=== PATIENT | female | born 1985 | race Caucasian/White ===

== ENCOUNTER 2018-07-10 15:48 | Emergency (ER) | payer OTHER ==
[2018-07-10 16:28] VITALS: RESP 18; TEMP 97.8
--- NOTE | 2018-07-10 16:54 | ED ---
General Adult HPI - General Chief complaint: Skin/Abscess/Foreign Body Stated complaint: Abcess on arm that has burst Source: patient Mode of arrival: ambulatory Limitations: no limitations - History of Present Illness Initial comments: Dictation was produced using [employer] dictation software. please excuse any grammatical, word or spelling errors. Chief Complaint: 33-year-old female past medical history of diabetes presents with right antecubital abscess. History of Present Illness:-year-old female presents with right antecubital abscess patient was seen at an outside emergency department 2 days ago. She states that yesterday the wound open with drainage of several months of purulent fluid. She was instructed to days ago to come to the emergency department however was unable to find chest rotation. She states that yesterday the wound open spontaneously with intercourse relief of pressure. Patient has any constitutional symptoms. She denies any IV drug abuse. Patient states she is prone to abscesses. Patient just found a primary care physician and has an appointment early next week. The ROS documented in this emergency department record has been reviewed and confirmed by me. Those systems with pertinent positive or negative responses have been documented in the HPI. All other systems are other negative and/or noncontributory. - Related Data Previous Rx's Medication Instructions Recorded Cephalexin [Keflex] 500 mg PO Q6HR 5 Days #20 cap 07/10/18 HYDROcodone/APAP 5-325MG [[place] 1 tab PO Q6HR PRN 3 Days #12 tab 07/10/18 5-325] Sulfamethox-Tmp 800-160Mg [Bactrim 1 tab PO Q12HR 5 Days #10 tab 07/10/18 DS 800-160 mg] Allergies Allergy/AdvReac Type Severity Reaction Status Date / Time No Known Allergies Allergy Verified 07/10/18 16:22 Review of Systems ROS Statement: Those systems with pertinent positive or pertinent negative responses have been documented in the HPI. ROS Other: All systems not noted in ROS Statement are negative. Past Medical History Past Medical History: Diabetes Mellitus History of Any Multi-Drug Resistant Organisms: None Reported Additional Past Surgical History / Comment(s): neck tumor removal, renal stents placed and removed Past Psychological History: No Psychological Hx Reported Smoking Status: Current every day smoker Past Alcohol Use History: None Reported Past Drug Use History: Marijuana General Exam - General Exam Comments Initial Comments: PHYSICAL EXAM: General Impression: Alert and oriented x3, not in acute distress HEENT: Normocephalic atraumatic, extra-ocular movements intact, pupils equal and reactive to light bilaterally, mucous membranes moist. Cardiovascular: Heart regular rate and rhythm, S1&S2 audible, no murmurs, rubs or gallops Chest: Lungs clear to auscultation bilaterally, no rhonchi, no wheeze, no rales Abdomen: Bowel sounds present, abdomen soft, non-tender, non-distended, no organomegaly Musculoskeletal: Pulses present and equal in all extremities, no peripheral edema Motor: Power 5/5 bilaterally, no focal deficits noted Neurological: CN II-XII grossly intact, no focal motor or sensory deficits noted Skin: Right antecubital abscess with large 2 x 0.5 cm opening. There is induration around the area however no significant erythema. Psych: Normal affect and mood Limitations: no limitations Course Vital Signs 07/10/18 16:22 Temperature 97.8 F Pulse Rate 100 Respiratory 18 Rate Blood Pressure 114/76 O2 Sat by Pulse 96 Oximetry Medical Decision Making - Medical Decision Making ED course: 33-year-old female presents with right antecubital upper extremity abscess. Patient has spontaneous drainage with large opening over top. Wound was irrigated and packing was placed. Patient is stable vital signs. Denies any constitutional symptoms. Patient has good follow-up with primary care physician early next week. She does have reliable transportation and can return to the emergency department should there be any worsening symptoms. No incision and drainage necessary given that patient has spontaneous drainage. Given patient's history of diabetes mellitus. Point of care blood sugar checked. Patient denies any . Patient's blood sugar is 541. Patient given prescription for Bactrim, Keflex and Columbia. Plan of care blood glucose is 541. Patient ordered BMP and urine . States that she doesn't want to stay for those labs. Patient given insulin she has a glucometer at home that she can monitor her sugars at home. Discussed with patient that she is likely a candidate for insulin therapy. She doesn't establish care with primary care physician. Patient given intravenous fluids and insulin. Patient not tachypnea. She is not complaining of other symptoms. No clinical suspicion for acidosis or hyperosmolar coma given the benign appearance. Patient given prescription for antibiotics. She states she does not want to wait for the results of her lab evaluation. Patient given prescriptions for antibiotics and pain medications. She told to follow-up with her primary care physician upon discharge. Told to return to the emergency Department with any worsening symptoms or notes a constitutional symptoms. Patient understandable agreeable. - Lab Data Lab Results 07/10/18 Range/Units 17:06 POC Glucose (mg/dL) 541 H (75-99) mg/dL POC Glu [employer] Supervisor ID Linda Puckett Disposition Clinical Impression: Abscess, Hyperglycemia Disposition: HOME SELF-CARE Condition: Good Instructions: Abscess (ED) Prescriptions: Cephalexin [Keflex] 500 mg PO Q6HR 5 Days #20 cap HYDROcodone/APAP 5-325MG [[place] 5-325] 1 tab PO Q6HR PRN 3 Days #12 tab PRN Reason: Pain Sulfamethox-Tmp 800-160Mg [Bactrim DS 800-160 mg] 1 tab PO Q12HR 5 Days #10 tab Is patient prescribed a controlled substance at d/c from ED?: Yes If prescribed controlled substance>3 days was MAPS reviewed?: Prescribed <3 Days Referrals: Michele Rangel PAC [Primary Care Provider] - 1-2 days Time of Disposition: 18:41
[2018-07-10 17:09] LABS: Glucose,Whole Blood 541 mg/dL (75-99)
[2018-07-10] MEDS ORDERED: SODIUM CHLORIDE 0.9% 1,000 ML IV STA (17:11)
[2018-07-10] MEDS ORDERED: INSULIN REGULAR 100 UNIT/ML VIAL SQ ONE (17:51)
[2018-07-10] MEDS ORDERED: HYDROcodone/APAP 5-325MG 1 EACH TAB PO STA (17:51)
[2018-07-10 18:55] VITALS: BP 125/82; PULSE 84
[2018-07-10 18:58] LABS: Glucose,Whole Blood 557 mg/dL (75-99)
== END 2018-07-10 18:54 | disposition home or self-care (01) ==
LOC: EC 15:48
DX: L02.413 Cutaneous abscess of right upper limb (principal); E11.65 Type 2 diabetes mellitus with hyperglycemia; F17.200 Nicotine dependence, unspecified, uncomplicated
CPT/HCPCS: 36415; 81025; 99283

== ENCOUNTER 2019-10-25 14:25 | Emergency (ER) | payer OTHER ==
[2019-10-25 14:41] VITALS: RESP 18
[2019-10-25] MEDS ORDERED: SODIUM CHLORIDE 0.9% 1,000 ML IV STA (15:16)
[2019-10-25] MEDS ORDERED: KETOROLAC 30 MG/ML 1 ML VIAL IVP STA (15:16)
[2019-10-25] MEDS ORDERED: PIPERACILLIN-TAZOBACTAM 3.375 GM in SODIUM CHLORIDE 0.9% 100 ML IVPB STA (15:16)
[2019-10-25] MEDS ORDERED: VANCOMYCIN IV PER PHARMACY 1 EACH MISC MISCELLANE PRN (15:17)
[2019-10-25] MEDS ORDERED: VANCOMYCIN 1,750 MG in SODIUM CHLORIDE 0.9% 500 ML 500 ML IVPB STA (15:23)
[2019-10-25 15:33] LABS: Basophils # (A) 0.1 k/uL (0-0.2); Basophils % (A) 1 %; Eosinophils # (A) 0.1 k/uL (0-0.7); Eosinophils % (A) 1 %; HCT 46.5 % (34.0-46.0); HGB 15.7 gm/dL (11.4-16.0); Lymphocytes # (A) 2.5 k/uL (1.0-4.8); Lymphocytes % (A) 28 %; MCH 28.1 pg (25.0-35.0); MCHC 33.9 g/dL (31.0-37.0); MCV 82.9 fL (80.0-100.0); Mean Platelet Volume 7.2; Monocytes # (A) 0.4 k/uL (0-1.0); Monocytes % (A) 4 %; Neutrophils # (A) 5.6 k/uL (1.3-7.7); Neutrophils % (A) 64 %; Platelet Count 324 k/uL (150-450); RBC 5.61 m/uL (3.80-5.40); RDW 14.9 % (11.5-15.5); WBC 8.8 k/uL (3.8-10.6)
[2019-10-25 15:45] LABS: ALT 26 U/L (4-34); AST 24 U/L (14-36); African American GFR (CKD) >90 (>60 ml/min/1.73 sqM); Albumin 4.5 g/dL (3.5-5.0); Alkaline Phosphatase 104 U/L (38-126); Anion Gap 11 mmol/L; Blood Urea Nitrogen 11 mg/dL (7-17); C Reactive Protein <5.0 mg/L (<10.0); Calcium 9.9 mg/dL (8.4-10.2); Carbon Dioxide 25 mmol/L (22-30); Chloride 105 mmol/L (98-107); Glucose 204 mg/dL (74-99); Non-African American GFR(CKD) >90 (>60 ml/min/1.73 sqM); Potassium 3.9 mmol/L (3.5-5.1); Sodium 141 mmol/L (137-145); Total Bilirubin 0.6 mg/dL (0.2-1.3); Total Protein 8.3 g/dL (6.3-8.2)
[2019-10-25 15:49] LABS: INR 0.9 (<1.2); Partial Thromboplastin Time 22.8 sec (22.0-30.0); Prothrombin Time 9.6 sec (9.0-12.0)
--- NOTE | 2019-10-25 15:53 | XR ---
EXAMINATION TYPE: XR hand complete LT DATE OF EXAM: 10/25/2019 COMPARISON: NONE HISTORY: Swelling and ulcerations of the first digit TECHNIQUE: Three views are submitted. FINDINGS: The osseous structures are intact. The joint spaces are preserved and there is no acute fracture or dislocation. Extensive soft tissue abnormality involving the first digit. Does appear to be loss of t he cortical margin of the proximal phalanx compatible with a degree of erosive or destructive change. Arthropathy involving the first carpal metacarpal joint and scaphotrapezial joint noted. IMPRESSION: 1. No definite acute fracture or dislocation if symptoms persist, follow-up study in 7 to 10 days wo uld be suggested. 2. Findings suspicious for osteomyelitis of the proximal phalanx first digit. Extensive soft tissue u lceration is noted.
[2019-10-25 16:24] LABS: Erythrocyte Sedimentation Rate 25 mm/hr (0-20)
[2019-10-25] MEDS ORDERED: MORPHINE SULFATE 4 MG/ML SYRINGE IVP STA (17:52)
--- NOTE | 2019-10-25 17:52 | ED ---
Recheck HPI - General Source: patient Mode of arrival: ambulatory Limitations: no limitations <Chyna Malik - Last Filed: 10/25/19 17:43> <Onofre Muhammad - Last Filed: 10/25/19 18:19> - General Chief Complaint: Recheck/Abnormal Lab/Rx Stated Complaint: lt hand infection Time Seen by Provider: 10/25/19 14:50 - History of Present Illness Initial Comments: Patient is a 34-year-old female presenting to emergency Department with complaints of left thumb infection has been ongoing for 3 months now. Patient states she had surgery on her left wrist in July 2019 and has been having problems with her left thumb ever since the surgery. Patient states the thumb has been black and she has been seeing a plastic surgeon and needed to have the thumb amputated however she needed to cancel the appointment over 3 times and so she was discharged as a patient. Patient states she's been having intermittent fevers as well as nausea and continued severe pain in her left thumb and hand. She denies chest pain, shortness of breath, belly pain. She has no other complaints at this time. She denies any other pertinent past medical history and states he takes no other medications. She denies drug use except for marijuana. Upon arrival to ER, patient was tachycardia at 123, rest of vitals normal. (Chyna Malik) - Related Data Previous Rx's Medication Instructions Recorded Cephalexin [Keflex] 500 mg PO Q6HR 5 Days #20 cap 07/10/18 HYDROcodone/APAP 5-325MG [[place] 1 tab PO Q6HR PRN 3 Days #12 tab 07/10/18 5-325] Sulfamethox-Tmp 800-160Mg [Bactrim 1 tab PO Q12HR 5 Days #10 tab 07/10/18 DS 800-160 mg] Allergies Allergy/AdvReac Type Severity Reaction Status Date / Time No Known Allergies Allergy Verified 10/25/19 14:37 Review of Systems ROS Other: All systems not noted in ROS Statement are negative. <Chyna Malik - Last Filed: 10/25/19 17:43> ROS Other: All systems not noted in ROS Statement are negative. <Onofre Muhammad - Last Filed: 10/25/19 18:19> ROS Statement: Those systems with pertinent positive or pertinent negative responses have been documented in the HPI. Past Medical History Past Medical History: Diabetes Mellitus History of Any Multi-Drug Resistant Organisms: None Reported Additional Past Surgical History / Comment(s): neck tumor removal, renal stents placed and removed Past Psychological History: No Psychological Hx Reported Smoking Status: Current every day smoker Past Alcohol Use History: None Reported Past Drug Use History: Marijuana <Chyna Malik Salvador - Last Filed: 10/25/19 17:43> General Exam Limitations: no limitations <Chyna Malik Salvador - Last Filed: 10/25/19 17:43> - General Exam Comments Initial Comments: GENERAL: Appears disheveled, in mild distress secondary to pain. HEAD: Atraumatic, normocephalic. EYES: Pupils equal round and reactive to light, extraocular movements intact, sclera anicteric, conjunctiva are normal. ENT: TMs normal, nares patent, oropharynx clear without exudates. Moist mucous membranes. NECK: Normal range of motion, supple without lymphadenopathy or JVD. LUNGS: Breath sounds clear to auscultation bilaterally and equal. No wheezes rales or rhonchi. HEART: Regular rate and rhythm without murmurs, rubs or gallops. ABDOMEN: Soft, nontender, normoactive bowel sounds. No guarding, no rebound. No masses appreciated. EXTREMITIES: Patient's left first phalanx is completely necrotic from the base of the thumb all the way distally. Patient also has moderate swelling along the first metacarpal as well as surrounding cellulitis. Patient has severe pain with palpation of the area as well as with range of motion. NEUROLOGICAL: Normal speech, normal gait. Patient has no sensation of the left first digit. PSYCH: Normal mood, normal affect. SKIN: Warm, Dry, normal turgor. Necrotic left thumb as well as surrounding cellulitis and new ulcers present. (Chyna Malik) Course <Onofre Muhammad - Last Filed: 10/25/19 18:19> Vital Signs 10/25/19 10/25/19 14:38 18:00 Temperature 97.9 F 98.1 F Pulse Rate 123 H 104 H Respiratory 18 18 Rate Blood Pressure 142/70 121/95 O2 Sat by Pulse 96 98 Oximetry - Reevaluation(s) Reevaluation #1: 10/25/19 18:18 PA supervision: I proceeded [id number] evaluation the patient she has had a blackened left thumb for almost 3 months he states she's missed several plastic surgery appointments due to weather and different situations. She presents today because of some increased pain to the left hand and thumb. The examination reveals a necrotic left thumb consistent with dry gangrene. Her thenar eminence on the lefterythema with increased localized temperature no definite crepitation. It is consistent with a cellulitis. The patient will be transferred to [facility] by ambulance for inpatient treatment (Onofre Muhammad) Medical Decision Making - Lab Data Result diagrams: 10/25/19 15:08 10/25/19 15:08 <Chyna Malik - Last Filed: 10/25/19 17:43> - Lab Data Result diagrams: 10/25/19 15:08 10/25/19 15:08 <Onofre Muhammad - Last Filed: 10/25/19 18:19> - Medical Decision Making Patient is a 34-year-old female presenting with a left thumb is completely necrotic 3 months. Patient was tach and arrival, rest of vitals normal. X-ray of the left thumb shows suspicious for osteomyelitis, extensive soft tissue ulceration. Lab work shows ESR 25, lactic acid 1.7, white count is normal. Wound culture as well as blood cultures are pending at this time. Patient was given pain control, fluids, Zosyn, Vanco. Spoke with our on-call orthopedic, Dr. Flores who was not comfortable with this patient and recommended transfer. I spoke with the [facility] trauma surgeon, Dr. Moralez who did accept the patient. Patient will be transferred via EMS to the [facility], Dr. James was accepting ER doctor. Patient is in agreement with this plan of care. Spoke with Dr. Muhammad who agrees to this plan of care. (Chyna Malik) - Lab Data Lab Results 10/25/19 10/25/19 10/25/19 Range/Units 15:08 15:08 15:08 WBC 8.8 (3.8-10.6) k/uL RBC 5.61 H (3.80-5.40) m/uL Hgb 15.7 (11.4-16.0) gm/dL Hct 46.5 H (34.0-46.0) % MCV 82.9 (80.0-100.0) fL MCH 28.1 (25.0-35.0) pg MCHC 33.9 (31.0-37.0) g/dL RDW 14.9 (11.5-15.5) % Plt Count 324 (150-450) k/uL Neutrophils % 64 % Lymphocytes % 28 % Monocytes % 4 % Eosinophils % 1 % Basophils % 1 % Neutrophils # 5.6 (1.3-7.7) k/uL Lymphocytes # 2.5 (1.0-4.8) k/uL Monocytes # 0.4 (0-1.0) k/uL Eosinophils # 0.1 (0-0.7) k/uL Basophils # 0.1 (0-0.2) k/uL ESR 25 H (0-20) mm/hr PT (9.0-12.0) sec INR (<1.2) APTT (22.0-30.0) sec Sodium 141 (137-145) mmol/L Potassium 3.9 (3.5-5.1) mmol/L Chloride 105 (98-107) mmol/L Carbon Dioxide 25 (22-30) mmol/L Anion Gap 11 mmol/L BUN 11 (7-17) mg/dL Creatinine 0.71 (0.52-1.04) mg/dL Est GFR (CKD-EPI)AfAm >90 (>60 ml/min/1.73 sqM) Est GFR (CKD-EPI)NonAf >90 (>60 ml/min/1.73 sqM) Glucose 204 H (74-99) mg/dL Plasma Lactic Acid Luke 1.7 (0.7-2.0) mmol/L Calcium 9.9 (8.4-10.2) mg/dL Total Bilirubin 0.6 (0.2-1.3) mg/dL AST 24 (14-36) U/L ALT 26 (4-34) U/L Alkaline Phosphatase 104 (38-126) U/L C-Reactive Protein <5.0 (<10.0) mg/L Total Protein 8.3 H (6.3-8.2) g/dL Albumin 4.5 (3.5-5.0) g/dL 10/25/19 Range/Units 15:08 WBC (3.8-10.6) k/uL RBC (3.80-5.40) m/uL Hgb (11.4-16.0) gm/dL Hct (34.0-46.0) % MCV (80.0-100.0) fL MCH (25.0-35.0) pg MCHC (31.0-37.0) g/dL RDW (11.5-15.5) % Plt Count (150-450) k/uL Neutrophils % % Lymphocytes % % Monocytes % % Eosinophils % % Basophils % % Neutrophils # (1.3-7.7) k/uL Lymphocytes # (1.0-4.8) k/uL Monocytes # (0-1.0) k/uL Eosinophils # (0-0.7) k/uL Basophils # (0-0.2) k/uL ESR (0-20) mm/hr PT 9.6 (9.0-12.0) sec INR 0.9 (<1.2) APTT 22.8 (22.0-30.0) sec Sodium (137-145) mmol/L Potassium (3.5-5.1) mmol/L Chloride (98-107) mmol/L Carbon Dioxide (22-30) mmol/L Anion Gap mmol/L BUN (7-17) mg/dL Creatinine (0.52-1.04) mg/dL Est GFR (CKD-EPI)AfAm (>60 ml/min/1.73 sqM) Est GFR (CKD-EPI)NonAf (>60 ml/min/1.73 sqM) Glucose (74-99) mg/dL Plasma Lactic Acid Luke (0.7-2.0) mmol/L Calcium (8.4-10.2) mg/dL Total Bilirubin (0.2-1.3) mg/dL AST (14-36) U/L ALT (4-34) U/L Alkaline Phosphatase (38-126) U/L C-Reactive Protein (<10.0) mg/L Total Protein (6.3-8.2) g/dL Albumin (3.5-5.0) g/dL Disposition - Out of Hospital Transfer - Req. Specs Out of Hospital Transfer - Requested Specifics: Other Emergency Center ([facility]) <Chyna Malik - Last Filed: 10/25/19 17:43> <Onofre Muhammad - Last Filed: 10/25/19 18:19> Clinical Impression: Necrosis of finger, Cellulitis of left hand Disposition: OTHER INSTITUTION NOT DEFINED Condition: Stable Referrals: Jose Musa DO [Primary Care Provider] - 1-2 days
[2019-10-25 18:13] VITALS: BP 121/95; PULSE 104; TEMP 98.1
[2019-10-26] MEDS ORDERED: VANCOMYCIN 1,500 MG in SODIUM CHLORIDE 0.9% 250 ML IVPB SCH (06:00)
== END 2019-10-25 18:36 | disposition other institution (70) ==
LOC: EC 14:25
DX: L03.114 Cellulitis of left upper limb (principal); E11.52 Type 2 diabetes mellitus with diabetic peripheral angiopathy with gangrene; I96 Gangrene, not elsewhere classified; F17.200 Nicotine dependence, unspecified, uncomplicated
CPT/HCPCS: 36415; 80053; 85652; 83605; 85025; 85610; 85730; 86140; 87040; 87070; 87205; 73130; 99284; 96365; 96367; 96375 ×2; J2543; J3370; J2270; J1885

== ENCOUNTER 2020-01-25 02:04 | Observation (INO) | payer OTHER ==
[2020-01-25] MEDS ORDERED: LORazepam 2 MG/ML INJ IV STA (02:13)
[2020-01-25] MEDS ORDERED: ONDANSETRON 4 MG/2 ML VIAL IVP STA (02:13)
[2020-01-25] MEDS ORDERED: PANTOPRAZOLE 40 MG/10 ML VIAL IVP STA (02:13)
[2020-01-25] MEDS ORDERED: SODIUM CHLORIDE 0.9% 1,000 ML IV STA (02:14)
--- NOTE | 2020-01-25 02:22 | ED ---
Overdose HPI - General Chief Complaint: Overdose Stated Complaint: Overdose Time Seen by Provider: 01/25/20 02:04 Source: police, EMS, RN notes reviewed, old records reviewed Mode of arrival: EMS Limitations: no limitations - History of Present Illness Initial Comments: This is a 35-year-old female DF for evaluation patient Dese for evaluation regards to overdose spots given Narcan improved. In route here patient remained combative and not really interested in getting history regarding possible overdose low she has no history of overdose and heroin use a blood sugar was checked here in the ER blood sugar was severely elevated lab values were sent. Ration still provides no significant answers to questioning MD Complaint: accidental overdose -: unknown Intent: unwilling to say How Overdose Was Discovered: family/friend present at time Context: Intentional Overdose: drug/ETOH problems Context: Accidental Overdose: wanted to get high Associated Symptoms: depression Treatments Prior to Arrival: narcan - Related Data Previous Rx's Medication Instructions Recorded Cephalexin [Keflex] 500 mg PO Q6HR 5 Days #20 cap 07/10/18 HYDROcodone/APAP 5-325MG [[place] 1 tab PO Q6HR PRN 3 Days #12 tab 07/10/18 5-325] Sulfamethox-Tmp 800-160Mg [Bactrim 1 tab PO Q12HR 5 Days #10 tab 07/10/18 DS 800-160 mg] Allergies Allergy/AdvReac Type Severity Reaction Status Date / Time No Known Allergies Allergy Verified 01/25/20 02:09 Review of Systems ROS Statement: Those systems with pertinent positive or pertinent negative responses have been documented in the HPI. ROS Other: All systems not noted in ROS Statement are negative. Past Medical History Past Medical History: Diabetes Mellitus History of Any Multi-Drug Resistant Organisms: None Reported Additional Past Surgical History / Comment(s): neck tumor removal, renal stents placed and removed Past Psychological History: No Psychological Hx Reported Smoking Status: Current every day smoker Past Alcohol Use History: None Reported Past Drug Use History: Heroin, Marijuana General Exam Limitations: no limitations General appearance: anxious Head exam: Present: atraumatic, normocephalic, normal inspection Eye exam: Present: normal appearance, PERRL, EOMI. Absent: scleral icterus, conjunctival injection, periorbital swelling ENT exam: Present: normal exam, mucous membranes moist Neck exam: Present: normal inspection. Absent: tenderness, meningismus, lymphadenopathy Respiratory exam: Present: normal lung sounds bilaterally. Absent: respiratory distress, wheezes, rales, rhonchi, stridor Cardiovascular Exam: Present: normal rhythm, tachycardia, normal heart sounds. Absent: systolic murmur, diastolic murmur, rubs, gallop, clicks GI/Abdominal exam: Present: soft, normal bowel sounds. Absent: distended, tenderness, guarding, rebound, rigid Extremities exam: Present: normal inspection, full ROM, normal capillary refill. Absent: tenderness, pedal edema, joint swelling, calf tenderness Back exam: Present: normal inspection Neurological exam: Present: alert, oriented X3, CN II-XII intact Psychiatric exam: Present: normal affect, normal mood Skin exam: Present: warm, dry, intact, normal color. Absent: rash Course Vital Signs 01/25/20 01/25/20 01/25/20 02:05 03:35 04:24 Temperature 97.6 F Pulse Rate 117 H 112 H 104 H Respiratory 24 20 16 Rate Blood Pressure 120/86 131/87 141/91 O2 Sat by Pulse 100 94 L 94 L Oximetry - Reevaluation(s) Reevaluation #1: 01/25/20 05:20 Patient did respond to Narcan on arrival in the ER Record is reviewed Reevaluation #2: 01/25/20 05:21 Elevated blood sugar, patient given hydration and adequate treatment - Consultations Consultation #1: Spoke with sound were agreeable for admission Medical Decision Making - Medical Decision Making 35 female DF found an overdose [place] heroin overdose O patient does not admit, patient also found to be hyperglycemic and episode of hypoglycemic and likely dehydration no significant evidence of DKA likely malnutrition, will admit for left foot monitoring and improvement - Lab Data Result diagrams: 01/25/20 04:08 01/25/20 04:08 Lab Results 01/25/20 01/25/20 01/25/20 Range/Units 03:23 03:43 04:08 WBC 14.5 H (3.8-10.6) k/uL RBC 5.83 H (3.80-5.40) m/uL Hgb 16.9 H (11.4-16.0) gm/dL Hct 49.4 H (34.0-46.0) % MCV 84.7 (80.0-100.0) fL MCH 29.0 (25.0-35.0) pg MCHC 34.2 (31.0-37.0) g/dL RDW 13.1 (11.5-15.5) % Plt Count 298 (150-450) k/uL Neutrophils % 86 % Lymphocytes % 8 % Monocytes % 3 % Eosinophils % 1 % Basophils % 1 % Neutrophils # 12.5 H (1.3-7.7) k/uL Lymphocytes # 1.1 (1.0-4.8) k/uL Monocytes # 0.5 (0-1.0) k/uL Eosinophils # 0.2 (0-0.7) k/uL Basophils # 0.1 (0-0.2) k/uL Sodium (137-145) mmol/L Potassium (3.5-5.1) mmol/L Chloride (98-107) mmol/L Carbon Dioxide (22-30) mmol/L Anion Gap mmol/L BUN (7-17) mg/dL Creatinine (0.52-1.04) mg/dL Est GFR (CKD-EPI)AfAm (>60 ml/min/1.73 sqM) Est GFR (CKD-EPI)NonAf (>60 ml/min/1.73 sqM) Glucose (74-99) mg/dL POC Glucose (mg/dL) 545 H (75-99) mg/dL POC Glu Transport Conductor ID Helnea Valle Plasma Lactic Acid Luke (0.7-2.0) mmol/L Calcium (8.4-10.2) mg/dL Total Bilirubin (0.2-1.3) mg/dL AST (14-36) U/L ALT (4-34) U/L Alkaline Phosphatase (38-126) U/L Total Protein (6.3-8.2) g/dL Albumin (3.5-5.0) g/dL Urine Color Yellow Urine Appearance Cloudy H (Clear) Urine pH 5.5 (5.0-8.0) Ur Specific [place] 1.030 (1.001-1.035) Urine Protein 1+ H (Negative) Urine Glucose (UA) 4+ H (Negative) Urine Ketones 2+ H (Negative) Urine Blood Negative (Negative) Urine Nitrite Negative (Negative) Urine Bilirubin Negative (Negative) Urine Urobilinogen <2.0 (<2.0) mg/dL Ur Leukocyte Esterase Trace H (Negative) Urine RBC 2 (0-5) /hpf Urine WBC 8 H (0-5) /hpf Ur Squamous Epith Cells <1 (0-4) /hpf Urine Bacteria Many H (None) /hpf Salicylates mg/dL Urine Opiates Screen Detected H (NotDetected) Ur Oxycodone Screen Not Detected (NotDetected) Urine Methadone Screen Not Detected (NotDetected) Ur Propoxyphene Screen Not Detected (NotDetected) Acetaminophen ug/mL Ur Barbiturates Screen Not Detected (NotDetected) U Tricyclic Antidepress Not Detected (NotDetected) Ur Phencyclidine Scrn Not Detected (NotDetected) Ur Amphetamines Screen Detected H (NotDetected) U Methamphetamines Scrn Detected H (NotDetected) U Benzodiazepines Scrn Not Detected (NotDetected) Urine Cocaine Screen Detected H (NotDetected) U Marijuana (THC) Screen Detected H (NotDetected) Serum Alcohol mg/dL Acetone, Qual (Negative) 01/25/20 01/25/20 Range/Units 04:08 04:08 WBC (3.8-10.6) k/uL RBC (3.80-5.40) m/uL Hgb (11.4-16.0) gm/dL Hct (34.0-46.0) % MCV (80.0-100.0) fL MCH (25.0-35.0) pg MCHC (31.0-37.0) g/dL RDW (11.5-15.5) % Plt Count (150-450) k/uL Neutrophils % % Lymphocytes % % Monocytes % % Eosinophils % % Basophils % % Neutrophils # (1.3-7.7) k/uL Lymphocytes # (1.0-4.8) k/uL Monocytes # (0-1.0) k/uL Eosinophils # (0-0.7) k/uL Basophils # (0-0.2) k/uL Sodium 135 L (137-145) mmol/L Potassium 4.1 (3.5-5.1) mmol/L Chloride 97 L (98-107) mmol/L Carbon Dioxide 24 (22-30) mmol/L Anion Gap 14 mmol/L BUN 12 (7-17) mg/dL Creatinine 0.46 L (0.52-1.04) mg/dL Est GFR (CKD-EPI)AfAm >90 (>60 ml/min/1.73 sqM) Est GFR (CKD-EPI)NonAf >90 (>60 ml/min/1.73 sqM) Glucose 483 H (74-99) mg/dL POC Glucose (mg/dL) (75-99) mg/dL POC Glu Transport Conductor ID Plasma Lactic Acid Luke 0.9 (0.7-2.0) mmol/L Calcium 9.4 (8.4-10.2) mg/dL Total Bilirubin 0.8 (0.2-1.3) mg/dL AST 29 (14-36) U/L ALT 22 (4-34) U/L Alkaline Phosphatase 130 H (38-126) U/L Total Protein 7.7 (6.3-8.2) g/dL Albumin 4.1 (3.5-5.0) g/dL Urine Color Urine Appearance (Clear) Urine pH (5.0-8.0) Ur Specific [place] (1.001-1.035) Urine Protein (Negative) Urine Glucose (UA) (Negative) Urine Ketones (Negative) Urine Blood (Negative) Urine Nitrite (Negative) Urine Bilirubin (Negative) Urine Urobilinogen (<2.0) mg/dL Ur Leukocyte Esterase (Negative) Urine RBC (0-5) /hpf Urine WBC (0-5) /hpf Ur Squamous Epith Cells (0-4) /hpf Urine Bacteria (None) /hpf Salicylates <1.0 mg/dL Urine Opiates Screen (NotDetected) Ur Oxycodone Screen (NotDetected) Urine Methadone Screen (NotDetected) Ur Propoxyphene Screen (NotDetected) Acetaminophen <10.0 ug/mL Ur Barbiturates Screen (NotDetected) U Tricyclic Antidepress (NotDetected) Ur Phencyclidine Scrn (NotDetected) Ur Amphetamines Screen (NotDetected) U Methamphetamines Scrn (NotDetected) U Benzodiazepines Scrn (NotDetected) Urine Cocaine Screen (NotDetected) U Marijuana (THC) Screen (NotDetected) Serum Alcohol <10 mg/dL Acetone, Qual Positive (Negative) - Radiology Data Radiology results: report reviewed (Chest x-ray shows left lower lobe infiltrate could be aspiration versus early pneumonia), image reviewed Disposition Clinical Impression: Accidental drug overdose, Poisoning by opiates and related narcotics, other, Hyperglycemia, Pneumonia Disposition: ADMITTED IP TO THIS [facility] Condition: Fair Instructions (If sedation given, give patient instructions): Adult Overdose (ED) Is patient prescribed a controlled substance at d/c from ED?: No Referrals: None,Stated [Primary Care Provider] - 1-2 days
[2020-01-25] MEDS ORDERED: ONDANSETRON ODT 4 MG TAB PO STA (02:24)
[2020-01-25] MEDS ORDERED: LORazepam 2 MG/ML INJ IM STA (02:24)
[2020-01-25 03:26] LABS: Glucose,Whole Blood 545 mg/dL (75-99)
--- NOTE | 2020-01-25 03:32 | XR ---
EXAMINATION TYPE: XR chest 1V portable DATE OF EXAM: 01/25/2020 COMPARISON: NONE HISTORY: Short of breath TECHNIQUE: FINDINGS: Heart is normal. Lungs are clear of consolidation. There are no hilar masses. Costophrenic angles are clear. Bony thorax is intact. There is some coarse interstitial density left lower lobe. IMPRESSION: There is some interstitial infiltrate left lower lobe. Normal heart. No heart failure.
[2020-01-25 03:56] LABS: Appearance,Urine Cloudy (Clear); Bacteria,Urine Many /hpf; Bilirubin,Urine Negative (Negative); Blood,Urine Negative (Negative); Color,Urine Yellow; Glucose,Urine (UA) 4+ (Negative); Leukocyte Esterase,Urine Trace (Negative); Nitrite,Urine Negative (Negative); PH, Urine 5.5 (5.0-8.0); Protein,Urine 1+ (Negative); RBC,Urine 2 /hpf (0-5); Squamous Epithelial Cell,Urine <1 /hpf (0-4); Urobilinogen,Urine <2.0 mg/dL (<2.0); WBC,Urine 8 /hpf (0-5)
[2020-01-25 03:57] LABS: Ketones,Urine 2+ (Negative)
[2020-01-25 04:02] LABS: Amphetamine Screen,Urine Detected (NotDetected); Barbiturate Screen,Urine Not Detected (NotDetected); Benzodiazepines Screen,Urine Not Detected (NotDetected); Cocaine Screen,Urine Detected (NotDetected); Methadone Screen, Urine Not Detected (NotDetected); Opiate Screen,Urine Detected (NotDetected); Oxycodone Screen, Urine Not Detected (NotDetected); Phencyclidine Screen,Urine Not Detected (NotDetected); Tricyclic Antidepressant,Urine Not Detected (NotDetected); Urn Cannabinoid Scrn Detected (NotDetected)
[2020-01-25] MEDS ORDERED: SODIUM CHLORIDE 0.9% 1,000 ML IV ONE ×2 (04:11→05:02)
[2020-01-25 04:16] LABS: Basophils # (A) 0.1 k/uL (0-0.2); Basophils % (A) 1 %; Eosinophils # (A) 0.2 k/uL (0-0.7); Eosinophils % (A) 1 %; HCT 49.4 % (34.0-46.0); HGB 16.9 gm/dL (11.4-16.0); Lymphocytes # (A) 1.1 k/uL (1.0-4.8); Lymphocytes % (A) 8 %; MCHC 34.2 g/dL (31.0-37.0); MCV 84.7 fL (80.0-100.0); Mean Platelet Volume 7.7; Monocytes # (A) 0.5 k/uL (0-1.0); Monocytes % (A) 3 %; Neutrophils # (A) 12.5 k/uL (1.3-7.7); Neutrophils % (A) 86 %; Platelet Count 298 k/uL (150-450); RBC 5.83 m/uL (3.80-5.40); RDW 13.1 % (11.5-15.5); WBC 14.5 k/uL (3.8-10.6)
[2020-01-25 04:27] LABS: Acetaminophen <10.0 ug/mL; African American GFR (CKD) >90 (>60 ml/min/1.73 sqM); Albumin 4.1 g/dL (3.5-5.0); Alcohol <10 mg/dL; Alkaline Phosphatase 130 U/L (38-126); Anion Gap 14 mmol/L; Blood Urea Nitrogen 12 mg/dL (7-17); Calcium 9.4 mg/dL (8.4-10.2); Carbon Dioxide 24 mmol/L (22-30); Chloride 97 mmol/L (98-107); Glucose 483 mg/dL (74-99); Non-African American GFR(CKD) >90 (>60 ml/min/1.73 sqM); Salicylate <1.0 mg/dL; Sodium 135 mmol/L (137-145); Total Bilirubin 0.8 mg/dL (0.2-1.3); Total Protein 7.7 g/dL (6.3-8.2)
[2020-01-25 04:29] LABS: Potassium 4.1 mmol/L (3.5-5.1)
[2020-01-25 04:30] LABS: ALT 22 U/L (4-34); AST 29 U/L (14-36)
[2020-01-25] MEDS ORDERED: SODIUM CHLORIDE 0.9% 1,000 ML IV SCH (05:15)
[2020-01-25] MEDS ORDERED: INSULIN REGULAR 100 UNIT in SODIUM CHLORIDE 0.9% 100 ML IV SCH (05:15)
[2020-01-25 05:39] LABS: Glucose,Whole Blood 384 mg/dL (75-99)
[2020-01-25 06:10] LABS: Glucose,Whole Blood 398 mg/dL (75-99)
--- NOTE | 2020-01-25 06:56 | P.HPIM ---
History of Present Illness H&P Date: 01/25/20 Chief Complaint: altered mental status 35-year-old female with diabetes mellitus, polysubstance abuse patient unable to provide any meaningful history, she does not seem interested in the interview and prefers to sleep. history obtained by reviewing medical records. Patient comes in due to altered mental status family brought the patient for evaluation with report of possible overdose on opiates. Patient responded to Narcan and became more responsive. She declines any suicidal attempts she claims that she was using marijuana only for recreational purposes and maybe accidentally overdosed. However patient does have history of alcohol and drug abuse. and her urine drug screen showed positive to multiple substances. Patient not cooperative with history taking she doesn't answer questions properly. however, when asked about suicide ideation , she opened her eyes and looked straight at me and said no way. She was also found to have hyperglycemia with no significant acidosis or wide anion gap. She was started on insulin drip for blood sugar control Review of Systems ROS unobtainable: due to mental status Past Medical History Past Medical History: Diabetes Mellitus History of Any Multi-Drug Resistant Organisms: None Reported Additional Past Surgical History / Comment(s): neck tumor removal, renal stents placed and removed Past Psychological History: No Psychological Hx Reported Smoking Status: Current every day smoker Past Alcohol Use History: None Reported Past Drug Use History: Heroin, Marijuana - Past Family History Family Family Medical History: Unable to Obtain Medications and Allergies Home Medications Medication Instructions Recorded Confirmed Type Cephalexin [Keflex] 500 mg PO Q6HR 5 Days #20 cap 07/10/18 Rx HYDROcodone/APAP 5-325MG [[place] 1 tab PO Q6HR PRN 3 Days #12 tab 07/10/18 Rx 5-325] Sulfamethox-Tmp 800-160Mg [Bactrim 1 tab PO Q12HR 5 Days #10 tab 07/10/18 Rx DS 800-160 mg] Allergies Allergy/AdvReac Type Severity Reaction Status Date / Time No Known Allergies Allergy Verified 01/25/20 02:09 Physical Exam Vitals: Vital Signs Temp Pulse Pulse Resp BP BP Pulse Ox 01/25/20 06:14 97.7 F 99 18 139/80 96 01/25/20 05:41 101 H 16 136/97 96 01/25/20 05:26 96 01/25/20 04:24 104 H 16 141/91 94 L 01/25/20 03:35 112 H 20 131/87 94 L 01/25/20 02:05 97.6 F 117 H 24 120/86 100 Intake and Output 01/24/20 01/24/20 01/25/20 14:59 22:59 06:59 Intake Total 2.749 Output Total 0 Balance 2.749 Intake: Intake, IV Titration 2.749 Amount Insulin Regular 100 unit 2.749 In Sodium Chloride 0.9% 100 ml @ 0.05 UNITS/KG/HR 4.581 mls/hr IV .Q22H3M [facility] Rx#:[id number] Output: Urine 0 Stool 0 Other: Voiding Method Diaper Weight 90.718 kg not cooperative with interview and exam Constitutional: No acute distress, sleeping, opens eyes to verbal stimulation and makes eye contact , then she goes to sleep and selectively answers Eyes: Anicteric sclerae, moist conjunctiva, Pupils equal round reactive to light ENMT: NC/AT Oropharynx clear, no erythema, or exudates Neck: Supple, FROM, no masses, or JVD No carotid bruits No thyromegaly Lungs: Clear to auscultation Clear to percussion Normal respiratory effort, no accessory muscle use Cardiovascular: Heart regular in rate and rhythm, No murmurs, gallops, or rubs No peripheral edema Abdominal: Soft Nontender, no guarding, rebound or rigidity Abdomen moving with respiration Normoactive bowel sounds No hepatomegaly, No splenomegaly No palpable mass No abdominal wall hernia noted Skin: Normal temperature, tone, texture, turgor No induration No subcutaneous nodules No rash, lesions No ulcers Extremities: No digital cyanosis No clubbing Pedal pulses intact and symmetrical Radial pulses intact and symmetrical No calf tenderness Psychiatric: sleeping, oriented to place person and time Neuro patient did not cooperate with neuro exam , moving all her extremities purposefuly Lymphatics: no palpable cervical or supraclavicular , or inguinal lymph nodes Results CBC & Chem 7: 01/25/20 04:08 01/25/20 04:08 Labs: Abnormal Lab Results - Last 24 Hours (Table) 01/25/20 01/25/20 01/25/20 Range/Units 03:23 03:43 04:08 WBC 14.5 H (3.8-10.6) k/uL RBC 5.83 H (3.80-5.40) m/uL Hgb 16.9 H (11.4-16.0) gm/dL Hct 49.4 H (34.0-46.0) % Neutrophils # 12.5 H (1.3-7.7) k/uL Sodium (137-145) mmol/L Chloride (98-107) mmol/L Creatinine (0.52-1.04) mg/dL Glucose (74-99) mg/dL POC Glucose (mg/dL) 545 H (75-99) mg/dL Alkaline Phosphatase (38-126) U/L Urine Appearance Cloudy H (Clear) Urine Protein 1+ H (Negative) Urine Glucose (UA) 4+ H (Negative) Urine Ketones 2+ H (Negative) Ur Leukocyte Esterase Trace H (Negative) Urine WBC 8 H (0-5) /hpf Urine Bacteria Many H (None) /hpf Urine Opiates Screen Detected H (NotDetected) Ur Amphetamines Screen Detected H (NotDetected) U Methamphetamines Scrn Detected H (NotDetected) Urine Cocaine Screen Detected H (NotDetected) U Marijuana (THC) Screen Detected H (NotDetected) 01/25/20 01/25/20 01/25/20 Range/Units 04:08 05:37 06:09 WBC (3.8-10.6) k/uL RBC (3.80-5.40) m/uL Hgb (11.4-16.0) gm/dL Hct (34.0-46.0) % Neutrophils # (1.3-7.7) k/uL Sodium 135 L (137-145) mmol/L Chloride 97 L (98-107) mmol/L Creatinine 0.46 L (0.52-1.04) mg/dL Glucose 483 H (74-99) mg/dL POC Glucose (mg/dL) 384 H 398 H (75-99) mg/dL Alkaline Phosphatase 130 H (38-126) U/L Urine Appearance (Clear) Urine Protein (Negative) Urine Glucose (UA) (Negative) Urine Ketones (Negative) Ur Leukocyte Esterase (Negative) Urine WBC (0-5) /hpf Urine Bacteria (None) /hpf Urine Opiates Screen (NotDetected) Ur Amphetamines Screen (NotDetected) U Methamphetamines Scrn (NotDetected) Urine Cocaine Screen (NotDetected) U Marijuana (THC) Screen (NotDetected) Assessment and Plan Assessment: 35-year-old female with depression and polysubstance abuse and diabetes. Patient brought in by family due to altered mental status she was thought to have overdosed on drugs. Responded well to Narcan also found to be hyperglycemic admitted for further evaluation and blood sugar control anticipated length of stay less than two midnight Acute metabolic encephalopathy Suspected accidental overdose on heroin Hyperglycemia with history of diabetes mellitus polysubstance abuse reactive leukocytosis 2/2 hyperglycemia Narcan when necessary Due to polysubstance abuse Responded to Narcan suspected overdose on heroin Insulin drip, close monitoring of electrolytes and blood sugar psych eval IVF hydration neuro checks fall precautions DVT prophylaxis heparin subcu 3 times a day CODE STATUS:full code Discussed with: Patient, ER Anticipated length of stay < than [address]: pending clinical course A total of 75 minutes was spent on the care of this complex patient more than 50% of the time was spent in counseling and care coordination.
[2020-01-25 07:06] LABS: Glucose,Whole Blood 338 mg/dL (75-99)
[2020-01-25] MEDS: HEPARIN SODIUM,PORCINE 5,000 UNIT/ML 1 ML VIAL SQ SCH ×3 (07:50→23:08)
[2020-01-25 08:08] LABS: Glucose,Whole Blood 259 mg/dL (75-99)
[2020-01-25 08:59] LABS: Glucose,Whole Blood 184 mg/dL (75-99)
[2020-01-25 09:02] LABS: African American GFR (CKD) >90 (>60 ml/min/1.73 sqM); Anion Gap 6 mmol/L; Blood Urea Nitrogen 12 mg/dL (7-17); Carbon Dioxide 32 mmol/L (22-30); Chloride 104 mmol/L (98-107); Glucose 179 mg/dL (74-99); Non-African American GFR(CKD) >90 (>60 ml/min/1.73 sqM); Phosphorus 3.4 mg/dL (2.5-4.5); Potassium 3.9 mmol/L (3.5-5.1); Sodium 142 mmol/L (137-145)
[2020-01-25 09:36] LABS: HCT 49.8 % (34.0-46.0); HGB 16.4 gm/dL (11.4-16.0); MCH 28.4 pg (25.0-35.0); MCHC 32.9 g/dL (31.0-37.0); MCV 86.4 fL (80.0-100.0); Mean Platelet Volume 7.9; Platelet Count 290 k/uL (150-450); RBC 5.77 m/uL (3.80-5.40); RDW 13.2 % (11.5-15.5); WBC 17.9 k/uL (3.8-10.6)
--- NOTE | 2020-01-25 10:03 | XR ---
EXAMINATION TYPE: XR chest 1V portable DATE OF EXAM: 01/25/2020 COMPARISON: 01/25/2020 HISTORY: Cough TECHNIQUE: Single frontal view of the chest is obtained. FINDINGS: Left lower lobe infiltrate persists. The cardiac silhouette size is within normal limits. The osseous structures are intact. IMPRESSION: 1. Left lower lobe infiltrate.
[2020-01-25 10:09] LABS: Glucose,Whole Blood 153 mg/dL (75-99)
[2020-01-25] MEDS: ONDANSETRON 4 MG/2 ML VIAL IVP PRN ×2 (10:17→17:43)
[2020-01-25] MEDS: SODIUM CHLORIDE 0.9% 1,000 ML IV SCH ×2 (10:17→15:40)
[2020-01-25 12:14] LABS: Glucose,Whole Blood 224 mg/dL (75-99)
[2020-01-25 12:32] LABS: African American GFR (CKD) >90 (>60 ml/min/1.73 sqM); Anion Gap 12 mmol/L; Blood Urea Nitrogen 11 mg/dL (7-17); Carbon Dioxide 23 mmol/L (22-30); Chloride 104 mmol/L (98-107); Glucose 206 mg/dL (74-99); Non-African American GFR(CKD) >90 (>60 ml/min/1.73 sqM); Phosphorus 3.3 mg/dL (2.5-4.5); Sodium 139 mmol/L (137-145)
[2020-01-25 12:33] LABS: Potassium 4.5 mmol/L (3.5-5.1)
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
[2020-01-25] MEDS: SERTRALINE 50 MG TAB PO SCH (13:25)
[2020-01-25] MEDS: INSULIN ASPART (NovoLOG) 100 UNIT/ML VIAL SQ SCH ×3 (13:25→21:08)
[2020-01-25 15:03] VITALS: BMI 32.3
[2020-01-25] MEDS: BACITRACIN 500 UNIT/GM OINT 28.4 GM TUBE TOPICAL SCH ×2 (15:39→21:09)
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
[2020-01-25 17:29] LABS: Glucose,Whole Blood 318 mg/dL (75-99)
[2020-01-25] MEDS: AZITHROMYCIN 500 MG TAB PO SCH (17:42)
[2020-01-25] MEDS: AMPICILLIN-SULBACTAM 3 GM in SODIUM CHLORIDE 0.9% 100 ML IVPB SCH ×2 (18:30→23:06)
[2020-01-25 20:50] LABS: Glucose,Whole Blood 221 mg/dL (75-99)
[2020-01-25] MEDS ORDERED: INSULIN DETEMIR (LEVEMIR) 100 UNIT/ML SYR SQ SCH (21:00)
[2020-01-25] MEDS ORDERED: traZODone HCL 50 MG TAB PO SCH (21:00)
[2020-01-26] MEDS: SODIUM CHLORIDE 0.9% 1,000 ML IV SCH (02:10)
[2020-01-26] MEDS: AMPICILLIN-SULBACTAM 3 GM in SODIUM CHLORIDE 0.9% 100 ML IVPB SCH (05:36)
--- NOTE | 2020-01-26 06:33 | XR ---
EXAMINATION TYPE: XR chest 1V portable DATE OF EXAM: 01/26/2020 CLINICAL HISTORY: Difficulty breathing and pneumonia progress study. TECHNIQUE: Single AP portable upright view of the chest is obtained. COMPARISON: Chest x-rays from one day earlier FINDINGS: Persistent left basilar opacity. Right lung remains clear. No pleural effusion or pneumoth orax seen bilaterally. Cardiac silhouette size stable and within normal limits. Osseous structures ar e intact. IMPRESSION: Overall stable findings, persistent left basilar acute infiltrate.
[2020-01-26 06:37] LABS: HCT 41.7 % (34.0-46.0); HGB 14.3 gm/dL (11.4-16.0); MCHC 34.2 g/dL (31.0-37.0); MCV 84.7 fL (80.0-100.0); Mean Platelet Volume 7.5; Platelet Count 274 k/uL (150-450); RBC 4.92 m/uL (3.80-5.40); RDW 13.2 % (11.5-15.5)
[2020-01-26 06:40] LABS: Glucose,Whole Blood 167 mg/dL (75-99)
[2020-01-26] MEDS: INSULIN ASPART (NovoLOG) 100 UNIT/ML VIAL SQ SCH (06:45)
[2020-01-26 07:07] LABS: African American GFR (CKD) >90 (>60 ml/min/1.73 sqM); Anion Gap 8 mmol/L; Blood Urea Nitrogen 6 mg/dL (7-17); Calcium 8.4 mg/dL (8.4-10.2); Carbon Dioxide 26 mmol/L (22-30); Chloride 101 mmol/L (98-107); Glucose 178 mg/dL (74-99); Non-African American GFR(CKD) >90 (>60 ml/min/1.73 sqM); Potassium 3.7 mmol/L (3.5-5.1); Sodium 135 mmol/L (137-145)
[2020-01-26] MEDS: HEPARIN SODIUM,PORCINE 5,000 UNIT/ML 1 ML VIAL SQ SCH (08:28)
[2020-01-26] MEDS: SERTRALINE 50 MG TAB PO SCH (08:28)
[2020-01-26] MEDS: AZITHROMYCIN 500 MG TAB PO SCH (08:28)
[2020-01-26] MEDS: BACITRACIN 500 UNIT/GM OINT 28.4 GM TUBE TOPICAL SCH (08:28)
[2020-01-26 08:38] VITALS: BP 135/65; PULSE 105; RESP 18; TEMP 98.5
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
== END 2020-01-26 19:52 | disposition left against medical advice (07) ==
LOC: EC 02:04 → INTOOBSV 05:02 → 3SCARD 05:02 → UNDODISIN 01-26 09:52
PROVIDERS: ADMIT Internal Medicine; ATTEND Internal Medicine
DX: T40.1X1A Poisoning by heroin, accidental (unintentional), initial encounter (principal); G92 Toxic encephalopathy; F19.10 Other psychoactive substance abuse, uncomplicated; J18.9 Pneumonia, unspecified organism; A41.9 Sepsis, unspecified organism; E11.65 Type 2 diabetes mellitus with hyperglycemia; Z11.59 Encounter for screening for other viral diseases; F32.9 Major depressive disorder, single episode, unspecified; F41.9 Anxiety disorder, unspecified; Z79.84 Long term (current) use of oral hypoglycemic drugs; F17.200 Nicotine dependence, unspecified, uncomplicated; Z98.890 Other specified postprocedural states
CPT/HCPCS: 96361 ×2; 96366 ×2; 96367; 96372 ×3; 96375; 96365; 99285; 36415; 80051; 80053; 80048; 82565; 82009; 83605; 84100; 82947; 84520; 85025; 85027 ×2; 81001; 80306; 83520; 83036; 87635; 71045 ×2; G0378 ×2; G0480 ×2; J2060; J1644 ×2; J2405; J0295 ×2; 80320; 80329; 96360; 96376

== ENCOUNTER 2024-01-12 18:10 | Inpatient (IN) | payer OTHER ==
[2024-01-12] MEDS: diphenhydrAMINE 50 MG/ML 1 ML VIAL IVP STA (18:32)
[2024-01-12] MEDS: PROCHLORPERAZINE INJ 10 MG/2 ML VIAL IVP STA (18:33)
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
[2024-01-12] MEDS: MORPHINE SULFATE 4 MG/ML SYRINGE IVP STA (19:14)
[2024-01-12] MEDS: SODIUM CHLORIDE 0.9% 1,000 ML IV STA ×3 (19:15→22:01)
[2024-01-12 20:03] LABS: ALT 15 U/L (4-34); African American GFR (CKD) >90 (>60 ml/min/1.73 sqM); Albumin 2.6 g/dL (3.5-5.0); Anion Gap 20 mmol/L; Blood Urea Nitrogen 19 mg/dL (7-17); Calcium 7.4 mg/dL (8.4-10.2); Chloride 105 mmol/L (98-107); Glucose 369 mg/dL (74-99); Non-African American GFR(CKD) >90 (>60 ml/min/1.73 sqM); Sodium 134 mmol/L (137-145); Total Bilirubin 0.6 mg/dL (0.2-1.3); Total Protein 5.3 g/dL (6.3-8.2)
[2024-01-12 20:07] LABS: Basophils % (A) 0 %; Eosinophils % (A) 0 %; HCT 38.3 % (34.0-46.0); HGB 12.8 gm/dL (11.4-16.0); Lymphocytes # (A) 0.5 k/uL (1.0-4.8); Lymphocytes % (A) 3 %; MCH 29.8 pg (25.0-35.0); MCHC 33.4 g/dL (31.0-37.0); MCV 89.3 fL (80.0-100.0); Mean Platelet Volume 10.6; Monocytes # (A) 0.9 k/uL (0-1.0); Monocytes % (A) 6 %; Neutrophils # (A) 13.7 k/uL (1.3-7.7); Neutrophils % (A) 89 %; Platelet Count 136 k/uL (150-450); RBC 4.29 m/uL (3.80-5.40); RDW 13.9 % (11.5-15.5); WBC 15.5 k/uL (3.8-10.6)
[2024-01-12 20:18] LABS: AST 25 U/L (14-36); Alkaline Phosphatase 93 U/L (38-126); Carbon Dioxide 9 mmol/L (22-30); Magnesium 1.7 mg/dL (1.6-2.3); Phosphorus 2.7 mg/dL (2.5-4.5)
[2024-01-12] MEDS ORDERED: NALOXONE 0.4 MG/ML 1 ML VIAL IV PRN (20:22)
[2024-01-12] MEDS: SODIUM CHLORIDE 0.9% 1,000 ML IV SCH (20:30)
[2024-01-12] MEDS: SODIUM BICARB 8.4% 50 ML SYR (1 MEQ/ML) IV STA (22:01)
[2024-01-12] MEDS: PANTOPRAZOLE 40 MG/10 ML VIAL IV SCH (22:01)
[2024-01-12 23:45] LABS: Glucose,Whole Blood 385 mg/dL (70-110)
[2024-01-12] MEDS: INSULIN REGULAR 100 UNIT/ML VIAL (IV) IV ONE (23:45)
[2024-01-12] MEDS: SODIUM CHLORIDE 0.9% 1,000 ML IV ONE (23:50)
[2024-01-12] MEDS: MORPHINE SULFATE 4 MG/ML SYRINGE IVP PRN (23:59)
[2024-01-13 01:01] LABS: Glucose,Whole Blood 347 mg/dL (70-110)
[2024-01-13 01:07] LABS: VBG PH 7.21 (7.31-7.41)
[2024-01-13 01:26] LABS: ALT 16 U/L (4-34); AST 18 U/L (14-36); African American GFR (CKD) >90 (>60 ml/min/1.73 sqM); Albumin 2.6 g/dL (3.5-5.0); Alkaline Phosphatase 125 U/L (38-126); Anion Gap 21 mmol/L; Blood Urea Nitrogen 19 mg/dL (7-17); Calcium 7.3 mg/dL (8.4-10.2); Chloride 106 mmol/L (98-107); Glucose 360 mg/dL (74-99); Magnesium 1.6 mg/dL (1.6-2.3); Non-African American GFR(CKD) >90 (>60 ml/min/1.73 sqM); Phosphorus 2.5 mg/dL (2.5-4.5); Potassium 3.4 mmol/L (3.5-5.1); Sodium 133 mmol/L (137-145); Total Bilirubin 0.4 mg/dL (0.2-1.3); Total Protein 5.3 g/dL (6.3-8.2)
[2024-01-13 01:30] LABS: Carbon Dioxide 6 mmol/L (22-30)
[2024-01-13] MEDS: ONDANSETRON 4 MG/2 ML VIAL IVP PRN (03:20)
[2024-01-13 03:27] LABS: Glucose,Whole Blood 371 mg/dL (70-110)
[2024-01-13] MEDS ORDERED: DEXTROSE 50% SYRINGE 50 ML IVP PRN ×5 (04:06→16:25)
[2024-01-13] MEDS ORDERED: METOCLOPRAMIDE 5 MG/ML 2 ML VIAL IVP PRN (04:12)
[2024-01-13] MEDS: INSULIN REGULAR 100 UNIT in SODIUM CHLORIDE 0.9% 100 ML IV SCH ×2 (04:23→14:03)
[2024-01-13] MEDS: SODIUM CHLORIDE 0.9% 1,000 ML IV SCH ×2 (04:23→14:09)
[2024-01-13] MEDS: INSULIN REGULAR BOLUS (FROM DRIP BAG) IV ONE ×2 (04:24→14:08)
[2024-01-13] MEDS: D5-0.45% NACL WITH KCL 20MEQ/L 1,000 ML IV SCH ×2 (04:31→16:05)
[2024-01-13 05:08] LABS: Glucose,Whole Blood 359 mg/dL (70-110)
[2024-01-13 06:02] LABS: Glucose,Whole Blood 320 mg/dL (70-110)
[2024-01-13 07:04] LABS: Glucose,Whole Blood 263 mg/dL (70-110)
[2024-01-13 07:45] LABS: Basophils % (A) 0 %; Eosinophils % (A) 0 %; HCT 38.2 % (34.0-46.0); Lymphocytes # (A) 0.8 k/uL (1.0-4.8); Lymphocytes % (A) 6 %; MCH 28.6 pg (25.0-35.0); MCHC 31.5 g/dL (31.0-37.0); MCV 90.8 fL (80.0-100.0); Mean Platelet Volume 9.6; Monocytes # (A) 0.7 k/uL (0-1.0); Monocytes % (A) 5 %; Neutrophils # (A) 12.8 k/uL (1.3-7.7); Neutrophils % (A) 88 %; Platelet Count 150 k/uL (150-450); RBC 4.21 m/uL (3.80-5.40); RDW 13.8 % (11.5-15.5); WBC 14.6 k/uL (3.8-10.6)
[2024-01-13 07:50] LABS: Appearance,Urine Cloudy (Clear); Bacteria,Urine Rare /hpf; Bilirubin,Urine Negative (Negative); Blood,Urine Moderate (Negative); Budding Yeast,Urine Occasional /hpf; Color,Urine Colorless; Glucose,Urine (UA) 4+ (Negative); Hyaline Casts,Urine 1 /lpf (0-2); Leukocyte Esterase,Urine Trace (Negative); Mucus,Urine Rare /hpf; Nitrite,Urine Negative (Negative); PH, Urine 5.5 (5.0-8.0); Protein,Urine 2+ (Negative); RBC,Urine 20 /hpf (0-5); Specific Gravity,Urine 1.016 (1.001-1.035); Squamous Epithelial Cell,Urine 7 /hpf (0-4); Urobilinogen,Urine <2.0 mg/dL (<2.0); WBC,Urine 17 /hpf (0-5)
[2024-01-13 07:59] LABS: ALT 18 U/L (4-34); AST 20 U/L (14-36); African American GFR (CKD) >90 (>60 ml/min/1.73 sqM); Albumin 2.6 g/dL (3.5-5.0); Alkaline Phosphatase 119 U/L (38-126); Anion Gap 16 mmol/L; Blood Urea Nitrogen 21 mg/dL (7-17); Calcium 7.2 mg/dL (8.4-10.2); Carbon Dioxide 12 mmol/L (22-30); Chloride 105 mmol/L (98-107); Glucose 296 mg/dL (74-99); Magnesium 1.7 mg/dL (1.6-2.3); Non-African American GFR(CKD) 78 (>60 ml/min/1.73 sqM); Potassium 3.6 mmol/L (3.5-5.1); Sodium 133 mmol/L (137-145); Total Bilirubin 0.4 mg/dL (0.2-1.3); Total Protein 5.4 g/dL (6.3-8.2)
[2024-01-13 08:09] LABS: Glucose,Whole Blood 226 mg/dL (70-110)
[2024-01-13 08:29] LABS: Ketones,Urine 4+ (Negative)
[2024-01-13 09:09] LABS: Glucose,Whole Blood 222 mg/dL (70-110)
[2024-01-13 10:08] LABS: Glucose,Whole Blood 220 mg/dL (70-110)
[2024-01-13 11:38] LABS: Glucose,Whole Blood 252 mg/dL (70-110)
[2024-01-13 12:52] LABS: Potassium 3.8 mmol/L (3.5-5.1)
[2024-01-13 12:54] LABS: Glucose,Whole Blood 256 mg/dL (70-110)
[2024-01-13] MEDS ORDERED: Magnesium Replacement Protocol 1 EACH MISC MISCELLANE PRN (13:14)
[2024-01-13] MEDS ORDERED: Potassium Replacement Protocol 1 EACH MISC MISCELLANE PRN (13:14)
--- NOTE | 2024-01-13 13:22 | P.HPIM ---
History of Present Illness 39-year-old female came in with complaints of back pain left flank pain, found to be in diabetic ketoacidosis. Patient had an anion gap of 20 and bicarbonate of 9 on admission along with hyponatremia patient is still hyponatremic as she is not receiving appropriate fluids at this time. Patient is complaining of burning sensation right flank pain patient does have right flank tenderness along with fever patient had chills at home patient does have leukocytosis patient has significantly abnormal urine. Patient is tired and weak. Patient has not been taking insulin for couple weeks as she ran out of insulin. REVIEW OF SYSTEMS: CONSTITUTIONAL: As mentioned above HEENT: No recent visual problems or hearing problems. Denied any sore throat. CARDIOVASCULAR: No chest pain, orthopnea, PND, no palpitations, no syncope. PULMONARY: No shortness of breath, no cough, no hemoptysis. GASTROINTESTINAL: No diarrhea, no nausea, no vomiting, no abdominal pain. NEUROLOGICAL: No headaches, no weakness, no numbness. HEMATOLOGICAL: Denies any bleeding or petechiae. GENITOURINARY: As mentioned above MUSCULOSKELETAL/RHEUMATOLOGICAL: Denies any joint pain, swelling, or any muscle pain. ENDOCRINE: Denies any polyuria or polydipsia. The rest of the 14-point review of systems is negative. PHYSICAL EXAMINATION: GENERAL: The patient is alert and oriented x3, not in any acute distress. Well developed, well nourished. HEENT: Pupils are round and equally reacting to light. EOMI. No scleral icterus. No conjunctival pallor. Normocephalic, atraumatic. No pharyngeal erythema. No thyromegaly. CARDIOVASCULAR: S1 and S2 present. No murmurs, rubs, or gallops. PULMONARY: Chest is clear to auscultation, no wheezing or crackles. ABDOMEN: Soft, nontender, nondistended, normoactive bowel sounds. No palpable organomegaly. MUSCULOSKELETAL: No joint swelling or deformity. EXTREMITIES: No cyanosis, clubbing, or pedal edema. NEUROLOGICAL: Gross neurological examination did not reveal any focal deficits. SKIN: No rashes. Assessment and plan -Diabetic ketoacidosis: Patient will be on DKA protocol, patient will need normal saline with insulin at this time once his blood sugars are down to below 250 then she will need D5 normal saline with insulin and potassium. Once her anion gap resolves patient will be transition to her home dose of insulin which is 24 units patient states she is type II diabetic, DKA secondary to noncompliance and secondary to urinary tract infection -Type 2 diabetes mellitus, with insulin deficiency uncontrolled elevated blood sugars with hemoglobin A1c of 13.8. -Severe sepsis secondary to urinary tract infection patient does have lactic acidosis as well which is contributing to her anion gap. -Hyperlipidemia -Nicotine use: Counseling was provided -Gastroesophageal reflux disease -Hypertension DVT prophylaxis: Early ambulation GI prophylaxis Protonix Past Medical History Past Medical History: Diabetes Mellitus History of Any Multi-Drug Resistant Organisms: None Reported Additional Past Surgical History / Comment(s): neck tumor removal, renal stents placed and removed, wrist surgery, thumb amputation, attempted suicide-cut wrists Past Psychological History: No Psychological Hx Reported Smoking Status: Current every day smoker Past Alcohol Use History: None Reported Past Drug Use History: Cocaine, Heroin, Marijuana, Methamphetamine, Opiates - Past Family History Family Family Medical History: Unable to Obtain Medications and Allergies Home Medications Medication Instructions Recorded Confirmed Type metFORMIN HCL [Glucophage] 1,000 mg PO BID 01/25/20 01/12/24 History Atorvastatin [Lipitor] 10 mg PO DAILY 01/12/24 01/12/24 History Insulin Glargine,Hum.rec.anlog 24 units SQ BID 01/12/24 01/12/24 History [Lantus Solostar Pen] Omeprazole 20 mg PO BID 01/12/24 01/12/24 History QUEtiapine [SEROquel] 50 mg PO HS 01/12/24 01/12/24 History clonazePAM [KlonoPIN] 0.5 mg PO TID PRN 01/12/24 01/12/24 History lisinopriL [Zestril] 5 mg PO DAILY 01/12/24 01/12/24 History Allergies Allergy/AdvReac Type Severity Reaction Status Date / Time No Known Allergies Allergy Verified 01/12/24 20:27 Physical Exam Vitals: Vital Signs Temp Pulse Resp BP Pulse Ox 01/13/24 11:57 120 H 18 121/72 01/13/24 10:04 100.9 F H 114 H 18 102/80 96 01/13/24 08:25 110 H 22 139/56 97 01/13/24 07:50 98.8 F 123 H 24 149/91 94 L 01/13/24 06:43 98.7 F 04/23/24 06:00 110 H 19 116/74 95 01/13/24 05:07 107 H 20 107/73 01/13/24 04:31 110 H 18 122/68 01/13/24 02:15 109 H 18 130/76 01/12/24 22:07 98.8 F 111 H 20 116/93 98 01/12/24 18:14 98.8 F 107 H 20 139/87 98 Intake and Output 01/12/24 01/13/24 01/13/24 22:59 06:59 14:59 Intake Total 101.000 Balance 101.000 Intake: Intake, IV Titration 101.000 Amount Insulin Regular 100 unit 101.000 In Sodium Chloride 0.9% 100 ml @ 0.1 UNITS/KG/HR 11.911 mls/hr IV .Q8H29M [facility] Rx#:[id number] Other: Weight 117.934 kg Results CBC & Chem 7: 01/13/24 06:39 01/13/24 12:02 Labs: Abnormal Lab Results - Last 24 Hours (Table) 01/12/24 01/12/24 01/12/24 Range/Units 19:34 19:34 23:43 WBC 15.5 H (3.8-10.6) k/uL Plt Count 136 L (150-450) k/uL Neutrophils # 13.7 H (1.3-7.7) k/uL Lymphocytes # 0.5 L (1.0-4.8) k/uL VBG pH (7.31-7.41) VBG pCO2 (37-51) mmHg VBG HCO3 (24-28) mmol/L Sodium 134 L (137-145) mmol/L Potassium (3.5-5.1) mmol/L Carbon Dioxide 9 L* (22-30) mmol/L BUN 19 H (7-17) mg/dL Glucose 369 H (74-99) mg/dL POC Glucose (mg/dL) 385 H (70-110) mg/dL Hemoglobin A1c (<=6.0) % Calcium 7.4 L (8.4-10.2) mg/dL Phosphorus (2.5-4.5) mg/dL Total Protein 5.3 L (6.3-8.2) g/dL Albumin 2.6 L (3.5-5.0) g/dL Urine Appearance (Clear) Urine Protein (Negative) Urine Glucose (UA) (Negative) Urine Ketones (Negative) Urine Blood (Negative) Ur Leukocyte Esterase (Negative) Urine RBC (0-5) /hpf Urine WBC (0-5) /hpf Ur Squamous Epith Cells (0-4) /hpf Urine Bacteria (None) /hpf Urine Mucus (None) /hpf Urine Yeast (Budding) (None) /hpf 01/13/24 01/13/24 01/13/24 Range/Units 00:11 00:24 01:00 WBC (3.8-10.6) k/uL Plt Count (150-450) k/uL Neutrophils # (1.3-7.7) k/uL Lymphocytes # (1.0-4.8) k/uL VBG pH 7.21 L (7.31-7.41) VBG pCO2 25 L (37-51) mmHg VBG HCO3 10 L (24-28) mmol/L Sodium 133 L (137-145) mmol/L Potassium 3.4 L (3.5-5.1) mmol/L Carbon Dioxide 6 L* (22-30) mmol/L BUN 19 H (7-17) mg/dL Glucose 360 H (74-99) mg/dL POC Glucose (mg/dL) 347 H (70-110) mg/dL Hemoglobin A1c (<=6.0) % Calcium 7.3 L (8.4-10.2) mg/dL Phosphorus (2.5-4.5) mg/dL Total Protein 5.3 L (6.3-8.2) g/dL Albumin 2.6 L (3.5-5.0) g/dL Urine Appearance (Clear) Urine Protein (Negative) Urine Glucose (UA) (Negative) Urine Ketones (Negative) Urine Blood (Negative) Ur Leukocyte Esterase (Negative) Urine RBC (0-5) /hpf Urine WBC (0-5) /hpf Ur Squamous Epith Cells (0-4) /hpf Urine Bacteria (None) /hpf Urine Mucus (None) /hpf Urine Yeast (Budding) (None) /hpf 01/13/24 01/13/24 01/13/24 Range/Units 03:26 05:06 06:01 WBC (3.8-10.6) k/uL Plt Count (150-450) k/uL Neutrophils # (1.3-7.7) k/uL Lymphocytes # (1.0-4.8) k/uL VBG pH (7.31-7.41) VBG pCO2 (37-51) mmHg VBG HCO3 (24-28) mmol/L Sodium (137-145) mmol/L Potassium (3.5-5.1) mmol/L Carbon Dioxide (22-30) mmol/L BUN (7-17) mg/dL Glucose (74-99) mg/dL POC Glucose (mg/dL) 371 H 359 H 320 H (70-110) mg/dL Hemoglobin A1c (<=6.0) % Calcium (8.4-10.2) mg/dL Phosphorus (2.5-4.5) mg/dL Total Protein (6.3-8.2) g/dL Albumin (3.5-5.0) g/dL Urine Appearance (Clear) Urine Protein (Negative) Urine Glucose (UA) (Negative) Urine Ketones (Negative) Urine Blood (Negative) Ur Leukocyte Esterase (Negative) Urine RBC (0-5) /hpf Urine WBC (0-5) /hpf Ur Squamous Epith Cells (0-4) /hpf Urine Bacteria (None) /hpf Urine Mucus (None) /hpf Urine Yeast (Budding) (None) /hpf 01/13/24 01/13/24 01/13/24 Range/Units 06:39 06:39 06:39 WBC 14.6 H (3.8-10.6) k/uL Plt Count (150-450) k/uL Neutrophils # 12.8 H (1.3-7.7) k/uL Lymphocytes # 0.8 L (1.0-4.8) k/uL VBG pH (7.31-7.41) VBG pCO2 (37-51) mmHg VBG HCO3 (24-28) mmol/L Sodium 133 L (137-145) mmol/L Potassium (3.5-5.1) mmol/L Carbon Dioxide 12 L (22-30) mmol/L BUN 21 H (7-17) mg/dL Glucose 296 H (74-99) mg/dL POC Glucose (mg/dL) (70-110) mg/dL Hemoglobin A1c 13.8 H (<=6.0) % Calcium 7.2 L (8.4-10.2) mg/dL Phosphorus 2.0 L (2.5-4.5) mg/dL Total Protein 5.4 L (6.3-8.2) g/dL Albumin 2.6 L (3.5-5.0) g/dL Urine Appearance (Clear) Urine Protein (Negative) Urine Glucose (UA) (Negative) Urine Ketones (Negative) Urine Blood (Negative) Ur Leukocyte Esterase (Negative) Urine RBC (0-5) /hpf Urine WBC (0-5) /hpf Ur Squamous Epith Cells (0-4) /hpf Urine Bacteria (None) /hpf Urine Mucus (None) /hpf Urine Yeast (Budding) (None) /hpf 01/13/24 01/13/24 01/13/24 Range/Units 06:49 07:01 08:07 WBC (3.8-10.6) k/uL Plt Count (150-450) k/uL Neutrophils # (1.3-7.7) k/uL Lymphocytes # (1.0-4.8) k/uL VBG pH (7.31-7.41) VBG pCO2 (37-51) mmHg VBG HCO3 (24-28) mmol/L Sodium (137-145) mmol/L Potassium (3.5-5.1) mmol/L Carbon Dioxide (22-30) mmol/L BUN (7-17) mg/dL Glucose (74-99) mg/dL POC Glucose (mg/dL) 263 H 226 H (70-110) mg/dL Hemoglobin A1c (<=6.0) % Calcium (8.4-10.2) mg/dL Phosphorus (2.5-4.5) mg/dL Total Protein (6.3-8.2) g/dL Albumin (3.5-5.0) g/dL Urine Appearance Cloudy H (Clear) Urine Protein 2+ H (Negative) Urine Glucose (UA) 4+ H (Negative) Urine Ketones 4+ H (Negative) Urine Blood Moderate H (Negative) Ur Leukocyte Esterase Trace H (Negative) Urine RBC 20 H (0-5) /hpf Urine WBC 17 H (0-5) /hpf Ur Squamous Epith Cells 7 H (0-4) /hpf Urine Bacteria Rare H (None) /hpf Urine Mucus Rare H (None) /hpf Urine Yeast (Budding) Occasional H (None) /hpf 01/13/24 01/13/24 01/13/24 Range/Units 09:05 10:05 11:36 WBC (3.8-10.6) k/uL Plt Count (150-450) k/uL Neutrophils # (1.3-7.7) k/uL Lymphocytes # (1.0-4.8) k/uL VBG pH (7.31-7.41) VBG pCO2 (37-51) mmHg VBG HCO3 (24-28) mmol/L Sodium (137-145) mmol/L Potassium (3.5-5.1) mmol/L Carbon Dioxide (22-30) mmol/L BUN (7-17) mg/dL Glucose (74-99) mg/dL POC Glucose (mg/dL) 222 H 220 H 252 H (70-110) mg/dL Hemoglobin A1c (<=6.0) % Calcium (8.4-10.2) mg/dL Phosphorus (2.5-4.5) mg/dL Total Protein (6.3-8.2) g/dL Albumin (3.5-5.0) g/dL Urine Appearance (Clear) Urine Protein (Negative) Urine Glucose (UA) (Negative) Urine Ketones (Negative) Urine Blood (Negative) Ur Leukocyte Esterase (Negative) Urine RBC (0-5) /hpf Urine WBC (0-5) /hpf Ur Squamous Epith Cells (0-4) /hpf Urine Bacteria (None) /hpf Urine Mucus (None) /hpf Urine Yeast (Budding) (None) /hpf 01/13/24 01/13/24 Range/Units 12:02 12:43 WBC (3.8-10.6) k/uL Plt Count (150-450) k/uL Neutrophils # (1.3-7.7) k/uL Lymphocytes # (1.0-4.8) k/uL VBG pH (7.31-7.41) VBG pCO2 (37-51) mmHg VBG HCO3 (24-28) mmol/L Sodium 128 L (137-145) mmol/L Potassium (3.5-5.1) mmol/L Carbon Dioxide 13 L (22-30) mmol/L BUN (7-17) mg/dL Glucose (74-99) mg/dL POC Glucose (mg/dL) 256 H (70-110) mg/dL Hemoglobin A1c (<=6.0) % Calcium (8.4-10.2) mg/dL Phosphorus (2.5-4.5) mg/dL Total Protein (6.3-8.2) g/dL Albumin (3.5-5.0) g/dL Urine Appearance (Clear) Urine Protein (Negative) Urine Glucose (UA) (Negative) Urine Ketones (Negative) Urine Blood (Negative) Ur Leukocyte Esterase (Negative) Urine RBC (0-5) /hpf Urine WBC (0-5) /hpf Ur Squamous Epith Cells (0-4) /hpf Urine Bacteria (None) /hpf Urine Mucus (None) /hpf Urine Yeast (Budding) (None) /hpf
--- NOTE | 2024-01-13 13:22 | P.CNPUL ---
History of Present Illness Consult date: 01/13/24 Requesting physician: Alex Kirby Reason for consult: other (Critical care management) Chief complaint: Nausea, vomiting History of present illness: This is a 39-year-old female patient with a history of obesity, previous heroin overdose,, polysubstance abuse including heroin, cocaine, methamphetamines, opiates and marijuana diabetes mellitus, chronic smoker who presented here to the emergency room last evening after developing significant abdominal pain and hyperemesis. She states she had ran out of her insulin and metformin. White count 14.6. Hemoglobin 12.0. Platelets 150. Sodium 128. Potassium 3.8. Initial bicarb 9, currently 13. BUN 21. Creatinine 0.92. Anion gap 14. Ini tial glucose 385, currently 256, hemoglobin A1c 13.8. Urine with 4+ glucose. 4+ ketones. Moderate blood. Acetone positive. She is currently on insulin drip at 13 units/h. D5 and half-normal saline with 20 of KCl at 150 MLS per hour. She is seen today in consultation in the emergency department. She she is currently awake and alert. She is still having issues with ongoing nausea and vomiting. He is requesting morphine for pain. She has received 3 L of fluid resuscitation. Received bicarb. She is afebrile, tachycardic, blood pressure stable, on room air. She is being considered for ICU placement. Review of Systems REVIEW OF SYSTEMS: CONSTITUTIONAL: Denies any recent significant weight loss or weight gain. EYES: Denies change in vision. EARS, NOSE, MOUTH, THROAT: Denies headaches, denies sore throat. CARDIOVASCULAR: Denies chest pain, palpitations or syncopal episodes. RESPIRATORY: Denies shortness of breath, cough, congestion or hemoptysis. GASTROINTESTINAL: Positive for abdominal pain, nausea and vomiting. GENITOURINARY: Denies hematuria, denies infections. MUSKULOSKELETAL: Denies pain, denies swelling. INTEGUMENTARY: Denies rash, denies eczema. NEUROLOGICAL: Denies recent memory loss, no recent seizure activity. PSYCHIATRIC: Denies anxiety, denies depression. HEMATOLOGIC/LYMPHATIC: Denies anemia, denies enlarged lymph nodes. Past Medical History Past Medical History: Diabetes Mellitus History of Any Multi-Drug Resistant Organisms: None Reported Additional Past Surgical History / Comment(s): neck tumor removal, renal stents placed and removed, wrist surgery, thumb amputation, attempted suicide-cut wrists Past Psychological History: No Psychological Hx Reported Smoking Status: Current every day smoker Past Alcohol Use History: None Reported Past Drug Use History: Cocaine, Heroin, Marijuana, Methamphetamine, Opiates - Past Family History Family Family Medical History: Unable to Obtain Medications and Allergies Home Medications Medication Instructions Recorded Confirmed Type metFORMIN HCL [Glucophage] 1,000 mg PO BID 01/25/20 01/12/24 History Atorvastatin [Lipitor] 10 mg PO DAILY 01/12/24 01/12/24 History Insulin Glargine,Hum.rec.anlog 24 units SQ BID 01/12/24 01/12/24 History [Lantus Solostar Pen] Omeprazole 20 mg PO BID 01/12/24 01/12/24 History QUEtiapine [SEROquel] 50 mg PO HS 01/12/24 01/12/24 History clonazePAM [KlonoPIN] 0.5 mg PO TID PRN 01/12/24 01/12/24 History lisinopriL [Zestril] 5 mg PO DAILY 01/12/24 01/12/24 History Allergies Allergy/AdvReac Type Severity Reaction Status Date / Time No Known Allergies Allergy Verified 01/12/24 20:27 Physical Exam Vitals: Vital Signs Temp Pulse Resp BP Pulse Ox 01/13/24 11:57 120 H 18 121/72 01/13/24 10:04 100.9 F H 114 H 18 102/80 96 01/13/24 08:25 110 H 22 139/56 97 01/13/24 07:50 98.8 F 123 H 24 149/91 94 L 01/13/24 06:43 98.7 F 01/13/24 06:00 110 H 19 116/74 95 01/13/24 05:07 107 H 20 107/73 01/13/24 04:31 110 H 18 122/68 01/13/24 02:15 109 H 18 130/76 01/12/24 22:07 98.8 F 111 H 20 116/93 98 01/12/24 18:14 98.8 F 107 H 20 139/87 98 Intake and Output 01/12/24 01/13/24 01/13/24 22:59 06:59 14:59 Intake Total 101.000 Balance 101.000 Intake: Intake, IV Titration 101.000 Amount Insulin Regular 100 unit 101.000 In Sodium Chloride 0.9% 100 ml @ 0.1 UNITS/KG/HR 11.911 mls/hr IV .Q8H29M [facility] Rx#:[id number] Other: Weight 117.934 kg GENERAL EXAM: Alert, anxious, obese, unkept 39-year-old female, on room air, in no apparent distress. HEAD: Normocephalic. EYES: Normal reaction of pupils, equal size. NOSE: Clear with pink turbinates. THROAT: No erythema or exudates. NECK: No masses, no JVD. CHEST: No chest wall deformity. LUNGS: Equal air entry with no crackles, wheeze, rhonchi or dullness. CVS: S1 and S2 normal with no audible murmur, regular rhythm. Tachycardic ABDOMEN: No hepatosplenomegaly, normal bowel sounds, no guarding or rigidity. SPINE: No scoliosis or deformity SKIN: No rashes CENTRAL NERVOUS SYSTEM: No focal deficits, tone is normal in all 4 extremities. EXTREMITIES: There is no peripheral edema. No clubbing, no cyanosis. Peripheral pulses are intact. Results - Laboratory Findings CBC and BMP: 01/13/24 06:39 01/13/24 12:02 Abnormal lab findings: Abnormal Labs 01/12/24 01/12/24 01/12/24 19:34 19:34 23:43 WBC 15.5 H Plt Count 136 L Neutrophils # 13.7 H Lymphocytes # 0.5 L VBG pH VBG pCO2 VBG HCO3 Sodium 134 L Potassium Carbon Dioxide 9 L* BUN 19 H Glucose 369 H POC Glucose (mg/dL) 385 H Hemoglobin A1c Calcium 7.4 L Phosphorus Total Protein 5.3 L Albumin 2.6 L Urine Appearance Urine Protein Urine Glucose (UA) Urine Ketones Urine Blood Ur Leukocyte Esterase Urine RBC Urine WBC Ur Squamous Epith Cells Urine Bacteria Urine Mucus Urine Yeast (Budding) 01/13/24 01/13/24 01/13/24 00:11 00:24 01:00 WBC Plt Count Neutrophils # Lymphocytes # VBG pH 7.21 L VBG pCO2 25 L VBG HCO3 10 L Sodium 133 L Potassium 3.4 L Carbon Dioxide 6 L* BUN 19 H Glucose 360 H POC Glucose (mg/dL) 347 H Hemoglobin A1c Calcium 7.3 L Phosphorus Total Protein 5.3 L Albumin 2.6 L Urine Appearance Urine Protein Urine Glucose (UA) Urine Ketones Urine Blood Ur Leukocyte Esterase Urine RBC Urine WBC Ur Squamous Epith Cells Urine Bacteria Urine Mucus Urine Yeast (Budding) 01/13/24 01/13/24 01/13/24 03:26 05:06 06:01 WBC Plt Count Neutrophils # Lymphocytes # VBG pH VBG pCO2 VBG HCO3 Sodium Potassium Carbon Dioxide BUN Glucose POC Glucose (mg/dL) 371 H 359 H 320 H Hemoglobin A1c Calcium Phosphorus Total Protein Albumin Urine Appearance Urine Protein Urine Glucose (UA) Urine Ketones Urine Blood Ur Leukocyte Esterase Urine RBC Urine WBC Ur Squamous Epith Cells Urine Bacteria Urine Mucus Urine Yeast (Budding) 01/13/24 01/13/24 01/13/24 06:39 06:39 06:39 WBC 14.6 H Plt Count Neutrophils # 12.8 H Lymphocytes # 0.8 L VBG pH VBG pCO2 VBG HCO3 Sodium 133 L Potassium Carbon Dioxide 12 L BUN 21 H Glucose 296 H POC Glucose (mg/dL) Hemoglobin A1c 13.8 H Calcium 7.2 L Phosphorus 2.0 L Total Protein 5.4 L Albumin 2.6 L Urine Appearance Urine Protein Urine Glucose (UA) Urine Ketones Urine Blood Ur Leukocyte Esterase Urine RBC Urine WBC Ur Squamous Epith Cells Urine Bacteria Urine Mucus Urine Yeast (Budding) 01/13/24 01/13/24 01/13/24 06:49 07:01 08:07 WBC Plt Count Neutrophils # Lymphocytes # VBG pH VBG pCO2 VBG HCO3 Sodium Potassium Carbon Dioxide BUN Glucose POC Glucose (mg/dL) 263 H 226 H Hemoglobin A1c Calcium Phosphorus Total Protein Albumin Urine Appearance Cloudy H Urine Protein 2+ H Urine Glucose (UA) 4+ H Urine Ketones 4+ H Urine Blood Moderate H Ur Leukocyte Esterase Trace H Urine RBC 20 H Urine WBC 17 H Ur Squamous Epith Cells 7 H Urine Bacteria Rare H Urine Mucus Rare H Urine Yeast (Budding) Occasional H 01/13/24 01/13/24 01/13/24 09:05 10:05 11:36 WBC Plt Count Neutrophils # Lymphocytes # VBG pH VBG pCO2 VBG HCO3 Sodium Potassium Carbon Dioxide BUN Glucose POC Glucose (mg/dL) 222 H 220 H 252 H Hemoglobin A1c Calcium Phosphorus Total Protein Albumin Urine Appearance Urine Protein Urine Glucose (UA) Urine Ketones Urine Blood Ur Leukocyte Esterase Urine RBC Urine WBC Ur Squamous Epith Cells Urine Bacteria Urine Mucus Urine Yeast (Budding) 01/13/24 01/13/24 12:02 12:43 WBC Plt Count Neutrophils # Lymphocytes # VBG pH VBG pCO2 VBG HCO3 Sodium 128 L Potassium Carbon Dioxide 13 L BUN Glucose POC Glucose (mg/dL) 256 H Hemoglobin A1c Calcium Phosphorus Total Protein Albumin Urine Appearance Urine Protein Urine Glucose (UA) Urine Ketones Urine Blood Ur Leukocyte Esterase Urine RBC Urine WBC Ur Squamous Epith Cells Urine Bacteria Urine Mucus Urine Yeast (Budding) Assessment and Plan Assessment: Acute diabetic ketoacidosis secondary to lack of medication and nausea, vomiting, hyperemesis Metabolic acidosis secondary to above Leukocytosis secondary to above Diabetes mellitus with hyperglycemia Medication noncompliance, hemoglobin A1c 13.8 Chronic and ongoing tobacco dependence History of substance abuse including heroin, cocaine, marijuana, amphetamines Previous history of heroin overdose Hypertension Hyperlipidemia History of anxiety/depression Plan: The patient was seen and evaluated Medications and labs reviewed Continue insulin drip Continue fluid resuscitation Follow-up labs are pending Will take to the ICU if labs are not reversed Educated regarding the importance of medication compliance We will continue to follow and make further recommendations based on her clinical status I have personally seen and examined the patient, performed the documentation and the assessment and plan as written. Number of minutes spent on the visit: 20.
[2024-01-13 13:44] LABS: Glucose,Whole Blood 283 mg/dL (70-110)
[2024-01-13 15:13] LABS: Glucose,Whole Blood 212 mg/dL (70-110)
[2024-01-13 16:06] LABS: Glucose,Whole Blood 191 mg/dL (70-110)
[2024-01-13 16:13] LABS: African American GFR (CKD) 76 (>60 ml/min/1.73 sqM); Anion Gap 9 mmol/L; Blood Urea Nitrogen 24 mg/dL (7-17); Carbon Dioxide 18 mmol/L (22-30); Chloride 101 mmol/L (98-107); Glucose 186 mg/dL (74-99); Non-African American GFR(CKD) 66 (>60 ml/min/1.73 sqM); Phosphorus 1.1 mg/dL (2.5-4.5); Potassium 3.6 mmol/L (3.5-5.1); Sodium 128 mmol/L (137-145)
[2024-01-13] MEDS ORDERED: Phosphorus Replacement Protoco 1 EACH MISC MISCELLANE PRN (16:22)
[2024-01-13 16:29] LABS: VBG PH 7.27 (7.31-7.41)
[2024-01-13 17:01] LABS: Glucose,Whole Blood 170 mg/dL (70-110)
[2024-01-13] MEDS: INSULIN ASPART (NovoLOG) 100 UNIT/ML VIAL SQ SCH ×2 (17:04)
[2024-01-13] MEDS: SODIUM PHOSPHATE 30 MMOL in DEXTROSE 5% IN WATER 250 ML IVPB ONE (17:31)
[2024-01-13] MEDS: INSULIN DETEMIR (LEVEMIR) 100 UNIT/ML SYR SQ SCH (17:31)
[2024-01-13 20:11] LABS: Glucose,Whole Blood 281 mg/dL (70-110)
[2024-01-13] MEDS: FUROSEMIDE 10 MG/ML 4 ML VIAL IV STA (20:23)
[2024-01-13] MEDS: methylPREDNISolone SOD SUCCI 125 MG/2 ML VIAL IV SCH (20:23)
[2024-01-13 20:28] LABS: ABG Base Excess -11.4 mmol/L; ABG HCO3 15 mmol/L (21-25); ABG Oxygen Saturation 88.4 % (94-97); ABG PCO2 28 mmHg (35-45); ABG PH 7.32 (7.35-7.45); ABG TCO2 16 mmol/L (19-24); Allen Test Performed? Yes
[2024-01-13] MEDS: ACETAMINOPHEN TAB 325 MG TAB PO PRN (20:29)
[2024-01-13 20:36] LABS: ABG PO2 51 mmHg (83-108)
--- NOTE | 2024-01-13 22:46 | CT ---
EXAM: CT Angiography Chest With Intravenous Contrast CLINICAL HISTORY: ITS.REASON CT Reason: increased O2, elevated DD TECHNIQUE: Axial computed tomographic angiography images of the chest with intravenous contrast. This CT exam was performed using one or more of the following dose reduction techniques: automated exposure control, adjustment of the mA and/or kV according to patient size, and/or use of iterative reconstruction technique. MIP reconstructed images were created and reviewed. COMPARISON: No relevant prior studies available. FINDINGS: Pulmonary arteries: Unremarkable. No pulmonary embolism. Aorta: No acute findings. No thoracic aortic aneurysm. Lungs: Superimposed patchy infiltrates, consistent with multilobar pneumonia. This preferentially involves the RIGHT lung. No mass. Pleural space: Pulmonary vascular congestion. Trace bilateral pleural effusions. One is a concerning for congestive heart failure. No pneumothorax. Heart: Unremarkable. No cardiomegaly. No significant pericardial effusion. No evidence of RV dysfunction. Bones/joints: No acute fracture. No dislocation. Soft tissues: Unremarkable. Lymph nodes: Unremarkable. No enlarged lymph nodes. Liver: Hepatic steatosis. IMPRESSION: 1. Pulmonary vascular congestion. Trace bilateral pleural effusions. One is a concerning for congestive heart failure. 2. Superimposed patchy infiltrates, consistent with multilobar pneumonia. This preferentially involves the RIGHT lung.
--- NOTE | 2024-01-14 00:34 | XR ---
EXAMINATION TYPE: XR chest 1V DATE OF EXAM: 01/13/2024 8:23 PM CLINICAL INDICATION:Female, 39 years old with history of increased O2 demand; [facility] COMPARISON: 02/15/2020 TECHNIQUE: XR chest 1V Portable AP radiograph of the chest.. FINDINGS: Lines/Tubes/Devices: EKG leads overlie the chest. No indwelling lines are seen. Heart/mediastinum: Heart size upper normal. Mediastinum appears normal. Pulmonary vascularity: Mild pulmonary vascular congestion. Lungs/Pleura: Suspect small left pleural effusion, possible tiny right pleural effusion. There are in creased patchy opacities suggesting airspace disease in the mid to lower lungs. Musculoskeletal: No acute osseous abnormality demonstrated in the limits of the exam. Mild degenerat kael changes. Other findings: None. IMPRESSION: Mild pulmonary vascular congestion and small pleural effusions, correlate for fluid overload/CHF. Patchy opacities in the mid to lower lungs bilaterally could represent edema and atelectasis, with gallegos perimposed infectious process prior possible clinical in the appropriate clinical setting.
[2024-01-14 02:04] LABS: Glucose,Whole Blood 312 mg/dL (70-110)
[2024-01-14 06:07] LABS: Glucose,Whole Blood 392 mg/dL (70-110)
[2024-01-14 06:58] LABS: Basophils % (A) 0 %; Eosinophils % (A) 0 %; HCT 35.9 % (34.0-46.0); HGB 11.4 gm/dL (11.4-16.0); Lymphocytes # (A) 0.6 k/uL (1.0-4.8); Lymphocytes % (A) 7 %; MCH 28.4 pg (25.0-35.0); MCHC 31.7 g/dL (31.0-37.0); MCV 89.6 fL (80.0-100.0); Mean Platelet Volume 9.7; Monocytes # (A) 0.3 k/uL (0-1.0); Monocytes % (A) 4 %; Neutrophils % (A) 87 %; Platelet Count 137 k/uL (150-450); RBC 4.01 m/uL (3.80-5.40); RDW 13.9 % (11.5-15.5); WBC 8.1 k/uL (3.8-10.6)
[2024-01-14 07:22] LABS: African American GFR (CKD) 90 (>60 ml/min/1.73 sqM); Anion Gap 15 mmol/L; Blood Urea Nitrogen 30 mg/dL (7-17); Calcium 6.8 mg/dL (8.4-10.2); Carbon Dioxide 11 mmol/L (22-30); Chloride 102 mmol/L (98-107); Glucose 393 mg/dL (74-99); Magnesium 1.9 mg/dL (1.6-2.3); Non-African American GFR(CKD) 78 (>60 ml/min/1.73 sqM); Phosphorus 3.3 mg/dL (2.5-4.5); Potassium 4.2 mmol/L (3.5-5.1); Sodium 128 mmol/L (137-145)
[2024-01-14] MEDS: INSULIN DETEMIR (LEVEMIR) 100 UNIT/ML SYR SQ SCH ×2 (08:21→21:35)
[2024-01-14 11:23] LABS: Glucose,Whole Blood 367 mg/dL (70-110)
[2024-01-14 12:27] VITALS: BMI 47.3
--- NOTE | 2024-01-14 14:54 | P.PN ---
Subjective Progress Note Date: 01/14/24 Principal diagnosis: Diabetic ketoacidosis. This is a 39-year-old female patient with a history of obesity, previous heroin overdose,, polysubstance abuse including heroin, cocaine, methamphetamines, opiates and marijuana diabetes mellitus, chronic smoker who presented here to [facility] emergency room last evening after developing significant abdominal pain and hyperemesis. She states she had ran out of her insulin and metformin. White count 14.6. Hemoglobin 12.0. Platelets 150. Sodium 128. Potassium 3.8. Initial bicarb 9, currently 13. BUN 21. Creatinine 0.92. Anion gap 14. Initial glucose 385, currently 256, hemoglobin A1c 13.8. Urine with 4+ glucose. 4+ ketones. Moderate blood. Acetone positive. She is currently on insulin drip at 13 units/h. D5 and half-normal saline with 20 of KCl at 150 MLS per hour. She is seen today in consultation in the emergency department. She she is currently awake and alert. She is still having issues with ongoing nausea and vomiting. He is requesting morphine for pain. She has received 3 L of fluid resuscitation. Received bicarb. She is afebrile, tachycardic, blood pressure stable, on room air. She is being considered for ICU placement. Progress note dated January 14, 2024. 39-year-old female that we saw yesterday in the emergency department, who presented with diabetic ketoacidosis. The patient apparently states that she ran out of her diabetes medications. The patient has a history of obesity, and previous polysubstance abuse including heroin, cocaine, methamphetamines, opiates, marijuana, etc. The patient was found to be in diabetic ketoacidosis. She was initially going to be placed in the intensive care unit, but with fluids, and an insulin drip, she reversed, and the patient could be admitted to the floor. She was admitted to room 381. Overnight, she apparently developed some hypoxemia, and required increasing concentrations of oxygen. She was thought to have some fluid overload. She is currently on 6 L. The patient is receiving Rocephin for possible urinary tract infection. She is not on any IV fluids. Current labs include a white count 8.1, hemoglobin 11.4, hematocrit 35.9, and a platelet count of 137,000. Sodium 128, potassium 4.2, chlorides 102, CO2 11, anion gap is 15. BUN 38 and creatinine 0.93. Glucose is running high at 367. Calcium 6.8. N-terminal proBNP was 4460. The patient's chest x- ray suggested the possibility of fluid overload. CT angiogram was negative for PE, but also suggested CHF. Objective - Vital Signs Vital signs: Vital Signs Temp 98.4 F 01/14/24 12:00 Pulse 84 01/14/24 12:00 Resp 18 01/14/24 12:00 BP 122/74 01/14/24 12:00 Pulse Ox 95 01/14/24 12:00 FiO2 Intake & Output 01/13/24 01/14/24 01/14/24 18:59 06:59 18:59 Intake Total 101.000 220 Output Total 1450 Balance 101.000 -1450 220 Weight 117.934 kg 133 kg 133 kg Intake: Intake, IV Titration 101.000 Amount Insulin Regular 100 unit 101.000 In Sodium Chloride 0.9% 100 ml @ 0.1 UNITS/KG/HR 11.911 mls/hr IV .[id number] [facility] Rx#:[id number] Oral 220 Output: Urine 1450 Other: Voiding Method Bedside Commode Bedside Commode # Voids 1 1 - Exam No acute distress, oriented 3. No respiratory distress. Currently on 4 L of oxygen. HEENT examination is grossly unremarkable. Mucous membranes are moist. No oral lesions. Neck supple. Full range of motion. No adenopathy thyromegaly or neck vein distention. Cardiovascular examination reveals regular rhythm rate. S1-S2 normal. No S3 or S4. No discernible murmur noted. Heart rate 84 bpm. Lungs reveal scattered rhonchi and crackles. Breath sounds equal. No wheezes. 4 L saturation is 95% -98%. Abdomen soft bowel sounds are heard. No masses or tenderness. Extremities are intact. No cyanosis clubbing or edema. Skin is without rash or lesion. Neurologic examination is brief but nonfocal. - Labs CBC & Chem 7: 01/14/24 06:16 01/14/24 06:16 Labs: Abnormal Lab Results - Last 24 Hours (Table) 01/13/24 01/13/24 01/13/24 Range/Units 15:12 15:35 15:35 Plt Count (150-450) k/uL Lymphocytes # (1.0-4.8) k/uL D-Dimer (<0.60) mg/L FEU ABG pH (7.35-7.45) ABG pCO2 (35-45) mmHg ABG pO2 (83-108) mmHg ABG HCO3 (21-25) mmol/L ABG Total CO2 (19-24) mmol/L ABG O2 Saturation (94-97) % VBG pH 7.27 L (7.31-7.41) VBG HCO3 18 L (24-28) mmol/L Sodium 128 L (137-145) mmol/L Carbon Dioxide 18 L (22-30) mmol/L BUN 24 H (7-17) mg/dL Creatinine 1.06 H (0.52-1.04) mg/dL Glucose 186 H (74-99) mg/dL POC Glucose (mg/dL) 212 H (70-110) mg/dL Calcium (8.4-10.2) mg/dL Phosphorus 1.1 L (2.5-4.5) mg/dL Procalcitonin (0.02-0.09) ng/mL 01/13/24 01/13/24 01/13/24 Range/Units 15:35 15:35 16:05 Plt Count (150-450) k/uL Lymphocytes # (1.0-4.8) k/uL D-Dimer (<0.60) mg/L FEU ABG pH (7.35-7.45) ABG pCO2 (35-45) mmHg ABG pO2 (83-108) mmHg ABG HCO3 (21-25) mmol/L ABG Total CO2 (19-24) mmol/L ABG O2 Saturation (94-97) % VBG pH (7.31-7.41) VBG HCO3 (24-28) mmol/L Sodium (137-145) mmol/L Carbon Dioxide (22-30) mmol/L BUN (7-17) mg/dL Creatinine (0.52-1.04) mg/dL Glucose (74-99) mg/dL POC Glucose (mg/dL) 191 H (70-110) mg/dL Calcium (8.4-10.2) mg/dL Phosphorus 0.9 A* (2.5-4.5) mg/dL Procalcitonin 17.20 H (0.02-0.09) ng/mL 01/13/24 01/13/24 01/13/24 Range/Units 16:59 20:10 20:24 Plt Count (150-450) k/uL Lymphocytes # (1.0-4.8) k/uL D-Dimer (<0.60) mg/L FEU ABG pH 7.32 L (7.35-7.45) ABG pCO2 28 L (35-45) mmHg ABG pO2 51 L* (83-108) mmHg ABG HCO3 15 L (21-25) mmol/L ABG Total CO2 16 L (19-24) mmol/L ABG O2 Saturation 88.4 L (94-97) % VBG pH (7.31-7.41) VBG HCO3 (24-28) mmol/L Sodium (137-145) mmol/L Carbon Dioxide (22-30) mmol/L BUN (7-17) mg/dL Creatinine (0.52-1.04) mg/dL Glucose (74-99) mg/dL POC Glucose (mg/dL) 170 H 281 H (70-110) mg/dL Calcium (8.4-10.2) mg/dL Phosphorus (2.5-4.5) mg/dL Procalcitonin (0.02-0.09) ng/mL 01/13/24 01/14/24 01/14/24 Range/Units 20:46 02:02 06:05 Plt Count (150-450) k/uL Lymphocytes # (1.0-4.8) k/uL D-Dimer 1.90 H (<0.60) mg/L FEU ABG pH (7.35-7.45) ABG pCO2 (35-45) mmHg ABG pO2 (83-108) mmHg ABG HCO3 (21-25) mmol/L ABG Total CO2 (19-24) mmol/L ABG O2 Saturation (94-97) % VBG pH (7.31-7.41) VBG HCO3 (24-28) mmol/L Sodium (137-145) mmol/L Carbon Dioxide (22-30) mmol/L BUN (7-17) mg/dL Creatinine (0.52-1.04) mg/dL Glucose (74-99) mg/dL POC Glucose (mg/dL) 312 H 392 H (70-110) mg/dL Calcium (8.4-10.2) mg/dL Phosphorus (2.5-4.5) mg/dL Procalcitonin (0.02-0.09) ng/mL 01/14/24 01/14/24 01/14/24 Range/Units 06:16 06:16 11:21 Plt Count 137 L (150-450) k/uL Lymphocytes # 0.6 L (1.0-4.8) k/uL D-Dimer (<0.60) mg/L FEU ABG pH (7.35-7.45) ABG pCO2 (35-45) mmHg ABG pO2 (83-108) mmHg ABG HCO3 (21-25) mmol/L ABG Total CO2 (19-24) mmol/L ABG O2 Saturation (94-97) % VBG pH (7.31-7.41) VBG HCO3 (24-28) mmol/L Sodium 128 L (137-145) mmol/L Carbon Dioxide 11 L (22-30) mmol/L BUN 30 H (7-17) mg/dL Creatinine (0.52-1.04) mg/dL Glucose 393 H (74-99) mg/dL POC Glucose (mg/dL) 367 H (70-110) mg/dL Calcium 6.8 L (8.4-10.2) mg/dL Phosphorus (2.5-4.5) mg/dL Procalcitonin (0.02-0.09) ng/mL Assessment and Plan Assessment: Acute diabetic ketoacidosis secondary to lack of medication. Shortness of breath with hypoxemia, possibly related to fluid overload. Metabolic acidosis secondary to above. Leukocytosis secondary to above. Diabetes mellitus with hyperglycemia. Medication noncompliance, hemoglobin A1c 13.8. Chronic and ongoing tobacco dependence. History of substance abuse including heroin, cocaine, marijuana, amphetamines, etc. Previous history of heroin overdose. Previous suicide attempt. Obesity. Hypertension. Hyperlipidemia. History of anxiety/depression. Plan: Plan dated January 14, 2024. The patient was on 6 L of oxygen. She has been weaned down to 4 L. Saturations are anywhere from 95%, up to 98%. The chest x-ray, and N-terminal proBNP suggested fluid overload. An echocardiogram was ordered. The patient has been very noncompliant in regards to her diabetes. The patient had a very elevated hemoglobin A1c. Labs, x-rays, medications are reviewed. She is currently on Rocephin for possible urinary tract infection. We will continue to follow make recommendations along the way. The patient has been counseled about the importance of smoking cessation. Time with Patient: Less than 30
[2024-01-14] MEDS: FUROSEMIDE 10 MG/ML 4 ML VIAL IV SCH (15:00)
[2024-01-14 16:11] LABS: Glucose,Whole Blood 370 mg/dL (70-110)
[2024-01-14] MEDS: NICOTINE 14MG/24HR PATCH TRANSDERM SCH (17:48)
[2024-01-14] MEDS: clonazePAM 0.5 MG TAB PO PRN (17:48)
--- NOTE | 2024-01-14 20:00 | P.PN ---
Subjective Progress Note Date: 01/14/24 39-year-old female came in with complaints of back pain left flank pain, found to be in diabetic ketoacidosis. Patient had an anion gap of 20 and bicarbonate of 9 on admission along with hyponatremia patient is still hyponatremic as she is not receiving appropriate fluids at this time. Patient is complaining of burning sensation right flank pain patient does have right flank tenderness along with fever patient had chills at home patient does have leukocytosis patient has significantly abnormal urine. Patient is tired and weak. Patient has not been taking insulin for couple weeks as she ran out of insulin. 01/14/2024 Patient evaluated today on the step down unit. Was transitioned off the insulin gtt yesterday however today her anion gap has increased with AM labs and blood glucose back in the 300s. Patient did receive dose of IV steroids overnight. Was having respiratory distress requiring nasal cannula does not wear oxygen at home. D-dimer elevated, chest ct angiography was completed with no evidence of pulmonary embolism. There is pulmonary vascular congestion and trace bilateral pleural effusions concerning for CHF. Superimposed patchy infiltrates consistent with multilobar pneumonia. Involves the right lung. Procalcitonin is elevated at 17.20. Remains on IV ceftriaxone. Review of Systems Constitutional: Denied any fatigue denied any fever. Cardio vascular: denied any chest pain, palpitations Gastrointestinal: denied any nausea, vomiting, diarrhea Pulmonary: Reports shortness of breath, no cough Neurologic denied any new focal deficits All inpatient medications were reviewed and appropriate changes in these medications as dictated in the interval history and assessment and plan. PHYSICAL EXAMINATION: GENERAL: The patient is alert and oriented x3, not in any acute distress. Well developed, well nourished. HEENT: Pupils are round and equally reacting to light. EOMI. No scleral icterus. No conjunctival pallor. Normocephalic, atraumatic. No pharyngeal erythema. No thyromegaly. CARDIOVASCULAR: S1 and S2 present. No murmurs, rubs, or gallops. PULMONARY: Chest is clear to auscultation, no wheezing or crackles. ABDOMEN: Soft, nontender, nondistended, normoactive bowel sounds. No palpable organomegaly. MUSCULOSKELETAL: No joint swelling or deformity. EXTREMITIES: No cyanosis, clubbing, or pedal edema. NEUROLOGICAL: Gross neurological examination did not reveal any focal deficits. SKIN: No rashes. Assessment and plan -Diabetic ketoacidosis: Treated with DKA protocol and has been transitioned to sliding scale insulin, scheduled meal time insulin and long acting insulin which will be titrated up. Patient is a poorly controlled diabetic. -Volume overload with no prior history of CHF, echocardiogram pending patient continues on IV lasix 40 mg Q12h. -Acute hypoxemic respiratory failure secondary to above -Type 2 diabetes mellitus, with insulin deficiency uncontrolled elevated blood sugars with hemoglobin A1c of 13.8. -Severe sepsis secondary to urinary tract infection patient does have lactic acidosis as well which is contributing to her anion gap. Procalcitonin elevated at 17.2 unfortunately urine culture not done prior to starting the IV antibiotics. Urine culture still needs to be collected. Remains on IV ceftriaxone and clinically improving. -Hyperlipidemia -Nicotine use: Counseling was provided nicotine patch has been added -Gastroesophageal reflux disease -Hypertension -Anxiety resumed on klonopin DVT prophylaxis: Early ambulation GI prophylaxis Protonix The impression and plan of care has been dictated by Jodie Maier, Nurse Practitioner as directed. Dr. Natasha MD I have performed a history and physical examination and medical decision making of this patient, discussed the same with the dictator, and agree with the dictators assessment and plan as written, documented as a scribe. Based on total visit time, I have performed more than 50% of this visit. Objective - Vital Signs Vital signs: Vital Signs Temp 98.2 F 01/14/24 15:00 Pulse 82 01/14/24 15:00 Resp 17 01/14/24 15:00 BP 114/68 01/14/24 15:00 Pulse Ox 94 L 01/14/24 15:00 FiO2 Intake & Output 01/14/24 01/14/24 01/15/24 06:59 18:59 06:59 Intake Total 330 Output Total 1450 Balance -1450 330 Weight 133 kg 133 kg Intake: Oral 330 Output: Urine 1450 Other: Voiding Method Bedside Commode Bedside Commode # Voids 1 1 - Labs CBC & Chem 7: 01/14/24 06:16 01/14/24 06:16 Labs: Abnormal Lab Results - Last 24 Hours (Table) 01/13/24 01/13/24 01/13/24 Range/Units 15:35 15:35 20:10 Plt Count (150-450) k/uL Lymphocytes # (1.0-4.8) k/uL D-Dimer (<0.60) mg/L FEU ABG pH (7.35-7.45) ABG pCO2 (35-45) mmHg ABG pO2 (83-108) mmHg ABG HCO3 (21-25) mmol/L ABG Total CO2 (19-24) mmol/L ABG O2 Saturation (94-97) % Sodium (137-145) mmol/L Carbon Dioxide (22-30) mmol/L BUN (7-17) mg/dL Glucose (74-99) mg/dL POC Glucose (mg/dL) 281 H (70-110) mg/dL Calcium (8.4-10.2) mg/dL Phosphorus 0.9 A* (2.4-5.1) mg/dL Procalcitonin 17.20 H (0.02-0.09) ng/mL 01/13/24 01/13/24 01/14/24 Range/Units 20:24 20:46 02:02 Plt Count (150-450) k/uL Lymphocytes # (1.0-4.8) k/uL D-Dimer 1.90 H (<0.60) mg/L FEU ABG pH 7.32 L (7.35-7.45) ABG pCO2 28 L (35-45) mmHg ABG pO2 51 L* (83-108) mmHg ABG HCO3 15 L (21-25) mmol/L ABG Total CO2 16 L (19-24) mmol/L ABG O2 Saturation 88.4 L (94-97) % Sodium (137-145) mmol/L Carbon Dioxide (22-30) mmol/L BUN (7-17) mg/dL Glucose (74-99) mg/dL POC Glucose (mg/dL) 312 H (70-110) mg/dL Calcium (8.4-10.2) mg/dL Phosphorus (2.4-5.1) mg/dL Procalcitonin (0.02-0.09) ng/mL 01/14/24 01/14/24 01/14/24 Range/Units 06:05 06:16 06:16 Plt Count 137 L (150-450) k/uL Lymphocytes # 0.6 L (1.0-4.8) k/uL D-Dimer (<0.60) mg/L FEU ABG pH (7.35-7.45) ABG pCO2 (35-45) mmHg ABG pO2 (83-108) mmHg ABG HCO3 (21-25) mmol/L ABG Total CO2 (19-24) mmol/L ABG O2 Saturation (94-97) % Sodium 128 L (137-145) mmol/L Carbon Dioxide 11 L (22-30) mmol/L BUN 30 H (7-17) mg/dL Glucose 393 H (74-99) mg/dL POC Glucose (mg/dL) 392 H (70-110) mg/dL Calcium 6.8 L (8.4-10.2) mg/dL Phosphorus (2.4-5.1) mg/dL Procalcitonin (0.02-0.09) ng/mL 01/14/24 01/14/24 Range/Units 11:21 16:10 Plt Count (150-450) k/uL Lymphocytes # (1.0-4.8) k/uL D-Dimer (<0.60) mg/L FEU ABG pH (7.35-7.45) ABG pCO2 (35-45) mmHg ABG pO2 (83-108) mmHg ABG HCO3 (21-25) mmol/L ABG Total CO2 (19-24) mmol/L ABG O2 Saturation (94-97) % Sodium (137-145) mmol/L Carbon Dioxide (22-30) mmol/L BUN (7-17) mg/dL Glucose (74-99) mg/dL POC Glucose (mg/dL) 367 H 370 H (70-110) mg/dL Calcium (8.4-10.2) mg/dL Phosphorus (2.4-5.1) mg/dL Procalcitonin (0.02-0.09) ng/mL Assessment and Plan Time with Patient: Greater than 30
[2024-01-14 20:42] LABS: Glucose,Whole Blood 410 mg/dL (70-110)
[2024-01-14] MEDS: INSULIN ASPART (NovoLOG) 100 UNIT/ML VIAL SQ ONE (21:35)
[2024-01-15 00:16] LABS: Glucose,Whole Blood 448 mg/dL (70-110)
[2024-01-15 02:19] LABS: Glucose,Whole Blood 461 mg/dL (70-110)
[2024-01-15] MEDS: INSULIN ASPART (NovoLOG) 100 UNIT/ML VIAL SQ ONE ×2 (02:50→06:42)
[2024-01-15 05:53] LABS: Glucose,Whole Blood 410 mg/dL (70-110)
[2024-01-15 10:58] LABS: African American GFR (CKD) >90 (>60 ml/min/1.73 sqM); Anion Gap 11 mmol/L; Blood Urea Nitrogen 33 mg/dL (7-17); Calcium 7.4 mg/dL (8.4-10.2); Carbon Dioxide 19 mmol/L (22-30); Chloride 103 mmol/L (98-107); Glucose 281 mg/dL (74-99); Magnesium 2.2 mg/dL (1.6-2.3); Non-African American GFR(CKD) >90 (>60 ml/min/1.73 sqM); Potassium 3.5 mmol/L (3.5-5.1); Sodium 133 mmol/L (137-145)
[2024-01-15 12:18] LABS: Glucose,Whole Blood 194 mg/dL (70-110)
--- NOTE | 2024-01-15 15:37 | P.PN ---
Subjective Progress Note Date: 01/15/24 Principal diagnosis: Diabetic ketoacidosis. This is a 39-year-old female patient with a history of obesity, previous heroin overdose,, polysubstance abuse including heroin, cocaine, methamphetamines, opiates and marijuana diabetes mellitus, chronic smoker who presented here to [facility] emergency room last evening after developing significant abdominal pain and hyperemesis. She states she had ran out of her insulin and metformin. White count 14.6. Hemoglobin 12.0. Platelets 150. Sodium 128. Potassium 3.8. Initial bicarb 9, currently 13. BUN 21. Creatinine 0.92. Anion gap 14. Initial glucose 385, currently 256, hemoglobin A1c 13.8. Urine with 4+ glucose. 4+ ketones. Moderate blood. Acetone positive. She is currently on insulin drip at 13 units/h. D5 and half-normal saline with 20 of KCl at 150 MLS per hour. She is seen today in consultation in the emergency department. She she is currently awake and alert. She is still having issues with ongoing nausea and vomiting. He is requesting morphine for pain. She has received 3 L of fluid resuscitation. Received bicarb. She is afebrile, tachycardic, blood pressure stable, on room air. She is being considered for ICU placement. Progress note dated January 14, 2024. 39-year-old female that we saw yesterday in the emergency department, who presented with diabetic ketoacidosis. The patient apparently states that she ran out of her diabetes medications. The patient has a history of obesity, and previous polysubstance abuse including heroin, cocaine, methamphetamines, opiates, marijuana, etc. The patient was found to be in diabetic ketoacidosis. She was initially going to be placed in the intensive care unit, but with fluids, and an insulin drip, she reversed, and the patient could be admitted to the floor. She was admitted to room 381. Overnight, she apparently developed some hypoxemia, and required increasing concentrations of oxygen. She was thought to have some fluid overload. She is currently on 6 L. The patient is receiving Rocephin for possible urinary tract infection. She is not on any IV fluids. Current labs include a white count 8.1, hemoglobin 11.4, hematocrit 35.9, and a platelet count of 137,000. Sodium 128, potassium 4.2, chlorides 102, CO2 11, anion gap is 15. BUN 38 and creatinine 0.93. Glucose is running high at 367. Calcium 6.8. N-terminal proBNP was 4460. The patient's chest x- ray suggested the possibility of fluid overload. CT angiogram was negative for PE, but also suggested CHF. Progress note dated January 15, 2024. This is a 39-year-old female that we initially saw in the emergency department, for diabetic ketoacidosis. Currently, she is seen in room 381. She is getting saline at 10 cc an hour. She is on room air. She has no complaints today. She denies any shortness of breath, cough, wheezing, chest tightness, or phlegm production. She also denies any chest pain or pressure. Current labs include a glucose of 194. Sodium is 133, potassium 3.5, chlorides 103, CO2 19, anion gap 11, BUN 33, creatinine 0.63. Calcium is 7.4 with a magnesium of 2.2. Blood cultures are currently negative. No recent chest x-ray. Objective - Vital Signs Vital signs: Vital Signs Temp 97.9 F 01/15/24 12:00 Pulse 92 01/15/24 14:00 Resp 16 01/15/24 14:00 BP 148/94 01/15/24 12:00 Pulse Ox 96 01/15/24 12:00 FiO2 Intake & Output 01/14/24 01/15/24 01/15/24 18:59 06:59 18:59 Intake Total 330 560 416 Balance 330 560 416 Weight 133 kg 132 kg Intake: Oral 330 560 416 Other: Voiding Method Bedside Commode Bedside Commode Bedside Commode # Voids 1 1 3 - Exam No acute distress, oriented 3. No respiratory distress. Currently on room air. Saturation is 96%. HEENT examination is grossly unremarkable. Mucous membranes are moist. No oral lesions. Neck supple. Full range of motion. No adenopathy thyromegaly or neck vein distention. Cardiovascular examination reveals regular rhythm rate. S1-S2 normal. No S3 or S4. No discernible murmur noted. Heart rate 90 bpm. Lungs reveal scattered rhonchi and crackles. Breath sounds equal. No wheezes. Room air saturation is 96%. Abdomen soft bowel sounds are heard. No masses or tenderness. Extremities are intact. No cyanosis clubbing or edema. Skin is without rash or lesion. Neurologic examination is brief but nonfocal. - Labs CBC & Chem 7: 01/14/24 06:16 01/15/24 09:35 Labs: Abnormal Lab Results - Last 24 Hours (Table) 01/14/24 01/14/24 01/15/24 Range/Units 16:10 20:41 00:15 Sodium (137-145) mmol/L Carbon Dioxide (22-30) mmol/L BUN (7-17) mg/dL Glucose (74-99) mg/dL POC Glucose (mg/dL) 370 H 410 H 448 H (70-110) mg/dL Calcium (8.4-10.2) mg/dL 01/15/24 01/15/24 01/15/24 Range/Units 02:13 05:51 09:35 Sodium 133 L (137-145) mmol/L Carbon Dioxide 19 L (22-30) mmol/L BUN 33 H (7-17) mg/dL Glucose 281 H (74-99) mg/dL POC Glucose (mg/dL) 461 H 410 H (70-110) mg/dL Calcium 7.4 L (8.4-10.2) mg/dL 01/15/24 Range/Units 12:17 Sodium (137-145) mmol/L Carbon Dioxide (22-30) mmol/L BUN (7-17) mg/dL Glucose (74-99) mg/dL POC Glucose (mg/dL) 194 H (70-110) mg/dL Calcium (8.4-10.2) mg/dL Microbiology - Last 24 Hours (Table) 01/13/24 20:46 Blood Culture - Preliminary Blood Assessment and Plan Assessment: Acute diabetic ketoacidosis secondary to lack of medication. Shortness of breath with hypoxemia, possibly related to fluid overload. Metabolic acidosis secondary to above. Leukocytosis secondary to above. Diabetes mellitus with hyperglycemia. Medication noncompliance, hemoglobin A1c 13.8. Chronic and ongoing tobacco dependence. History of substance abuse including heroin, cocaine, marijuana, amphetamines, etc. Previous history of heroin overdose. Previous suicide attempt. Obesity. Hypertension. Hyperlipidemia. History of anxiety/depression. Plan: Plan dated January 14, 2024. The patient was on 6 L of oxygen. She has been weaned down to 4 L. Saturations are anywhere from 95%, up to 98%. The chest x-ray, and N-terminal proBNP suggested fluid overload. An echocardiogram was ordered. The patient has been very noncompliant in regards to her diabetes. The patient had a very elevated hemoglobin A1c. Labs, x-rays, medications are reviewed. She is currently on Rocephin for possible urinary tract infection. We will continue to follow make recommendations along the way. The patient has been counseled about the importance of smoking cessation. Plan dated January 15, 2024. The patient appears to be doing relatively well. She is on room air. She is getting saline at 10 cc an hour. Labs, x-rays, and medications are reviewed. The patient is counseled about the importance of smoking cessation. She also needs to take better care of herself, and control her diabetes better. We will continue to follow make recommendations. She continues on Rocephin for possible urinary tract infection. She also has a nicotine patch in place. Time with Patient: Less than 30
[2024-01-15 16:44] LABS: Glucose,Whole Blood 234 mg/dL (70-110)
[2024-01-15] MEDS: NICOTINE 21MG/24HR PATCH TRANSDERM SCH (17:55)
[2024-01-15 20:34] LABS: Glucose,Whole Blood 233 mg/dL (70-110)
--- NOTE | 2024-01-15 20:41 | P.PN ---
Subjective Progress Note Date: 01/15/24 39-year-old female came in with complaints of back pain left flank pain, found to be in diabetic ketoacidosis. Patient had an anion gap of 20 and bicarbonate of 9 on admission along with hyponatremia patient is still hyponatremic as she is not receiving appropriate fluids at this time. Patient is complaining of burning sensation right flank pain patient does have right flank tenderness along with fever patient had chills at home patient does have leukocytosis patient has significantly abnormal urine. Patient is tired and weak. Patient has not been taking insulin for couple weeks as she ran out of insulin. 01/14/2024 Patient evaluated today on the step down unit. Was transitioned off the insulin gtt yesterday however today her anion gap has increased with AM labs and blood glucose back in the 300s. Patient did receive dose of IV steroids overnight. Was having respiratory distress requiring nasal cannula does not wear oxygen at home. D-dimer elevated, chest ct angiography was completed with no evidence of pulmonary embolism. There is pulmonary vascular congestion and trace bilateral pleural effusions concerning for CHF. Superimposed patchy infiltrates consistent with multilobar pneumonia. Involves the right lung. Procalcitonin is elevated at 17.20. Remains on IV ceftriaxone. 06/16/2024 Patient is evaluated today in follow up. Blood glucose elevated in the 400s this AM and levemir was increased as well as additional novolog. Blood glucose is improving and was down to 190s today. Patient has been out of insulin at home for the last week and blood sugars have been running in the 300s at home per patient. There is concern for uti, pending urine culture and patient remains on IV ceftriaxone at this time. Echocardiogram is pending. Remains on IV lasix had improvement of sodium to 133. Patient reports no further episodes of shortness of breath and has been weaned to room air. Review of Systems Constitutional: Denied any fatigue denied any fever. Cardio vascular: denied any chest pain, palpitations Gastrointestinal: denied any nausea, vomiting, diarrhea Pulmonary: Reports shortness of breath, no cough Neurologic denied any new focal deficits All inpatient medications were reviewed and appropriate changes in these medications as dictated in the interval history and assessment and plan. PHYSICAL EXAMINATION: GENERAL: The patient is alert and oriented x3, not in any acute distress. Well developed, well nourished. HEENT: Pupils are round and equally reacting to light. EOMI. No scleral icterus. No conjunctival pallor. Normocephalic, atraumatic. No pharyngeal erythema. No thyromegaly. CARDIOVASCULAR: S1 and S2 present. No murmurs, rubs, or gallops. PULMONARY: Chest is clear to auscultation, no wheezing or crackles. ABDOMEN: Soft, nontender, nondistended, normoactive bowel sounds. No palpable organomegaly. MUSCULOSKELETAL: No joint swelling or deformity. EXTREMITIES: No cyanosis, clubbing, or pedal edema. NEUROLOGICAL: Gross neurological examination did not reveal any focal deficits. SKIN: No rashes. Assessment and plan -Diabetic ketoacidosis: Treated with DKA protocol and has been transitioned to sliding scale insulin, scheduled meal time insulin and long acting insulin which will be titrated up. Patient is a poorly controlled diabetic. -Volume overload with no prior history of CHF, echocardiogram pending patient continues on IV lasix 40 mg Q12h. -Hypervolemic hyponatremia improving with IV lasix sodium level currently 133. -Acute hypoxemic respiratory failure secondary to above resolved and has been weaned to room air. -Type 2 diabetes mellitus, with insulin deficiency uncontrolled elevated blood sugars with hemoglobin A1c of 13.8. -Severe sepsis secondary to urinary tract infection patient does have lactic acidosis as well which is contributing to her anion gap. Procalcitonin elevated at 17.2 unfortunately urine culture not done prior to starting the IV antibiotics. Urine culture still needs to be collected. Remains on IV ceftriaxone and clinically improving. -Hyperlipidemia -Nicotine use: Counseling was provided nicotine patch has been added -Gastroesophageal reflux disease -Hypertension -Anxiety resumed on klonopin DVT prophylaxis: Early ambulation GI prophylaxis Protonix Echocardiogram is pending at this time. Continues on IV lasix and will repeat labs in the AM. Patient will be given information for outpatient diabetic education. Barriers to care include issues with transportation to appointment. Patient has been given a glucometer and will be provided with insulin at the time of discharge. We will add triple antibiotic ointment to apply twice a day to the recent tattoo sites. The impression and plan of care has been dictated by Jodie Maier, Nurse Practitioner as directed. Dr. Natasha MD I have performed a history and physical examination and medical decision making of this patient, discussed the same with the dictator, and agree with the dictators assessment and plan as written, documented as a scribe. Based on total visit time, I have performed more than 50% of this visit. Objective - Vital Signs Vital signs: Vital Signs Temp 98.0 F 01/15/24 07:29 Pulse 84 01/15/24 07:34 Resp 17 01/15/24 07:34 BP 124/65 01/15/24 07:29 Pulse Ox 92 L 01/15/24 07:29 FiO2 Intake & Output 01/14/24 01/15/24 01/15/24 18:59 06:59 18:59 Intake Total 330 560 416 Balance 330 560 416 Weight 133 kg 132 kg Intake: Oral 330 560 416 Other: Voiding Method Bedside Commode Bedside Commode # Voids 1 1 3 - Labs CBC & Chem 7: 01/14/24 06:16 01/15/24 09:35 Labs: Abnormal Lab Results - Last 24 Hours (Table) 01/14/24 01/14/24 01/15/24 Range/Units 16:10 20:41 00:15 Sodium (137-145) mmol/L Carbon Dioxide (22-30) mmol/L BUN (7-17) mg/dL Glucose (74-99) mg/dL POC Glucose (mg/dL) 370 H 410 H 448 H (70-110) mg/dL Calcium (8.4-10.2) mg/dL 01/15/24 01/15/24 01/15/24 Range/Units 02:13 05:51 09:35 Sodium 133 L (137-145) mmol/L Carbon Dioxide 19 L (22-30) mmol/L BUN 33 H (7-17) mg/dL Glucose 281 H (74-99) mg/dL POC Glucose (mg/dL) 461 H 410 H (70-110) mg/dL Calcium 7.4 L (8.4-10.2) mg/dL 01/15/24 Range/Units 12:17 Sodium (137-145) mmol/L Carbon Dioxide (22-30) mmol/L BUN (7-17) mg/dL Glucose (74-99) mg/dL POC Glucose (mg/dL) 194 H (70-110) mg/dL Calcium (8.4-10.2) mg/dL Microbiology - Last 24 Hours (Table) 01/13/24 20:46 Blood Culture - Preliminary Blood Assessment and Plan Time with Patient: Less than 30
[2024-01-15] MEDS: NEOMYCIN-BACITRACIN-POLY OINT 14 GM TUBE TOPICAL SCH (21:34)
[2024-01-16 02:26] LABS: Glucose,Whole Blood 245 mg/dL (70-110)
[2024-01-16 06:16] LABS: Glucose,Whole Blood 256 mg/dL (70-110)
--- NOTE | 2024-01-16 07:47 | CA ---
Transthoracic Echo Report Name: Chyna Bonner Age: 39 Gender: F : 1985 Exam Date: 01/14/2024 08:40 Exam Location: [place] [facility] Ht (in): 66 Wt (lb): 260 Ordering Physician: Pillo Beck Attending/Referring Phys: Storage Brine Worker Letha Kimbrough RDCS Procedure CPT: Indications: evaluate LV function Cardiac Hx: Technical Quality: Good Contrast 1: Total Dose (mL): Contrast 2: Total Dose (mL): MEASUREMENTS (Male / Female) Normal Values 2D ECHO LV Diastolic Diameter PLAX 4.0 cm 4.2 - 5.9 / 3.9 - 5.3 cm LV Systolic Diameter PLAX 3.0 cm IVS Diastolic Thickness 1.4 cm 0.6 - 1.0 / 0.6 - 0.9 cm LVPW Diastolic Thickness 1.4 cm 0.6 - 1.0 / 0.6 - 0.9 cm LV Relative Wall Thickness 0.7 RV Internal Dim ED PLAX 4.0 cm LA Systolic Diameter LX 3.6 cm 3.0 - 4.0 / 2.7 - 3.8 cm LV Diastolic Volume MOD BP 89.2 cm??? 67 - 155 / 56 - 104 cm??? LV Systolic Volume MOD BP 40.6 cm??? 22 - 58 / 19 - 49 cm??? LV Ejection Fraction MOD BP 54.5 % >= 55 % LV Cardiac Index MOD BP 1801.4 cm???/min???m??? LV Diastolic Volume MOD 4C 79.3 cm??? LV Systolic Volume MOD 4C 31.4 cm??? LV Ejection Fraction MOD 4C 60.4 % LV Cardiac Index MOD 4C 1772.2 cm???/min???m??? LV Diastolic Length 4C 7.2 cm LV Systolic Length 4C 6.2 cm LV Diastolic Volume MOD 2C 100.0 cm??? LV Systolic Volume MOD 2C 49.5 cm??? LV Ejection Fraction MOD 2C 50.5 % LV Cardiac Index MOD 2C 1872.1 cm???/min???m??? LV Diastolic Length 2C 7.5 cm LV Systolic Length 2C 6.8 cm LA Volume 53.6 cm??? 18 - 58 / 22 - 52 cm??? LA Volume Index 22.3 cm???/m??? 16 - 28 cm???/m??? M-MODE Aortic Root Diameter MM 3.4 cm MV E Point Septal Separation 0.6 cm AV Cusp Separation MM 2.2 cm DOPPLER AV Peak Velocity 118.9 cm/s AV Peak Gradient 5.7 mmHg MV Area PHT 3.9 cm??? Mitral E Point Velocity 125.2 cm/s Mitral A Point Velocity 93.3 cm/s Mitral E to A Ratio 1.3 MV Deceleration Time 193.1 ms FINDINGS Left Ventricle Left ventricular ejection fraction is estimated at 60-65 %. Left ventricular cavity size normal. Moderate concentric left ventricular hypertrophy. No obvious regional wall motion abnormalities. Right Ventricle Moderate right ventricular dilatation. Unable to estimate the right ventricular systolic pressure. Right Atrium Normal right atrial size. Left Atrium Normal left atrial size. Mitral Valve Structurally normal mitral valve. No mitral stenosis, regurgitation or prolapse. Aortic Valve Trileaflet aortic valve. No aortic valve stenosis or regurgitation. Tricuspid Valve Structurally normal tricuspid valve. No tricuspid regurgitation. Pulmonic Valve Structurally normal pulmonic valve. No pulmonic regurgitation. Pericardium No pericardial effusion. Aorta Normal size aortic root and proximal ascending aorta. CONCLUSIONS Normal LV size and function RV appears enlarged Previewed by: Dr. Oracio Rasmussen MD (Electronically Signed) Final Date: 16 January 2024 07:46
[2024-01-16 10:26] VITALS: TEMP 97.6
[2024-01-16 10:30] LABS: African American GFR (CKD) >90 (>60 ml/min/1.73 sqM); Anion Gap 9 mmol/L; Blood Urea Nitrogen 25 mg/dL (7-17); Calcium 7.8 mg/dL (8.4-10.2); Carbon Dioxide 23 mmol/L (22-30); Chloride 102 mmol/L (98-107); Glucose 300 mg/dL (74-99); Non-African American GFR(CKD) >90 (>60 ml/min/1.73 sqM); Potassium 3.6 mmol/L (3.5-5.1); Sodium 134 mmol/L (137-145)
[2024-01-16 11:39] LABS: Glucose,Whole Blood 311 mg/dL (70-110)
[2024-01-16 13:29] VITALS: BP 134/84; PULSE 78; RESP 16
--- NOTE | 2024-01-16 14:16 | P.PN ---
Subjective Progress Note Date: 01/16/24 Principal diagnosis: Diabetic ketoacidosis. This is a 39-year-old female patient with a history of obesity, previous heroin overdose,, polysubstance abuse including heroin, cocaine, methamphetamines, opiates and marijuana diabetes mellitus, chronic smoker who presented here to [facility] emergency room last evening after developing significant abdominal pain and hyperemesis. She states she had ran out of her insulin and metformin. White count 14.6. Hemoglobin 12.0. Platelets 150. Sodium 128. Potassium 3.8. Initial bicarb 9, currently 13. BUN 21. Creatinine 0.92. Anion gap 14. Initial glucose 385, currently 256, hemoglobin A1c 13.8. Urine with 4+ glucose. 4+ ketones. Moderate blood. Acetone positive. She is currently on insulin drip at 13 units/h. D5 and half-normal saline with 20 of KCl at 150 MLS per hour. She is seen today in consultation in the emergency department. She she is currently awake and alert. She is still having issues with ongoing nausea and vomiting. He is requesting morphine for pain. She has received 3 L of fluid resuscitation. Received bicarb. She is afebrile, tachycardic, blood pressure stable, on room air. She is being considered for ICU placement. Progress note dated January 14, 2024. 39-year-old female that we saw yesterday in the emergency department, who presented with diabetic ketoacidosis. The patient apparently states that she ran out of her diabetes medications. The patient has a history of obesity, and previous polysubstance abuse including heroin, cocaine, methamphetamines, opiates, marijuana, etc. The patient was found to be in diabetic ketoacidosis. She was initially going to be placed in the intensive care unit, but with fluids, and an insulin drip, she reversed, and the patient could be admitted to the floor. She was admitted to room 381. Overnight, she apparently developed some hypoxemia, and required increasing concentrations of oxygen. She was thought to have some fluid overload. She is currently on 6 L. The patient is receiving Rocephin for possible urinary tract infection. She is not on any IV fluids. Current labs include a white count 8.1, hemoglobin 11.4, hematocrit 35.9, and a platelet count of 137,000. Sodium 128, potassium 4.2, chlorides 102, CO2 11, anion gap is 15. BUN 38 and creatinine 0.93. Glucose is running high at 367. Calcium 6.8. N-terminal proBNP was 4460. The patient's chest x- ray suggested the possibility of fluid overload. CT angiogram was negative for PE, but also suggested CHF. Progress note dated January 15, 2024. This is a 39-year-old female that we initially saw in the emergency department, for diabetic ketoacidosis. Currently, she is seen in room 381. She is getting saline at 10 cc an hour. She is on room air. She has no complaints today. She denies any shortness of breath, cough, wheezing, chest tightness, or phlegm production. She also denies any chest pain or pressure. Current labs include a glucose of 194. Sodium is 133, potassium 3.5, chlorides 103, CO2 19, anion gap 11, BUN 33, creatinine 0.63. Calcium is 7.4 with a magnesium of 2.2. Blood cultures are currently negative. No recent chest x-ray. Progress note dated January 16, 2024. 39-year-old female initially seen in the emergency department, with diabetic ketoacidosis. Currently, she is resting comfortably in room 381. She is on room air. She is not receiving any IV fluids. She continues on Rocephin for suspected urinary tract infection. Her glucose today is 256. Additional labs include a sodium 134, potassium 3.6, chlorides 102, CO2 23, BUN 25, and creatinine 0.52. Calcium is 7.8. Blood cultures are currently negative. Objective - Vital Signs Vital signs: Vital Signs Temp 97.6 F 01/16/24 08:00 Pulse 78 01/16/24 12:00 Resp 16 01/16/24 14:00 BP 134/84 01/16/24 12:00 Pulse Ox 97 01/16/24 12:00 FiO2 Intake & Output 01/15/24 01/16/24 01/16/24 18:59 06:59 18:59 Intake Total 416 830 Balance 416 830 Weight 131.4 kg Intake: Intake, IV Titration 50 Amount cefTRIAXone 2 gm In 50 Sodium Chloride 0.9% 50 ml @ 100 mls/hr IVPB Q24HR TRISTEN Rx#:[id number] Oral 416 780 Other: Voiding Method Bedside Commode Bedside Commode Bedside Commode # Voids 3 1 - Exam No acute distress, oriented 3. No respiratory distress. Currently on room air. Saturation is 97 %. HEENT examination is grossly unremarkable. Mucous membranes are moist. No oral lesions. Neck supple. Full range of motion. No adenopathy thyromegaly or neck vein distention. Cardiovascular examination reveals regular rhythm rate. S1-S2 normal. No S3 or S4. No discernible murmur noted. Heart rate 78 bpm. Lungs reveal scattered rhonchi and crackles. Breath sounds equal. No wheezes. Room air saturation is 97 %. Abdomen soft bowel sounds are heard. No masses or tenderness. Extremities are intact. No cyanosis clubbing or edema. Skin is without rash or lesion. Neurologic examination is brief but nonfocal. - Labs CBC & Chem 7: 01/14/24 06:16 01/16/24 09:33 Labs: Abnormal Lab Results - Last 24 Hours (Table) 01/15/24 01/15/24 01/16/24 Range/Units 16:42 20:32 02:25 Sodium (137-145) mmol/L BUN (7-17) mg/dL Glucose (74-99) mg/dL POC Glucose (mg/dL) 234 H 233 H 245 H (70-110) mg/dL Calcium (8.4-10.2) mg/dL 01/16/24 01/16/24 01/16/24 Range/Units 06:14 09:33 11:36 Sodium 134 L (137-145) mmol/L BUN 25 H (7-17) mg/dL Glucose 300 H (74-99) mg/dL POC Glucose (mg/dL) 256 H 311 H (70-110) mg/dL Calcium 7.8 L (8.4-10.2) mg/dL Microbiology - Last 24 Hours (Table) 01/13/24 20:46 Blood Culture - Preliminary Blood Assessment and Plan Assessment: Acute diabetic ketoacidosis secondary to lack of medication. Shortness of breath with hypoxemia, possibly related to fluid overload. Metabolic acidosis secondary to above. Leukocytosis secondary to above. Diabetes mellitus with hyperglycemia. Medication noncompliance, hemoglobin A1c 13.8. Chronic and ongoing tobacco dependence. History of substance abuse including heroin, cocaine, marijuana, amphetamines, etc. Previous history of heroin overdose. Previous suicide attempt. Obesity. Hypertension. Hyperlipidemia. History of anxiety/depression. Plan: Plan dated January 14, 2024. The patient was on 6 L of oxygen. She has been weaned down to 4 L. Saturations are anywhere from 95%, up to 98%. The chest x-ray, and N-terminal proBNP suggested fluid overload. An echocardiogram was ordered. The patient has been very noncompliant in regards to her diabetes. The patient had a very elevated hemoglobin A1c. Labs, x-rays, medications are reviewed. She is currently on Rocephin for possible urinary tract infection. We will continue to follow make recommendations along the way. The patient has been counseled about the importance of smoking cessation. Plan dated January 15, 2024. The patient appears to be doing relatively well. She is on room air. She is getting saline at 10 cc an hour. Labs, x-rays, and medications are reviewed. The patient is counseled about the importance of smoking cessation. She also needs to take better care of herself, and control her diabetes better. We will continue to follow make recommendations. She continues on Rocephin for possible urinary tract infection. She also has a nicotine patch in place. Plan dated January 16, 2024. The patient is very stable from the pulmonary standpoint. Labs, x-rays, and medications are reviewed. Her vital signs are currently stable. She denies any respiratory issues such as shortness of breath, cough, wheezing, chest tightness, or phlegm production. We will continue to follow with the patient, and make recommendations along the way. Again, she is counseled about the importance of smoking cessation. She is wearing a nicotine patch. Time with Patient: Less than 30
--- NOTE | 2024-01-19 09:16 | P.DS ---
Providers Date of admission: 01/12/24 20:27 Attending physician: Alex Kirby Consults: 01/13/24 06:22 Consult Physician Stat Consulting Provider: Onofer Das Reason/Comments: dka Do you want consulting provider notified?: Yes Primary care physician: Jordon Plunkett MD Hospital Course: Final Diagnosis -Diabetic ketoacidosis: Treated with DKA protocol, Patient is a poorly controlled diabetic. -Volume overload with no prior history of CHF, echocardiogram reveals normal LV systolic function. -Hypervolemic hyponatremia improving with IV lasix sodium level currently 133. -Acute hypoxemic respiratory failure secondary to sepsis resolved and has been weaned to room air. -Type 2 diabetes mellitus, with insulin deficiency uncontrolled elevated blood sugars with hemoglobin A1c of 13.8. -Severe sepsis secondary to urinary tract infection, POA -Hyperlipidemia -Nicotine use: Counseling was provided nicotine patch has been added -Gastroesophageal reflux disease -Hypertension -Anxiety resumed on klonopin Discharge Disposition Patient stable for discharge home. She is been weaned to room air. She has been transitioned to long-acting insulin with a slight increase from her to home dosing. Patient is instructed to follow-up with diabetic education and she is given a glucometer and recommended to check her blood sugar before meals and keep a log for follow-up with her primary care provider she was also given information for an plane runner to follow-up with on discharge. Patient recommended to establish care with a hide tanner for follow-up on discharge. She will continue oral antibiotics for 1 more day to complete a 5-day course of antibiotics for urinary tract infection. Recommended to repeat a BMP in 2 to 3 days. Patient to follow-up with her primary care provider Dr. Plunkett in 1 to 2 days. Hospital Course This is a 39-year-old female came in with complaints of back pain left flank pain, found to be in diabetic ketoacidosis. Patient has a medical history of diabetes mellitus, poorly controlled, hypertension, hyperlipidemia, acid reflux, anxiety, chronic nicotine use. Patient comes in with an anion gap of 20 and a bicarbonate of 9 as well as hyponatremia he was started on a diabetic DKA protocol with insulin drip as well as appropriate IV fluids. She was also requiring 6 L of oxygen on admission and pulmonary was consulted. Patient did complain of some burning sensation right flank pain patient does have a history of kidney stones for like she is may have passed a stone at this time. She was found to have a positive urinalysis although her urine culture was never taken she was started empirically on IV ceftriaxone and clinically had improved she was also complaining of some burning with urination but no bloody urine. Procalcitonin level was found to be elevated at 17.20. Patient's flank pain has significantly improved. Patient did state that she had ran out of insulin a couple weeks ago and has not been able to get in with her primary care provider for a refill. Patient did have an elevated D-dimer admission CT angiography was completed with no signs of pulmonary embolism there was concern for possible pulmonary vascular congestion and patient was started on IV Lasix and did have improvement in her sodium level. Patient echocardiogram done revealing LV ejection fraction of 60 to 65%. There is right ventricular enlargement. No regurgitation and no pericardial effusion. Clinically this does not suggest a diagnosis of congestive heart failure. Patient was able to be weaned to room air and likely the hypoxia was probably due to the sepsis. White blood cell count has normalized to 8.1, sodium level of 134, BUN of 25 creatinine of 0.52, glucose is now in the 200s. Patient is not have any chest pain or shortness of breath no nausea vomiting or diarrhea she is tolerating diet. Hemodynamically she is stable and she will be discharged home. Please see medication reconciliation for a list of current medications. Thank you for allowing us to participate in the care of this patient. The impression and plan of care has been dictated by Jodie Maier, Nurse Practitioner as directed. Dr. Natasha MD I have performed a history and physical examination and medical decision making of this patient, discussed the same with the dictator, and agree with the dictators assessment and plan as written, documented as a scribe. Based on total visit time, I have performed more than 50% of this visit. Patient Condition at Discharge: Stable Plan - Discharge Summary Discharge Rx Participant: No New Discharge Prescriptions: New Insulin Lispro [humaLOG Kwikpen] 12 units SQ AC-TID #1 each cefUROXime axetiL [Ceftin] 500 mg PO BID 1 Days #2 tab Continue metFORMIN HCL [Glucophage] 1,000 mg PO BID clonazePAM [KlonoPIN] 0.5 mg PO TID PRN PRN Reason: Anxiety Omeprazole 20 mg PO BID Atorvastatin [Lipitor] 10 mg PO DAILY lisinopriL [Zestril] 5 mg PO DAILY QUEtiapine [SEROquel] 50 mg PO HS Changed Insulin Glargine,Hum.rec.anlog [Lantus Solostar Pen] 40 units SQ BID #3 each Discharge Medication List metFORMIN HCL [Glucophage] 1,000 mg PO BID 01/25/20 [History] Atorvastatin [Lipitor] 10 mg PO DAILY 01/12/24 [History] Omeprazole 20 mg PO BID 01/12/24 [History] QUEtiapine [SEROquel] 50 mg PO HS 01/12/24 [History] clonazePAM [KlonoPIN] 0.5 mg PO TID PRN 01/12/24 [History] lisinopriL [Zestril] 5 mg PO DAILY 01/12/24 [History] Insulin Glargine,Hum.rec.anlog [Lantus Solostar Pen] 40 units SQ BID #3 each 01/16/24 [Rx] Insulin Lispro [humaLOG Kwikpen] 12 units SQ AC-TID #1 each 01/16/24 [Rx] cefUROXime axetiL [Ceftin] 500 mg PO BID 1 Days #2 tab 01/16/24 [Rx] Follow up Appointment(s)/Referral(s): Ezequiel Trevino MD [STAFF PHYSICIAN] - 01/22/24 10:15 am (Cardiology follow up in 1 to 2 weeks) Jordon Plunkett MD [Primary Care Provider] - 1-2 days Nayeli Moreno [STAFF PHYSICIAN] - 1 Week Ambulatory/Diagnostic Orders: Basic Metabolic Panel [LAB.AMB] Time Frame: 3 Days, Location: None Selected Patient Instructions/Handouts: Meal Planning with the Plate Method (DC), Type 2 Diabetes Management for Adults (DC) Activity/Diet/Wound Care/Special Instructions: Check your blood sugar before meals and at bedtime keep log for follow up with your PCP Continue with 12 units of humalog (shorting acting insulin) with meals. If blood sugar is less than 150 before meals Further recommendations from your primary provider. Follow up with cardiology in the office in [address] Nayeli Moreno endocrinologists number has been provider. This is a specialist who manages diabetes. Repeat your blood work in 2 to 3 days. Complete course of antibiotics with 1 more day of oral dosing. Continue to cover your tattoo scabs with antibiotic ointment over the counter. Recommend to follow up with outpatient diabetes education offered through [facility] [email or web address] [phone] [facility] [address] Discharge Disposition: HOME SELF-CARE
== END 2024-01-16 17:29 | disposition home or self-care (01) | DRG 420 ==
LOC: EC 18:10 → SUPCPDRO 18:10 → 3SCARD 20:27
PROVIDERS: ADMIT Hospitalist; ATTEND Hospitalist
DX: E11.10 Type 2 diabetes mellitus with ketoacidosis without coma (principal); A41.9 Sepsis, unspecified organism; E66.9 Obesity, unspecified; Z68.42 Body mass index [BMI] 45.0-49.9, adult; E78.5 Hyperlipidemia, unspecified; E86.0 Dehydration; E87.1 Hypo-osmolality and hyponatremia; E87.70 Fluid overload, unspecified; F12.10 Cannabis abuse, uncomplicated; F11.11 Opioid abuse, in remission; F17.210 Nicotine dependence, cigarettes, uncomplicated; R65.20 Severe sepsis without septic shock; J18.9 Pneumonia, unspecified organism; F15.11 Other stimulant abuse, in remission; F41.9 Anxiety disorder, unspecified; I10 Essential (primary) hypertension; J96.01 Acute respiratory failure with hypoxia; K21.9 Gastro-esophageal reflux disease without esophagitis; Z71.6 Tobacco abuse counseling; F14.11 Cocaine abuse, in remission; F32.A Depression, unspecified; K52.9 Noninfective gastroenteritis and colitis, unspecified; N39.0 Urinary tract infection, site not specified; T38.3X6A Underdosing of insulin and oral hypoglycemic [antidiabetic] drugs, initial encounter; Z79.4 Long term (current) use of insulin; Z79.84 Long term (current) use of oral hypoglycemic drugs; Z79.899 Other long term (current) drug therapy; Z87.442 Personal history of urinary calculi; Z91.199 Patient's noncompliance with other medical treatment and regimen due to unspecified reason; Z91.51 Personal history of suicidal behavior; Z11.52 Encounter for screening for COVID-19
CPT/HCPCS: 36415; 36600; 71045; 71275; 80048; 80051; 80053; 81001; 82009; 82565; 82803; 82805; 82947; 83036; 83735; 83880; 84100; 84145; 84520; 85025; 85379; 87040; 87636; 93306; 94760; 96361; 96365; 96366; 96367; 96375; 96376; 99285

== ENCOUNTER 2024-10-05 04:26 | Inpatient (IN) | payer OTHER ==
[2024-10-05 04:35] LABS: Glucose,Whole Blood 85 mg/dL (70-110)
--- NOTE | 2024-10-05 04:45 | ED ---
Recheck HPI - General Chief Complaint: Extremity Injury, Lower Stated Complaint: Diabetic Ulceration Right Great Toe Time Seen by Provider: 10/05/24 04:35 Source: patient, EMS, RN notes reviewed, old records reviewed Mode of arrival: EMS Limitations: no limitations - History of Present Illness Initial Comments: This is a 39-year-old female to the ER for evaluation, she is excepted in transfer for great toe cellulitis of the right foot significant cellulitis spreading up the leg with history of insulin-dependent diabetes., Worsening leg cellulitis and pain patient accepted in transfer from outside facility with need for wound care MD Complaint: wound re-check, abnormal lab, needs IV antibiotics -: days(s) Returns Today for: Called Because of Abnormal Lab/Test, needs IV antibiotics Symptoms Since Prior Visit: no new symptoms, worsening swelling, worsening redness Context: called for abnormal lab result Treatments Prior to Arrival: Given Antibiotics on - Related Data Home Medications Medication Instructions Recorded Confirmed clonazePAM [KlonoPIN] 0.5 mg PO DAILY PRN 01/12/24 10/05/24 DULoxetine HCL [Cymbalta] 120 mg PO DAILY 10/05/24 10/05/24 Gabapentin 300 mg PO TID PRN 10/05/24 10/05/24 QUEtiapine [SEROquel] 100 mg PO HS 10/05/24 10/05/24 hydrOXYzine pamoate [Vistaril] 25 mg PO BID PRN 10/05/24 10/05/24 Previous Rx's Medication Instructions Recorded Insulin Glargine,Hum.rec.anlog 40 units SQ BID #3 each 01/16/24 [Lantus Solostar Pen] Insulin Lispro [humaLOG Kwikpen] 12 units SQ AC-TID #1 each 01/16/24 Amoxic-Pot Clav 875-125Mg 1 tab PO Q12HR 10 Days #20 tab 10/10/24 [Augmentin 875-125] HYDROcodone/APAP 5-325MG [[place] 1 each PO Q6HR PRN #12 tab 10/10/24 5-325] Allergies Allergy/AdvReac Type Severity Reaction Status Date / Time No Known Allergies Allergy Verified 10/05/24 10:24 Review of Systems ROS Statement: Those systems with pertinent positive or pertinent negative responses have been documented in the HPI. ROS Other: All systems not noted in ROS Statement are negative. Past Medical History Past Medical History: Diabetes Mellitus, Hyperlipidemia, Hypertension History of Any Multi-Drug Resistant Organisms: None Reported Additional Past Surgical History / Comment(s): neck tumor removal, renal stents placed and removed, wrist surgery, thumb amputation, attempted suicide-cut wrists Past Anesthesia/Blood Transfusion Reactions: No Reported Reaction Past Psychological History: Anxiety, Depression, PTSD Smoking Status: Current every day smoker Past Alcohol Use History: None Reported Past Drug Use History: Cocaine, Heroin, Marijuana, Methamphetamine, Opiates - Past Family History Family Family Medical History: Unable to Obtain General Exam General appearance: alert, in no apparent distress Head exam: Present: atraumatic, normocephalic, normal inspection Eye exam: Present: normal appearance, PERRL, EOMI. Absent: scleral icterus, conjunctival injection, periorbital swelling ENT exam: Present: normal exam, mucous membranes moist Neck exam: Present: normal inspection. Absent: tenderness, meningismus, lymphadenopathy Respiratory exam: Present: normal lung sounds bilaterally. Absent: respiratory distress, wheezes, rales, rhonchi, stridor Cardiovascular Exam: Present: regular rate, normal rhythm, normal heart sounds. Absent: systolic murmur, diastolic murmur, rubs, gallop, clicks GI/Abdominal exam: Present: soft, normal bowel sounds. Absent: distended, tenderness, guarding, rebound, rigid Extremities exam: Present: normal inspection, full ROM, normal capillary refill. Absent: tenderness, pedal edema, joint swelling, calf tenderness Back exam: Present: normal inspection Neurological exam: Present: alert, oriented X3, CN II-XII intact Psychiatric exam: Present: normal affect, normal mood Skin exam: Present: warm, dry, intact, normal color. Absent: rash Course Vital Signs 10/05/24 10/05/24 10/05/24 04:28 06:52 07:44 Temperature 98.0 F 98.5 F Pulse Rate 88 85 79 Respiratory 18 18 18 Rate Blood Pressure 139/75 133/72 131/80 O2 Sat by Pulse 99 97 97 Oximetry 10/05/24 10/05/24 10/05/24 10:10 12:19 16:01 Temperature 97.9 F Pulse Rate 73 79 80 Respiratory 20 18 Rate Blood Pressure 132/86 143/77 O2 Sat by Pulse 97 99 97 Oximetry - Reevaluation(s) Reevaluation #1: 10/05/24 05:52 Medical records reviewed Reevaluation #2: 10/05/24 05:52 Patient symptoms unchanged Reevaluation #3: 10/05/24 05:53 Informed of results and questions answered Reevaluation #4: Was pt. sent in by a medical professional or institution (RONALDO Livingston, INDUSTRIAL MACHINE OPERATOR, urgent care, hospital, or [facility]...) When possible be specific @ -no Did you speak to anyone other than the patient for history (EMS, parent, family, police, friend...)? What history was obtained from this source @ -no Did you review nursing and triage notes (agree or disagree)? Why? @ -agree Are old charts reviewed (outside hosp., previous admission, EMS record, old EKG, old radiological studies, urgent care reports/EKG's, [facility] records)? Report findings @ -yes Differential Diagnosis (chest pain, altered mental status, abdominal pain women, abdominal pain men, vaginal bleeding, weakness, fever, dyspnea, syncope, headache, dizziness, GI bleed, back pain, seizure, CVA, palpatations, mental health, musculoskeletal)? @ -prior EKG interpreted by me (3pts min.). @ -yes X-rays interpreted by me (1pt min.). @ -no CT interpreted by me (1pt min.). @ -no U/S interpreted by me (1pt. min.). @ -no What testing was considered but not performed or refused? (CT, X-rays, U/S, labs)? Why? @ -none What meds were considered but not given or refused? Why? @ -none Did you discuss the management of the patient with other professionals (professionals i.e. RONALDO Livingston, INDUSTRIAL MACHINE OPERATOR, lab, RT, psych nurse, social work associate, support teacher, teacher, aoc director intelligence officer, nurse outreach case manager)? Give summary @ -no Was smoking cessation discussed for >3mins.? @ -no Was critical care preformed (if so, how long)? @ -no Were there social determinants of health that impacted care today? How? (Homel essness, low income, unemployed, alcoholism, drug addiction, transportation, low edu. Level, literacy, decrease access to med. care, halfway, rehab)? @ -none Was there de-escalation of care discussed even if they declined (Discuss DNR or withdrawal of care, Hospice)? DNR status @ -no What co-morbidities impacted this encounter? (DM, HTN, Smoking, COPD, CAD, Cancer, CVA, ARF, Chemo, Hep., AIDS, mental health diagnosis, sleep apnea, morbid obesity)? @ -none Was patient admitted / discharged? Hospital course, mention meds given and route, prescriptions, significant lab abnormalities, going to OR and other pertinent info. @ - 39 female will be admitted for IV antibiotics secondary to diabetic foot ulcer Admitted Undiagnosed new problem with uncertain prognosis? @ -no Drug Therapy requiring intensive monitoring for toxicity (Heparin, Nitro, Insulin, Cardizem)? @ -no Were any procedures done? @ -no Diagnosis/symptom? @ -Diabetic foot ulcer, secondary cellulitis Acute, or Chronic, or Acute on Chronic? @ -Acute Uncomplicated (without systemic symptoms) or Complicated (systemic symptoms)? @ -Complicated Side effects of treatment? @ -no Exacerbation, Progression, or Severe Exacerbation? @ -exacerbation Poses a threat to life or bodily function? How? (Chest pain, [place], [place], pneumonia, PE, COPD, DKA, ARF, appy, cholecystitis, CVA, Diverticulitis, Homicidal, Suicidal, threat to staff... and all critical care pts) @ -yes significant infection history of IVDA - Consultations Consultation #1: Spoke with [facility] who agrees to admit this patient Medical Decision Making - Medical Decision Making 39 female will be admitted for IV antibiotics secondary to diabetic foot ulcer - Lab Data Result diagrams: 10/10/24 03:38 10/10/24 03:38 Lab Results 10/05/24 Range/Units 04:34 POC Glucose (mg/dL) 85 (70-110) mg/dL POC Glu Sales Correspondent REBECCA Ele Bautista - EKG Data -: EKG Interpreted by Me (EKG is sinus 86 IN 159 QRS 97 QTc 414) - Radiology Data Radiology results: pending (X-ray foot) Disposition Clinical Impression: Diabetes, IDDM (insulin dependent diabetes mellitus), Diabetic foot ulcer, C ellulitis of right foot, Diabetic ulcer of right great toe Disposition: ADMITTED IP TO THIS HOSP Condition: Fair Is patient prescribed a controlled substance at d/c from ED?: No Time of Disposition: 06:00
[2024-10-05] MEDS ORDERED: NALOXONE 0.4 MG/ML 1 ML VIAL IV PRN (05:47)
[2024-10-05] MEDS ORDERED: VANCOMYCIN IV PER PHARMACY 1 EACH MISC MISCELLANE PRN (05:51)
[2024-10-05] MEDS: SODIUM CHLORIDE 0.9% 1,000 ML IV SCH (06:28)
[2024-10-05] MEDS: ACETAMINOPHEN TAB 500 MG TAB PO STA (06:41)
[2024-10-05] MEDS: IBUPROFEN 600 MG TAB PO STA (06:41)
[2024-10-05] MEDS: SODIUM CHLORIDE 0.9% 1,000 ML IV STA (06:42)
[2024-10-05] MEDS: ONDANSETRON 4 MG/2 ML VIAL IVP STA (06:47)
[2024-10-05 06:58] LABS: Basophils % (A) 0 %; Eosinophils # (A) 0.1 k/uL (0-0.7); Eosinophils % (A) 1 %; HCT 33.2 % (34.0-46.0); HGB 11.1 gm/dL (11.4-16.0); Lymphocytes # (A) 2.7 k/uL (1.0-4.8); Lymphocytes % (A) 20 %; MCH 28.4 pg (25.0-35.0); MCHC 33.4 g/dL (31.0-37.0); MCV 84.9 fL (80.0-100.0); Mean Platelet Volume 7.6; Monocytes % (A) 8 %; Neutrophils % (A) 68 %; Platelet Count 258 k/uL (150-450); RBC 3.91 m/uL (3.80-5.40); WBC 13.2 k/uL (3.8-10.6)
[2024-10-05 07:10] LABS: ALT 16 U/L (4-34); AST 23 U/L (14-36); African American GFR (CKD) >90 (>60 ml/min/1.73 sqM); Alkaline Phosphatase 77 U/L (38-126); Anion Gap 7 mmol/L; Blood Urea Nitrogen 14 mg/dL (7-17); Carbon Dioxide 23 mmol/L (22-30); Chloride 107 mmol/L (98-107); Glucose 88 mg/dL (74-99); Magnesium 1.6 mg/dL (1.6-2.3); Non-African American GFR(CKD) >90 (>60 ml/min/1.73 sqM); Phosphorus 3.9 mg/dL (2.5-4.5); Potassium 3.5 mmol/L (3.5-5.1); Sodium 137 mmol/L (137-145); Total Bilirubin 0.2 mg/dL (0.2-1.3); Total Protein 5.8 g/dL (6.3-8.2)
[2024-10-05 07:20] LABS: Prothrombin Time 10.8 sec (10.0-12.5)
[2024-10-05] MEDS: VANCOMYCIN 1,750 MG in SODIUM CHLORIDE 0.9% 500 ML 500 ML IVPB ONE (07:39)
[2024-10-05] MEDS ORDERED: DEXTROSE 50% SYRINGE 50 ML IVP PRN (09:29)
[2024-10-05 10:37] LABS: Glucose,Whole Blood 105 mg/dL (70-110)
[2024-10-05] MEDS: HYDROcodone/APAP 5-325MG 1 EACH TAB PO PRN (10:42)
[2024-10-05 12:13] LABS: Glucose,Whole Blood 164 mg/dL (70-110)
[2024-10-05] MEDS: INSULIN ASPART (NovoLOG) 100 UNIT/ML VIAL SQ SCH (12:17)
--- NOTE | 2024-10-05 14:14 | P.HPIM ---
History of Present Illness H&P Date: 10/05/24 History of present illness; patient is 39-year-old lady with past medical history significant for diabetes mellitus, hypertension, hyperlipidemia who is a transfer from [facility] for right foot wound. 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 Patient stated that her shoes were not of good quality and had holes in it. Patient stated that she noticed that there was a blister on on her right great toe that appeared a week ago, following that she noticed increasing redness and pain in her right great toe. Patient was complaining of fever and chills.. Patient denies any recent trauma to her foot. There was no complaint of chest pain, shortness of breath. There was no current orthopnea or PND. Because of the right foot wound she went to [facility] from where she was transferred to [facility]. Initial lab work done in the ER showed BBC 13.2, hemoglobin 9.1, platelet count 258, sodium 1 present, potassium 3.5, BUN 14, creatinine 0.61, lactate 0.6 albumin 3 EKG done in the ER showed heart rate of 86, no ST segment elevation or depression seen, no T-wave inversions seen. Patient admitted to internal medicine service REVIEW OF SYSTEMS: CONSTITUTIONAL: No fever, no malaise, no fatigue. HEENT: No recent visual problems or hearing problems. Denied any sore throat. CARDIOVASCULAR: No chest pain, orthopnea, PND, no palpitations, no syncope. PULMONARY: No shortness of breath, no cough, no hemoptysis. GASTROINTESTINAL: No diarrhea, no nausea, no vomiting, no abdominal pain. NEUROLOGICAL: No headaches, no weakness, no numbness. HEMATOLOGICAL: Denies any bleeding or petechiae. GENITOURINARY: Denies any burning micturition, frequency, or urgency. MUSCULOSKELETAL/RHEUMATOLOGICAL: As mentioned above ENDOCRINE: Denies any polyuria or polydipsia. The rest of the 14-point review of systems is negative. PHYSICAL EXAMINATION: GENERAL: The patient is alert and oriented x3, not in any acute distress. Well developed, well nourished. HEENT: Pupils are round and equally reacting to light. EOMI. No scleral icterus. No conjunctival pallor. Normocephalic, atraumatic. No pharyngeal erythema. No thyromegaly. CARDIOVASCULAR: S1 and S2 present. No murmurs, rubs, or gallops. PULMONARY: Chest is clear to auscultation, no wheezing or crackles. ABDOMEN: Soft, nontender, nondistended, normoactive bowel sounds. No palpable organomegaly. MUSCULOSKELETAL: Right foot ulcer on great toe EXTREMITIES: No cyanosis, clubbing, or pedal edema. NEUROLOGICAL: Gross neurological examination did not reveal any focal deficits. SKIN: No rashes. Assessment and plan Right foot cellulitis Right foot diabetic foot ulcer Diabetes mellitus Hypertension hyperlipidemia Monitor vital signs Monitor CBC Monitor CMP Continue telemetry monitoring Ordered blood cultures Ordered wound cultures Ordered CRP, ESR, Pro-Young Ordered IV Rocephin Ordered vancomycin pharmacy dose Ordered ID consult Labs and medication were reviewed.. Continue same treatment. Continue with symptomatic treatment. Resume home medication. Monitor labs and vitals. DVT and GI prophylaxis. Further recommendations as per clinical course of the patient Dictation was produced using [employer] dictation software. please excuse any grammatical, word or spelling errors. Past Medical History Past Medical History: Diabetes Mellitus, Hyperlipidemia, Hypertension History of Any Multi-Drug Resistant Organisms: None Reported Additional Past Surgical History / Comment(s): neck tumor removal, renal stents placed and removed, wrist surgery, thumb amputation, attempted suicide-cut wrists Past Anesthesia/Blood Transfusion Reactions: No Reported Reaction Past Psychological History: Anxiety, Depression, PTSD Smoking Status: Current every day smoker Past Alcohol Use History: None Reported Past Drug Use History: Cocaine, Heroin, Marijuana, Methamphetamine, Opiates - Past Family History Family Family Medical History: Unable to Obtain Medications and Allergies Home Medications Medication Instructions Recorded Confirmed Type clonazePAM [KlonoPIN] 0.5 mg PO DAILY PRN 01/12/24 10/05/24 History Insulin Glargine,Hum.rec.anlog 40 units SQ BID #3 each 01/16/24 10/05/24 Rx [Lantus Solostar Pen] Insulin Lispro [humaLOG Kwikpen] 12 units SQ AC-TID #1 each 01/16/24 10/05/24 Rx DULoxetine HCL [Cymbalta] 120 mg PO DAILY 10/05/24 10/05/24 History Gabapentin 300 mg PO TID PRN 10/05/24 10/05/24 History QUEtiapine [SEROquel] 100 mg PO HS 10/05/24 10/05/24 History hydrOXYzine pamoate [Vistaril] 25 mg PO BID PRN 10/05/24 10/05/24 History Allergies Allergy/AdvReac Type Severity Reaction Status Date / Time No Known Allergies Allergy Verified 10/05/24 10:24 Physical Exam Vitals: Vital Signs Temp Pulse Resp BP Pulse Ox 10/05/24 07:44 98.5 F 79 18 131/80 97 10/05/24 06:52 85 18 133/72 97 10/05/24 04:28 98.0 F 88 18 139/75 99 Intake and Output 10/04/24 10/05/24 10/05/24 22:59 06:59 14:59 Other: Weight 118.841 kg Results CBC & Chem 7: 10/05/24 06:38 10/05/24 06:38 Labs: Abnormal Lab Results - Last 24 Hours (Table) 10/05/24 10/05/24 10/05/24 Range/Units 06:38 06:38 06:38 WBC 13.2 H (3.8-10.6) k/uL Hgb 11.1 L (11.4-16.0) gm/dL Hct 33.2 L (34.0-46.0) % Neutrophils # 9.0 H (1.3-7.7) k/uL Plasma Lactic Acid Luke 0.6 L (0.7-2.0) mmol/L Total Protein 5.8 L (6.3-8.2) g/dL Albumin 3.0 L (3.5-5.0) g/dL
[2024-10-05 16:37] LABS: Glucose,Whole Blood 190 mg/dL (70-110)
[2024-10-05 17:39] LABS: Glucose,Whole Blood 210 mg/dL (70-110)
[2024-10-05] MEDS: AMPICILLIN-SULBACTAM 3 GM in SODIUM CHLORIDE 0.9% 100 ML IVPB SCH (18:24)
[2024-10-05] MEDS: VANCOMYCIN 1,750 MG in SODIUM CHLORIDE 0.9% 500 ML 500 ML IVPB SCH ×2 (18:31→21:18)
[2024-10-05] MEDS ORDERED: VANCOMYCIN 1,750 MG in SODIUM CHLORIDE 0.9% 500 ML 500 ML IVPB SCH (20:00)
[2024-10-05 20:50] LABS: Glucose,Whole Blood 199 mg/dL (70-110)
--- NOTE | 2024-10-06 05:58 | P.CONS ---
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 subsequently patient has developed a blister with the patient has been taking care of however when she took her sugars of after working 12 hours yesterday noticed to have increasing swelling and redness to the right big toe for the patient was in the hospital has been complaining of pain describing it to be sharp moderate to severe intensity with some radiation to the right upper leg patient denies high-grade fever or any chills on presentation to the hospital patient was afebrile no fever have been recorded subsequently patient was not tachycardic hypotensive or hypoxic patient did have a white count of 13.2 with a left shift creatinine was 0.61 electrolytes and liver isms are normal did have a CRP of 8.3 patient was started on Rocephin and vancomycin has been admitted to hospital infectious disease was consulted for further management of antibiotic therapy Review of Systems Positive point and negatives has been mentioned in the HPI, complete review of systems was performed and all other systems are negative Past Medical History Past Medical History: Diabetes Mellitus, Hyperlipidemia, Hypertension History of Any Multi-Drug Resistant Organisms: None Reported Additional Past Surgical History / Comment(s): neck tumor removal, renal stents placed and removed, wrist surgery, thumb amputation, attempted suicide-cut wrists Past Anesthesia/Blood Transfusion Reactions: No Reported Reaction Past Psychological History: Anxiety, Depression, PTSD Smoking Status: Current every day smoker Past Alcohol Use History: None Reported Past Drug Use History: Cocaine, Heroin, Marijuana, Methamphetamine, Opiates - Past Family History Family Family Medical History: Unable to Obtain Medications and Allergies Home Medications Medication Instructions Recorded Confirmed Type clonazePAM [KlonoPIN] 0.5 mg PO DAILY PRN 01/12/24 10/05/24 History Insulin Glargine,Hum.rec.anlog 40 units SQ BID #3 each 01/16/24 10/05/24 Rx [Lantus Solostar Pen] Insulin Lispro [humaLOG Kwikpen] 12 units SQ AC-TID #1 each 01/16/24 10/05/24 Rx DULoxetine HCL [Cymbalta] 120 mg PO DAILY 10/05/24 10/05/24 History Gabapentin 300 mg PO TID PRN 10/05/24 10/05/24 History QUEtiapine [SEROquel] 100 mg PO HS 10/05/24 10/05/24 History hydrOXYzine pamoate [Vistaril] 25 mg PO BID PRN 10/05/24 10/05/24 History Allergies Allergy/AdvReac Type Severity Reaction Status Date / Time No Known Allergies Allergy Verified 10/05/24 10:24 Physical Exam Vitals: Vital Signs Temp Pulse Resp BP Pulse Ox 10/05/24 10:10 73 20 132/86 97 10/05/24 07:44 98.5 F 79 18 131/80 97 10/05/24 06:52 85 18 133/72 97 10/05/24 04:28 98.0 F 88 18 139/75 99 Intake and Output 10/04/24 10/05/24 10/05/24 22:59 06:59 14:59 Other: Weight 118.841 kg GENERAL DESCRIPTION: Middle-aged female lying in bed, no distress. No tachypnea or accessory muscle of respiration use. HEENT: Shows Pallor , no scleral icterus. Oral mucous membrane is dry. No pharyngeal erythema or thrush NECK: Trachea central, no thyromegaly. LUNGS: Unlabored breathing. Clear to auscultation anteriorly. No wheeze or crackle. HEART: S1, S2, regular rate and rhythm. No loud murmur ABDOMEN: Soft, no tenderness , guarding or rigidity, no organomegaly EXTREMITIES: Right big toe on the medial aspect did have a blister with swelling redness involving the right big toe no purulent drainage SKIN: No rash, no masses palpable. NEUROLOGICAL: The patient is awake, alert, oriented x3, mood and affect normal. Results CBC & Chem 7: 10/07/24 08:23 10/07/24 08:23 Labs: Abnormal Lab Results - Last 24 Hours (Table) 10/05/24 10/05/24 10/05/24 Range/Units 06:38 06:38 06:38 WBC 13.2 H (3.8-10.6) k/uL Hgb 11.1 L (11.4-16.0) gm/dL Hct 33.2 L (34.0-46.0) % Neutrophils # 9.0 H (1.3-7.7) k/uL Plasma Lactic Acid Luke 0.6 L (0.7-2.0) mmol/L Total Protein 5.8 L (6.3-8.2) g/dL Albumin 3.0 L (3.5-5.0) g/dL Assessment and Plan (1) Diabetic foot infection Current Visit: Yes Status: Acute Code(s): E11.628 - TYPE 2 DIABETES MELLITUS WITH OTHER SKIN COMPLICATIONS; L08.9 - LOCAL INFECTION OF THE SKIN AND SUBCUTANEOUS TISSUE, UNSP SNOMED Code(s): 390833621 (2) Cellulitis of right foot Current Visit: Yes Status: Acute Code(s): L03.115 - CELLULITIS OF RIGHT LOWER LIMB SNOMED Code(s): 81881934273161862 (3) Diabetic ulcer of right great toe Current Visit: Yes Status: Acute Code(s): E11.621 - TYPE 2 DIABETES MELLITUS WITH FOOT ULCER; L97.519 - NON-PRS CHRONIC ULCER OTH PRT RIGHT FOOT W UNSP SEVERITY SNOMED Code(s): 566102064 Plan: 1patient is in the hospital increasing pain swelling redness to the right big toe did have a blister to the right big toe with with a necrotic skin with surrounding swelling and redness concerning for diabetic foot infection will need to cover for the polymicrobial leonel CC'd with diabetic foot infection 2obtain x-rays of the right foot 3May benefit from vascular surgery evaluation possible debridement and deep culture 4vancomycin pharmacy to dose target trough of 15 while watching kidney function and Vanco trough closely we will switch Rocephin to Unasyn for better gram-negative and anaerobic coverage 5marked area of the redness We will follow on clinical condition and cultures to further adjust medication if needed Thank you for this consultation we will follow the patient along with you Dictation was produced using [employer] software. please excuse any grammatical, word or spelling errors. Time with Patient: Greater than 30
[2024-10-06 06:13] LABS: Glucose,Whole Blood 200 mg/dL (70-110)
[2024-10-06 09:51] LABS: Basophils # (A) 0.04 X 10*3/uL (0.00-0.10); Basophils % (A) 0.4 %; Eosinophils # (A) 0.15 X 10*3/uL (0.04-0.35); Eosinophils % (A) 1.4 %; HCT 32.9 % (37.2-46.3); HGB 10.8 g/dL (12.0-15.0); Lymphocytes # (A) 3.09 X 10*3/uL (0.90-5.00); Lymphocytes % (A) 29.5 %; MCH 27.6 pg (27.0-32.0); MCHC 32.8 g/dL (32.0-37.0); MCV 84.1 FL (80.0-97.0); Mean Platelet Volume 10.9 FL (9.5-12.2); Monocytes # (A) 0.93 X 10*3/uL (0.20-1.00); Monocytes % (A) 8.9 %; NRBC Per 100 WBC 0 X 10*3/uL (0.00-0.01); Neutrophils # (A) 6.23 X 10*3/uL (1.80-7.70); Neutrophils % (A) 59.4 %; Platelet Count 297 X 10*3/uL (140-440); RBC 3.91 X 10*6/uL (4.10-5.20); RDW 12.9 % (11.5-14.5); WBC 10.48 X 10*3/uL (4.50-10.00)
[2024-10-06 10:26] LABS: ALT 12 U/L (8-44); AST 16 U/L (13-35); Albumin 2.9 g/dL (3.8-4.9); Albumin/Globulin Ratio 1.12 Ratio (1.60-3.17); Alkaline Phosphatase 76 U/L (41-126); BUN/Creat Ratio 17.83 Ratio (12.00-20.00); Blood Urea Nitrogen 10.7 mg/dL (9.0-27.0); Carbon Dioxide 22.1 mmol/L (21.6-31.8); Chloride 107 mmol/L (96-109); Globulin 2.6 g/dL (1.6-3.3); Glucose 186 mg/dL (70-110); Magnesium 1.7 mg/dL (1.5-2.4); Phosphorus 2.5 mg/dL (2.4-5.1); Potassium 3.8 mmol/L (3.5-5.5); Sodium 137 mmol/L (135-145); Total Bilirubin <0.2 mg/dL (0.3-1.2); Total Protein 5.5 g/dL (6.2-8.2)
--- NOTE | 2024-10-06 11:14 | XR ---
EXAMINATION TYPE: XR foot complete RT DATE OF EXAM: 10/06/2024 10:56 AM COMPARISON: None. CLINICAL INDICATION: Female, 39 years old with history of Right big toe diabetic foot ulcer, pain TECHNIQUE: 3 view(s) obtained. FINDINGS: No acute fracture or dislocation is evident. There is a wound on the medial distal great toe. No susp icious cortical erosion is evident. Some diffuse soft tissue swelling is over the distal foot. Small plantar calcaneal heel spur is present. Joint spaces are preserved Follow up exams can be performed 7-10 days from acute trauma for continued pain. IMPRESSION: 1. No suspicious changes to suggest acute osteomyelitis radiographically apparent. Three-phase bone scan could be performed for sufficient clinical suspicion for osteomyelitis. 2. No acute osseous abnormality radiographically apparent. 3. Mild diffuse distal foot soft tissue swelling. There may be a wound along the medial distal great toe. [facility], , 10/06/2024 11:12 AM
[2024-10-06 12:16] LABS: Glucose,Whole Blood 184 mg/dL (70-110)
[2024-10-06] MEDS ORDERED: GABAPENTIN 300 MG CAP PO PRN (13:26)
[2024-10-06] MEDS ORDERED: hydrOXYzine pamoate 25 MG CAP PO PRN (13:26)
--- NOTE | 2024-10-06 13:27 | P.PN ---
Subjective Progress Note Date: 10/06/24 patient is 39-year-old lady with past medical history significant for diabetes mellitus, hypertension, hyperlipidemia who is a transfer from [facility] for right foot wound. 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 Patient stated that her shoes were not of good quality and had holes in it. Patient stated that she noticed that there was a blister on on her right great toe that appeared a week ago, following that she noticed increasing redness and pain in her right great toe. Patient was complaining of fever and chills.. Patient denies any recent trauma to her foot. There was no complaint of chest pain, shortness of breath. There was no current orthopnea or PND. Because of the right foot wound she went to [facility] from where she was transferred to [facility]. Initial lab work done in the ER showed BBC 13.2, hemoglobin 9.1, platelet count 258, sodium 1 present, potassium 3.5, BUN 14, creatinine 0.61, lactate 0.6 albumin 3 EKG done in the ER showed heart rate of 86, no ST segment elevation or depressi on seen, no T-wave inversions seen. Patient admitted to internal medicine service 10/06. Patient seen and examined. HbA1c level is elevated at 8.2. State still having right foot pain, swelling and redness remain the same REVIEW OF SYSTEMS: CONSTITUTIONAL: No fever, no malaise,. CARDIOVASCULAR: No chest pain, no palpitations, no syncope. PULMONARY: No shortness of breath, no cough, GASTROINTESTINAL: No diarrhea, no nausea, no vomiting, no abdominal pain. NEUROLOGICAL: No headaches, no weakness, PHYSICAL EXAMINATION: GENERAL: The patient is alert and oriented x3, not in any acute distress. Well developed, well nourished. HEENT: Pupils are round and equally reacting to light. EOMI. No scleral icterus. No conjunctival pallor. Normocephalic, atraumatic. No pharyngeal erythema. No thyromegaly. CARDIOVASCULAR: S1 and S2 present. No murmurs, rubs, or gallops. PULMONARY: Chest is clear to auscultation, no wheezing or crackles. ABDOMEN: Soft, nontender, nondistended, normoactive bowel sounds. No palpable organomegaly. MUSCULOSKELETAL: Right foot ulcer on great toe. Erythema extending up to the forefoot EXTREMITIES: No cyanosis, clubbing, or pedal edema. NEUROLOGICAL: Gross neurological examination did not reveal any focal deficits. SKIN: No rashes. Assessment and plan Right foot cellulitis Right foot diabetic foot ulcer Diabetes mellitus Hypertension hyperlipidemia Monitor vital signs Monitor CBC Monitor CMP Follow-up on wound cultures Follow-up on blood cultures Continue Unasyn and vancomycin ID following Respiratory consulted Labs and medication were reviewed.. Continue same treatment. Continue with symptomatic treatment. Resume home medication. Monitor labs and vitals. DVT and GI prophylaxis. Further recommendations as per clinical course of the patient Dictation was produced using [employer] dictation software. please excuse any grammatical, word or spelling errors. Objective - Vital Signs Vital signs: Vital Signs Temp 98.6 F 10/06/24 07:00 Pulse 90 10/06/24 07:00 Resp 18 10/06/24 07:00 BP 157/87 10/06/24 07:00 Pulse Ox 97 10/06/24 07:00 FiO2 Intake & Output 10/05/24 10/06/24 10/06/24 18:59 06:59 18:59 Intake Total 240 Balance 240 Weight 118.841 kg Intake: Oral 240 Other: # Voids 2 - Labs CBC & Chem 7: 10/06/24 06:27 10/06/24 06:27 Labs: Abnormal Lab Results - Last 24 Hours (Table) 10/05/24 10/05/24 10/05/24 Range/Units 06:38 06:38 16:36 WBC (4.50-10.00) X 10*3/uL RBC (4.10-5.20) X 10*6/uL Hgb (12.0-15.0) g/dL Hct (37.2-46.3) % ESR 66 H (0-20) mm/Hr Glucose (70-110) mg/dL POC Glucose (mg/dL) 190 H (70-110) mg/dL Hemoglobin A1c (<=6.0) % Calcium (8.7-10.3) mg/dL Total Bilirubin (0.3-1.2) mg/dL C-Reactive Protein 8.3 H (<1.0) mg/dL Total Protein (6.2-8.2) g/dL Albumin (3.8-4.9) g/dL Albumin/Globulin Ratio (1.60-3.17) Ratio 10/05/24 10/05/24 10/06/24 Range/Units 17:38 20:44 06:11 WBC (4.50-10.00) X 10*3/uL RBC (4.10-5.20) X 10*6/uL Hgb (12.0-15.0) g/dL Hct (37.2-46.3) % ESR (0-20) mm/Hr Glucose (70-110) mg/dL POC Glucose (mg/dL) 210 H 199 H 200 H (70-110) mg/dL Hemoglobin A1c (<=6.0) % Calcium (8.7-10.3) mg/dL Total Bilirubin (0.3-1.2) mg/dL C-Reactive Protein (<1.0) mg/dL Total Protein (6.2-8.2) g/dL Albumin (3.8-4.9) g/dL Albumin/Globulin Ratio (1.60-3.17) Ratio 10/06/24 10/06/24 10/06/24 Range/Units 06:27 06:27 06:27 WBC 10.48 H (4.50-10.00) X 10*3/uL RBC 3.91 L (4.10-5.20) X 10*6/uL Hgb 10.8 L (12.0-15.0) g/dL Hct 32.9 L (37.2-46.3) % ESR (0-20) mm/Hr Glucose 186 H (70-110) mg/dL POC Glucose (mg/dL) (70-110) mg/dL Hemoglobin A1c 8.2 H (<=6.0) % Calcium 8.0 L (8.7-10.3) mg/dL Total Bilirubin <0.2 L (0.3-1.2) mg/dL C-Reactive Protein (<1.0) mg/dL Total Protein 5.5 L (6.2-8.2) g/dL Albumin 2.9 L (3.8-4.9) g/dL Albumin/Globulin Ratio 1.12 L (1.60-3.17) Ratio 10/06/24 Range/Units 12:15 WBC (4.50-10.00) X 10*3/uL RBC (4.10-5.20) X 10*6/uL Hgb (12.0-15.0) g/dL Hct (37.2-46.3) % ESR (0-20) mm/Hr Glucose (70-110) mg/dL POC Glucose (mg/dL) 184 H (70-110) mg/dL Hemoglobin A1c (<=6.0) % Calcium (8.7-10.3) mg/dL Total Bilirubin (0.3-1.2) mg/dL C-Reactive Protein (<1.0) mg/dL Total Protein (6.2-8.2) g/dL Albumin (3.8-4.9) g/dL Albumin/Globulin Ratio (1.60-3.17) Ratio
--- NOTE | 2024-10-06 14:02 | US ---
EXAMINATION TYPE: US venous doppler duplex LE RT DATE OF EXAM: 10/06/2024 1:25 PM COMPARISON: NONE CLINICAL INDICATION: Female, 39 years old with history of Right lower extremity swelling; right calf pain, Pain TECHNIQUE: The lower extremity deep venous system is examined utilizing real time linear array sonog janet with graded compression, color doppler sonography, and spectral doppler. SIDE PERFORMED: right FINDINGS: VESSELS IMAGED: Common Femoral Vein Deep Femoral Vein Greater Saphenous Vein * Femoral Vein Popliteal Vein Small Saphenous Vein * Proximal Calf Veins (* superficial vessels) Right Leg: No evidence for DVT. Rouleaux flow noted throughout leg, Color Doppler imaging shows sigala ncy of the vessels. Spectral waveforms are within normal limits. IMPRESSION: Rule out flow within the right lower extremity venous system. This can be precursor to deep venous th rombosis. No deep venous thrombosis is identified at the time of this examination. [facility], , 10/06/2024 1:59 PM
[2024-10-06] MEDS: HYDROmorphone 1 MG/ML 1 ML SYRINGE IVP PRN (16:06)
[2024-10-06 17:32] LABS: Glucose,Whole Blood 175 mg/dL (70-110)
[2024-10-06] MEDS: INSULIN ASPART (NovoLOG) 100 UNIT/ML VIAL SQ SCH (17:43)
[2024-10-06] MEDS: ONDANSETRON 4 MG/2 ML VIAL IVP PRN (18:14)
[2024-10-06] MEDS: clonazePAM 0.5 MG TAB PO PRN (18:31)
[2024-10-06 20:04] LABS: Glucose,Whole Blood 224 mg/dL (70-110)
[2024-10-06] MEDS: QUEtiapine 100 MG TAB PO SCH (20:13)
[2024-10-06] MEDS: INSULIN DETEMIR (LEVEMIR) 100 UNIT/ML SYR SQ SCH (20:14)
[2024-10-06] MEDS: VANCOMYCIN 1,750 MG in SODIUM CHLORIDE 0.9% 500 ML 500 ML IVPB SCH (20:14)
--- NOTE | 2024-10-06 23:13 | CONS ---
DATE OF CONSULTATION: 10/06/2024 HISTORY OF PRESENT ILLNESS: The patient is a 39-year-old female. The patient has a long-standing history of diabetes mellitus, hypertension, hyperlipidemia. The patient has a history of right big toe infection for the past 1 week and she noticed a week ago about blister on the big toe. The patient has a white blood cell count of 13.2. PAST MEDICAL HISTORY: History of diabetes. 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 PERSONAL HISTORY: No known allergies. PHYSICAL EXAMINATION: NECK: Supple. No bruit appreciated. CHEST: Clear. Good air entry in both lungs. First and second sounds present. ABDOMEN: Soft, nontender. VASCULAR: Femorals palpable bilateral. DP palpable. Right big toe has marked redness and tenderness. In first metatarsophalangeal joint, there is an infected wound; and on the plantar aspect, there is a necrotic eschar with marked redness noted at the metatarsophalangeal joint. PLAN: The patient is on IV antibiotic under care of Infectious Disease. The patient is scheduled to have a big toe debridement, possible big toe amputation. I have discussed in detail with the patient. We will keep the patient n.p.o. midnight as scheduled for tomorrow's surgery. MMODL / IJN: [id number] / [email or web address]
[2024-10-07 06:20] LABS: Glucose,Whole Blood 70 mg/dL (70-110)
[2024-10-07] MEDS: DEXTROSE 50% SYRINGE 50 ML IVP PRN (06:28)
[2024-10-07 07:02] LABS: Glucose,Whole Blood 99 mg/dL (70-110)
[2024-10-07] MEDS: VANCOMYCIN TROUGH DUE 1 EACH MISC MISCELLANE ONE (08:00)
[2024-10-07] MEDS: DULoxetine HCL 60 MG CAPSULE.DR PO SCH (08:15)
[2024-10-07 08:51] LABS: African American GFR (CKD) >90 (>60 ml/min/1.73 sqM); Non-African American GFR(CKD) >90 (>60 ml/min/1.73 sqM)
[2024-10-07 10:40] LABS: Basophils # (A) 0.03 X 10*3/uL (0.00-0.10); Basophils % (A) 0.3 %; Eosinophils # (A) 0.12 X 10*3/uL (0.04-0.35); Eosinophils % (A) 1.1 %; HCT 31.6 % (37.2-46.3); HGB 10.3 g/dL (12.0-15.0); Lymphocytes # (A) 2.19 X 10*3/uL (0.90-5.00); Lymphocytes % (A) 20.9 %; MCH 27.9 pg (27.0-32.0); MCHC 32.6 g/dL (32.0-37.0); MCV 85.6 FL (80.0-97.0); Mean Platelet Volume 10.8 FL (9.5-12.2); Monocytes # (A) 0.87 X 10*3/uL (0.20-1.00); Monocytes % (A) 8.3 %; NRBC Per 100 WBC 0 X 10*3/uL (0.00-0.01); Neutrophils # (A) 7.23 X 10*3/uL (1.80-7.70); Neutrophils % (A) 68.8 %; Platelet Count 285 X 10*3/uL (140-440); RBC 3.69 X 10*6/uL (4.10-5.20); RDW 12.6 % (11.5-14.5)
[2024-10-07 11:22] LABS: ALT 11 U/L (8-44); AST 15 U/L (13-35); Albumin 2.9 g/dL (3.8-4.9); Albumin/Globulin Ratio 1.16 Ratio (1.60-3.17); Alkaline Phosphatase 65 U/L (41-126); Blood Urea Nitrogen 9.4 mg/dL (9.0-27.0); Calcium 7.9 mg/dL (8.7-10.3); Chloride 108 mmol/L (96-109); Globulin 2.5 g/dL (1.6-3.3); Glucose 79 mg/dL (70-110); Potassium 3.8 mmol/L (3.5-5.5); Sodium 141 mmol/L (135-145); Total Bilirubin <0.2 mg/dL (0.3-1.2); Total Protein 5.4 g/dL (6.2-8.2)
[2024-10-07 12:11] LABS: Glucose,Whole Blood 86 mg/dL (70-110)
[2024-10-07] MEDS: DEXTROSE 5% IN WATER 1,000 ML IV SCH (13:05)
[2024-10-07] MEDS: IV FLUID CONTINUATION 800 ML IV ONE (13:40)
[2024-10-07 13:45] LABS: Glucose,Whole Blood 89 mg/dL (70-110)
--- NOTE | 2024-10-07 13:45 | P.PN ---
Subjective Progress Note Date: 10/07/24 patient is 39-year-old lady with past medical history significant for diabetes mellitus, hypertension, hyperlipidemia who is a transfer from [facility] for right foot wound. 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 Patient stated that her shoes were not of good quality and had holes in it. Patient stated that she noticed that there was a blister on on her right great toe that appeared a week ago, following that she noticed increasing redness and pain in her right great toe. Patient was complaining of fever and chills.. Patient denies any recent trauma to her foot. There was no complaint of chest pain, shortness of breath. There was no current orthopnea or PND. Because of the right foot wound she went to [facility] from where she was transferred to [facility]. Initial lab work done in the ER showed BBC 13.2, hemoglobin 9.1, platelet count 258, sodium 1 present, potassium 3.5, BUN 14, creatinine 0.61, lactate 0.6 albumin 3 EKG done in the ER showed heart rate of 86, no ST segment elevation or depressi on seen, no T-wave inversions seen. Patient admitted to internal medicine service 10/06. Patient seen and examined. HbA1c level is elevated at 8.2. State still having right foot pain, swelling and redness remain the same 10/07. Patient seen and examined. Patient currently n.p.o., scheduled for p rocedure by vascular REVIEW OF SYSTEMS: CONSTITUTIONAL: No fever, no malaise,. CARDIOVASCULAR: No chest pain, no palpitations, no syncope. PULMONARY: No shortness of breath, no cough, GASTROINTESTINAL: No diarrhea, no nausea, no vomiting, no abdominal pain. NEUROLOGICAL: No headaches, no weakness, PHYSICAL EXAMINATION: GENERAL: The patient is alert and oriented x3, not in any acute distress. Well developed, well nourished. HEENT: Pupils are round and equally reacting to light. EOMI. No scleral icterus. No conjunctival pallor. Normocephalic, atraumatic. No pharyngeal erythema. No thyromegaly. CARDIOVASCULAR: S1 and S2 present. No murmurs, rubs, or gallops. PULMONARY: Chest is clear to auscultation, no wheezing or crackles. ABDOMEN: Soft, nontender, nondistended, normoactive bowel sounds. No palpable organomegaly. MUSCULOSKELETAL: Right foot ulcer on great toe. Erythema extending up to the forefoot EXTREMITIES: No cyanosis, clubbing, or pedal edema. NEUROLOGICAL: Gross neurological examination did not reveal any focal deficits. SKIN: No rashes. Assessment and plan Right foot cellulitis Right foot diabetic foot ulcer Diabetes mellitus Hypertension hyperlipidemia Monitor vital signs Monitor CBC Monitor CMP Follow-up on wound cultures Follow-up on blood cultures Continue Unasyn and vancomycin ID following Vascular surgery consulted, planning procedure today Labs and medication were reviewed.. Continue same treatment. Continue with symptomatic treatment. Resume home medication. Monitor labs and vitals. DVT and GI prophylaxis. Further recommendations as per clinical course of the patient Dictation was produced using [employer] dictation software. please excuse any grammatical, word or spelling errors. Objective - Vital Signs Vital signs: Vital Signs Temp 98.2 F 10/07/24 07:05 Pulse 81 10/07/24 07:05 Resp 16 10/07/24 08:00 BP 108/69 10/07/24 07:05 Pulse Ox 95 10/07/24 07:05 FiO2 Intake & Output 10/06/24 10/07/24 10/07/24 18:59 06:59 18:59 Intake Total 480 Balance 480 Intake: Oral 480 Other: Voiding Method Toilet # Voids 2 2 - Labs CBC & Chem 7: 10/06/24 06:27 10/07/24 08:23 Labs: Abnormal Lab Results - Last 24 Hours (Table) 10/06/24 10/06/24 10/06/24 Range/Units 06:27 12:15 17:30 Glucose 186 H (70-110) mg/dL POC Glucose (mg/dL) 184 H 175 H (70-110) mg/dL Calcium 8.0 L (8.7-10.3) mg/dL Total Bilirubin <0.2 L (0.3-1.2) mg/dL Total Protein 5.5 L (6.2-8.2) g/dL Albumin 2.9 L (3.8-4.9) g/dL Albumin/Globulin Ratio 1.12 L (1.60-3.17) Ratio 10/06/24 Range/Units 20:03 Glucose (70-110) mg/dL POC Glucose (mg/dL) 224 H (70-110) mg/dL Calcium (8.7-10.3) mg/dL Total Bilirubin (0.3-1.2) mg/dL Total Protein (6.2-8.2) g/dL Albumin (3.8-4.9) g/dL Albumin/Globulin Ratio (1.60-3.17) Ratio
[2024-10-07] MEDS: DEXAMETHASONE SOD PHOSPHATE 4 MG/ML 1 ML VIAL IVP STA (13:47)
[2024-10-07] MEDS ORDERED: PROPOFOL 10 MG/ML 20 ML VIAL IV ONE (13:49)
[2024-10-07] MEDS ORDERED: SUCCINYLCHOLINE CHLORIDE 200 MG/10 ML VIAL IV ONE (13:49)
[2024-10-07] MEDS: FAMOTIDINE 20 MG/2 ML VIAL IV STA (13:49)
[2024-10-07] MEDS ORDERED: PHENYLEPHRINE 10 MG/ML VIAL ONE (13:49)
[2024-10-07] MEDS ORDERED: LIDOCAINE 1% INJ 10MG/ML (20 ML MDV) ONE (13:49)
[2024-10-07] MEDS ORDERED: MIDAZOLAM 2 MG/2 ML VIAL ONE (13:49)
[2024-10-07] MEDS ORDERED: fentaNYL (PF) 50 MCG/ML 2 ML AMP ONE (13:49)
--- NOTE | 2024-10-07 16:33 | P.PN ---
Subjective Progress Note Date: 10/06/24 Principal diagnosis: Reason for follow-up is right big toe diabetic foot infection Patient is a 39-year-old female with a past medical history significant for diabetes mellitus hypertension hyperlipidemia anxiety depression PTSD current everyday smoker presenting to the hospital for evaluation of right big toe swelling redness, patient with diagnosis diabetic foot infection prompting this consultation. On today's evaluation that is 10/06/2024,the patient denies any fever or any chills, patient is breathing comfortably on room air, the patient denies chest pain shortness of breath and no significant cough, patient denies abdominal pain, no nausea vomiting or diarrhea. Still complaining of pain to the right big toe no redness slightly decreased. Patient white count is down to 10.48, creatinine 0.6 Objective - Vital Signs Vital signs: Vital Signs Temp 98.6 F 10/06/24 07:00 Pulse 90 10/06/24 07:00 Resp 18 10/06/24 07:00 BP 157/87 10/06/24 07:00 Pulse Ox 97 10/06/24 07:00 FiO2 Intake & Output 10/05/24 10/06/24 10/06/24 18:59 06:59 18:59 Intake Total 240 Balance 240 Weight 118.841 kg Intake: Oral 240 Other: # Voids 2 - Exam GENERAL DESCRIPTION: Middle-age female lying in bed in no distress RESPIRATORY SYSTEM: Unlabored breathing , decreased breath sounds at bases HEART: S1 S2 regular rate and rhythm , ABDOMEN: Soft , no tenderness EXTREMITIES: Right big toe with swelling redness and necrotic wound on the medial side - Labs CBC & Chem 7: 10/07/24 08:23 10/07/24 08:23 Labs: Abnormal Lab Results - Last 24 Hours (Table) 10/05/24 10/05/24 10/05/24 Range/Units 06:38 06:38 16:36 WBC (4.50-10.00) X 10*3/uL RBC (4.10-5.20) X 10*6/uL Hgb (12.0-15.0) g/dL Hct (37.2-46.3) % ESR 66 H (0-20) mm/Hr Glucose (70-110) mg/dL POC Glucose (mg/dL) 190 H (70-110) mg/dL Hemoglobin A1c (<=6.0) % Calcium (8.7-10.3) mg/dL Total Bilirubin (0.3-1.2) mg/dL C-Reactive Protein 8.3 H (<1.0) mg/dL Total Protein (6.2-8.2) g/dL Albumin (3.8-4.9) g/dL Albumin/Globulin Ratio (1.60-3.17) Ratio 10/05/24 10/05/24 10/06/24 Range/Units 17:38 20:44 06:11 WBC (4.50-10.00) X 10*3/uL RBC (4.10-5.20) X 10*6/uL Hgb (12.0-15.0) g/dL Hct (37.2-46.3) % ESR (0-20) mm/Hr Glucose (70-110) mg/dL POC Glucose (mg/dL) 210 H 199 H 200 H (70-110) mg/dL Hemoglobin A1c (<=6.0) % Calcium (8.7-10.3) mg/dL Total Bilirubin (0.3-1.2) mg/dL C-Reactive Protein (<1.0) mg/dL Total Protein (6.2-8.2) g/dL Albumin (3.8-4.9) g/dL Albumin/Globulin Ratio (1.60-3.17) Ratio 10/06/24 10/06/24 10/06/24 Range/Units 06:27 06:27 06:27 WBC 10.48 H (4.50-10.00) X 10*3/uL RBC 3.91 L (4.10-5.20) X 10*6/uL Hgb 10.8 L (12.0-15.0) g/dL Hct 32.9 L (37.2-46.3) % ESR (0-20) mm/Hr Glucose 186 H (70-110) mg/dL POC Glucose (mg/dL) (70-110) mg/dL Hemoglobin A1c 8.2 H (<=6.0) % Calcium 8.0 L (8.7-10.3) mg/dL Total Bilirubin <0.2 L (0.3-1.2) mg/dL C-Reactive Protein (<1.0) mg/dL Total Protein 5.5 L (6.2-8.2) g/dL Albumin 2.9 L (3.8-4.9) g/dL Albumin/Globulin Ratio 1.12 L (1.60-3.17) Ratio // Range/Units 12:15 WBC (4.50-10.00) X 10*3/uL RBC (4.10-5.20) X 10*6/uL Hgb (12.0-15.0) g/dL Hct (37.2-46.3) % ESR (0-20) mm/Hr Glucose (70-110) mg/dL POC Glucose (mg/dL) 184 H (70-110) mg/dL Hemoglobin A1c (<=6.0) % Calcium (8.7-10.3) mg/dL Total Bilirubin (0.3-1.2) mg/dL C-Reactive Protein (<1.0) mg/dL Total Protein (6.2-8.2) g/dL Albumin (3.8-4.9) g/dL Albumin/Globulin Ratio (1.60-3.17) Ratio Assessment and Plan (1) Diabetic foot infection Current Visit: Yes Status: Acute Code(s): E11.628 - TYPE 2 DIABETES MELLITUS WITH OTHER SKIN COMPLICATIONS; L08.9 - LOCAL INFECTION OF THE SKIN AND SUBCUTANEOUS TISSUE, UNSP SNOMED Code(s): 264217178 (2) Cellulitis of right foot Current Visit: Yes Status: Acute Code(s): L03.115 - CELLULITIS OF RIGHT LOWER LIMB SNOMED Code(s): 36811354289678886 (3) Diabetic ulcer of right great toe Current Visit: Yes Status: Acute Code(s): E11.621 - TYPE 2 DIABETES MELLITUS WITH FOOT ULCER; L97.519 - NON-PRS CHRONIC ULCER OTH PRT RIGHT FOOT W UNSP SEVERITY SNOMED Code(s): 606968135 Plan: 1patient is in the hospital increasing pain swelling redness to the right big toe did have a blister to the right big toe with with a necrotic skin with surrounding swelling and redness concerning for diabetic foot infection will need to cover for the polymicrobial leonel CC'd with diabetic foot infection 2we will request vascular surgery evaluation possible debridement and deep culture, discussed with Dr. Kuo for saving the toe 3patient to continue vancomycin pharmacy to dose target trough of 15 and Unasyn Dictation was produced using [employer] dictation software. please excuse any grammatical, word or spelling errors. Time with Patient: Less than 30
--- NOTE | 2024-10-07 16:34 | P.PN ---
Subjective Progress Note Date: 10/07/24 Principal diagnosis: Reason for follow-up is right big toe diabetic foot infection Patient is a 39-year-old female with a past medical history significant for diabetes mellitus hypertension hyperlipidemia anxiety depression PTSD current everyday smoker presenting to the hospital for evaluation of right big toe swelling redness, patient with diagnosis diabetic foot infection prompting this consultation. Patient has been eval by vascular surgery status post right big toe amputation and closure of the wound completed on 10/07/2024 On today's evaluation that is 10/07/2024,the patient remains to be afebrile, patient is on room air not requiring supplemental oxygen and denies any shortness of breath no chest pain or cough.Patient denies having any nausea or vomiting, no abdominal pain and no diarrhea has been reported still complaining of pain to the right big toe but no worsening. Patient white count is 10.50, creatinine 0.61 Vanco trough is 13.5 Objective - Vital Signs Vital signs: Vital Signs Temp 97.9 F 10/07/24 15:14 Pulse 97 10/07/24 16:00 Resp 15 10/07/24 16:00 BP 153/84 10/07/24 16:00 Pulse Ox 94 L 10/07/24 15:45 FiO2 Intake & Output 10/06/24 10/07/24 10/07/24 18:59 06:59 18:59 Intake Total 480 300 Output Total 20 Balance 480 280 Intake: IV 300 Oral 480 Output: Estimated Blood Loss 20 Other: Voiding Method Toilet # Voids 2 2 - Exam GENERAL DESCRIPTION: Middle-age female lying in bed in no distress RESPIRATORY SYSTEM: Unlabored breathing , decreased breath sounds at bases HEART: S1 S2 regular rate and rhythm , ABDOMEN: Soft , no tenderness EXTREMITIES: Right big toe amputation site is currently dressed - Labs CBC & Chem 7: 10/07/24 08:23 10/07/24 08:23 Labs: Abnormal Lab Results - Last 24 Hours (Table) 10/06/24 10/06/24 10/07/24 Range/Units 17:30 20:03 08:23 WBC 10.50 H (4.50-10.00) X 10*3/uL RBC 3.69 L (4.10-5.20) X 10*6/uL Hgb 10.3 L (12.0-15.0) g/dL Hct 31.6 L (37.2-46.3) % Immature Gran # 0.06 H (0.00-0.04) X 10*3/uL Creatinine (0.6-1.5) mg/dL POC Glucose (mg/dL) 175 H 224 H (70-110) mg/dL Calcium (8.7-10.3) mg/dL Total Bilirubin (0.3-1.2) mg/dL Total Protein (6.2-8.2) g/dL Albumin (3.8-4.9) g/dL Albumin/Globulin Ratio (1.60-3.17) Ratio / Range/Units 08:23 WBC (4.50-10.00) X 10*3/uL RBC (4.10-5.20) X 10*6/uL Hgb (12.0-15.0) g/dL Hct (37.2-46.3) % Immature Gran # (0.00-0.04) X 10*3/uL Creatinine 0.5 L (0.6-1.5) mg/dL POC Glucose (mg/dL) (70-110) mg/dL Calcium 7.9 L (8.7-10.3) mg/dL Total Bilirubin <0.2 L (0.3-1.2) mg/dL Total Protein 5.4 L (6.2-8.2) g/dL Albumin 2.9 L (3.8-4.9) g/dL Albumin/Globulin Ratio 1.16 L (1.60-3.17) Ratio Assessment and Plan (1) Diabetic foot infection Current Visit: Yes Status: Acute Code(s): E11.628 - TYPE 2 DIABETES MELLITUS WITH OTHER SKIN COMPLICATIONS; L08.9 - LOCAL INFECTION OF THE SKIN AND SUBCUTANEOUS TISSUE, UNSP SNOMED Code(s): 274378075 (2) Cellulitis of right foot Current Visit: Yes Status: Acute Code(s): L03.115 - CELLULITIS OF RIGHT LOWER LIMB SNOMED Code(s): 25375782618470149 (3) Diabetic ulcer of right great toe Current Visit: Yes Status: Acute Code(s): E11.621 - TYPE 2 DIABETES MELLITUS WITH FOOT ULCER; L97.519 - NON-PRS CHRONIC ULCER OTH PRT RIGHT FOOT W UNSP SEVERITY SNOMED Code(s): 965493596 Plan: 1patient is in the hospital increasing pain swelling redness to the right big toe did have a blister to the right big toe with with a necrotic skin with surrounding swelling and redness concerning for diabetic foot infection will need to cover for the polymicrobial leonel CC'd with diabetic foot infection 2patient has been eval by vascular surgery status post right big toe amputation and primary closure culture have been obtained 3patient to continue vancomycin pharmacy to dose target trough of 15 and Unasyn while waiting for the OR culture to finalize Dictation was produced using [employer] dictation software. please excuse any grammatical, word or spelling errors. Time with Patient: Less than 30
[2024-10-07 17:10] LABS: Glucose,Whole Blood 117 mg/dL (70-110)
--- NOTE | 2024-10-07 20:01 | OP ---
OPERATIVE REPORT DATE OF SERVICE : 10/07/2024 PREOPERATIVE DIAGNOSES: Wet gangrene of the right foot with open wound on the dorsal aspect at the metatarsophalangeal joint and a wound on the plantar aspect of the right foot with marked redness and drainage of pus noted. POSTOPERATIVE DIAGNOSES: Wet gangrene of the right foot with open wound on the dorsal aspect at the metatarsophalangeal joint and a wound on the plantar aspect of the right foot with marked redness and drainage of pus noted. PROCEDURE PERFORMED: Re-amputation of the right foot at metatarsophalangeal joint. INDICATION: This patient had history of trauma to the right foot. She had this for the last 1 week. Then, the patient came to the emergency room yesterday with marked redness and open wound at metatarsophalangeal joint. The patient is on IV antibiotics. DESCRIPTION OF PROCEDURE: The patient was brought to the operating room. Right foot was prepped and drapes applied in a sterile manner. An elliptical incision was made at the dorsum of the foot, deepened through skin, fat, fascia and the tendons were divided on the dorsal aspect of the foot. This incision was extended on the plantar aspect of the foot deep into skin, fat, fascia, and the tendons were divided. Then, we reached the metatarsophalangeal joint. Ligaments were divided and big toe was removed. There was good digital vessel, which were suture-ligated with a 3-0 Prolene. The wound was copiously irrigated with hydrogen peroxide and saline. Then, we approximated subcutaneous tissue and the fascia with 0 Vicryl and skin was closed with Monocryl 3-0 with a running suture and dressing applied. The patient tolerated the procedure well. Otherwise, completely nonweightbearing. Continue with IV antibiotics. Blood loss was minimal. MMODL / IJN: [id number] / [email or web address]
[2024-10-07 20:12] LABS: Glucose,Whole Blood 255 mg/dL (70-110)
[2024-10-08 05:51] LABS: Glucose,Whole Blood 166 mg/dL (70-110)
[2024-10-08] MEDS: VANCOMYCIN TROUGH DUE 1 EACH MISC MISCELLANE ONE (08:00)
[2024-10-08 09:13] LABS: ALT 13 U/L (4-34); AST 17 U/L (14-36); African American GFR (CKD) >90 (>60 ml/min/1.73 sqM); Albumin 2.9 g/dL (3.5-5.0); Alkaline Phosphatase 81 U/L (38-126); Anion Gap 4 mmol/L; Blood Urea Nitrogen 11 mg/dL (7-17); Carbon Dioxide 26 mmol/L (22-30); Chloride 107 mmol/L (98-107); Globulin 2.9 g/dL; Glucose 101 mg/dL (74-99); Non-African American GFR(CKD) >90 (>60 ml/min/1.73 sqM); Potassium 3.6 mmol/L (3.5-5.1); Sodium 137 mmol/L (137-145); Total Bilirubin <0.1 mg/dL (0.2-1.3); Total Protein 5.8 g/dL (6.3-8.2)
[2024-10-08 12:09] LABS: Glucose,Whole Blood 79 mg/dL (70-110)
[2024-10-08 17:18] LABS: Glucose,Whole Blood 184 mg/dL (70-110)
[2024-10-08 17:29] LABS: Basophils # (A) 0.05 X 10*3/uL (0.00-0.10); Basophils % (A) 0.4 %; Eosinophils # (A) 0.06 X 10*3/uL (0.04-0.35); Eosinophils % (A) 0.5 %; HCT 34.8 % (37.2-46.3); Lymphocytes # (A) 2.96 X 10*3/uL (0.90-5.00); Lymphocytes % (A) 24.4 %; MCH 27.6 pg (27.0-32.0); MCHC 31.6 g/dL (32.0-37.0); MCV 87.4 FL (80.0-97.0); Mean Platelet Volume 10.4 FL (9.5-12.2); Microcytosis (M) 2+ (None Seen); Monocytes # (A) 0.83 X 10*3/uL (0.20-1.00); Monocytes % (A) 6.8 %; NRBC Per 100 WBC 0 X 10*3/uL (0.00-0.01); Neutrophils # (A) 8.18 X 10*3/uL (1.80-7.70); Neutrophils % (A) 67.4 %; Platelet Count 378 X 10*3/uL (140-440); RBC 3.98 X 10*6/uL (4.10-5.20); RDW 12.7 % (11.5-14.5); WBC 12.14 X 10*3/uL (4.50-10.00)
[2024-10-08 19:55] LABS: Glucose,Whole Blood 109 mg/dL (70-110)
--- NOTE | 2024-10-08 20:08 | PN ---
PROGRESS NOTE A 39-year-old white female, with history of diabetes. The patient had infected gangrene of the left big toe. The patient had amputation done yesterday with primary closure. The patient is on IV antibiotic under the care of Infectious Disease. No fever or chills present. Today, we have changed the dressing. Incision site looks okay. Recommend to continue with IV antibiotic and nonweightbearing. We will change next dressing on Friday. MMODL / IJN: [id number] /
--- NOTE | 2024-10-08 23:10 | P.PN ---
Subjective Progress Note Date: 10/08/24 Principal diagnosis: Reason for follow-up is right big toe diabetic foot infection Patient is a 39-year-old female with a past medical history significant for diabetes mellitus hypertension hyperlipidemia anxiety depression PTSD current everyday smoker presenting to the hospital for evaluation of right big toe swelling redness, patient with diagnosis diabetic foot infection prompting this consultation. Patient has been eval by vascular surgery status post right big toe amputation and closure of the wound completed on 10/07/2024 On today's evaluation that is 10/08/2024, the patient continues to be afebrile, the patient is on room air and breathing comfortably, the Pt denies having any chest pain or cough, the patient denies having any abdominal pain no vomiting or any diarrhea pain to the right big toe potation site is currently controlled. Patient white count is 12.14 creatinine 0.56 local culture growing Staph aureus Objective - Vital Signs Vital signs: Vital Signs Temp 98.5 F 10/08/24 07:35 Pulse 73 10/08/24 07:35 Resp 16 10/08/24 08:00 BP 135/74 10/08/24 07:35 Pulse Ox 95 10/08/24 07:35 FiO2 Intake & Output 10/07/24 10/08/24 10/08/24 18:59 06:59 18:59 Intake Total 500 221 Output Total 20 Balance 480 221 Intake: IV 300 Oral 200 221 Output: Estimated Blood Loss 20 Other: Voiding Method Toilet Toilet # Voids 1 2 # Bowel Movements 1 - Exam GENERAL DESCRIPTION: Middle-age female lying in bed in no distress RESPIRATORY SYSTEM: Unlabored breathing , decreased breath sounds at bases HEART: S1 S2 regular rate and rhythm , ABDOMEN: Soft , no tenderness EXTREMITIES: Right big toe amputation site is currently dressed - Labs CBC & Chem 7: 10/08/24 08:41 10/08/24 08:41 Labs: Abnormal Lab Results - Last 24 Hours (Table) 10/07/24 10/07/24 10/08/24 Range/Units 17:09 20:09 05:41 Glucose (74-99) mg/dL POC Glucose (mg/dL) 117 H 255 H 166 H (70-110) mg/dL Calcium (8.4-10.2) mg/dL Total Bilirubin (0.2-1.3) mg/dL Total Protein (6.3-8.2) g/dL Albumin (3.5-5.0) g/dL 10/08/24 Range/Units 08:41 Glucose 101 H (74-99) mg/dL POC Glucose (mg/dL) (70-110) mg/dL Calcium 8.0 L (8.4-10.2) mg/dL Total Bilirubin <0.1 L (0.2-1.3) mg/dL Total Protein 5.8 L (6.3-8.2) g/dL Albumin 2.9 L (3.5-5.0) g/dL Microbiology - Last 24 Hours (Table) 10/07/24 14:15 Gram Stain - Preliminary Toe - Right First Assessment and Plan (1) Diabetic foot infection Current Visit: Yes Status: Acute Code(s): E11.628 - TYPE 2 DIABETES MELLITUS WITH OTHER SKIN COMPLICATIONS; L08.9 - LOCAL INFECTION OF THE SKIN AND SUBCUTANEOUS TISSUE, UNSP SNOMED Code(s): 427571365 (2) Cellulitis of right foot Current Visit: Yes Status: Acute Code(s): L03.115 - CELLULITIS OF RIGHT LOWER LIMB SNOMED Code(s): 21294268747190155 (3) Diabetic ulcer of right great toe Current Visit: Yes Status: Acute Code(s): E11.621 - TYPE 2 DIABETES MELLITUS WITH FOOT ULCER; L97.519 - NON-PRS CHRONIC ULCER OTH PRT RIGHT FOOT W UNSP SEVERITY SNOMED Code(s): 799744708 Plan: 1patient is in the hospital increasing pain swelling redness to the right big toe did have a blister to the right big toe with with a necrotic skin with surrounding swelling and redness concerning for diabetic foot infection will need to cover for the polymicrobial leonel CC'd with diabetic foot infection 2patient is status post right big toe amputation and primary closure culture currently growing Staph aureus sensitivities pending 3patient to continue vancomycin pharmacy to dose target trough of 15 and Unasyn while waiting for the OR culture to finalize to determine discharge antibiotics Dictation was produced using [employer] dictation software. please excuse any grammatical, word or spelling errors. Time with Patient: Less than 30
[2024-10-09 05:31] LABS: Glucose,Whole Blood 134 mg/dL (70-110)
--- NOTE | 2024-10-09 09:59 | PN ---
PROGRESS NOTE Chyna had a big toe amputation with primary closure. The patient is on IV antibiotics, under care of Infectious Disease. Culture came back Staph aureus. Final is pending. We have changed the dressing yesterday. Incision site is clean. No discharge or redness noted. We gave a prescription for a front offloading shoe. We will change the dressing on Friday. MMODL / IJN: [id number] /
[2024-10-09 12:09] LABS: Glucose,Whole Blood 194 mg/dL (70-110)
[2024-10-09 17:17] LABS: Glucose,Whole Blood 142 mg/dL (70-110)
[2024-10-09 20:07] LABS: Glucose,Whole Blood 127 mg/dL (70-110)
--- NOTE | 2024-10-09 20:30 | P.PN ---
Subjective Progress Note Date: 10/08/24 39-year-old lady with past medical history significant for diabetes mellitus, hypertension, hyperlipidemia who is a transfer from [facility] for right foot wound. 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 Patient stated that her shoes were not of good quality and had holes in it. Patient stated that she noticed that there was a blister on on her right great toe that appeared a week ago, following that she noticed increasing redness and pain in her right great toe. Patient was complaining of fever and chills.. Patient denies any recent trauma to her foot. There was no complaint of chest pain, shortness of breath. There was no current orthopnea or PND. Because of the right foot wound she went to [facility] from where she was transferred to [facility]. Initial lab work done in the ER showed BBC 13.2, hemoglobin 9.1, platelet count 258, sodium 1 present, potassium 3.5, BUN 14, creatinine 0.61, lactate 0.6 albumin 3 EKG done in the ER showed heart rate of 86, no ST segment elevation or depression seen, no T-wave inversions seen. Patient admitted to internal medicine service Objective - Vital Signs Vital signs: Vital Signs Temp 98.5 F 10/08/24 07:35 Pulse 73 10/08/24 07:35 Resp 16 10/08/24 08:00 BP 135/74 10/08/24 07:35 Pulse Ox 95 10/08/24 07:35 FiO2 Intake & Output 10/07/24 10/08/24 10/08/24 18:59 06:59 18:59 Intake Total 500 221 Output Total 20 Balance 480 221 Intake: IV 300 Oral 200 221 Output: Estimated Blood Loss 20 Other: Voiding Method Toilet Toilet # Voids 1 2 # Bowel Movements 1 - Exam GENERAL: The patient is alert and oriented x3, not in any acute distress. Well developed, well nourished. HEENT: Pupils are round and equally reacting to light. EOMI. No scleral icterus. No conjunctival pallor. Normocephalic, atraumatic. No pharyngeal erythema. No thyromegaly. CARDIOVASCULAR: S1 and S2 present. No murmurs, rubs, or gallops. PULMONARY: Chest is clear to auscultation, no wheezing or crackles. ABDOMEN: Soft, nontender, nondistended, normoactive bowel sounds. No palpable organomegaly. MUSCULOSKELETAL: Right foot ulcer on great toe. Erythema extending up to the forefoot EXTREMITIES: No cyanosis, clubbing, or pedal edema. NEUROLOGICAL: Gross neurological examination did not reveal any focal deficits. SKIN: No rashes. - Labs CBC & Chem 7: 10/08/24 08:41 10/08/24 08:41 Labs: Abnormal Lab Results - Last 24 Hours (Table) 10/07/24 10/07/24 10/08/24 Range/Units 17:09 20:09 05:41 Glucose (74-99) mg/dL POC Glucose (mg/dL) 117 H 255 H 166 H (70-110) mg/dL Calcium (8.4-10.2) mg/dL Total Bilirubin (0.2-1.3) mg/dL Total Protein (6.3-8.2) g/dL Albumin (3.5-5.0) g/dL 10/08/24 Range/Units 08:41 Glucose 101 H (74-99) mg/dL POC Glucose (mg/dL) (70-110) mg/dL Calcium 8.0 L (8.4-10.2) mg/dL Total Bilirubin <0.1 L (0.2-1.3) mg/dL Total Protein 5.8 L (6.3-8.2) g/dL Albumin 2.9 L (3.5-5.0) g/dL Microbiology - Last 24 Hours (Table) 10/07/24 14:15 Gram Stain - Preliminary Toe - Right First Assessment and Plan Assessment: Right foot cellulitis Right foot diabetic foot ulcer Diabetes mellitus Hypertension hyperlipidemia Monitor vital signs Monitor CBC Monitor CMP Follow-up on wound cultures Follow-up on blood cultures Continue Unasyn and vancomycin ID following Vascular surgery consulted, planning procedure today
--- NOTE | 2024-10-09 20:31 | P.PN ---
Subjective Progress Note Date: 10/09/24 39-year-old lady with past medical history significant for diabetes mellitus, hypertension, hyperlipidemia who is a transfer from [facility] for right foot wound. 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 Patient stated that her shoes were not of good quality and had holes in it. Patient stated that she noticed that there was a blister on on her right great toe that appeared a week ago, following that she noticed increasing redness and pain in her right great toe. Patient was complaining of fever and chills.. Patient denies any recent trauma to her foot. There was no complaint of chest pain, shortness of breath. There was no current orthopnea or PND. Because of the right foot wound she went to [facility] from where she was transferred to [facility]. Initial lab work done in the ER showed BBC 13.2, hemoglobin 9.1, platelet count 258, sodium 1 present, potassium 3.5, BUN 14, creatinine 0.61, lactate 0.6 albumin 3 EKG done in the ER showed heart rate of 86, no ST segment elevation or depression seen, no T-wave inversions seen. Patient admitted to internal medicine service 10/09/2024 Patient is seen and evaluated in room at bedside; specific complaints reported Signs are reviewed and remained stable 1patient is in the hospital increasing pain swelling redness to the right big toe did have a blister to the right big toe with with a necrotic skin with surrounding swelling and redness concerning for diabetic foot infection will need to cover for the polymicrobial leonel CC'd with diabetic foot infection 2patient is status post right big toe amputation and primary closure culture currently growing Staph aureus sensitivities pending 3patient to continue vancomycin pharmacy to dose target trough of 15 and Unasyn while waiting for the OR culture to finalize to determine discharge antibiotics Objective - Vital Signs Vital signs: Vital Signs Temp 97.7 F 10/09/24 07:05 Pulse 86 10/09/24 07:05 Resp 17 10/09/24 08:00 BP 149/92 10/09/24 07:05 Pulse Ox 96 10/09/24 07:05 FiO2 Intake & Output 10/08/24 10/09/24 10/09/24 18:59 06:59 18:59 Intake Total 442 Balance 442 Intake: Oral 442 Other: Voiding Method Toilet Toilet Toilet # Voids 5 3 # Bowel Movements 1 - Exam GENERAL: The patient is alert and oriented x3, not in any acute distress. Well developed, well nourished. HEENT: Pupils are round and equally reacting to light. EOMI. No scleral icterus. No conjunctival pallor. Normocephalic, atraumatic. No pharyngeal erythema. No thyromegaly. CARDIOVASCULAR: S1 and S2 present. No murmurs, rubs, or gallops. PULMONARY: Chest is clear to auscultation, no wheezing or crackles. ABDOMEN: Soft, nontender, nondistended, normoactive bowel sounds. No palpable organomegaly. MUSCULOSKELETAL: Right foot ulcer on great toe. Erythema extending up to the forefoot EXTREMITIES: No cyanosis, clubbing, or pedal edema. NEUROLOGICAL: Gross neurological examination did not reveal any focal deficits. SKIN: No rashes. - Labs CBC & Chem 7: 10/08/24 08:41 10/08/24 08:41 Labs: Abnormal Lab Results - Last 24 Hours (Table) 10/08/24 10/08/24 10/09/24 Range/Units 08:41 17:17 05:19 WBC 12.14 H (4.50-10.00) X 10*3/uL RBC 3.98 L (4.10-5.20) X 10*6/uL Hgb 11.0 L (12.0-15.0) g/dL Hct 34.8 L (37.2-46.3) % MCHC 31.6 L (32.0-37.0) g/dL Immature Gran # 0.06 H (0.00-0.04) X 10*3/uL Neutrophils # 8.18 H (1.80-7.70) X 10*3/uL Microcytosis (manual) 2+ A (None Seen) POC Glucose (mg/dL) 184 H 134 H (70-110) mg/dL 10/09/24 Range/Units 12:08 WBC (4.50-10.00) X 10*3/uL RBC (4.10-5.20) X 10*6/uL Hgb (12.0-15.0) g/dL Hct (37.2-46.3) % MCHC (32.0-37.0) g/dL Immature Gran # (0.00-0.04) X 10*3/uL Neutrophils # (1.80-7.70) X 10*3/uL Microcytosis (manual) (None Seen) POC Glucose (mg/dL) 194 H (70-110) mg/dL Microbiology - Last 24 Hours (Table) 10/07/24 14:15 Gram Stain - Preliminary Toe - Right First Tissue Culture - Preliminary Presumptive Staph aureus Assessment and Plan Assessment: Right foot cellulitis Right foot diabetic foot ulcer Diabetes mellitus Hypertension hyperlipidemia Monitor vital signs Monitor CBC Monitor CMP Follow-up on wound cultures Follow-up on blood cultures Continue Unasyn and vancomycin ID following Vascular surgery consulted, planning procedure today
--- NOTE | 2024-10-09 22:19 | P.PN ---
Subjective Progress Note Date: 10/09/24 Principal diagnosis: Reason for follow-up is right big toe diabetic foot infection Patient is a 39-year-old female with a past medical history significant for diabetes mellitus hypertension hyperlipidemia anxiety depression PTSD current everyday smoker presenting to the hospital for evaluation of right big toe swelling redness, patient with diagnosis diabetic foot infection prompting this consultation. Patient has been eval by vascular surgery status post right big toe amputation and closure of the wound completed on 10/07/2024 On today's evaluation that is 10/09/2024, patient did not have any fever and denies any chills, patient is breathing comfortably on room air, patient with no chest pain or cough patient did not have any abdominal pain nausea vomiting or any loose stools, pain to the right big toe potation site is currently controlled. Local culture currently growing MSSA Objective - Vital Signs Vital signs: Vital Signs Temp 97.7 F 10/09/24 07:05 Pulse 86 10/09/24 07:05 Resp 17 10/09/24 08:00 BP 149/92 10/09/24 07:05 Pulse Ox 96 10/09/24 07:05 FiO2 Intake & Output 10/08/24 10/09/24 10/09/24 18:59 06:59 18:59 Intake Total 442 Balance 442 Intake: Oral 442 Other: Voiding Method Toilet Toilet Toilet # Voids 5 3 # Bowel Movements 1 - Exam GENERAL DESCRIPTION: Middle-age female lying in bed in no distress RESPIRATORY SYSTEM: Unlabored breathing , decreased breath sounds at bases HEART: S1 S2 regular rate and rhythm , ABDOMEN: Soft , no tenderness EXTREMITIES: Right big toe amputation site is currently dressed - Labs CBC & Chem 7: 10/08/24 08:41 10/08/24 08:41 Labs: Abnormal Lab Results - Last 24 Hours (Table) 10/08/24 10/08/24 10/09/24 Range/Units 08:41 17:17 05:19 WBC 12.14 H (4.50-10.00) X 10*3/uL RBC 3.98 L (4.10-5.20) X 10*6/uL Hgb 11.0 L (12.0-15.0) g/dL Hct 34.8 L (37.2-46.3) % MCHC 31.6 L (32.0-37.0) g/dL Immature Gran # 0.06 H (0.00-0.04) X 10*3/uL Neutrophils # 8.18 H (1.80-7.70) X 10*3/uL Microcytosis (manual) 2+ A (None Seen) POC Glucose (mg/dL) 184 H 134 H (70-110) mg/dL 10/09/24 Range/Units 12:08 WBC (4.50-10.00) X 10*3/uL RBC (4.10-5.20) X 10*6/uL Hgb (12.0-15.0) g/dL Hct (37.2-46.3) % MCHC (32.0-37.0) g/dL Immature Gran # (0.00-0.04) X 10*3/uL Neutrophils # (1.80-7.70) X 10*3/uL Microcytosis (manual) (None Seen) POC Glucose (mg/dL) 194 H (70-110) mg/dL Microbiology - Last 24 Hours (Table) 10/07/24 14:15 Gram Stain - Preliminary Toe - Right First Tissue Culture - Preliminary Presumptive Staph aureus Assessment and Plan (1) Diabetic foot infection Current Visit: Yes Status: Acute Code(s): E11.628 - TYPE 2 DIABETES MELLITUS WITH OTHER SKIN COMPLICATIONS; L08.9 - LOCAL INFECTION OF THE SKIN AND SUBCUTANEOUS TISSUE, UNSP SNOMED Code(s): 781315132 (2) Cellulitis of right foot Current Visit: Yes Status: Acute Code(s): L03.115 - CELLULITIS OF RIGHT LOWER LIMB SNOMED Code(s): 75093214661348102 (3) Diabetic ulcer of right great toe Current Visit: Yes Status: Acute Code(s): E11.621 - TYPE 2 DIABETES MELLITUS WITH FOOT ULCER; L97.519 - NON-PRS CHRONIC ULCER OTH PRT RIGHT FOOT W UNSP SEVERITY SNOMED Code(s): 118941045 Plan: 1patient is in the hospital increasing pain swelling redness to the right big toe did have a blister to the right big toe with with a necrotic skin with surrounding swelling and redness concerning for diabetic foot infection will need to cover for the polymicrobial leonel CC'd with diabetic foot infection 2patient is status post right big toe amputation and primary closure culture currently growing Staph aureus 3patient to continue Unasyn will discontinue vancomycin once cleared for discharge by vascular recommend short course of oral Augmentin on discharge Dictation was produced using [employer] dictation software. please excuse any grammatical, word or spelling errors. Time with Patient: Less than 30
[2024-10-10 04:01] LABS: African American GFR (CKD) >90 (>60 ml/min/1.73 sqM); Anion Gap 5 mmol/L; Blood Urea Nitrogen 12 mg/dL (7-17); Calcium 8.5 mg/dL (8.4-10.2); Carbon Dioxide 27 mmol/L (22-30); Chloride 105 mmol/L (98-107); Glucose 127 mg/dL (74-99); Non-African American GFR(CKD) >90 (>60 ml/min/1.73 sqM); Potassium 3.8 mmol/L (3.5-5.1); Sodium 137 mmol/L (137-145)
[2024-10-10 05:44] LABS: Glucose,Whole Blood 159 mg/dL (70-110)
[2024-10-10 07:03] VITALS: RESP 17
[2024-10-10 11:30] LABS: Basophils # (A) 0.03 X 10*3/uL (0.00-0.10); Basophils % (A) 0.3 %; Eosinophils # (A) 0.11 X 10*3/uL (0.04-0.35); Eosinophils % (A) 1.2 %; HCT 32.5 % (37.2-46.3); HGB 10.8 g/dL (12.0-15.0); Lymphocytes # (A) 2.82 X 10*3/uL (0.90-5.00); Lymphocytes % (A) 31.6 %; MCH 28.3 pg (27.0-32.0); MCHC 33.2 g/dL (32.0-37.0); MCV 85.3 FL (80.0-97.0); Mean Platelet Volume 10.6 FL (9.5-12.2); NRBC Per 100 WBC 0 X 10*3/uL (0.00-0.01); Neutrophils % (A) 57.3 %; Platelet Count 388 X 10*3/uL (140-440); RBC 3.81 X 10*6/uL (4.10-5.20); RDW 12.7 % (11.5-14.5); WBC 8.91 X 10*3/uL (4.50-10.00)
[2024-10-10 12:22] LABS: Glucose,Whole Blood 131 mg/dL (70-110)
[2024-10-10 14:25] VITALS: BP 157/76; PULSE 92; TEMP 98.4
--- NOTE | 2024-10-10 15:22 | P.PN ---
Subjective Progress Note Date: 10/10/24 Principal diagnosis: Reason for follow-up is right big toe diabetic foot infection Patient is a 39-year-old female with a past medical history significant for diabetes mellitus hypertension hyperlipidemia anxiety depression PTSD current everyday smoker presenting to the hospital for evaluation of right big toe swelling redness, patient with diagnosis diabetic foot infection prompting this consultation. Patient has been eval by vascular surgery status post right big toe amputation and closure of the wound completed on 10/07/2024 On today's evaluation that is 10/10/2024, Patient is afebrile patient is currently on room air and denies having any shortness of breath, the patient denies any chest pain or cough, the patient denies any nausea vomiting did not have any abdominal pain and no diarrhea pain to the right big toe potation site is currently controlled. Patient white count is 8.1, creatinine 0.61 local culture with MSSA Objective - Vital Signs Vital signs: Vital Signs Temp 98.0 F 10/10/24 07:02 Pulse 91 10/10/24 07:02 Resp 17 10/10/24 08:00 BP 144/68 10/10/24 07:02 Pulse Ox 95 10/10/24 07:02 FiO2 Intake & Output 10/09/24 10/10/24 10/10/24 18:59 06:59 18:59 Other: Voiding Method Toilet Toilet Toilet # Voids 4 1 # Bowel Movements 2 - Exam GENERAL DESCRIPTION: Middle-age female lying in bed in no distress RESPIRATORY SYSTEM: Unlabored breathing , decreased breath sounds at bases HEART: S1 S2 regular rate and rhythm , ABDOMEN: Soft , no tenderness EXTREMITIES: Right big toe amputation site is currently dressed - Labs CBC & Chem 7: 10/10/24 03:38 10/10/24 03:38 Labs: Abnormal Lab Results - Last 24 Hours (Table) 10/09/24 10/09/24 10/10/24 Range/Units 17:15 20:05 03:38 RBC (4.10-5.20) X 10*6/uL Hgb (12.0-15.0) g/dL Hct (37.2-46.3) % Immature Gran # (0.00-0.04) X 10*3/uL Glucose 127 H (74-99) mg/dL POC Glucose (mg/dL) 142 H 127 H (70-110) mg/dL 10/10/24 10/10/24 10/10/24 Range/Units 03:38 05:43 12:21 RBC 3.81 L (4.10-5.20) X 10*6/uL Hgb 10.8 L (12.0-15.0) g/dL Hct 32.5 L (37.2-46.3) % Immature Gran # 0.05 H (0.00-0.04) X 10*3/uL Glucose (74-99) mg/dL POC Glucose (mg/dL) 159 H 131 H (70-110) mg/dL Microbiology - Last 24 Hours (Table) 10/07/24 14:15 Anaerobic Culture - Preliminary Toe - Right First 10/07/24 14:15 Gram Stain - Preliminary Toe - Right First Tissue Culture - Preliminary Staphylococcus aureus Assessment and Plan (1) Diabetic foot infection Current Visit: Yes Status: Acute Code(s): E11.628 - TYPE 2 DIABETES MELLITUS WITH OTHER SKIN COMPLICATIONS; L08.9 - LOCAL INFECTION OF THE SKIN AND SUBCUTANEOUS TISSUE, UNSP SNOMED Code(s): 930540222 (2) Cellulitis of right foot Current Visit: Yes Status: Acute Code(s): L03.115 - CELLULITIS OF RIGHT LOWER LIMB SNOMED Code(s): 68811598417240343 (3) Diabetic ulcer of right great toe Current Visit: Yes Status: Acute Code(s): E11.621 - TYPE 2 DIABETES MELLITUS WITH FOOT ULCER; L97.519 - NON-PRS CHRONIC ULCER OTH PRT RIGHT FOOT W UNSP SEVER ITY SNOMED Code(s): 475818098 Plan: 1patient is in the hospital increasing pain swelling redness to the right big toe did have a blister to the right big toe with with a necrotic skin with surrounding swelling and redness concerning for diabetic foot infection will need to cover for the polymicrobial leonel CC'd with diabetic foot infection 2patient is status post right big toe amputation and primary closure culture currently growing Staph aureus 3patient to continue Unasyn while inpatient finishing therapy with oral Augmentin once cleared for discharge by vascular surgery discussed with Dr. Kuo in the ICU Dictation was produced using [email or web address] software. please excuse any grammatical, word or spelling errors. Time with Patient: Less than 30
--- NOTE | 2024-10-10 22:21 | PN ---
PROGRESS NOTE This is a 39-year-old female. She came with wet gangrene of the right foot big toe. The patient went for amputation with primary closure. The patient does well under the care of Infectious Disease. Incision site is clean. No fracture present. The patient is going on Augmentin per Infectious Disease. The patient will come to my office on Friday at noon. The patient has offloading shoes. MMODL / IJN: [id number] /
[2024-10-11] MEDS ORDERED: INSULIN DETEMIR (LEVEMIR) 100 UNIT/ML SYR SQ SCH (07:00)
--- NOTE | 2024-10-12 19:14 | CDI ---
Documentation Clarification Form Date: 10/12/2024 06:54:22 PM From: Sara Bagley Phone: Admit Date: 10/05/2024 05:48:00 AM Patient Name: Chyna Bonner Visit Number: [id number] Discharge Date: 10/10/2024 03:40:00 PM ATTENTION: The Clinical Documentation Specialists (CDI) and [facility] Coding Staff appreciate your assistance in clarifying documentation. Please respond to the clarification below the line at the bottom and electronically sign. The CDI & [facility] Coding staff will review the response and follow-up if needed. Please note: Queries are made part of the Legal Health Record. If you have any questions, please contact the author of this message via ITS. Doctor/Provider: Calvin Moreno Your patient has an abnormal lab value: A1C 8.2. Please clarify if there is an additional diagnosis and/or clinical significance related to this value. History/Risk Factors: DMII with PAD/gangrene, foot ulcer sp BKA w MSSA, cellulitis, HTN, HLD, smoker Clinical indicators: Glucose: 10/05 85 10/06 184-210 10/07 175-224 10/08 101-255 10/09 127- 194 10/10 127-159 Treatment: SS insulin Is there an additional diagnosis and/or clinical significance related to the above lab result/information? [ x ] Diabetic Mellitus with hyperglycemia [ ] Diabetic Mellitus with hypoglycemia [ ] No additional diagnosis/Not clinically significant [ ] Other, please specify [ ] Unable to determine (Template Last Revised: October 2020) MTDD
== END 2024-10-10 15:40 | disposition home or self-care (01) | DRG 314 ==
LOC: EC 04:26 → 6NMEDSUR 05:47 → OBSVTOIN 05:48 → 6NMEDSUR 11:27
PROVIDERS: ADMIT Hospitalist; ATTEND Hospitalist
PROC: 0Y6P0Z0 Detachment at Right 1st Toe, Complete, Open Approach (ICD-10-PCS; principal; 2024-10-07 13:00)
DX: E11.52 Type 2 diabetes mellitus with diabetic peripheral angiopathy with gangrene (principal); E11.621 Type 2 diabetes mellitus with foot ulcer; E11.628 Type 2 diabetes mellitus with other skin complications; Z79.4 Long term (current) use of insulin; L97.516 Non-pressure chronic ulcer of other part of right foot with bone involvement without evidence of necrosis; E11.65 Type 2 diabetes mellitus with hyperglycemia; I10 Essential (primary) hypertension; L03.115 Cellulitis of right lower limb; B95.61 Methicillin susceptible Staphylococcus aureus infection as the cause of diseases classified elsewhere; E78.5 Hyperlipidemia, unspecified; F17.210 Nicotine dependence, cigarettes, uncomplicated; L03.031 Cellulitis of right toe; Z79.899 Other long term (current) drug therapy; Z79.84 Long term (current) use of oral hypoglycemic drugs; Z91.51 Personal history of suicidal behavior; Z89.012 Acquired absence of left thumb
CPT/HCPCS: 36415; 80048; 80053; 80202; 81025; 82565; 83036; 83605; 83735; 84100; 84145; 85025; 85610; 85652; 85730; 86140; 87070; 87075; 87077; 87186; 87205; 93005; 96361; 96365; 96367; 99285

== ENCOUNTER 2024-11-25 17:33 | Inpatient (IN) | payer OTHER ==
[2024-11-25] MEDS ORDERED: IBUPROFEN 400 MG TAB PO PRN (18:35)
[2024-11-25] MEDS ORDERED: NALOXONE 0.4 MG/ML 1 ML VIAL IV PRN (18:35)
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
[2024-11-25 19:33] LABS: Basophils % (A) 0 %; Eosinophils # (A) 0.1 k/uL (0-0.7); Eosinophils % (A) 0 %; HCT 32.5 % (34.0-46.0); HGB 10.4 gm/dL (11.4-16.0); Lymphocytes # (A) 1.1 k/uL (1.0-4.8); Lymphocytes % (A) 6 %; MCH 26.9 pg (25.0-35.0); Mean Platelet Volume 6.8; Monocytes % (A) 6 %; Neutrophils # (A) 15.2 k/uL (1.3-7.7); Neutrophils % (A) 86 %; Platelet Count 403 k/uL (150-450); RBC 3.87 m/uL (3.80-5.40); RDW 12.8 % (11.5-15.5); WBC 17.6 k/uL (3.8-10.6)
[2024-11-25] MEDS ORDERED: VANCOMYCIN IV PER PHARMACY 1 EACH MISC MISCELLANE PRN (19:41)
[2024-11-25 19:58] LABS: ALT 12 U/L (4-34); AST 16 U/L (14-36); African American GFR (CKD) >90 (>60 ml/min/1.73 sqM); Albumin 2.8 g/dL (3.5-5.0); Alkaline Phosphatase 92 U/L (38-126); Anion Gap 7 mmol/L; Blood Urea Nitrogen 18 mg/dL (7-17); Calcium 8.6 mg/dL (8.4-10.2); Carbon Dioxide 26 mmol/L (22-30); Chloride 99 mmol/L (98-107); Glucose 146 mg/dL (74-99); LDH 221 U/L (120-246); Non-African American GFR(CKD) >90 (>60 ml/min/1.73 sqM); Potassium 4.1 mmol/L (3.5-5.1); Sodium 132 mmol/L (137-145); Total Bilirubin 0.3 mg/dL (0.2-1.3)
[2024-11-25] MEDS: PIPERACILLIN-TAZOBACTAM 3.375 GM in SODIUM CHLORIDE 0.9% 100 ML IVPB STA (20:25)
--- NOTE | 2024-11-25 20:36 | US ---
EXAMINATION TYPE: US venous doppler duplex LE RT DATE OF EXAM: 11/25/2024 8:24 PM COMPARISON: 10/06/2024 CLINICAL INDICATION: Female, 39 years old with history of right calf pain, rule out dvt; Patient stat es right toe amputation. Toe infection. Right calf pain. no hx dvt, Pain TECHNIQUE: The lower extremity deep venous system is examined utilizing real time linear array sonog janet with graded compression, color doppler sonography, and spectral doppler. SIDE PERFORMED: FINDINGS: VESSELS IMAGED: Common Femoral Vein Deep Femoral Vein Greater Saphenous Vein * Femoral Vein Popliteal Vein Small Saphenous Vein * Proximal Calf Veins (* superficial vessels) slightly limited due to patient body habitus Right Leg: Appears negative for dvt. Right calf edema visualized, Color Doppler imaging shows patenc y of the vessels. Spectral waveforms are within normal limits. There are multiple enlarged lymph nodes in the right groin, largest measuring 4.8cm with a 1.1cm co rtex IMPRESSION: No ultrasound evidence for deep venous thrombosis. [facility], , 11/25/2024 8:34 PM
[2024-11-25] MEDS: VANCOMYCIN 2,000 MG in SODIUM CHLORIDE 0.9% 500 ML 500 ML IVPB ONE (21:00)
[2024-11-25] MEDS: ACETAMINOPHEN TAB 325 MG TAB PO PRN (21:07)
[2024-11-25] MEDS ORDERED: DEXTROSE 50% SYRINGE 50 ML IVP PRN ×2 (22:09)
[2024-11-25 22:54] LABS: Glucose,Whole Blood 119 mg/dL (70-110)
[2024-11-25] MEDS: HYDROcodone/APAP 10-325MG 1 EACH TAB PO PRN (22:55)
[2024-11-25] MEDS: INSULIN GLARGINE (LANTUS) 100 UNIT/ML SYR SQ SCH (22:55)
[2024-11-25] MEDS: ARIPiprazole 5 MG TAB PO SCH (22:55)
[2024-11-25] MEDS: GABAPENTIN 300 MG CAP PO SCH (22:55)
[2024-11-25] MEDS: ATORVASTATIN 10 MG TAB PO SCH (22:55)
[2024-11-26] MEDS ORDERED: HYDROcodone/APAP 5-325MG 1 EACH TAB PO PRN (00:33)
[2024-11-26 06:56] LABS: Glucose,Whole Blood 87 mg/dL (70-110)
[2024-11-26] MEDS: INSULIN LISPRO (HumaLOG) 100 UNIT/ML 10 mL VL SQ SCH (06:56)
[2024-11-26] MEDS: PANTOPRAZOLE 40 MG TABLET PO SCH (06:59)
[2024-11-26 08:26] LABS: Basophils # (A) 0.03 X 10*3/uL (0.00-0.10); Basophils % (A) 0.2 %; Eosinophils # (A) 0.14 X 10*3/uL (0.04-0.35); HCT 29.8 % (37.2-46.3); HGB 9.9 g/dL (12.0-15.0); Lymphocytes # (A) 1.67 X 10*3/uL (0.90-5.00); Lymphocytes % (A) 11.8 %; MCHC 33.2 g/dL (32.0-37.0); MCV 84.2 FL (80.0-97.0); Mean Platelet Volume 9.7 FL (9.5-12.2); Monocytes # (A) 1.46 X 10*3/uL (0.20-1.00); Monocytes % (A) 10.3 %; NRBC Per 100 WBC 0 X 10*3/uL (0.00-0.01); Neutrophils # (A) 10.84 X 10*3/uL (1.80-7.70); Neutrophils % (A) 76.3 %; Platelet Count 356 X 10*3/uL (140-440); RBC 3.54 X 10*6/uL (4.10-5.20); RDW 12.2 % (11.5-14.5); WBC 14.19 X 10*3/uL (4.50-10.00)
[2024-11-26 08:27] LABS: ALT 8 U/L (8-44); AST 12 U/L (13-35); Albumin 2.7 g/dL (3.8-4.9); Albumin/Globulin Ratio 0.87 Ratio (1.60-3.17); Alkaline Phosphatase 91 U/L (41-126); BUN/Creat Ratio 24.17 Ratio (12.00-20.00); Blood Urea Nitrogen 14.5 mg/dL (9.0-27.0); Calcium 8.4 mg/dL (8.7-10.3); Carbon Dioxide 27.5 mmol/L (21.6-31.8); Chloride 104 mmol/L (96-109); Globulin 3.1 g/dL (1.6-3.3); Glucose 71 mg/dL (70-110); Potassium 3.9 mmol/L (3.5-5.5); Sodium 140 mmol/L (135-145); Total Bilirubin <0.2 mg/dL (0.3-1.2); Total Protein 5.8 g/dL (6.2-8.2)
[2024-11-26] MEDS: lisinopriL 5 MG TAB PO SCH (09:17)
[2024-11-26] MEDS: DULoxetine HCL 60 MG CAPSULE.DR PO SCH (09:17)
[2024-11-26] MEDS: hydrOXYzine pamoate 25 MG CAP PO SCH (09:17)
[2024-11-26] MEDS: VANCOMYCIN 2,000 MG in SODIUM CHLORIDE 0.9% 500 ML 500 ML IVPB SCH (09:18)
[2024-11-26 11:12] LABS: Glucose,Whole Blood 126 mg/dL (70-110)
[2024-11-26 11:50] LABS: Glucose,Whole Blood 70 mg/dL (70-110)
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
[2024-11-26] MEDS: HYDROmorphone 1 MG/ML 1 ML SYRINGE IVP PRN (14:56)
--- NOTE | 2024-11-26 16:53 | CT ---
EXAMINATION TYPE: CT foot RT w con CT DLP: 255.1 mGycm, Automated exposure control for dose reduction was used. DATE OF EXAM: 11/26/2024 4:39 PM COMPARISON: Right foot radiograph 10/06/2024 CLINICAL INDICATION:Female, 39 years old with history of r/o osteomyelitis; PHH, Recent great Toe amp utation on October 08 2024. Pt states foot is now infected and infection is spreading. R/O osteomye litis. TECHNIQUE: Axial images were obtained of the right foot after the uneventful administration of 100 mL of Isovue-300 intravenously. Additional coronal and sagittal reformatted images and soft tissue and bone window were obtained for review. FINDINGS: Postsurgical changes from first digit amputation at MTP joint. There is osseous erosions in volving the first metatarsal head with adjacent ulceration at the amputation site. Additional osseous erosions involving the medial aspect of the second metatarsal head with surrounding edema and soft t issue gas. There is some gas abutting the second MTP joint. This extends along the second digit plant ar surface. Additional osseous erosions involving the plantar aspect of the second proximal phalanx. No acute fracture or dislocation. Small plantar calcaneal enthesophyte. The ankle joint is intact. Diffuse soft tissue edema. No rim-en hancing organized fluid collection identified. IMPRESSION: 1. Postsurgical first digit amputation at the MTP joint with development of ulceration and soft tissu e gas. There is osseous erosions involving the first metatarsal head and the medial aspect of the sec ond metatarsal head. Additional osseous erosions involving the plantar aspect of the second proximal phalanx. Findings are highly concerning for osteomyelitis. 2. Diffuse soft tissue edema without evidence for abscess. [facility], , 11/26/2024 4:51 PM
[2024-11-26 16:58] LABS: Glucose,Whole Blood 90 mg/dL (70-110)
[2024-11-26] MEDS: AMPICILLIN-SULBACTAM 3 GM in SODIUM CHLORIDE 0.9% 100 ML IVPB SCH (20:07)
[2024-11-26 21:07] LABS: Glucose,Whole Blood 98 mg/dL (70-110)
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
[2024-11-27] MEDS: clonazePAM 0.5 MG TAB PO PRN (01:34)
[2024-11-27 05:55] LABS: Basophils % (A) 0 %; Eosinophils # (A) 0.2 k/uL (0-0.7); Eosinophils % (A) 2 %; HCT 32.2 % (34.0-46.0); HGB 10.1 gm/dL (11.4-16.0); Hypochromasia Slight; Lymphocytes # (A) 1.8 k/uL (1.0-4.8); Lymphocytes % (A) 18 %; MCH 26.8 pg (25.0-35.0); MCHC 31.3 g/dL (31.0-37.0); MCV 85.7 fL (80.0-100.0); Mean Platelet Volume 7.1; Monocytes # (A) 0.8 k/uL (0-1.0); Monocytes % (A) 8 %; Neutrophils # (A) 7.1 k/uL (1.3-7.7); Neutrophils % (A) 69 %; Platelet Count 370 k/uL (150-450); RBC 3.76 m/uL (3.80-5.40); WBC 10.3 k/uL (3.8-10.6)
[2024-11-27 06:10] LABS: Glucose,Whole Blood 106 mg/dL (70-110)
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
[2024-11-27 10:32] LABS: Glucose,Whole Blood 76 mg/dL (70-110)
[2024-11-27 11:14] LABS: Blood Urea Nitrogen 10.8 mg/dL (9.0-27.0); Calcium 8.3 mg/dL (8.7-10.3); Carbon Dioxide 25.6 mmol/L (21.6-31.8); Chloride 105 mmol/L (96-109); Glucose 101 mg/dL (70-110); Magnesium 1.7 mg/dL (1.5-2.4); Sodium 139 mmol/L (135-145)
[2024-11-27 12:05] LABS: Glucose,Whole Blood 73 mg/dL (70-110)
[2024-11-27] MEDS ORDERED: MIDAZOLAM 2 MG/2 ML VIAL ONE (12:23)
[2024-11-27] MEDS: LACTATED RINGERS 1,000 ML IV ONE (12:23)
[2024-11-27] MEDS ORDERED: LIDOCAINE 1% INJ 10MG/ML (20 ML MDV) ONE (12:23)
[2024-11-27] MEDS ORDERED: PROPOFOL 10 MG/ML 20 ML VIAL IV ONE (12:23)
[2024-11-27] MEDS ORDERED: fentaNYL (PF) 50 MCG/ML 2 ML AMP ONE (12:23)
[2024-11-27] MEDS ORDERED: KETOROLAC 30 MG/ML 1 ML VIAL ONE (12:23)
[2024-11-27] MEDS: ALBUTEROL NEBULIZED 2.5 MG/3 ML INHALATION PRN (13:22)
[2024-11-27] MEDS: IV FLUID CONTINUATION 1,000 ML IV ONE (13:45)
--- NOTE | 2024-11-27 15:08 | P.PCN ---
Date of Procedure: 11/27/24 Description of Procedure: Preop diagnosis wet gangrene of the right foot second toe Specimen was sent for deep culture Postop the same Procedure ray amputation of the right foot second toe at metatarsophalangeal joint Procedure patient was brought to the operating room right foot was prepped and draped in Prestel manner. Patient had a right foot big toe patient done recently patient came with marked redness dorsum aspect of the foot there was some drainage noted to the right foot second toe CT shows cyst with osteo under anesthesia incision was made on the dorsum aspect of the foot deepened through skin fat and fascia and tendons were divided on the dorsal aspect seizure was extended to the plantar aspect deepened through skin fat and fascia and tendons were divided until we reached the metatarsophalangeal joint ligaments were divided and reimplantation of the second toe was performed there was bleeding point which was electrocoagulated and suture-ligated spec minimal blood loss patient transferred to recovery room satisfactory condition pressure of 125 an IV antibiotic under patient is IV antibiotic under care of infectious disease imen was sent for deep culture wound copiously irrigated with hydroperoxide and saline more time we checked the hemostasis was controlled placed a wound VAC
[2024-11-27 17:12] LABS: Glucose,Whole Blood 185 mg/dL (70-110)
[2024-11-27 20:52] LABS: Glucose,Whole Blood 193 mg/dL (70-110)
[2024-11-27] MEDS: hydrOXYzine pamoate 25 MG CAP PO SCH (21:14)
--- NOTE | 2024-11-28 03:02 | PN ---
PROGRESS NOTE DATE OF SERVICE: 11/27/2024 SUBJECTIVE: This is a 39-year-old woman who was admitted with significant cellulitis secondary to poorly-controlled diabetes mellitus, underwent amputation of the right 2nd toe by Dr. Kuo. No chest pain. No palpitations. No fever. EXAM: VITAL SIGNS: Pulse is 101, blood pressure 107/73, respirations 18. HEENT: Conjunctivae normal. NECK: No JVD. CARDIOVASCULAR: S1, S2. RESPIRATIONS: Breath sounds diminished at the bases. No rhonchi, no crackles. ABDOMEN: Soft. LEGS: Status post surgery. LABS: WBC 10.2, hemoglobin is 10.1. ASSESSMENT: 1. Acute cellulitis of the right foot, diabetic foot. 2. Status post amputation of the right 2nd toe. 3. Uncontrolled diabetes mellitus type 2. 4. Hypertension. 5. Hyperlipidemia. 6. Anxiety, depression, PTSD. 7. Multiple complex medical issues. RECOMMENDATION: Recommend to continue current management and treatment. Otherwise, continue the antibiotics. Monitor labs closely. Infectious disease evaluation. The patient is on IV Unasyn. Monitor the blood sugars closely. Guarded prognosis. Further recommendations to follow. MMODL / IJN: [id number] /
[2024-11-28 06:20] LABS: Glucose,Whole Blood 122 mg/dL (70-110)
[2024-11-28 07:20] LABS: ALT 11 U/L (4-34); AST 15 U/L (14-36); African American GFR (CKD) >90 (>60 ml/min/1.73 sqM); Albumin 2.6 g/dL (3.5-5.0); Albumin/Globulin Ratio 0.8; Alkaline Phosphatase 101 U/L (38-126); Anion Gap 4 mmol/L; Blood Urea Nitrogen 14 mg/dL (7-17); Calcium 8.3 mg/dL (8.4-10.2); Carbon Dioxide 30 mmol/L (22-30); Chloride 101 mmol/L (98-107); Globulin 3.2 g/dL; Glucose 77 mg/dL (74-99); Non-African American GFR(CKD) >90 (>60 ml/min/1.73 sqM); Potassium 3.8 mmol/L (3.5-5.1); Sodium 135 mmol/L (137-145); Total Bilirubin 0.2 mg/dL (0.2-1.3); Total Protein 5.8 g/dL (6.3-8.2)
[2024-11-28] MEDS: VANCOMYCIN TROUGH DUE 1 EACH MISC MISCELLANE ONE (07:46)
[2024-11-28 09:35] LABS: Basophils # (A) 0.04 X 10*3/uL (0.00-0.10); Basophils % (A) 0.3 %; Eosinophils # (A) 0.22 X 10*3/uL (0.04-0.35); Eosinophils % (A) 1.7 %; HGB 8.6 g/dL (12.0-15.0); Lymphocytes # (A) 2.07 X 10*3/uL (0.90-5.00); Lymphocytes % (A) 16.2 %; MCH 27.6 pg (27.0-32.0); MCHC 31.9 g/dL (32.0-37.0); MCV 86.5 FL (80.0-97.0); Mean Platelet Volume 9.9 FL (9.5-12.2); Monocytes # (A) 1.02 X 10*3/uL (0.20-1.00); NRBC Per 100 WBC 0 X 10*3/uL (0.00-0.01); Neutrophils # (A) 9.35 X 10*3/uL (1.80-7.70); Neutrophils % (A) 73.3 %; Platelet Count 359 X 10*3/uL (140-440); RBC 3.12 X 10*6/uL (4.10-5.20); RDW 12.5 % (11.5-14.5); WBC 12.76 X 10*3/uL (4.50-10.00)
[2024-11-28 11:47] LABS: Glucose,Whole Blood 70 mg/dL (70-110)
--- NOTE | 2024-11-28 15:19 | P.PN ---
Subjective Progress Note Date: 11/27/24 Principal diagnosis: Reason for follow-up is right diabetic foot infection/osteomyelitis Patient is a 39-year-old female with a past medical history significant for diabetes mellitus hypertension hyperlipidemia recently did have right big toe amputation for diabetic foot infection now presented to hospital with worsening pain and swelling and wound to the right big toe amputation site patient did have a CT did not mention any abscess but suggestive of osteomyelitis. Patient was taken to the OR status post right second toe amputation and irrigation of the wound VAC completed on 11/27/2024 On today's evaluation that is 11/27/2024, patient did not have any fever and denies any chills, patient is breathing comfortably on room air, patient with no chest pain or cough patient did not have any abdominal pain nausea vomiting or any loose stools still complains of significant pain to the right foot area. Patient white count normalized to 10.3 creatinine 0.8 cultures are pending Objective - Vital Signs Vital signs: Vital Signs Temp 97.5 F L 11/27/24 07:02 Pulse 109 H 11/27/24 07:02 Resp 18 11/27/24 07:02 BP 119/75 11/27/24 07:02 Pulse Ox 96 11/27/24 07:02 FiO2 Intake & Output 11/26/24 11/27/24 11/27/24 18:59 06:59 18:59 Intake Total 480 700 Output Total 10 Balance 480 690 Intake: IV 700 Oral 480 Output: Estimated Blood Loss 10 Other: Voiding Method Toilet # Voids 3 2 # Bowel Movements 1 - Exam GENERAL DESCRIPTION: Middle-age female lying in bed in no distress RESPIRATORY SYSTEM: Unlabored breathing , decreased breath sounds at bases HEART: S1 S2 regular rate and rhythm , ABDOMEN: Soft , no tenderness EXTREMITIES: Right foot is currently covered with a wound VAC - Labs CBC & Chem 7: 11/27/24 05:30 11/27/24 05:34 Labs: Abnormal Lab Results - Last 24 Hours (Table) 11/27/24 11/27/24 Range/Units 05:30 05:34 RBC 3.76 L (3.80-5.40) m/uL Hgb 10.1 L (11.4-16.0) gm/dL Hct 32.2 L (34.0-46.0) % Calcium 8.3 L (8.7-10.3) mg/dL Microbiology - Last 24 Hours (Table) 11/26/24 12:00 Gram Stain - Preliminary Foot - Right Wound Culture - Preliminary Gram Neg Bacilli 11/25/24 20:23 Blood Culture - Preliminary Blood Assessment and Plan (1) Sepsis Current Visit: Yes Status: Acute Code(s): A41.9 - SEPSIS, UNSPECIFIED ORGANISM SNOMED Code(s): 22375395 (2) Diabetic infection of right foot Current Visit: Yes Status: Acute Code(s): E11.628 - TYPE 2 DIABETES MELLITUS WITH OTHER SKIN COMPLICATIONS; L08.9 - LOCAL INFECTION OF THE SKIN AND SUBCUTANEOUS TISSUE, UNSP SNOMED Code(s): 289642519 (3) Cellulitis of right foot Current Visit: No Status: Acute Code(s): L03.115 - CELLULITIS OF RIGHT LOWER LIMB SNOMED Code(s): 11045005992434201 (4) Diabetic foot infection Current Visit: No Status: Acute Code(s): E11.628 - TYPE 2 DIABETES MELLITUS WITH OTHER SKIN COMPLICATIONS; L08.9 - LOCAL INFECTION OF THE SKIN AND SUBCUTANEOUS TISSUE, UNSP SNOMED Code(s): 084928110 Plan: 1patient [facility] with sepsis in this patient who did have fever tachycardia elevated white count source is right diabetic foot ulcer with secondary cellulitis and will need to cover for the polymicrobial leonel associated with diabetic foot infection 2-patient is status post right second toe ray amputation debridement of the wound and application of the wound VAC as well as deep culture 3-patient will be treated with vancomycin pharmacy and Unasyn while waiting for the culture to finalize Dictation was produced using [employer] dictation software. please excuse any grammatical, word or spelling errors. Time with Patient: Less than 30
--- NOTE | 2024-11-28 15:21 | P.PN ---
Subjective Progress Note Date: 11/28/24 Principal diagnosis: Reason for follow-up is right diabetic foot infection/osteomyelitis Patient is a 39-year-old female with a past medical history significant for diabetes mellitus hypertension hyperlipidemia recently did have right big toe amputation for diabetic foot infection now presented to hospital with worsening pain and swelling and wound to the right big toe amputation site patient did have a CT did not mention any abscess but suggestive of osteomyelitis. Patient was taken to the OR status post right second toe amputation and irrigation of the wound VAC completed on 11/27/2024 On today's evaluation that is 11/28/2024, Patient is afebrile patient is cu rrently on room air and denies having any shortness of breath, the patient denies any chest pain or cough, the patient denies any nausea vomiting did not have any abdominal pain and no diarrhea recommend the pain to the right foot and seem to have issues with the leakage from the wound VAC. Patient white count is 12.76, creatinine 0.2 Vanco trough is 22.6 cultures currently growing Klebsiella and Staph aureus Objective - Vital Signs Vital signs: Vital Signs Temp 98.0 F 11/28/24 14:23 Pulse 103 H 11/28/24 14:23 Resp 18 11/28/24 14:23 BP 142/82 11/28/24 14:23 Pulse Ox 100 11/28/24 14:23 FiO2 Intake & Output 11/27/24 11/28/24 11/28/24 17:59 06:59 18:59 Intake Total Output Total Balance Intake: IV Oral Output: Estimated Blood Loss Other: Voiding Method Bedside Commode # Voids 2 # Bowel Movements 1 - Exam GENERAL DESCRIPTION: Middle-age female lying in bed in no distress RESPIRATORY SYSTEM: Unlabored breathing , decreased breath sounds at bases HEART: S1 S2 regular rate and rhythm , ABDOMEN: Soft , no tenderness EXTREMITIES: Right foot is currently covered with a wound VAC - Labs CBC & Chem 7: 11/28/24 06:44 11/28/24 06:44 Labs: Abnormal Lab Results - Last 24 Hours (Table) 11/27/24 11/27/24 11/28/24 Range/Units 17:10 20:49 06:18 WBC (4.50-10.00) X 10*3/uL RBC (4.10-5.20) X 10*6/uL Hgb (12.0-15.0) g/dL Hct (37.2-46.3) % MCHC (32.0-37.0) g/dL Immature Gran # (0.00-0.04) X 10*3/uL Neutrophils # (1.80-7.70) X 10*3/uL Monocytes # (0.20-1.00) X 10*3/uL Sodium (137-145) mmol/L POC Glucose (mg/dL) 185 H 193 H 122 H (70-110) mg/dL Calcium (8.4-10.2) mg/dL Total Protein (6.3-8.2) g/dL Albumin (3.5-5.0) g/dL 11/28/24 11/28/24 Range/Units 06:44 06:44 WBC 12.76 H (4.50-10.00) X 10*3/uL RBC 3.12 L (4.10-5.20) X 10*6/uL Hgb 8.6 L (12.0-15.0) g/dL Hct 27.0 L (37.2-46.3) % MCHC 31.9 L (32.0-37.0) g/dL Immature Gran # 0.06 H (0.00-0.04) X 10*3/uL Neutrophils # 9.35 H (1.80-7.70) X 10*3/uL Monocytes # 1.02 H (0.20-1.00) X 10*3/uL Sodium 135 L (137-145) mmol/L POC Glucose (mg/dL) (70-110) mg/dL Calcium 8.3 L (8.4-10.2) mg/dL Total Protein 5.8 L (6.3-8.2) g/dL Albumin 2.6 L (3.5-5.0) g/dL Microbiology - Last 24 Hours (Table) 11/26/24 12:00 Gram Stain - Preliminary Foot - Right Wound Culture - Preliminary Klebsiella oxytoca Presumptive Staph aureus 11/25/24 20:23 Blood Culture - Preliminary Blood Assessment and Plan (1) Sepsis Current Visit: Yes Status: Acute Code(s): A41.9 - SEPSIS, UNSPECIFIED ORGANISM SNOMED Code(s): 01161198 (2) Diabetic infection of right foot Current Visit: Yes Status: Acute Code(s): E11.628 - TYPE 2 DIABETES MELLITUS WITH OTHER SKIN COMPLICATIONS; L08.9 - LOCAL INFECTION OF THE SKIN AND SUBCUTANEOUS TISSUE, UNSP SNOMED Code(s): 663672846 (3) Cellulitis of right foot Current Visit: No Status: Acute Code(s): L03.115 - CELLULITIS OF RIGHT LOWER LIMB SNOMED Code(s): 27633190291045052 (4) Diabetic foot infection Current Visit: No Status: Acute Code(s): E11.628 - TYPE 2 DIABETES MELLITUS WITH OTHER SKIN COMPLICATIONS; L08.9 - LOCAL INFECTION OF THE SKIN AND SUBCUTANEOUS TISSUE, UNSP SNOMED Code(s): 791345366 Plan: 1patient presented hospital with sepsis in this patient who did have fever ta chycardia elevated white count source is right diabetic foot ulcer with secondary cellulitis and will need to cover for the polymicrobial leonel associated with diabetic foot infection 2-patient is status post right second toe ray amputation debridement of the wound and application of the wound VAC as well as deep culture 3-patient initially culture growing Klebsiella that is resistant to Unasyn as well as Staph aureus sensitivities pending we will discontinue Zosyn start the patient on Rocephin and Flagyl to cover for the Klebsiella as well as anaerobes continue vancomycin till the sensitivity of Staph aureus is finalized we will order PICC line for outpatient antibiotic therapy and wound VAC orders Dictation was produced using [employer] dictation software. please excuse any grammatical, word or spelling errors. Time with Patient: Less than 30
[2024-11-28] MEDS: metroNIDAZOLE 500 MG TAB PO SCH (16:47)
[2024-11-28 17:04] LABS: Glucose,Whole Blood 111 mg/dL (70-110)
[2024-11-28 21:00] LABS: Glucose,Whole Blood 108 mg/dL (70-110)
--- NOTE | 2024-11-29 00:57 | PN ---
PROGRESS NOTE DATE OF SERVICE: 11/28/2024 SUBJECTIVE: This is a 39-year-old woman, who was admitted with cellulitis of the right foot, who also had diabetic foot. The patient had amputation of the right second toe also. No chest pain, no palpitation. PHYSICAL EXAMINATION: VITAL SIGNS: Pulse is 99, blood pressure , respirations 18. CHEST: Clear to auscultation. CARDIOVASCULAR SYSTEM: S1 and S2. ABDOMEN: Soft, nontender. NEUROLOGIC: Nonfocal. LABORATORY DATA: Noted. ASSESSMENT: 1. Acute cellulitis of the right foot with diabetic foot. 2. Status post amputation of the right second toe and wound VAC application. 3. Uncontrolled diabetes mellitus type 2. 4. Hypertension. 5. Hyperlipidemia. 6. Multiple complex medical issues. RECOMMENDATIONS: Recommended to continue with current management and continue symptomatic treatment. Continue with antibiotics. Closely follow with Infectious Disease and Surgery. The patient had Klebsiella oxytoca and presumptive Staph grown from the cultures. I would recommend repeat labs. Further recommendations to follow. MMODL / IJN: [id number] /
[2024-11-29] MEDS: VANCOMYCIN 2,000 MG in SODIUM CHLORIDE 0.9% 500 ML 500 ML IVPB SCH (04:00)
[2024-11-29 06:15] LABS: Glucose,Whole Blood 91 mg/dL (70-110)
[2024-11-29 08:19] LABS: BUN/Creat Ratio 16.14 Ratio (12.00-20.00); Blood Urea Nitrogen 11.3 mg/dL (9.0-27.0); Calcium 8.4 mg/dL (8.7-10.3); Carbon Dioxide 25.9 mmol/L (21.6-31.8); Chloride 106 mmol/L (96-109); Glucose 60 mg/dL (70-110); Sodium 141 mmol/L (135-145)
[2024-11-29 09:03] LABS: Basophils # (A) 0.05 X 10*3/uL (0.00-0.10); Basophils % (A) 0.5 %; Eosinophils # (A) 0.21 X 10*3/uL (0.04-0.35); Eosinophils % (A) 2.2 %; HGB 8.6 g/dL (12.0-15.0); Lymphocytes # (A) 2.46 X 10*3/uL (0.90-5.00); Lymphocytes % (A) 25.5 %; MCH 27.3 pg (27.0-32.0); MCHC 31.9 g/dL (32.0-37.0); MCV 85.7 FL (80.0-97.0); Mean Platelet Volume 9.6 FL (9.5-12.2); Monocytes # (A) 0.97 X 10*3/uL (0.20-1.00); NRBC Per 100 WBC 0 X 10*3/uL (0.00-0.01); Neutrophils # (A) 5.91 X 10*3/uL (1.80-7.70); Neutrophils % (A) 61.2 %; Platelet Count 374 X 10*3/uL (140-440); RBC 3.15 X 10*6/uL (4.10-5.20); RDW 12.6 % (11.5-14.5); WBC 9.66 X 10*3/uL (4.50-10.00)
[2024-11-29 11:08] LABS: Glucose,Whole Blood 146 mg/dL (70-110)
[2024-11-29 11:53] LABS: Erythrocyte Sedimentation Rate 40 mm/Hr (0-20)
--- NOTE | 2024-11-29 15:27 | P.PN ---
Subjective Progress Note Date: 11/29/24 Principal diagnosis: Reason for follow-up is right diabetic foot infection/osteomyelitis Patient is a 39-year-old female with a past medical history significant for diabetes mellitus hypertension hyperlipidemia recently did have right big toe amputation for diabetic foot infection now presented to hospital with worsening pain and swelling and wound to the right big toe amputation site patient did have a CT did not mention any abscess but suggestive of osteomyelitis. Patient was taken to the OR status post right second toe amputation and irrigation of the wound VAC completed on 11/27/2024 On today's evaluation that is 11/29/2024, patient has been afebrile, patient is breathing comfortably and is currently on room air, patient denies having any significant cough no chest pain, patient denies nausea vomiting or diarrhea and no abdominal pain pain to the right foot is currently controlled. Patient white count is 9.66, creatinine 0.7 culture growing Finegoldia magna Prevotella Klebsiella and MSSA Objective - Vital Signs Vital signs: Vital Signs Temp 97.9 F 11/29/24 08:28 Pulse 91 11/29/24 08:28 Resp 18 11/29/24 08:28 BP 143/80 11/29/24 08:28 Pulse Ox 98 11/29/24 08:28 FiO2 Intake & Output 11/28/24 11/29/24 11/29/24 18:59 06:59 18:59 Intake Total 540 Balance 540 Intake: Oral 540 Other: Voiding Method Bedside Commode Bedside Commode # Voids 2 1 # Bowel Movements 1 - Exam GENERAL DESCRIPTION: Middle-age female lying in bed in no distress RESPIRATORY SYSTEM: Unlabored breathing , decreased breath sounds at bases HEART: S1 S2 regular rate and rhythm , ABDOMEN: Soft , no tenderness EXTREMITIES: Right foot is currently covered with a wound VAC - Labs CBC & Chem 7: 11/29/24 02:36 11/29/24 02:36 Labs: Abnormal Lab Results - Last 24 Hours (Table) 11/28/24 11/29/24 11/29/24 Range/Units 16:59 02:36 02:36 RBC 3.15 L (4.10-5.20) X 10*6/uL Hgb 8.6 L (12.0-15.0) g/dL Hct 27.0 L (37.2-46.3) % MCHC 31.9 L (32.0-37.0) g/dL Immature Gran # 0.06 H (0.00-0.04) X 10*3/uL Glucose 60 L (70-110) mg/dL POC Glucose (mg/dL) 111 H (70-110) mg/dL Calcium 8.4 L (8.7-10.3) mg/dL C-Reactive Protein 3.60 H (0.00-0.80) mg/dL 11/29/24 Range/Units 11:07 RBC (4.10-5.20) X 10*6/uL Hgb (12.0-15.0) g/dL Hct (37.2-46.3) % MCHC (32.0-37.0) g/dL Immature Gran # (0.00-0.04) X 10*3/uL Glucose (70-110) mg/dL POC Glucose (mg/dL) 146 H (70-110) mg/dL Calcium (8.7-10.3) mg/dL C-Reactive Protein (0.00-0.80) mg/dL Microbiology - Last 24 Hours (Table) 11/26/24 12:00 Gram Stain - Final Foot - Right Wound Culture - Final Klebsiella oxytoca Staphylococcus aureus 11/25/24 20:23 Blood Culture - Preliminary Blood 11/27/24 12:45 Gram Stain - Preliminary Toe - Right Second Assessment and Plan (1) Sepsis Current Visit: Yes Status: Acute Code(s): A41.9 - SEPSIS, UNSPECIFIED ORGANISM SNOMED Code(s): 36429979 (2) Diabetic infection of right foot Current Visit: Yes Status: Acute Code(s): E11.628 - TYPE 2 DIABETES MELLITUS WITH OTHER SKIN COMPLICATIONS; L08.9 - LOCAL INFECTION OF THE SKIN AND SUBCUTANEOUS TISSUE, UNSP SNOMED Code(s): 222549266 (3) Cellulitis of right foot Current Visit: No Status: Acute Code(s): L03.115 - CELLULITIS OF RIGHT LOWER LIMB SNOMED Code(s): 30227680068058969 (4) Diabetic foot infection Current Visit: No Status: Acute Code(s): E11.628 - TYPE 2 DIABETES MELLITUS WITH OTHER SKIN COMPLICATIONS; L08.9 - LOCAL INFECTION OF THE SKIN AND SUB CUTANEOUS TISSUE, UNSP SNOMED Code(s): 716265500 Plan: 1patient presented hospital with sepsis in this patient who did have fever tachycardia elevated white count source is right diabetic foot ulcer with secondary cellulitis and will need to cover for the polymicrobial leonel associated with diabetic foot infection 2-patient is status post right second toe ray amputation debridement of the wound and application of the wound VAC as well as deep culture 3-patient cultures currently growing multiple pathogen including Klebsiella MSSA Finegoldia magna and Prevotella patient is currently on Rocephin and Flagyl to continue vancomycin has been discontinued outpatient antibiotic prescription provided to the therapeutic case manager Dictation was produced using [employer] dictation software. please excuse any grammatical, word or spelling errors. Time with Patient: Less than 30
[2024-11-29 16:57] LABS: Glucose,Whole Blood 148 mg/dL (70-110)
--- NOTE | 2024-11-29 18:21 | P.PN ---
Subjective Progress Note Date: 11/29/24 This is a 39-year-old female who presented to the emergency department with increasing redness and swelling foot and great toe with concerns of failure of outpatient therapy. Patient follows with Dr. Plunkett in the outpatient setting with a past medical history of poorly controlled diabetes mellitus, hyperlipidemia, hypertension, psychiatric history including anxiety/depression/PTSD with continued ongoing nicotine dependence and polysubstance abuse in the past. Patient follows with Dr. Kuo vascular surgery outpatient and was having increasing redness with drainage of the right great toe along with surrounding significant erythema and swelling with concerns of wound infection with surrounding cellulitis. On admission patient having fevers with elevated white count of 17.6, hemoglobin stable at 10.4, kidney functions showing a sodium of 132 with a potassium of 4.1, BUN 18 and creatinine 0.69, blood sugars elevated although patient reports has been within the 100s to 150s and she reports normally her blood sugars are extremely uncontrolled and elevated into the 3 400s during an infection. Patient was admitted with failure of outpatient treatment for right great toe wound infection with surrounding cellulitis with infectious disease and vascular surgery on consult. 11/29/2024 Patient is seen and evaluated in follow-up maintained on IV antibiotics with infectious disease and vascular surgery following. Patient is status post amputation of the right foot second toe with concerns of gangrene. Patient does have a wound VAC with case management following currently working on arranging outpatient wound VAC along with IV antibiotics. Patient will require a PICC line as cultures are growing Klebsiella oxytoca with MSSA and patient will require 6 weeks of antibiotic therapy. Apparently there are no PICC line supplies in-house and is waiting a PICC line placement. Patient is afebrile continues to request IV Dilaudid [id number] which will be discontinued and patient will continue on her Goodrich tens and will adjust accordingly. Patient denies chest pain or shortness of breath and is pending wound VAC and PICC line for discharge. Review of systems: Constitutional: No reports of fatigue, fever, or chills Cardiovascular: No reports of chest pain or palpitations Respiratory: No reports of shortness of breath or cough GI: No reports of nausea, vomiting, or diarrhea : No reports of dysuria or retention Neurovascular: reports of continued generalized weakness and right foot pain All medications have been reviewed The rest of the 14-point review of systems is negative. PHYSICAL EXAMINATION: GENERAL: The patient is alert and oriented x3, Well developed, well nourished. Morbidly obese HEENT: Pupils are round and equally reacting to light. EOMI. No scleral icterus. No conjunctival pallor. Normocephalic, atraumatic. No pharyngeal erythema. No thyromegaly. CARDIOVASCULAR: S1 and S2 present. No murmurs, rubs, or gallops. PULMONARY: Chest is clear to auscultation, no wheezing or crackles. ABDOMEN: Soft, obese, nontender, nondistended, normoactive bowel sounds. No palpable organomegaly. MUSCULOSKELETAL: No joint swelling or deformity. EXTREMITIES: No cyanosis, clubbing, or pedal edema. Right foot surgical dressing is dry and wound VAC intact with positive suction noted NEUROLOGICAL: Gross neurological examination did not reveal any focal deficits. SKIN: No rashes. Assessment: Sepsis, present on admission secondary to right diabetic foot infection with failure of outpatient treatment, wet gangrene of the second right toe, status post amputation with vascular surgery Surrounding cellulitis of the right foot, present on admission with cultures growing Klebsiella oxytoca and MSSA Diabetes mellitus, type II, uncontrolled with hyperglycemia Leukocytosis secondary to assessment #1 History of hyperlipidemia History of hypertension History of anxiety, depression, PTSD Continued ongoing nicotine dependence History of polysubstance abuse Morbid obesity with a BMI of 45.7 GI prophylaxis DVT prophylaxis Full code Plan: Patient admitted with vascular surgery and infectious disease following maintained on antibiotics and a prescription was given to case management for outpatient IV antibiotics. Patient is status post amputation of the right second toe for wet gangrene with vascular surgery Dr. Kuo. Culture showing Klebsiella and MSSA and will require IV access via PICC line and outpatient antibiotics with wound VAC. Case management is following arranging for wound VAC authorization and also IV antibiotics outpatient. Apparently there are no PICC line supplies in-house which is causing a delay in discharge planning. Will follow-up in a.m. Continue monitoring Accu-Cheks ACHS and will add sliding scale and long-acting and adjust accordingly Continue with pain management and will discontinue IV Dilaudid as patient will not be going home with this. This was discussed with the patient and patient will be continued on Goodrich 10. Per nursing staff patient is requesting [id number] Dilaudid. Encouraged to increase activity as tolerated Home medications reviewed and resumed as appropriate Possible discharge planning in the next 24 hours if patient can receive a PICC line and arrange for wound VAC authorization and IV antibiotic outpatient. The impression and plan of care has been dictated by Barbara Rodriguez, Nurse Practitioner as directed. Dr. Natasha MD I have performed a history and examination and MDM of this patient, discussed the same with the dictator, and agree with the dictator's assessment and plan as written ,documented as a scribe. Based on total visit time, I have performed more than 50% of the visit. Objective - Vital Signs Vital signs: Vital Signs Temp 97.9 F 11/29/24 08:28 Pulse 91 11/29/24 08:28 Resp 18 11/29/24 08:28 BP 143/80 11/29/24 08:28 Pulse Ox 98 11/29/24 08:28 FiO2 Intake & Output 11/28/24 11/29/24 11/29/24 18:59 06:59 18:59 Intake Total 540 Balance 540 Intake: Oral 540 Other: Voiding Method Bedside Commode Bedside Commode # Voids 2 1 # Bowel Movements 1 - Labs CBC & Chem 7: 11/29/24 02:36 11/29/24 02:36 Labs: Abnormal Lab Results - Last 24 Hours (Table) 11/28/24 11/29/24 11/29/24 Range/Units 16:59 02:36 02:36 RBC 3.15 L (4.10-5.20) X 10*6/uL Hgb 8.6 L (12.0-15.0) g/dL Hct 27.0 L (37.2-46.3) % MCHC 31.9 L (32.0-37.0) g/dL Immature Gran # 0.06 H (0.00-0.04) X 10*3/uL Glucose 60 L (70-110) mg/dL POC Glucose (mg/dL) 111 H (70-110) mg/dL Calcium 8.4 L (8.7-10.3) mg/dL C-Reactive Protein 3.60 H (0.00-0.80) mg/dL Microbiology - Last 24 Hours (Table) 11/26/24 12:00 Gram Stain - Final Foot - Right Wound Culture - Final Klebsiella oxytoca Staphylococcus aureus 11/25/24 20:23 Blood Culture - Preliminary Blood 11/27/24 12:45 Gram Stain - Preliminary Toe - Right Second
[2024-11-29 20:46] LABS: Glucose,Whole Blood 227 mg/dL (70-110)
[2024-11-29] MEDS: KETOROLAC 15 MG/ML 1 ML VIAL IVP STA (22:20)
[2024-11-30 02:13] VITALS: RESP 18; TEMP 98.1
[2024-11-30 06:14] LABS: Glucose,Whole Blood 59 mg/dL (70-110)
[2024-11-30 07:00] LABS: Glucose,Whole Blood 95 mg/dL (70-110)
[2024-11-30 07:30] VITALS: BP 149/87; PULSE 90
[2024-11-30 11:41] LABS: Glucose,Whole Blood 208 mg/dL (70-110)
[2024-11-30] MEDS: KETOROLAC 15 MG/ML 1 ML VIAL IVP SCH (12:21)
--- NOTE | 2024-11-30 13:28 | P.PN ---
Subjective Progress Note Date: 11/30/24 Principal diagnosis: Reason for follow-up is right diabetic foot infection/osteomyelitis Patient is a 39-year-old female with a past medical history significant for diabetes mellitus hypertension hyperlipidemia recently did have right big toe amputation for diabetic foot infection now presented to hospital with worsening pain and swelling and wound to the right big toe amputation site patient did have a CT did not mention any abscess but suggestive of osteomyelitis. Patient was taken to the OR status post right second toe amputation and irrigation of the wound VAC completed on 11/27/2024 On today's evaluation that is 11/30/2024, Patient is afebrile this morning patient denies having any chest pain shortness of breath or cough, the patient is currently on room air, patient denies any abdominal pain no diarrhea no nausea no vomiting abdominal pain to the right foot but no worsening. No new labs has been obtained today culture with MSSA Klebsiella anaerobes Objective - Vital Signs Vital signs: Vital Signs Temp 98.1 F 11/30/24 01:00 Pulse 90 11/30/24 06:55 Resp 18 11/30/24 06:55 BP 149/87 11/30/24 06:55 Pulse Ox 98 11/30/24 06:55 FiO2 Intake & Output 11/29/24 11/30/24 11/30/24 18:59 06:59 18:59 Output Total 1 1 Balance -1 -1 Output: Stool 1 1 Other: Voiding Method Bedside Commode # Voids 4 3 # Bowel Movements 1 - Exam GENERAL DESCRIPTION: Middle-age female lying in bed in no distress RESPIRATORY SYSTEM: Unlabored breathing , decreased breath sounds at bases HEART: S1 S2 regular rate and rhythm , ABDOMEN: Soft , no tenderness EXTREMITIES: Right foot is currently covered with a wound VAC - Labs CBC & Chem 7: 11/29/24 02:36 11/29/24 02:36 Labs: Abnormal Lab Results - Last 24 Hours (Table) 11/29/24 11/29/24 11/30/24 Range/Units 16:56 20:44 06:13 POC Glucose (mg/dL) 148 H 227 H 59 L (70-110) mg/dL 11/30/24 Range/Units 11:39 POC Glucose (mg/dL) 208 H (70-110) mg/dL Microbiology - Last 24 Hours (Table) 11/26/24 12:00 Anaerobic Culture - Final Foot - Right Finegoldia magna Prevotella melaninogenica 11/27/24 12:45 Anaerobic Culture - Final Toe - Right Second Anaerobic Gm Negative Bacilli Anaerobic Gram Positive Cocci 11/27/24 12:45 Gram Stain - Preliminary Toe - Right Second Wound Culture - Preliminary Klebsiella oxytoca Presumptive Staph aureus 11/26/24 12:00 Gram Stain - Final Foot - Right Wound Culture - Final Klebsiella oxytoca Staphylococcus aureus Assessment and Plan (1) Sepsis Current Visit: Yes Status: Acute Code(s): A41.9 - SEPSIS, UNSPECIFIED ORGANI SM SNOMED Code(s): 48258962 (2) Diabetic infection of right foot Current Visit: Yes Status: Acute Code(s): E11.628 - TYPE 2 DIABETES MELLITUS WITH OTHER SKIN COMPLICATIONS; L08.9 - LOCAL INFECTION OF THE SKIN AND SUBCUTANEOUS TISSUE, UNSP SNOMED Code(s): 097689476 (3) Cellulitis of right foot Current Visit: No Status: Acute Code(s): L03.115 - CELLULITIS OF RIGHT LOWER LIMB SNOMED Code(s): 78504998254018776 (4) Diabetic foot infection Current Visit: No Status: Acute Code(s): E11.628 - TYPE 2 DIABETES MELLITUS WITH OTHER SKIN COMPLICATIONS; L08.9 - LOCAL INFECTION OF THE SKIN AND SUBCUTANEOUS TISSUE, UNSP SNOMED Code(s): 640657557 Plan: 1patient presented hospital with sepsis in this patient who did have fever tachycardia elevated white count source is right diabetic foot ulcer with secondary cellulitis and will need to cover for the polymicrobial leonel assoc iated with diabetic foot infection 2-patient is status post right second toe ray amputation debridement of the wound and application of the wound VAC as well as deep culture 3-patient cultures currently growing multiple pathogen including Klebsiella MSSA Finegoldia magna and Prevotella 4patient did get a PICC line, patient is currently on Rocephin and Flagyl that will be continued in the outpatient setting currently waiting for the wound VAC approval from insurance before discharge Dictation was produced using [employer] software. please excuse any grammatical, word or spelling errors. Time with Patient: Less than 30
== END 2024-11-30 14:20 | disposition home health service (06) | DRG 710 ==
LOC: EC 17:33 → 4SSUR 18:41
PROVIDERS: ADMIT Internal Medicine; ATTEND Internal Medicine
PROC: 0Y6M0ZB Detachment at Right Foot, Partial 2nd Ray, Open Approach (ICD-10-PCS; principal; 2024-11-27 12:00)
PROC: 05HD33Z Insertion of Infusion Device into Right Cephalic Vein, Percutaneous Approach (ICD-10-PCS; 2024-11-29)
PROC: 02HV33Z Insertion of Infusion Device into Superior Vena Cava, Percutaneous Approach (ICD-10-PCS; 2024-11-30)
PROC: B5181ZA Fluoroscopy of Superior Vena Cava using Low Osmolar Contrast, Guidance (ICD-10-PCS; 2024-11-30)
PROC: B548ZZA Ultrasonography of Superior Vena Cava, Guidance (ICD-10-PCS; 2024-11-30)
DX: A41.01 Sepsis due to Methicillin susceptible Staphylococcus aureus (principal); E66.01 Morbid (severe) obesity due to excess calories; Z68.42 Body mass index [BMI] 45.0-49.9, adult; E11.628 Type 2 diabetes mellitus with other skin complications; E11.65 Type 2 diabetes mellitus with hyperglycemia; E78.5 Hyperlipidemia, unspecified; F17.210 Nicotine dependence, cigarettes, uncomplicated; F32.A Depression, unspecified; F41.9 Anxiety disorder, unspecified; I10 Essential (primary) hypertension; E11.69 Type 2 diabetes mellitus with other specified complication; Z79.4 Long term (current) use of insulin; F43.10 Post-traumatic stress disorder, unspecified; L03.115 Cellulitis of right lower limb; Z79.84 Long term (current) use of oral hypoglycemic drugs; Z79.899 Other long term (current) drug therapy; Z89.411 Acquired absence of right great toe; E11.52 Type 2 diabetes mellitus with diabetic peripheral angiopathy with gangrene; I44.0 Atrioventricular block, first degree; M86.8X7 Other osteomyelitis, ankle and foot
CPT/HCPCS: 36415; 80048; 80053; 80202; 81025; 83036; 83615; 83735; 85025; 85652; 86140; 87040; 87070; 87075; 87077; 87186; 87205; 88305; 88311; 96365; 96367; 99284

== ENCOUNTER 2024-12-02 19:11 | Observation (INO) | payer OTHER ==
[2024-12-02] MEDS ORDERED: ACETAMINOPHEN TAB 325 MG TAB PO PRN (19:50)
[2024-12-02] MEDS ORDERED: NALOXONE 0.4 MG/ML 1 ML VIAL IV PRN (19:50)
[2024-12-02] MEDS ORDERED: IBUPROFEN 400 MG TAB PO PRN ×2 (19:50→21:36)
[2024-12-02] MEDS ORDERED: ONDANSETRON 4 MG/2 ML VIAL IVP PRN (19:50)
--- NOTE | 2024-12-02 19:50 | ED ---
Nausea/Vomiting/Diarrhea HPI - General Chief complaint: Nausea/Vomiting/Diarrhea Stated complaint: NVD Time Seen by Provider: 12/02/24 19:16 Source: patient, EMS, RN notes reviewed Mode of arrival: EMS Limitations: no limitations - History of Present Illness Initial comments: This is a 39-year-old female who presents to the emergency department for nause a, vomiting, and problems with her PICC line. Patient was discharged from this facility on 11/30. She had been admitted for osteomyelitis of previous amputation site to the right great toe. She had a PICC line placed prior to discharge and was post to be receiving ceftriaxone daily. Patient reported that she did not have any nursing care yesterday and thus did not receive her antibiotic. Today she states that the PICC line came out, however it is believed that she likely pulled it out. She has also had intractable nausea and vomiting all day, prompting her to present to the emergency department at [facility]. Workup there included lab work and a CT scan of her abdomen and pelvis, which demonstrated signs of enteritis. She was transferred to our facility for replacement of the PICC line and intractable nausea and vomiting. MD complaint: nausea, vomiting, abdominal pain - Related Data Home Medications Medication Instructions Recorded Confirmed clonazePAM [KlonoPIN] 0.5 mg PO DAILY PRN 01/12/24 12/02/24 DULoxetine HCL [Cymbalta] 120 mg PO DAILY 10/05/24 12/02/24 ARIPiprazole [Abilify] 5 mg PO HS 11/25/24 12/02/24 Atorvastatin [Lipitor] 10 mg PO HS 11/25/24 12/02/24 Gabapentin 600 mg PO BID 11/25/24 12/02/24 HYDROcodone/APAP 10-325MG [Advance 1 tab PO Q4HR PRN 11/25/24 12/02/24 10-325] Omeprazole 20 mg PO BID 11/25/24 12/02/24 hydrOXYzine pamoate [Vistaril] 50 mg PO DAILY 11/25/24 12/02/24 lisinopriL [Zestril] 5 mg PO DAILY 11/25/24 12/02/24 metFORMIN HCL 1,000 mg PO BID 11/25/24 12/02/24 Ondansetron Odt [Zofran Odt] 4 mg PO Q4H PRN 12/02/24 12/02/24 Promethazine Suppository 25 mg RECTAL Q6H PRN 12/02/24 12/02/24 [Phenergan] Previous Rx's Medication Instructions Recorded Insulin Glargine,Hum.rec.anlog 40 units SQ BID #3 each 01/16/24 [Lantus Solostar Pen] Insulin Lispro [humaLOG Kwikpen] 12 units SQ AC-TID #1 each 01/16/24 cefTRIAXone [Rocephin] 2,000 mg IVP Q24HR #40 each 11/29/24 metroNIDAZOLE [Flagyl] 500 mg PO TID #90 tab 11/29/24 Ibuprofen [Motrin] 400 mg PO Q6HR PRN tab 11/30/24 Allergies Allergy/AdvReac Type Severity Reaction Status Date / Time No Known Allergies Allergy Verified 12/02/24 20:35 Review of Systems ROS Statement: Those systems with pertinent positive or pertinent negative responses have been documented in the HPI. ROS Other: All systems not noted in ROS Statement are negative. Past Medical History Past Medical History: Diabetes Mellitus, Hyperlipidemia, Hypertension History of Any Multi-Drug Resistant Organisms: None Reported Additional Past Surgical History / Comment(s): neck tumor removal, renal stents placed and removed, wrist surgery, thumb amputation, attempted suicide-cut wrists. right greater toe amputation Past Anesthesia/Blood Transfusion Reactions: No Reported Reaction Past Psychological History: Anxiety, Depression, PTSD Smoking Status: Current every day smoker Past Alcohol Use History: None Reported Past Drug Use History: Cocaine, Heroin, Marijuana, Methamphetamine, Opiates - Past Family History Family Family Medical History: Unable to Obtain General Exam Limitations: no limitations General appearance: alert, in no apparent distress Head exam: Present: atraumatic, normocephalic, normal inspection Respiratory exam: Present: normal lung sounds bilaterally. Absent: respiratory distress, wheezes, rales, rhonchi, stridor Cardiovascular Exam: Present: regular rate, normal rhythm GI/Abdominal exam: Present: soft, normal bowel sounds. Absent: distended, tenderness, guarding, rebound, rigid Neurological exam: Present: alert, oriented X3, CN II-XII intact Psychiatric exam: Present: normal affect, normal mood Skin exam: Present: warm, dry, intact, normal color. Absent: rash Course Vital Signs 12/02/24 12/02/24 12/02/24 19:13 21:18 22:15 Temperature 99.0 F 99.0 F 99.0 F Pulse Rate 87 79 80 Pulse Rate [ Pulse Oximetery ] Respiratory 20 20 18 Rate Blood Pressure 168/129 157/89 155/79 Blood Pressure [Supine] O2 Sat by Pulse 91 L 96 96 Oximetry 12/02/24 22:30 Temperature 98.9 F Pulse Rate Pulse Rate [ 86 Pulse Oximetery ] Respiratory 17 Rate Blood Pressure Blood Pressure 135/69 [Supine] O2 Sat by Pulse 97 Oximetry Medical Decision Making - Medical Decision Making This is a 39 year old female who presents to the emergency department for nausea, vomiting, and PICC line replacement. Was pt. sent in by a medical professional or institution? @ -[facility] Did you speak to anyone other than the patient for history? @ -No Did you review nursing and triage notes? @ -Yes, and I agree, it is accurate with regards to the patient's symptoms. Were old charts reviewed? @ -Records from [facility]: CT scan abdomen/pelvis: Fluid-filled loops of small bowel suggesting possible enteritis WBC: 13.7 Hgb: 10.7 Differential Diagnosis? @ -Differential Nausea and Vomiting: Gastroenteritis, cholecystitis, appendicitis, pancreatitis, migraine, benign positional vertigo, food borne illness, pyelonephritis, irritable bowel syndrome, influenza, Covid, GERD, incarcerated hernia, intestinal obstruction, this is not meant to be an all-inclusive list. EKG interpreted by me (3pts min.)? @ -Not obtained X-rays interpreted by me (1pt min.)? @ -Not obtained CT interpreted by me (1pt min.)? @ -Not obtained U/S interpreted by me (1pt. min.)? @ -Not obtained What testing was considered but not performed? (CT, X-rays, U/S, labs)? Why? @ -None What meds were considered but not given? Why? @ -None Did you discuss the management of the patient with other professionals? @ -No Did you reconcile home meds? @ -Yes Was smoking cessation discussed for >3mins.? @ -I discussed smoking cessation for greater than 3 minutes. The risk of smoking were discussed with the patient including but not limited to risks of cancer, stroke, coronary artery disease and COPD. Also discussed with patient were multiple methods of quitting smoking. Lastly we discussed the financial cost of smoking. Was critical care preformed (if so, how long)? @ -No Were there social determinants of health that impacted care today? How? (Homelessness, low income, unemployed, alcoholism, drug addiction, transportation, low edu. Level, literacy, decrease access to med. care, longterm, rehab)? @ -No Was there de-escalation of care discussed even if they declined? (Discuss DNR or withdrawal of care, Hospice)? @ -No What co-morbidities impacted this encounter? (DM, HTN, Smoking, COPD, CAD, Cancer, CVA, Hep., AIDS, mental health diagnosis, sleep apnea, morbid obesity)? @ -DM, smoking, HLD Was patient admitted / discharged? @ -Admitted. Patient was transferred to our facility from [facility]. She presented there for nausea/vomiting and abdominal pain as well as removal of her PICC line. She was subsequently transferred here for further management of her symptoms and her placement of her PICC line. Workup there revealed enteritis on her CT scan. WBC was 13.7. Repeat lab work here demonstrates a white blood cell count of 14.3. She was given her home dose of 2 g of ceftriaxone, which she missed both yesterday and today. Patient subsequently admitted to medicine for replacement of her PICC line and management of nausea and vomiting. Case discussed with ED attending Dr. Franz. Undiagnosed new problem with uncertain prognosis? @ -None Drug Therapy requiring intensive monitoring for toxicity (Heparin, Nitro, Insulin, Cardizem)? @ -None Were any procedures done? @ -None Diagnosis/symptom? @ -Nausea and vomiting, needs PICC line Acute, or Chronic, or Acute on Chronic? @ -Acute Uncomplicated (without systemic symptoms) or Complicated (systemic symptoms)? @ -Complicated Side effects of treatment? @ -None Exacerbation, Progression, or Severe Exacerbation] @ -Not applicable Poses a threat to life or bodily function? @ -Yes, can lead to worsening infection if patient cannot get her antibiotics. - Lab Data Result diagrams: 12/02/24 20:26 12/02/24 20:26 Disposition Clinical Impression: Nausea and vomiting, Needs peripherally inserted central catheter (PICC), Cellu litis Disposition: ADMITTED IP TO THIS HOSP
[2024-12-02] MEDS: SODIUM CHLORIDE 0.9% 1,000 ML IV ONE (20:29)
[2024-12-02] MEDS: SODIUM CHLORIDE 0.9% 1,000 ML IV SCH (20:38)
[2024-12-02] MEDS: droPERidol 5 MG/2 ML VIAL IVP ONE (20:43)
[2024-12-02] MEDS: HYDROmorphone 1 MG/ML 1 ML SYRINGE IVP STA (20:44)
[2024-12-02 21:13] LABS: ALT 26 U/L (4-34); AST 36 U/L (14-36); African American GFR (CKD) >90 (>60 ml/min/1.73 sqM); Albumin 3.1 g/dL (3.5-5.0); Alkaline Phosphatase 96 U/L (38-126); Amylase 37 U/L (30-110); Anion Gap 8 mmol/L; Blood Urea Nitrogen 15 mg/dL (7-17); Calcium 8.8 mg/dL (8.4-10.2); Carbon Dioxide 28 mmol/L (22-30); Chloride 103 mmol/L (98-107); Glucose 151 mg/dL (74-99); Lipase 20 U/L (23-300); Non-African American GFR(CKD) >90 (>60 ml/min/1.73 sqM); Potassium 4.3 mmol/L (3.5-5.1); Sodium 139 mmol/L (137-145); Total Bilirubin 0.4 mg/dL (0.2-1.3); Total Protein 6.5 g/dL (6.3-8.2)
[2024-12-02 21:33] LABS: HCG,Qualitative Serum Not Detected
[2024-12-02] MEDS ORDERED: ONDANSETRON ODT 4 MG TAB PO PRN (21:36)
[2024-12-02] MEDS ORDERED: PROMETHAZINE SUPPOSITORY 25 MG SUPP RECTAL PRN (21:36)
[2024-12-02 22:02] LABS: Basophils % (A) 0 %; Eosinophils % (A) 0 %; HCT 34.4 % (34.0-46.0); HGB 10.8 gm/dL (11.4-16.0); Lymphocytes # (A) 0.9 k/uL (1.0-4.8); Lymphocytes % (A) 6 %; MCH 26.5 pg (25.0-35.0); MCHC 31.5 g/dL (31.0-37.0); MCV 84.2 fL (80.0-100.0); Mean Platelet Volume 7.8; Monocytes # (A) 0.3 k/uL (0-1.0); Monocytes % (A) 2 %; Neutrophils % (A) 91 %; Platelet Count 551 k/uL (150-450); RBC 4.08 m/uL (3.80-5.40); RDW 13.9 % (11.5-15.5); WBC 14.3 k/uL (3.8-10.6)
[2024-12-02] MEDS: ATORVASTATIN 10 MG TAB PO SCH (23:38)
[2024-12-02] MEDS: metroNIDAZOLE 500 MG TAB PO SCH (23:38)
[2024-12-02] MEDS: ARIPiprazole 5 MG TAB PO SCH (23:42)
[2024-12-03 00:09] LABS: INR 1.1 (<1.2); Partial Thromboplastin Time 24.3 sec (22.0-30.0); Prothrombin Time 11.9 sec (10.0-12.5)
[2024-12-03] MEDS: HYDROmorphone 1 MG/ML 1 ML SYRINGE IVP PRN (02:18)
[2024-12-03] MEDS: clonazePAM 0.5 MG TAB PO PRN (03:48)
[2024-12-03 06:22] LABS: Glucose,Whole Blood 114 mg/dL (70-110)
[2024-12-03] MEDS: HYDROmorphone 0.5 MG/0.5 ML SYRINGE IVP PRN (06:34)
[2024-12-03] MEDS: hydrOXYzine pamoate 25 MG CAP PO SCH (08:36)
[2024-12-03] MEDS: DULoxetine HCL 60 MG CAPSULE.DR PO SCH (08:36)
[2024-12-03] MEDS: lisinopriL 5 MG TAB PO SCH (08:36)
[2024-12-03] MEDS: INSULIN LISPRO (HumaLOG) 100 UNIT/ML 10 mL VL SQ SCH (08:37)
[2024-12-03] MEDS: PANTOPRAZOLE 40 MG TABLET PO SCH (08:37)
[2024-12-03] MEDS: GABAPENTIN 300 MG CAP PO SCH (08:37)
[2024-12-03] MEDS: metFORMIN 500 MG TAB PO SCH (08:37)
[2024-12-03] MEDS: INSULIN GLARGINE (LANTUS) 100 UNIT/ML SYR SQ SCH (08:42)
[2024-12-03] MEDS ORDERED: PANTOPRAZOLE 40 MG/10 ML VIAL IV SCH (09:00)
[2024-12-03 11:53] LABS: Glucose,Whole Blood 122 mg/dL (70-110)
[2024-12-03] MEDS: HYDROcodone/APAP 10-325MG 1 EACH TAB PO PRN (14:29)
[2024-12-03 14:40] VITALS: BP 156/91; PULSE 93; RESP 20; TEMP 97.6
--- NOTE | 2024-12-03 15:16 | P.CONS ---
History of Present Illness - Reason for Consult Consult date: 12/03/24 Osteomyelitis, cellulitis Requesting physician: Lena Bolton - Chief Complaint Nausea and vomiting x 1 day - History of Present Illness Patient is a 39-year-old female with a past medical history significant for diabetes mellitus hypertension hyperlipidemia diabetic foot infection in this patient who recently did have right second toe amputation and debridement of the right big toe amputation site wound culture at that time were positive for anaerobes Klebsiella and MSSA patient did get a PICC line and was advised a 6-week course of IV Rocephin 2 g daily and oral Flagyl and she was supposed to have local wound care with a wound VAC, patient mention the home care nurse never showed up and she has not taken her IV antibiotic and wound VAC has not been applied patient subsequently started having problem with the nausea and vomiting does have some diarrhea and the patient pulled out her PICC line unintentionally as she is a patient was evaluated at [facility] with the patient did have CT abdominal pelvis reported possible enteritis subseq uently patient has been transferred to [facility] for further evaluation on presentation to this facility patient did have low-grade fever of 99 F patient was not tachycardic hypotensive or hypoxic she did have white count of 14.3 creatinine 0.73 electrolyte has been normal liver enzymes are normal urine hCG was negative patient has been admitted to hospital continued on Rocephin and Flagyl infectious he was consulted for further management of antibiotic therapy Review of Systems Positive point and negatives has been mentioned in the HPI, complete review of systems was performed and all other systems are negative Past Medical History Past Medical History: Diabetes Mellitus, Hyperlipidemia, Hypertension History of Any Multi-Drug Resistant Organisms: None Reported Additional Past Surgical History / Comment(s): neck tumor removal, renal stents placed and removed, wrist surgery, thumb amputation, attempted suicide-cut wrists. right greater toe amputation Past Anesthesia/Blood Transfusion Reactions: No Reported Reaction Past Psychological History: Anxiety, Depression, PTSD Smoking Status: Current every day smoker Past Alcohol Use History: None Reported Past Drug Use History: Cocaine, Heroin, Marijuana, Methamphetamine, Opiates - Past Family History Family Family Medical History: Unable to Obtain Medications and Allergies Home Medications Medication Instructions Recorded Confirmed Type clonazePAM [KlonoPIN] 0.5 mg PO DAILY PRN 01/12/24 12/02/24 History Insulin Glargine,Hum.rec.anlog 40 units SQ BID #3 each 01/16/24 12/02/24 Rx [Lantus Solostar Pen] Insulin Lispro [humaLOG Kwikpen] 12 units SQ AC-TID #1 each 01/16/24 12/02/24 Rx DULoxetine HCL [Cymbalta] 120 mg PO DAILY 10/05/24 12/02/24 History ARIPiprazole [Abilify] 5 mg PO HS 11/25/24 12/02/24 History Atorvastatin [Lipitor] 10 mg PO HS 11/25/24 12/02/24 History Gabapentin 600 mg PO BID 11/25/24 12/02/24 History HYDROcodone/APAP 10-325MG [[place] 1 tab PO Q4HR PRN 11/25/24 12/02/24 History 10-325] Omeprazole 20 mg PO BID 11/25/24 12/02/24 History hydrOXYzine pamoate [Vistaril] 50 mg PO DAILY 11/25/24 12/02/24 History lisinopriL [Zestril] 5 mg PO DAILY 11/25/24 12/02/24 History metFORMIN HCL 1,000 mg PO BID 11/25/24 12/02/24 History cefTRIAXone [Rocephin] 2,000 mg IVP Q24HR #40 each 11/29/24 12/02/24 Rx metroNIDAZOLE [Flagyl] 500 mg PO TID #90 tab 11/29/24 12/02/24 Rx Ibuprofen [Motrin] 400 mg PO Q6HR PRN tab 11/30/24 12/02/24 Rx Ondansetron Odt [Zofran Odt] 4 mg PO Q4H PRN 12/02/24 12/02/24 History Promethazine Suppository 25 mg RECTAL Q6H PRN 12/02/24 12/02/24 History [Phenergan] Allergies Allergy/AdvReac Type Severity Reaction Status Date / Time No Known Allergies Allergy Verified 12/02/24 20:35 Physical Exam Vitals: Vital Signs Temp Pulse Pulse Resp BP BP BP 12/03/24 10:35 18 12/03/24 07:54 98.2 F 84 18 132/71 12/03/24 01:33 98.5 F 100 15 157/88 12/02/24 22:30 98.9 F 86 17 135/69 12/02/24 22:15 99.0 F 80 18 155/79 12/02/24 21:18 99.0 F 79 20 157/89 12/02/24 19:13 99.0 F 87 20 168/129 Pulse Ox 12/03/24 10:35 12/03/24 07:54 98 12/03/24 01:33 96 12/02/24 22:30 97 12/02/24 22:15 96 12/02/24 21:18 96 12/02/24 19:13 91 L Intake and Output 12/02/24 12/03/24 12/03/24 22:59 06:59 14:59 Intake Total 1650 200 Balance 1650 200 Intake: Oral 1650 200 Other: Voiding Method Toilet # Voids 6 3 Weight 131.542 kg GENERAL DESCRIPTION: Middle-age female lying in bed, no distress. No tachypnea or accessory muscle of respiration use. HEENT: Shows Pallor , no scleral icterus. Oral mucous membrane is dry. No pharyngeal erythema or thrush NECK: Trachea central, no thyromegaly. LUNGS: Unlabored breathing. Clear to auscultation anteriorly. No wheeze or crackle. HEART: S1, S2, regular rate and rhythm. No loud murmur ABDOMEN: Soft, no tenderness , guarding or rigidity, no organomegaly EXTREMITIES: Right first and second toe amputation site wound with some slough tissue no sign of surrounding redness or drainage SKIN: No rash, no masses palpable. NEUROLOGICAL: The patient is awake, alert, oriented x3, mood and affect normal. Results CBC & Chem 7: 12/02/24 20:26 12/02/24 20:26 Labs: Abnormal Lab Results - Last 24 Hours (Table) 12/02/24 12/02/24 12/03/24 Range/Units 20:26 20:26 06:20 WBC 14.3 H (3.8-10.6) k/uL Hgb 10.8 L (11.4-16.0) gm/dL Plt Count 551 H (150-450) k/uL Neutrophils # 13.0 H (1.3-7.7) k/uL Lymphocytes # 0.9 L (1.0-4.8) k/uL Glucose 151 H (74-99) mg/dL POC Glucose (mg/dL) 114 H (70-110) mg/dL Albumin 3.1 L (3.5-5.0) g/dL Lipase 20 L (23-300) U/L 12/03/24 Range/Units 11:51 WBC (3.8-10.6) k/uL Hgb (11.4-16.0) gm/dL Plt Count (150-450) k/uL Neutrophils # (1.3-7.7) k/uL Lymphocytes # (1.0-4.8) k/uL Glucose (74-99) mg/dL POC Glucose (mg/dL) 122 H (70-110) mg/dL Albumin (3.5-5.0) g/dL Lipase (23-300) U/L Assessment and Plan (1) Foot osteomyelitis, right Current Visit: Yes Status: Acute Code(s): M86.9 - OSTEOMYELITIS, UNSPECIFIED SNOMED Code(s): 3807401646983933 (2) Nausea and vomiting Current Visit: Yes Status: Acute Code(s): R11.2 - NAUSEA WITH VOMITING, UNSPECIFIED SNOMED Code(s): 54147517 (3) Cellulitis of right foot Current Visit: No Status: Acute Code(s): L03.115 - CELLULITIS OF RIGHT LOWER LIMB SNOMED Code(s): 89353262385301044 (4) Diabetic foot infection Current Visit: No Status: Acute Code(s): E11.628 - TYPE 2 DIABETES MELLITUS WITH OTHER SKIN COMPLICATIONS; L08.9 - LOCAL INFECTION OF THE SKIN AND SUBCUTANEOUS TISSUE, UNSP SNOMED Code(s): 629616512 (5) Diabetic foot ulcer Current Visit: No Status: Acute Code(s): E11.621 - TYPE 2 DIABETES MELLITUS WITH FOOT ULCER; L97.509 - NON-PRESSURE CHRONIC ULCER OTH PRT UNSP FOOT W UNSP SEVERITY SNOMED Code(s): 536227345 Plan: 1patient with recent diagnosis of right diabetic foot infection also in this patient with status post right second toe amputation and debridement of the big toe amputation site wound culture positive for multiple pathogen growing Klebsiella MSSA anaerobes for the patient was supposed to be on IV Rocephin and Flagyl apparently the patient has not received her medication as home care nurse did not show up as reported by the patient, now presenting with acute nausea vomiting diarrhea questionably related to her diabetic foot infection versus GI infection 2we will obtain stool culture and stool for C. difficile 3patient has been restarted on Rocephin and Flagyl to continue and see clinical response 4local wound care with wound VAC black foam continuous pressure change Friday We will follow on clinical condition and cultures to further adjust medication if needed Thank you for this consultation we will follow the patient along with you Dictation was produced using [employer] dictation software. please excuse any grammatical, word or spelling errors. Time with Patient: Greater than 30
--- NOTE | 2024-12-06 01:43 | P.HPIM ---
History of Present Illness H&P Date: 12/03/24 Chief Complaint: N/V/occluded PICC line 39-year-old female who presents to the emergency department for nausea, vomiting, and problems with her PICC line. Patient was discharged from this facility on 11/30. She had been admitted for osteomyelitis of previous amputation site to the right great toe. She had a PICC line placed prior to discharge and was post to be receiving ceftriaxone daily. Patient reported that she did not have any nursing care yesterday and thus did not receive her antibiotic. Today she states that the PICC line came out, however it is believed that she likely pulled it out. She has also had intractable nausea and vomiting all day, prompting her to present to the emergency department at [facility]. Workup there included lab work and a CT scan of her abdomen and pelvis, which demonstrated signs of enteritis. She was transferred to our facility for replacement of the PICC line and intractable nausea and vomiting. CT scan abdomen/pelvis: Fluid-filled loops of small bowel suggesting possible enteritis --white blood cell count of 14.3. She was given her home dose of 2 g of ceftriaxone, which she missed both yesterday and today. Patient subsequently admitted to medicine for replacement of her PICC line and management of nausea and vomiting. Past Medical History Past Medical History: Diabetes Mellitus, Hyperlipidemia, Hypertension History of Any Multi-Drug Resistant Organisms: None Reported Additional Past Surgical History / Comment(s): neck tumor removal, renal stents placed and removed, wrist surgery, thumb amputation, attempted suicide-cut wrists. right greater toe amputation Past Anesthesia/Blood Transfusion Reactions: No Reported Reaction Past Psychological History: Anxiety, Depression, PTSD Smoking Status: Current every day smoker Past Alcohol Use History: None Reported Past Drug Use History: Cocaine, Heroin, Marijuana, Methamphetamine, Opiates - Past Family History Family Family Medical History: Unable to Obtain Medications and Allergies Home Medications Medication Instructions Recorded Confirmed Type clonazePAM [KlonoPIN] 0.5 mg PO DAILY PRN 01/12/24 12/02/24 History Insulin Glargine,Hum.rec.anlog 40 units SQ BID #3 each 01/16/24 12/02/24 Rx [Lantus Solostar Pen] Insulin Lispro [humaLOG Kwikpen] 12 units SQ AC-TID #1 each 01/16/24 12/02/24 Rx DULoxetine HCL [Cymbalta] 120 mg PO DAILY 10/05/24 12/02/24 History ARIPiprazole [Abilify] 5 mg PO HS 11/25/24 12/02/24 History Atorvastatin [Lipitor] 10 mg PO HS 11/25/24 12/02/24 History Gabapentin 600 mg PO BID 11/25/24 12/02/24 History HYDROcodone/APAP 10-325MG [[place] 1 tab PO Q4HR PRN 11/25/24 12/02/24 History 10-325] Omeprazole 20 mg PO BID 11/25/24 12/02/24 History hydrOXYzine pamoate [Vistaril] 50 mg PO DAILY 11/25/24 12/02/24 History lisinopriL [Zestril] 5 mg PO DAILY 11/25/24 12/02/24 History metFORMIN HCL 1,000 mg PO BID 11/25/24 12/02/24 History cefTRIAXone [Rocephin] 2,000 mg IVP Q24HR #40 each 11/29/24 12/02/24 Rx metroNIDAZOLE [Flagyl] 500 mg PO TID #90 tab 11/29/24 12/02/24 Rx Ibuprofen [Motrin] 400 mg PO Q6HR PRN tab 11/30/24 12/02/24 Rx Ondansetron Odt [Zofran ODT] 4 mg PO Q4H PRN 12/02/24 12/02/24 History Promethazine Suppository 25 mg RECTAL Q6H PRN 12/02/24 12/02/24 History [Phenergan] cefTRIAXone [Rocephin] 2 gm IVPB Q24HR each 12/03/24 Rx Allergies Allergy/AdvReac Type Severity Reaction Status Date / Time No Known Allergies Allergy Verified 12/02/24 20:35 Physical Exam Vitals: Vital Signs Temp Pulse Pulse Resp BP BP BP 12/03/24 10:35 18 12/03/24 07:54 98.2 F 84 18 132/71 12/03/24 01:33 98.5 F 100 15 157/88 12/02/24 22:30 98.9 F 86 17 135/69 12/02/24 22:15 99.0 F 80 18 155/79 12/02/24 21:18 99.0 F 79 20 157/89 12/02/24 19:13 99.0 F 87 20 168/129 Pulse Ox 12/03/24 10:35 12/03/24 07:54 98 12/03/24 01:33 96 12/02/24 22:30 97 12/02/24 22:15 96 12/02/24 21:18 96 12/02/24 19:13 91 L Intake and Output 12/02/24 12/03/24 12/03/24 22:59 06:59 14:59 Intake Total 1650 200 Balance 1650 200 Intake: Oral 1650 200 Other: Voiding Method Toilet # Voids 6 3 Weight 131.542 kg General appearance: alert, in no apparent distress Head exam: Present: atraumatic, normocephalic, normal inspection Respiratory exam: Present: normal lung sounds bilaterally. Absent: respiratory distress, wheezes, rales, rhonchi, stridor Cardiovascular Exam: Present: regular rate, normal rhythm GI/Abdominal exam: Present: soft, normal bowel sounds. Absent: distended, tenderness, guarding, rebound, rigid Neurological exam: Present: alert, oriented X3, CN II-XII intact Psychiatric exam: Present: normal affect, normal mood Skin exam: Present: warm, dry, intact, normal color. Absent: rash Results CBC & Chem 7: 12/02/24 20:26 12/02/24 20:26 Labs: Abnormal Lab Results - Last 24 Hours (Table) 12/02/24 12/02/24 12/03/24 Range/Units 20:26 20:26 06:20 WBC 14.3 H (3.8-10.6) k/uL Hgb 10.8 L (11.4-16.0) gm/dL Plt Count 551 H (150-450) k/uL Neutrophils # 13.0 H (1.3-7.7) k/uL Lymphocytes # 0.9 L (1.0-4.8) k/uL Glucose 151 H (74-99) mg/dL POC Glucose (mg/dL) 114 H (70-110) mg/dL Albumin 3.1 L (3.5-5.0) g/dL Lipase 20 L (23-300) U/L 12/03/24 Range/Units 11:51 WBC (3.8-10.6) k/uL Hgb (11.4-16.0) gm/dL Plt Count (150-450) k/uL Neutrophils # (1.3-7.7) k/uL Lymphocytes # (1.0-4.8) k/uL Glucose (74-99) mg/dL POC Glucose (mg/dL) 122 H (70-110) mg/dL Albumin (3.5-5.0) g/dL Lipase (23-300) U/L Thrombosis Risk Factor Assmnt - Choose All That Apply Each Factor Represents 1 point: Obesity (BMI >25) Each Risk Factor Represents 3 Points: Family history of DVT/PE Thrombosis Risk Factor Assessment Total Risk Factor Score: 4 Thrombosis Risk Factor Assessment Level: Moderate Risk Assessment and Plan Assessment: - Nausea and vomiting; likely enteritis --Cellulitis --Needs peripherally inserted central catheter (PICC)//Surrounding cellulitis of the right foot Diabetes mellitus, type II, uncontrolled with hyperglycemia History of hyperlipidemia History of hypertension History of anxiety, depression, PTSD Continued ongoing nicotine dependence History of polysubstance abuse Morbid obesity with a BMI of 45.7 GI prophylaxis DVT prophylaxis
--- NOTE | 2024-12-06 01:45 | P.DS ---
Providers Date of admission: 12/02/24 19:40 Expected date of discharge: 12/03/24 Attending physician: Alex Kirby Consults: 12/03/24 13:16 Consult Physician Routine Consulting Provider: Yakov Tomlin Consult Reason/Comments: Osteomyelitis/Cellulitis Do you want consulting provider notified?: Yes Primary care physician: Jrodon Plunkett MD Hospital Course: 39-year-old female who presents to the emergency department for nausea, vomiting, and problems with her PICC line. Patient was discharged from this facility on 11/30. She had been admitted for osteomyelitis of previous amputation site to the right great toe. She had a PICC line placed prior to discharge and was post to be receiving ceftriaxone daily. Patient reported that she did not have any nursing care yesterday and thus did not receive her antibiotic. Today she states that the PICC line came out, however it is believed that she likely pulled it out. She has also had intractable nausea and vomiting all day, prompting her to present to the emergency department at [facility]. Workup there included lab work and a CT scan of her abdomen and pelvis, which demonstrated signs of enteritis. She was transferred to our facility for replacement of the PICC line and intractable nausea and vomiting. CT scan abdomen/pelvis: Fluid-filled loops of small bowel suggesting possible enteritis --white blood cell count of 14.3. She was given her home dose of 2 g of ceftriaxone, which she missed both yesterday and today. Patient subsequently admitted to medicine for replacement of her PICC line and management of nausea and vomiting. - Nausea and vomiting; likely enteritis --Cellulitis --Needs peripherally inserted central catheter (PICC)//Surrounding cellulitis of the right foot Diabetes mellitus, type II, uncontrolled with hyperglycemia History of hyperlipidemia History of hypertension History of anxiety, depression, PTSD Continued ongoing nicotine dependence History of polysubstance abuse Morbid obesity with a BMI of 45.7 GI prophylaxis DVT prophylaxis PICC line replaced; patient dc'ed home in a stable condition Patient Condition at Discharge: Fair Plan - Discharge Summary Discharge Rx Participant: Yes New Discharge Prescriptions: New cefTRIAXone [Rocephin] 2 gm IVPB Q24HR each Continue clonazePAM [KlonoPIN] 0.5 mg PO DAILY PRN PRN Reason: Anxiety Insulin Lispro [humaLOG Kwikpen] 12 units SQ AC-TID #1 each hydrOXYzine pamoate [Vistaril] 50 mg PO DAILY Atorvastatin [Lipitor] 10 mg PO HS HYDROcodone/APAP 10-325MG [[place] 10-325] 1 tab PO Q4HR PRN PRN Reason: Pain Ondansetron Odt [Zofran ODT] 4 mg PO Q4H PRN PRN Reason: Nausea Insulin Glargine,Hum.rec.anlog [Lantus Solostar Pen] 40 units SQ BID #3 each DULoxetine HCL [Cymbalta] 120 mg PO DAILY lisinopriL [Zestril] 5 mg PO DAILY Omeprazole 20 mg PO BID Gabapentin 600 mg PO BID ARIPiprazole [Abilify] 5 mg PO HS metFORMIN HCL 1,000 mg PO BID metroNIDAZOLE [Flagyl] 500 mg PO TID #90 tab cefTRIAXone [Rocephin] 2,000 mg IVP Q24HR #40 each Ibuprofen [Motrin] 400 mg PO Q6HR PRN tab PRN Reason: Mild Pain Or Fever > 100.5 Promethazine Suppository [Phenergan] 25 mg RECTAL Q6H PRN PRN Reason: Nausea Discharge Medication List clonazePAM [KlonoPIN] 0.5 mg PO DAILY PRN 01/12/24 [History] Insulin Glargine,Hum.rec.anlog [Lantus Solostar Pen] 40 units SQ BID #3 each 01/16/24 [Rx] Insulin Lispro [humaLOG Kwikpen] 12 units SQ AC-TID #1 each 01/16/24 [Rx] DULoxetine HCL [Cymbalta] 120 mg PO DAILY 10/05/24 [History] ARIPiprazole [Abilify] 5 mg PO HS 11/25/24 [History] Atorvastatin [Lipitor] 10 mg PO HS 11/25/24 [History] Gabapentin 600 mg PO BID 11/25/24 [History] HYDROcodone/APAP 10-325MG [[place] 10-325] 1 tab PO Q4HR PRN 11/25/24 [History] Omeprazole 20 mg PO BID 11/25/24 [History] hydrOXYzine pamoate [Vistaril] 50 mg PO DAILY 11/25/24 [History] lisinopriL [Zestril] 5 mg PO DAILY 11/25/24 [History] metFORMIN HCL 1,000 mg PO BID 11/25/24 [History] cefTRIAXone [Rocephin] 2,000 mg IVP Q24HR #40 each 11/29/24 [Rx] metroNIDAZOLE [Flagyl] 500 mg PO TID #90 tab 11/29/24 [Rx] Ibuprofen [Motrin] 400 mg PO Q6HR PRN tab 11/30/24 [Rx] Ondansetron Odt [Zofran ODT] 4 mg PO Q4H PRN 12/02/24 [History] Promethazine Suppository [Phenergan] 25 mg RECTAL Q6H PRN 12/02/24 [History] cefTRIAXone [Rocephin] 2 gm IVPB Q24HR each 12/03/24 [Rx] Follow up Appointment(s)/Referral(s): Jordon Plunkett MD [Primary Care Provider] - 1-2 days Infusion Services,[facility] [REFERRING] - 1 Week Patient Instructions/Handouts: Osteomyelitis (DC), PICC (Peripherally Inserted Central Catheter) (DC) Discharge Disposition: HOME WITH HOME HEALTH SERVICES
== END 2024-12-03 16:12 | disposition home health service (06) ==
LOC: EC 19:11 → 4SSUR 19:40
PROVIDERS: ADMIT Hospitalist; ATTEND Hospitalist
DX: R11.2 Nausea with vomiting, unspecified (principal); E11.69 Type 2 diabetes mellitus with other specified complication; M86.9 Osteomyelitis, unspecified; E11.628 Type 2 diabetes mellitus with other skin complications; L03.115 Cellulitis of right lower limb; E11.621 Type 2 diabetes mellitus with foot ulcer; L97.509 Non-pressure chronic ulcer of other part of unspecified foot with unspecified severity; E11.65 Type 2 diabetes mellitus with hyperglycemia; I10 Essential (primary) hypertension; E78.5 Hyperlipidemia, unspecified; F32.A Depression, unspecified; F41.9 Anxiety disorder, unspecified; F43.10 Post-traumatic stress disorder, unspecified; F19.10 Other psychoactive substance abuse, uncomplicated; F17.200 Nicotine dependence, unspecified, uncomplicated; E66.01 Morbid (severe) obesity due to excess calories; Z68.42 Body mass index [BMI] 45.0-49.9, adult; Z89.411 Acquired absence of right great toe; Z79.4 Long term (current) use of insulin; Z79.84 Long term (current) use of oral hypoglycemic drugs; Z79.899 Other long term (current) drug therapy
CPT/HCPCS: 96376; 96365; 96375; 99285; 80053; 82150; 83605; 83690; 85025; 85610; 85730; 84703; G0378 ×2; J0696 ×2; J1171 ×3; J1790

== ENCOUNTER 2024-12-20 15:03 | Inpatient (IN) | payer OTHER ==
--- NOTE | 2024-12-20 15:37 | ED ---
Skin/Abscess/FB HPI - General Chief complaint: Skin/Abscess/Foreign Body Stated complaint: Post-op(R foot issue) Time Seen by Provider: 12/20/24 15:28 Source: patient, family, RN notes reviewed Mode of arrival: wheelchair Limitations: no limitations - History of Present Illness Initial comments: 39-year-old female with history of type [address] Kuo for right foot infection. Patient states she had amputation of her right first digit then her right second digit over the past month. She has been receiving Rocephin through her PICC line daily. She has been having checkups with Dr. Kuo every Friday who sent her to the ER for possible gangrene/cellulitis. Patient reports the wound is progressively becoming more painful. Admits nausea and vomiting over the past 2 days. Admits subjective chills however denies fevers. - Related Data Home Medications Medication Instructions Recorded Confirmed clonazePAM [KlonoPIN] 0.5 mg PO DAILY PRN 01/12/24 12/02/24 DULoxetine HCL [Cymbalta] 120 mg PO DAILY 10/05/24 12/02/24 ARIPiprazole [Abilify] 5 mg PO HS 11/25/24 12/02/24 Atorvastatin [Lipitor] 10 mg PO HS 11/25/24 12/02/24 Gabapentin 600 mg PO BID 11/25/24 12/02/24 HYDROcodone/APAP 10-325MG [[place] 1 tab PO Q4HR PRN 11/25/24 12/02/24 10-325] Omeprazole 20 mg PO BID 11/25/24 12/02/24 hydrOXYzine pamoate [Vistaril] 50 mg PO DAILY 11/25/24 12/02/24 lisinopriL [Zestril] 5 mg PO DAILY 11/25/24 12/02/24 metFORMIN HCL 1,000 mg PO BID 11/25/24 12/02/24 Ondansetron Odt [Zofran ODT] 4 mg PO Q4H PRN 12/02/24 12/02/24 Promethazine Suppository 25 mg RECTAL Q6H PRN 12/02/24 12/02/24 [Phenergan] Previous Rx's Medication Instructions Recorded Insulin Glargine,Hum.rec.anlog 40 units SQ BID #3 each 01/16/24 [Lantus Solostar Pen] Insulin Lispro [humaLOG Kwikpen] 12 units SQ AC-TID #1 each 01/16/24 cefTRIAXone [Rocephin] 2,000 mg IVP Q24HR #40 each 11/29/24 metroNIDAZOLE [Flagyl] 500 mg PO TID #90 tab 11/29/24 Ibuprofen [Motrin] 400 mg PO Q6HR PRN tab 11/30/24 cefTRIAXone [Rocephin] 2 gm IVPB Q24HR each 12/03/24 Allergies Allergy/AdvReac Type Severity Reaction Status Date / Time No Known Allergies Allergy Verified 12/02/24 20:35 Review of Systems ROS Statement: Those systems with pertinent positive or pertinent negative responses have been documented in the HPI. ROS Other: All systems not noted in ROS Statement are negative. Past Medical History Past Medical History: Diabetes Mellitus, Hyperlipidemia, Hypertension History of Any Multi-Drug Resistant Organisms: None Reported Additional Past Surgical History / Comment(s): neck tumor removal, renal stents placed and removed, wrist surgery, thumb amputation, attempted suicide-cut wrists. right greater toe amputation Past Anesthesia/Blood Transfusion Reactions: No Reported Reaction Past Psychological History: Anxiety, Depression, PTSD Smoking Status: Current every day smoker Past Alcohol Use History: None Reported Past Drug Use History: Cocaine, Heroin, Marijuana, Methamphetamine, Opiates - Past Family History Family Family Medical History: Unable to Obtain General Exam Limitations: no limitations General appearance: alert, in no apparent distress Head exam: Present: atraumatic, normocephalic, normal inspection Eye exam: Present: normal appearance, PERRL, EOMI. Absent: scleral icterus, conjunctival injection, periorbital swelling Cardiovascular Exam: Present: regular rate, normal rhythm, normal heart sounds. Absent: systolic murmur, diastolic murmur, rubs, gallop, clicks GI/Abdominal exam: Present: soft, normal bowel sounds. Absent: distended, tenderness, guarding, rebound, rigid Right Knee exam: Present: normal inspection, full ROM. Absent: tenderness, swelling Lower Leg exam: Present: normal inspection, full ROM. Absent: tenderness, swelling Ankle exam: Present: normal inspection, full ROM. Absent: tenderness, swelling Foot/Toe exam: Present: tenderness, swelling, erythema, amputation. Absent: normal inspection (Open wound from recent first and second digit amputation filled with murky yellow pus with surrounding erythema), full ROM, abrasion, laceration Neurovascular tendon exam: Present: no vascular compromise. Absent: pulse deficit, abnormal cap refill, motor deficit, sensory deficit Neurological exam: Present: alert, oriented X3 Psychiatric exam: Present: normal affect, normal mood Course Vital Signs 12/20/24 15:05 Temperature 98.4 F Pulse Rate 109 H Respiratory 20 Rate Blood Pressure 134/79 O2 Sat by Pulse 97 Oximetry Medical Decision Making - Medical Decision Making Was pt. sent in by a medical professional or institution (, PA, RESIDENTIAL PROGRAM WORKER, urgent care, hospital, or shelter...) When possible be specific @ -Sent by Dr. Kuo for right foot cellulitis/gangrene Did you speak to anyone other than the patient for history (EMS, parent, family, police, friend...)? What history was obtained from this source @ -No Did you review nursing and triage notes (agree or disagree)? Why? @ -I reviewed and agree with nursing and triage notes Were old charts reviewed (outside hosp., previous admission, EMS record, old EKG, old radiological studies, urgent care reports/EKG's, shelter records)? Report findings @ -Reviewed previous admission notes Differential Diagnosis (chest pain, altered mental status, abdominal pain women, abdominal pain men, vaginal bleeding, weakness, fever, dyspnea, syncope, headache, dizziness, GI bleed, back pain, seizure, CVA, palpatations, mental health, musculoskeletal)? @ -Differential Musculoskeletal Muscular strain, contusion, ligament sprain, fracture, arthritis, septic arthritis, bursitis, cellulitis, muscle spasm, nerve compression, DVT, arterial occlusion, herpes zoster, electrolyte abnormality, tumor.... This is not meant to be in all inclusive list EKG interpreted by me (3pts min.). @ -None X-rays interpreted by me (1pt min.). @ -X-ray right foot reveals postsurgical changes of first and second digits with osseous erosions and amputation site of distal metatarsals suggestive of osteomyelitis CT interpreted by me (1pt min.). @ -None done U/S interpreted by me (1pt. min.). @ -None done What testing was considered but not performed or refused? (CT, X-rays, U/S, labs)? Why? @ -None What meds were considered but not given or refused? Why? @ -None Did you discuss the management of the patient with other professionals (professionals i.e. Dr., PA, RESIDENTIAL PROGRAM WORKER, lab, RT, psych nurse, social work supervisor, system specialist, teacher, driver license reviewing officer, registered nurse hh case manager)? Give summary @ -I spoke with Dr. Forrest from [facility] who accepts admission for right foot osteomyelitis with consultation to Dr. Kuo and infectious disease Was smoking cessation discussed for >3mins.? @ -No Was critical care preformed (if so, how long)? @ -Yes, 45 minutes Were there social determinants of health that impacted care today? How? (Homelessness, low income, unemployed, alcoholism, drug addiction, transportation, low edu. Level, literacy, decrease access to med. care, group home, rehab)? @ -No Was there de-escalation of care discussed even if they declined (Discuss DNR or withdrawal of care, Hospice)? DNR status @ -No What co-morbidities impacted this encounter? (DM, HTN, Smoking, COPD, CAD, Cancer, CVA, ARF, Chemo, Hep., AIDS, mental health diagnosis, sleep apnea, morbid obesity)? @ -DM Was patient admitted / discharged? Hospital course, mention meds given and route, prescriptions, significant lab abnormalities, going to OR and other pertinent info. @ -Admitted. 39-year-old female presenting for right foot wound infection status post right first and second digit amputations. Patient is tachycardic at 109 bpm, afebrile at 98.4. Blood pressure normal at 134/79. Physical exam remarkable for open wound of first status post first and second digit amputation filled with murky drainage. Neurovascularly intact. Patient is provided with IV fluid bolus and Toradol. White blood cell count 13, lactic 1.9, CRP 3.5. Due to tachycardia and leukocytosis with source of infection, patient does meet sepsis criteria however states she gave herself Rocephin through her PICC line earlier today. Blood cultures were taken and patient was started on IV Rocephin and IV vancomycin. X-ray reveals osseous erosion at amputation site of distal middle tarsals suggestive of osteomyelitis. Patient will be admitted to medicine with consultation to infectious disease and Dr. Kuo. Case was discussed with my ED attending Dr. Franz. Undiagnosed new problem with uncertain prognosis? @ -No Drug Therapy requiring intensive monitoring for toxicity (Heparin, Nitro, Insulin, Cardizem)? @ -No Were any procedures done? @ -No Diagnosis/symptom? @ -Right foot osteomyelitis, sepsis Acute, or Chronic, or Acute on Chronic? @ -Acute Uncomplicated (without systemic symptoms) or Complicated (systemic symptoms)? @ -Complicated Side effects of treatment? @ -No Exacerbation, Progression, or Severe Exacerbation? @ -No Poses a threat to life or bodily function? How? (Chest pain, USA, MS, pneumonia, PE, COPD, DKA, ARF, appy, cholecystitis, CVA, Diverticulitis, Homicidal, Suicidal, threat to staff... and all critical care pts) @ -Yes, osteomyelitis - Lab Data Result diagrams: 12/20/24 15:55 12/20/24 15:55 Lab Results 12/20/24 12/20/24 12/20/24 Range/Units 15:55 15:55 15:55 WBC 13.0 H (3.8-10.6) k/uL RBC 4.11 (3.80-5.40) m/uL Hgb 11.0 L (11.4-16.0) gm/dL Hct 34.0 (34.0-46.0) % MCV 82.8 (80.0-100.0) fL MCH 26.7 (25.0-35.0) pg MCHC 32.2 (31.0-37.0) g/dL RDW 14.6 (11.5-15.5) % Plt Count 410 (150-450) k/uL MPV 6.9 Neutrophils % 72 % Lymphocytes % 19 % Monocytes % 6 % Eosinophils % 2 % Basophils % 0 % Neutrophils # 9.4 H (1.3-7.7) k/uL Lymphocytes # 2.4 (1.0-4.8) k/uL Monocytes # 0.8 (0-1.0) k/uL Eosinophils # 0.2 (0-0.7) k/uL Basophils # 0.0 (0-0.2) k/uL Sodium 136 L (137-145) mmol/L Potassium 4.2 (3.5-5.1) mmol/L Chloride 103 (98-107) mmol/L Carbon Dioxide 28 (22-30) mmol/L Anion Gap 5 mmol/L BUN 14 (7-17) mg/dL Creatinine 0.72 (0.52-1.04) mg/dL Est GFR (CKD-EPI)AfAm >90 (>60 ml/min/1.73 sqM) Est GFR (CKD-EPI)NonAf >90 (>60 ml/min/1.73 sqM) Glucose 126 H (74-99) mg/dL Plasma Lactic Acid Luke 1.9 (0.7-2.0) mmol/L Calcium 8.8 (8.4-10.2) mg/dL Total Bilirubin 0.4 (0.2-1.3) mg/dL AST 26 (14-36) U/L ALT 13 (4-34) U/L Alkaline Phosphatase 89 (38-126) U/L C-Reactive Protein 3.5 H (<1.0) mg/dL Total Protein 6.3 (6.3-8.2) g/dL Albumin 2.9 L (3.5-5.0) g/dL Disposition Clinical Impression: Foot osteomyelitis, right Disposition: ADMITTED IP TO THIS [facility] Referrals: Jordon Plunkett MD [Primary Care Provider] - 1-2 days Time of Disposition: 17:45
[2024-12-20] MEDS: ONDANSETRON 4 MG/2 ML VIAL IVP STA (15:57)
[2024-12-20] MEDS: SODIUM CHLORIDE 0.9% 1,000 ML IV STA (15:58)
[2024-12-20] MEDS: KETOROLAC 15 MG/ML 1 ML VIAL IVP STA (15:59)
[2024-12-20 16:08] LABS: Basophils % (A) 0 %; Eosinophils # (A) 0.2 k/uL (0-0.7); Eosinophils % (A) 2 %; Lymphocytes # (A) 2.4 k/uL (1.0-4.8); Lymphocytes % (A) 19 %; MCH 26.7 pg (25.0-35.0); MCHC 32.2 g/dL (31.0-37.0); MCV 82.8 fL (80.0-100.0); Mean Platelet Volume 6.9; Monocytes # (A) 0.8 k/uL (0-1.0); Monocytes % (A) 6 %; Neutrophils # (A) 9.4 k/uL (1.3-7.7); Neutrophils % (A) 72 %; Platelet Count 410 k/uL (150-450); RBC 4.11 m/uL (3.80-5.40); RDW 14.6 % (11.5-15.5)
[2024-12-20 16:24] LABS: ALT 13 U/L (4-34); African American GFR (CKD) >90 (>60 ml/min/1.73 sqM); Albumin 2.9 g/dL (3.5-5.0); Anion Gap 5 mmol/L; Blood Urea Nitrogen 14 mg/dL (7-17); C Reactive Protein 3.5 mg/dL (<1.0); Calcium 8.8 mg/dL (8.4-10.2); Carbon Dioxide 28 mmol/L (22-30); Chloride 103 mmol/L (98-107); Glucose 126 mg/dL (74-99); Non-African American GFR(CKD) >90 (>60 ml/min/1.73 sqM); Sodium 136 mmol/L (137-145); Total Bilirubin 0.4 mg/dL (0.2-1.3); Total Protein 6.3 g/dL (6.3-8.2)
[2024-12-20 16:25] LABS: AST 26 U/L (14-36); Alkaline Phosphatase 89 U/L (38-126); Potassium 4.2 mmol/L (3.5-5.1)
--- NOTE | 2024-12-20 16:49 | XR ---
EXAMINATION TYPE: XR foot complete RT DATE OF EXAM: 12/20/2024 4:42 PM COMPARISON: 10/06/2024. CLINICAL INDICATION: Female, 39 years old with history of right foot infection; pain TECHNIQUE: XR foot complete RT examined in the AP, oblique, and lateral projections. FINDINGS: Postsurgical changes with amputation of the first and second digits distal metatarsals. There is osse ous erosion at the amputation site. Subcutaneous lucencies and swelling are present.. IMPRESSION: Post surgical changes of the first and second digits with osseous erosion at the amputation site of t he distal metatarsals suggestive of osteomyelitis. [facility], , 12/20/2024 4:47 PM
[2024-12-20] MEDS ORDERED: VANCOMYCIN IV PER PHARMACY 1 EACH MISC MISCELLANE PRN (17:33)
[2024-12-20] MEDS ORDERED: ONDANSETRON 4 MG/2 ML VIAL IVP PRN (17:41)
[2024-12-20] MEDS ORDERED: NALOXONE 0.4 MG/ML 1 ML VIAL IV PRN (17:41)
[2024-12-20] MEDS: MORPHINE SULFATE 4 MG/ML SYRINGE IV PRN (18:32)
[2024-12-20] MEDS: SODIUM CHLORIDE 0.9% 1,000 ML IV SCH (18:38)
--- NOTE | 2024-12-20 18:38 | P.GSCN ---
History of Present Illness History of present illness: Patient came to the wound clinic today as follow-up this patient had a right foot big toe and second toe ray amputation done in the past patient was in the hospital about a month ago she has been treated with IV antibiotic per infectious disease. Today on arrival to the wound clinic patient has a marked redness noted periwound area and patient complains of more pain and discomfort. We have advised patient to have offloading shoes Neck examination neck is supple no bruit appreciated Chest is clear. Second sound present abdomen soft nontender Femorals are 2+ bilateral PT DP by the Doppler patient has a open wound post to big toe and second toe amputation Plan is patient to be consulted infectious disease and for IV antibiotic she is she is on and we use Santyl cream change the dressing daily nonweightbearing we will follow with you Past Medical History Past Medical History: Diabetes Mellitus, Hyperlipidemia, Hypertension History of Any Multi-Drug Resistant Organisms: None Reported Additional Past Surgical History / Comment(s): neck tumor removal, renal stents placed and removed, wrist surgery, thumb amputation, attempted suicide-cut wrists. right greater toe amputation Past Anesthesia/Blood Transfusion Reactions: No Reported Reaction Past Psychological History: Anxiety, Depression, PTSD Smoking Status: Current every day smoker Past Alcohol Use History: None Reported Past Drug Use History: Cocaine, Heroin, Marijuana, Methamphetamine, Opiates - Past Family History Family Family Medical History: Unable to Obtain Medications and Allergies Home Medications Medication Instructions Recorded Confirmed Type clonazePAM [KlonoPIN] 0.5 mg PO DAILY PRN 01/12/24 12/20/24 History DULoxetine HCL [Cymbalta] 120 mg PO DAILY 10/05/24 12/20/24 History Atorvastatin [Lipitor] 10 mg PO HS 11/25/24 12/20/24 History Gabapentin 600 mg PO TID 11/25/24 12/20/24 History Omeprazole 20 mg PO BID 11/25/24 12/20/24 History hydrOXYzine pamoate [Vistaril] 50 mg PO BID 11/25/24 12/20/24 History metFORMIN HCL 1,000 mg PO BID 11/25/24 12/20/24 History Ibuprofen [Motrin] 400 mg PO Q6HR PRN tab 11/30/24 12/20/24 Rx Ondansetron Odt [Zofran ODT] 4 mg PO Q4H PRN 12/02/24 12/20/24 History Promethazine Suppository 25 mg RECTAL Q6H PRN 12/02/24 12/20/24 History [Phenergan] cefTRIAXone [Rocephin] 2 gm IVPB Q24HR each 12/03/24 12/20/24 Rx ARIPiprazole [Abilify] 15 mg PO HS 12/20/24 12/20/24 History Insulin Glargine,Hum.rec.anlog 40 units SQ HS 12/20/24 12/20/24 History [Lantus Solostar Pen] Insulin Glargine,Hum.rec.anlog 45 units SQ DAILY 12/20/24 12/20/24 History [Lantus Solostar Pen] Insulin Lispro [humaLOG Kwikpen] 10 units SQ AC-BRKFST 12/20/24 12/20/24 History lisinopriL [Prinivil] 20 mg PO DAILY 12/20/24 12/20/24 History Allergies Allergy/AdvReac Type Severity Reaction Status Date / Time No Known Allergies Allergy Verified 12/20/24 17:57 Surgical - Exam Vital Signs Temp Pulse Resp BP Pulse Ox 98.4 F 109 H 20 134/79 97 12/20/24 15:05 12/20/24 15:05 12/20/24 15:05 12/20/24 15:05 12/20/24 15:05 Results - Labs 12/20/24 15:55 12/20/24 15:55 Abnormal Lab Results - Last 24 Hours (Table) 12/20/24 12/20/24 Range/Units 15:55 15:55 WBC 13.0 H (3.8-10.6) k/uL Hgb 11.0 L (11.4-16.0) gm/dL Neutrophils # 9.4 H (1.3-7.7) k/uL Sodium 136 L (137-145) mmol/L Glucose 126 H (74-99) mg/dL C-Reactive Protein 3.5 H (<1.0) mg/dL Albumin 2.9 L (3.5-5.0) g/dL Diabetes panel 12/20/24 Range/Units 15:55 Sodium 136 L (137-145) mmol/L Potassium 4.2 (3.5-5.1) mmol/L Chloride 103 (98-107) mmol/L Carbon Dioxide 28 (22-30) mmol/L BUN 14 (7-17) mg/dL Creatinine 0.72 (0.52-1.04) mg/dL Glucose 126 H (74-99) mg/dL Calcium 8.8 (8.4-10.2) mg/dL AST 26 (14-36) U/L ALT 13 (4-34) U/L Alkaline Phosphatase 89 (38-126) U/L Total Protein 6.3 (6.3-8.2) g/dL Albumin 2.9 L (3.5-5.0) g/dL Calcium panel 12/20/24 Range/Units 15:55 Calcium 8.8 (8.4-10.2) mg/dL Albumin 2.9 L (3.5-5.0) g/dL Pituitary panel 12/20/24 Range/Units 15:55 Sodium 136 L (137-145) mmol/L Potassium 4.2 (3.5-5.1) mmol/L Chloride 103 (98-107) mmol/L Carbon Dioxide 28 (22-30) mmol/L BUN 14 (7-17) mg/dL Creatinine 0.72 (0.52-1.04) mg/dL Glucose 126 H (74-99) mg/dL Calcium 8.8 (8.4-10.2) mg/dL Adrenal panel 12/20/24 Range/Units 15:55 Sodium 136 L (137-145) mmol/L Potassium 4.2 (3.5-5.1) mmol/L Chloride 103 (98-107) mmol/L Carbon Dioxide 28 (22-30) mmol/L BUN 14 (7-17) mg/dL Creatinine 0.72 (0.52-1.04) mg/dL Glucose 126 H (74-99) mg/dL Calcium 8.8 (8.4-10.2) mg/dL Total Bilirubin 0.4 (0.2-1.3) mg/dL AST 26 (14-36) U/L ALT 13 (4-34) U/L Alkaline Phosphatase 89 (38-126) U/L Total Protein 6.3 (6.3-8.2) g/dL Albumin 2.9 L (3.5-5.0) g/dL
[2024-12-20] MEDS: VANCOMYCIN 2,000 MG in SODIUM CHLORIDE 0.9% 500 ML 500 ML IVPB ONE (18:42)
[2024-12-21 04:31] LABS: African American GFR (CKD) >90 (>60 ml/min/1.73 sqM); Non-African American GFR(CKD) >90 (>60 ml/min/1.73 sqM)
[2024-12-21] MEDS ORDERED: DEXTROSE 50% SYRINGE 50 ML IVP PRN ×2 (06:18)
[2024-12-21 06:20] LABS: Glucose,Whole Blood 104 mg/dL (70-110)
[2024-12-21] MEDS: INSULIN LISPRO (HumaLOG) 100 UNIT/ML 10 mL VL SQ SCH (06:45)
[2024-12-21] MEDS: INSULIN GLARGINE (LANTUS) 100 UNIT/ML SYR SQ SCH ×2 (07:57→22:47)
[2024-12-21] MEDS: VANCOMYCIN 2,000 MG in SODIUM CHLORIDE 0.9% 500 ML 500 ML IVPB SCH (08:03)
[2024-12-21] MEDS: lisinopriL 20 MG TAB PO SCH (08:04)
[2024-12-21] MEDS: PANTOPRAZOLE 40 MG TABLET PO SCH (08:04)
[2024-12-21] MEDS: DULoxetine HCL 60 MG CAPSULE.DR PO SCH (08:04)
[2024-12-21] MEDS: GABAPENTIN 300 MG CAP PO SCH (08:04)
[2024-12-21 11:37] LABS: Basophils % (A) 0 %; Eosinophils # (A) 0.3 k/uL (0-0.7); Eosinophils % (A) 4 %; HGB 10.5 gm/dL (11.4-16.0); Lymphocytes % (A) 25 %; MCH 26.7 pg (25.0-35.0); MCHC 31.7 g/dL (31.0-37.0); MCV 84.2 fL (80.0-100.0); Mean Platelet Volume 7.2; Monocytes # (A) 0.4 k/uL (0-1.0); Monocytes % (A) 6 %; Neutrophils % (A) 63 %; Platelet Count 378 k/uL (150-450); RBC 3.92 m/uL (3.80-5.40); RDW 14.7 % (11.5-15.5)
[2024-12-21 11:59] LABS: Glucose,Whole Blood 105 mg/dL (70-110)
[2024-12-21] MEDS ORDERED: VANCOMYCIN IV PER PHARMACY 1 EACH MISC MISCELLANE PRN (12:04)
--- NOTE | 2024-12-21 14:46 | P.PN ---
Progress Note - Text 39-year-old white female patient had a right foot big toe and second toe amputation in the past he was coming to the wound care follow-up came with marked redness and drainage from the right foot wound she has history of smoking 1 pack a day femorals are 1+ DP 1+ we will use Santyl cream this should be changed on daily basis today will change with with Santyl cream and and dressing continue with IV antibiotic under care of infectious disease dressing should be changed on daily basis
[2024-12-21] MEDS: KETOROLAC 15 MG/ML 1 ML VIAL IVP PRN (14:48)
[2024-12-21] MEDS: COLLAGENASE 250 UNIT/GM OINTMENT 30 GM TUBE TOPICAL SCH (15:06)
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
[2024-12-21] MEDS: metroNIDAZOLE 500 MG TAB PO SCH (16:04)
--- NOTE | 2024-12-21 16:15 | US ---
EXAMINATION TYPE: US venous doppler duplex LE RT DATE OF EXAM: 12/21/2024 4:03 PM COMPARISON: NONE CLINICAL INDICATION: Female, 39 years old with history of Pain and swelling; recent toe amputations o n the right, pain and swelling to the leg, no h/o dvt TECHNIQUE: The lower extremity deep venous system is examined utilizing real time linear array sonog janet with graded compression, color doppler sonography, and spectral doppler. SIDE PERFORMED: Right FINDINGS: VESSELS IMAGED: Common Femoral Vein Deep Femoral Vein Greater Saphenous Vein * Femoral Vein Popliteal Vein Small Saphenous Vein * Proximal Calf Veins (* superficial vessels) Right Leg: Negative for DVT, Color Doppler imaging shows patency of the vessels. Spectral waveforms are within normal limits. IMPRESSION: No ultrasound evidence for deep venous thrombosis. [facility], , 12/21/2024 4:13 PM
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
[2024-12-21 16:58] LABS: Glucose,Whole Blood 117 mg/dL (70-110)
[2024-12-21] MEDS: ACETAMINOPHEN TAB 325 MG TAB PO PRN (18:25)
[2024-12-21] MEDS: ARIPiprazole 15 MG TAB PO SCH (20:56)
[2024-12-21] MEDS: ATORVASTATIN 10 MG TAB PO SCH (20:56)
[2024-12-21 21:07] LABS: Glucose,Whole Blood 167 mg/dL (70-110)
[2024-12-22 06:35] LABS: Glucose,Whole Blood 130 mg/dL (70-110)
[2024-12-22 08:35] LABS: Basophils # (A) 0.03 X 10*3/uL (0.00-0.10); Basophils % (A) 0.5 %; Eosinophils % (A) 4.6 %; HCT 33.8 % (37.2-46.3); HGB 10.5 g/dL (12.0-15.0); Lymphocytes # (A) 2.24 X 10*3/uL (0.90-5.00); Lymphocytes % (A) 34.3 %; MCH 26.9 pg (27.0-32.0); MCHC 31.1 g/dL (32.0-37.0); MCV 86.4 FL (80.0-97.0); Mean Platelet Volume 10.1 FL (9.5-12.2); Monocytes # (A) 0.71 X 10*3/uL (0.20-1.00); Monocytes % (A) 10.9 %; NRBC Per 100 WBC 0 X 10*3/uL (0.00-0.01); Neutrophils # (A) 3.24 X 10*3/uL (1.80-7.70); Neutrophils % (A) 49.4 %; Platelet Count 373 X 10*3/uL (140-440); RBC 3.91 X 10*6/uL (4.10-5.20); RDW 14.2 % (11.5-14.5); WBC 6.54 X 10*3/uL (4.50-10.00)
[2024-12-22] MEDS ORDERED: lisinopriL 20 MG TAB PO SCH (09:00)
[2024-12-22 09:03] LABS: BUN/Creat Ratio 14.71 Ratio (12.00-20.00); Blood Urea Nitrogen 10.3 mg/dL (9.0-27.0); Calcium 8.3 mg/dL (8.7-10.3); Carbon Dioxide 23.2 mmol/L (21.6-31.8); Chloride 107 mmol/L (96-109); Glucose 100 mg/dL (70-110); Potassium 4.8 mmol/L (3.5-5.5); Sodium 141 mmol/L (135-145)
[2024-12-22] MEDS: LISINOPRIL-HCTZ 20-25 MG 1 EACH TAB PO SCH (09:33)
[2024-12-22 11:20] LABS: Glucose,Whole Blood 112 mg/dL (70-110)
--- NOTE | 2024-12-22 11:21 | P.PN ---
Subjective Progress Note Date: 12/22/24 Hospital Course: Patient is a 39-year-old female with a history of right diabetic foot infection 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 On her previous admission wound cultures grew Klebsiella oxytoca and MSSA. Patient was discharged with PICC line and IV Rocephin and was supposed to be following up with Dr. Kuo at the wound care center. Patient follow-up with Dr. Kuo at the wound care center every Friday and she was sent to the ER yesterday for possible gangrene/cellulitis. Patient reports that right foot and leg has been progressively getting more painful associated nausea, vomiting, fever, chills over the past 2 days. Initial laboratory evaluation in the ED showed WBC 13.0, hemoglobin 11.0, platelet count 410, sodium 136, potassium 4.2, BUN 14, creatinine 0.72, glucose 126, plasma lactic acid 1.9, X-ray of the right foot show postsurgical changes of the first and second digits with osseous erosion at the amputation site of the distal metatarsals suggestive of osteomyelitis. Vital signs on arrival show temperature of 98.4 F, pulse rate of 109, respirate of 20, blood pressure 130/79, oxygen saturation 97% on room air Subjective: Patient seen and examined at the bedside. No acute events overnight. Patient continues to feel 9/10 pain in her right lower leg. Denies shortness of breath, chest pain, nausea, vomiting, fever, chills. When his Doppler ultrasound of the right leg was negative for DVT. All Systems reviewed and pertinent positives and negatives noted in HPI, all other symptoms are negative Objective: Physical examination: Vital signs reviewed General: non toxic, no distress, appears at stated age, morbidly obese Derm: Right foot is wrapped in dressing. No surrounding erythema but there is a mild swelling associated with pain upon palpation Head: atraumatic, normocephalic, symmetric Eyes: EOMI, no lid lag, anicteric sclera, pupils equal round reactive to light ENT: Nose and ears atraumatic Neck: No cervical lymphadenopathy, trachea midline, supple Mouth: no lip lesion, mucus membranes moist Cardiovascular: S1S2 reg, no murmur, positive dorsalis pedis pulse bilateral, right leg 1+ pitting edema Lungs: CTA bilateral, no rhonchi, no rales, no accessory muscle use Abdominal: soft, nontender to palpation, no guarding Ext: muscle strength 5 out of 5 in all 4 extremities grossly, no gross muscle atrophy, no contractures, Neuro: CN II-XI grossly intact, no gross focal neuro deficits Psych: Alert, oriented, appropriate affect Data reviewed today: Labs: WBC 6.54, hemoglobin 10.5, sodium 141, BUN 10.3, creatinine 0.7, glucose 130, hemoglobin 6.3%, calcium 8.3 Images: No new imaging Assessment and Plan: Active: #Sepsis, present on admission, secondary to right diabetic foot infection with failure of outpatient treatment #Diabetes mellitus, type II uncontrolled hyperglycemia #Leukocytosis secondary to above Continue with vancomycin 2 g IVPB every 16 hour, Rocephin 2 g IVPB every 24 hours, Flagyl 500 mg p.o. 3 times daily Vascular surgery and infectious disease on board, appreciate recs Repeat CBC and BMP Continue monitor vital signs Continue IV normal saline as 75 cc/h Obtain blood and wound cultures, cultures pending Resume Lantus insulin regimen with 45 units in a.m. and 40 units at bedtime Add sliding scale insulin Monitor for hypoglycemia Venous Doppler ultrasound of right lower extremity is negative Chronic: Hypertension, GERD, hyperlipidemia, anxiety, depression, peripheral neuropathy Resume home medications DVT prophylaxis: SCDs GI prophylaxis: Protonix 40 mg p.o. twice daily F: As above E: Replete as needed N: Heart healthy diet A: Ambulatory baseline The patient is admitted with an anticipated more than than 2 midnight stay for evaluation of right foot osteomyelitis CODE STATUS: Full code Discussed with: Patient Anticipated discharge place: Pending clinical course Attestation: I have personally seen and examined the patient with Resident, reviewed the documentation and participated and agree with the assessment and plan as written. Maximiliano Thompson MD Objective - Vital Signs Vital signs: Vital Signs Temp 97.8 F 12/22/24 07:12 Pulse 93 12/22/24 07:12 Resp 15 12/22/24 07:12 BP 160/94 12/22/24 07:12 Pulse Ox 98 12/22/24 07:12 FiO2 Intake & Output 12/21/24 12/22/24 12/22/24 18:59 06:59 18:59 Intake Total 2190 Balance 2190 Intake: Oral 2190 Other: Voiding Method Toilet # Voids 3 4 # Bowel Movements 1 - Labs CBC & Chem 7: 12/23/24 04:20 12/23/24 04:20 Labs: Abnormal Lab Results - Last 24 Hours (Table) 12/21/24 12/21/24 12/21/24 Range/Units 11:15 11:15 16:56 RBC (4.10-5.20) X 10*6/uL Hgb 10.5 L (11.4-16.0) gm/dL Hct 33.0 L (34.0-46.0) % MCH (27.0-32.0) pg MCHC (32.0-37.0) g/dL POC Glucose (mg/dL) 117 H (70-110) mg/dL Hemoglobin A1c (<=6.0) % Calcium (8.7-10.3) mg/dL Vancomycin Trough 31.1 H* ug/mL 12/21/24 12/22/24 12/22/24 Range/Units 21:05 03:07 03:07 RBC 3.91 L (4.10-5.20) X 10*6/uL Hgb 10.5 L (11.4-16.0) gm/dL Hct 33.8 L (34.0-46.0) % MCH 26.9 L (27.0-32.0) pg MCHC 31.1 L (32.0-37.0) g/dL POC Glucose (mg/dL) 167 H (70-110) mg/dL Hemoglobin A1c 6.3 H (<=6.0) % Calcium (8.7-10.3) mg/dL Vancomycin Trough ug/mL 12/22/24 12/22/24 Range/Units 03:07 06:34 RBC (4.10-5.20) X 10*6/uL Hgb (11.4-16.0) gm/dL Hct (34.0-46.0) % MCH (27.0-32.0) pg MCHC (32.0-37.0) g/dL POC Glucose (mg/dL) 130 H (70-110) mg/dL Hemoglobin A1c (<=6.0) % Calcium 8.3 L (8.7-10.3) mg/dL Vancomycin Trough ug/mL Microbiology - Last 24 Hours (Table) 12/21/24 12:11 Gram Stain - Preliminary Foot - Right Wound Culture - Preliminary 12/20/24 15:30 Blood Culture - Preliminary Blood 12/20/24 15:55 Blood Culture - Preliminary Blood
--- NOTE | 2024-12-22 13:10 | P.PN ---
Subjective Progress Note Date: 12/22/24 Principal diagnosis: Reason for follow-up is right diabetic foot infection and osteomyelitis Patient is a 39-year-old female with a past medical history significant for diabetes mellitus hypertension hyperlipidemia patient is status post right first and second amputation for diabetic foot infection with a last culture positive for MSSA Klebsiella and anaerobes patient did get a PICC line and was advised 6 week course of IV Rocephin and oral Flagyl, patient stated noncompliant with his oral Flagyl IV admitted to hospital with worsening cellulitis On today's evaluation that is 12/22/2024,the patient denies any fever or any chills, patient is breathing comfortably on room air, the patient denies chest pain shortness of breath and no significant cough, patient denies abdominal pain, no nausea vomiting or diarrhea, denies any worsening pain to the right foot. Patient was over 6.54, creatinine 0.7 cultures are currently pending Objective - Vital Signs Vital signs: Vital Signs Temp 97.8 F 12/22/24 07:12 Pulse 93 12/22/24 07:12 Resp 15 12/22/24 07:12 BP 160/94 12/22/24 07:12 Pulse Ox 98 12/22/24 07:12 FiO2 Intake & Output 12/21/24 12/22/24 12/22/24 18:59 06:59 18:59 Intake Total 2190 Balance 2190 Intake: Oral 2190 Other: Voiding Method Toilet # Voids 3 4 # Bowel Movements 1 - Exam GENERAL DESCRIPTION: Middle-age female lying in bed in no distress RESPIRATORY SYSTEM: Unlabored breathing , decreased breath sounds at bases HEART: S1 S2 regular rate and rhythm , ABDOMEN: Soft , no tenderness EXTREMITIES: Right foot is currently dressed no drainage - Labs CBC & Chem 7: 12/22/24 03:07 12/22/24 03:07 Labs: Abnormal Lab Results - Last 24 Hours (Table) 12/21/24 12/21/24 12/21/24 Range/Units 11:15 16:56 21:05 RBC (4.10-5.20) X 10*6/uL Hgb (12.0-15.0) g/dL Hct (37.2-46.3) % MCH (27.0-32.0) pg MCHC (32.0-37.0) g/dL POC Glucose (mg/dL) 117 H 167 H (70-110) mg/dL Hemoglobin A1c (<=6.0) % Calcium (8.7-10.3) mg/dL Vancomycin Trough 31.1 H* ug/mL 12/22/24 12/22/24 12/22/24 Range/Units 03:07 03:07 03:07 RBC 3.91 L (4.10-5.20) X 10*6/uL Hgb 10.5 L (12.0-15.0) g/dL Hct 33.8 L (37.2-46.3) % MCH 26.9 L (27.0-32.0) pg MCHC 31.1 L (32.0-37.0) g/dL POC Glucose (mg/dL) (70-110) mg/dL Hemoglobin A1c 6.3 H (<=6.0) % Calcium 8.3 L (8.7-10.3) mg/dL Vancomycin Trough ug/mL 12/22/24 12/22/24 Range/Units 06:34 11:18 RBC (4.10-5.20) X 10*6/uL Hgb (12.0-15.0) g/dL Hct (37.2-46.3) % MCH (27.0-32.0) pg MCHC (32.0-37.0) g/dL POC Glucose (mg/dL) 130 H 112 H (70-110) mg/dL Hemoglobin A1c (<=6.0) % Calcium (8.7-10.3) mg/dL Vancomycin Trough ug/mL Microbiology - Last 24 Hours (Table) 12/21/24 12:11 Gram Stain - Preliminary Foot - Right Wound Culture - Preliminary 12/20/24 15:30 Blood Culture - Preliminary Blood 12/20/24 15:55 Blood Culture - Preliminary Blood Assessment and Plan (1) Foot osteomyelitis, right Current Visit: Yes Status: Acute Code(s): M86.9 - OSTEOMYELITIS, UNSPECIFIED SNOMED Code(s): 0797544156927849 (2) Cellulitis of right foot Current Visit: No Status: Acute Code(s): L03.115 - CELLULITIS OF RIGHT LOWER LIMB SNOMED Code(s): 15741320930418455 (3) Diabetic foot ulcer Current Visit: No Status: Acute Code(s): E11.621 - TYPE 2 DIABETES MELLITUS WITH FOOT ULCER; L97.509 - NON-PRESSURE CHRONIC ULCER OTH PRT UNSP FOOT W UNSP SEVERITY SNOMED Code(s): 596270227 Plan: 1patient with a right diabetic foot ulcer post ablation of the right first and second toe and concern for underlying osteomyelitis previous culture positive for Klebsiella that was resistant to Unasyn and MSSA along with anaerobes and the patient supposed to be on IV Rocephin and oral Flagyl she mention she was taking in the IV Rocephin but are very clear about the oral antibiotic more likely dealing with a noncompliance with antibiotic therapy and the surgeon has been concerned about patient continued use of the right foot leading to worsening wound infection and cellulitis 2local culture have been obtained which are currently pending 3patient is currently being treated with vancomycin pharmacy to dose, Rocephin and Flagyl pending finalization of the culture Await further recommendation from surgery Dictation was produced using [employer] dictation software. please excuse any grammatical, word or spelling errors. Time with Patient: Less than 30
[2024-12-22 16:12] LABS: Glucose,Whole Blood 117 mg/dL (70-110)
[2024-12-22 21:21] LABS: Glucose,Whole Blood 163 mg/dL (70-110)
[2024-12-23 07:01] LABS: Glucose,Whole Blood 131 mg/dL (70-110)
[2024-12-23 08:36] LABS: BUN/Creat Ratio 16.25 Ratio (12.00-20.00); Calcium 8.2 mg/dL (8.7-10.3); Carbon Dioxide 25.2 mmol/L (21.6-31.8); Chloride 107 mmol/L (96-109); Glucose 130 mg/dL (70-110); Potassium 4.3 mmol/L (3.5-5.5); Sodium 140 mmol/L (135-145)
[2024-12-23 08:46] LABS: Basophils # (A) 0.02 X 10*3/uL (0.00-0.10); Basophils % (A) 0.3 %; Eosinophils # (A) 0.26 X 10*3/uL (0.04-0.35); Eosinophils % (A) 3.9 %; HCT 30.6 % (37.2-46.3); HGB 9.8 g/dL (12.0-15.0); Lymphocytes # (A) 2.23 X 10*3/uL (0.90-5.00); Lymphocytes % (A) 33.2 %; MCV 84.3 FL (80.0-97.0); Mean Platelet Volume 9.9 FL (9.5-12.2); Monocytes # (A) 0.64 X 10*3/uL (0.20-1.00); Monocytes % (A) 9.5 %; NRBC Per 100 WBC 0 X 10*3/uL (0.00-0.01); Neutrophils # (A) 3.55 X 10*3/uL (1.80-7.70); Neutrophils % (A) 52.8 %; Platelet Count 406 X 10*3/uL (140-440); RBC 3.63 X 10*6/uL (4.10-5.20); RDW 13.8 % (11.5-14.5); WBC 6.72 X 10*3/uL (4.50-10.00)
[2024-12-23] MEDS ORDERED: lisinopriL 20 MG TAB PO SCH (09:00)
[2024-12-23 11:18] LABS: Glucose,Whole Blood 163 mg/dL (70-110)
--- NOTE | 2024-12-23 15:08 | P.PN ---
Subjective Progress Note Date: 12/23/24 Principal diagnosis: Reason for follow-up is right diabetic foot infection and osteomyelitis Patient is a 39-year-old female with a past medical history significant for diabetes mellitus hypertension hyperlipidemia patient is status post right first and second amputation for diabetic foot infection with a last culture positive for MSSA Klebsiella and anaerobes patient did get a PICC line and was advised 6 week course of IV Rocephin and oral Flagyl, patient stated noncompliant with his oral Flagyl IV admitted to hospital with worsening cellulitis On today's evaluation that is 12/23/2024,the patient remains to be afebrile, patient is on room air not requiring supplemental oxygen and denies any shortness of breath no chest pain or cough.Patient denies having any nausea or vomiting, no abdominal pain and no diarrhea pain to the right foot is currently controlled. Patient white count 6.72, creatinine 0.8 cultures currently pending Objective - Vital Signs Vital signs: Vital Signs Temp 97.5 F L 12/23/24 07:30 Pulse 92 12/23/24 08:11 Resp 20 12/23/24 08:11 BP 162/101 12/23/24 07:30 Pulse Ox 98 12/23/24 07:30 FiO2 Intake & Output 12/22/24 12/23/24 12/23/24 18:59 06:59 18:59 Intake Total 540 3240 Balance 540 3240 Intake: Oral 540 3240 Other: Voiding Method Toilet Toilet Toilet # Voids 4 3 10 - Exam GENERAL DESCRIPTION: Middle-age female lying in bed in no distress RESPIRATORY SYSTEM: Unlabored breathing , decreased breath sounds at bases HEART: S1 S2 regular rate and rhythm , ABDOMEN: Soft , no tenderness EXTREMITIES: Right foot is currently dressed no drainage - Labs CBC & Chem 7: 12/23/24 04:20 12/23/24 04:20 Labs: Abnormal Lab Results - Last 24 Hours (Table) 12/22/24 12/22/24 12/23/24 Range/Units 16:11 21:20 04:20 RBC 3.63 L (4.10-5.20) X 10*6/uL Hgb 9.8 L (12.0-15.0) g/dL Hct 30.6 L (37.2-46.3) % Glucose (70-110) mg/dL POC Glucose (mg/dL) 117 H 163 H (70-110) mg/dL Calcium (8.7-10.3) mg/dL 12/23/24 12/23/24 12/23/24 Range/Units 04:20 06:48 11:15 RBC (4.10-5.20) X 10*6/uL Hgb (12.0-15.0) g/dL Hct (37.2-46.3) % Glucose 130 H (70-110) mg/dL POC Glucose (mg/dL) 131 H 163 H (70-110) mg/dL Calcium 8.2 L (8.7-10.3) mg/dL Microbiology - Last 24 Hours (Table) 12/20/24 15:30 Blood Culture - Preliminary Blood 12/20/24 15:55 Blood Culture - Preliminary Blood 12/21/24 12:11 Gram Stain - Preliminary Foot - Right Wound Culture - Preliminary Assessment and Plan (1) Foot osteomyelitis, right Current Visit: Yes Status: Acute Code(s): M86.9 - OSTEOMYELITIS, UNSPECIFIED SNOMED Code(s): 9767868309362009 (2) Cellulitis of right foot Current Visit: No Status: Acute Code(s): L03.115 - CELLULITIS OF RIGHT LOWER LIMB SNOMED Code(s): 13260524870625460 (3) Diabetic foot ulcer Current Visit: No Status: Acute Code(s): E11.621 - TYPE 2 DIABETES MELLITUS WITH FOOT ULCER; L97.509 - NON-PRESSURE CHRONIC ULCER OTH PRT UNSP FOOT W UNSP SEVERITY SNOMED Code(s): 614317692 Plan: 1patient with a right diabetic foot ulcer post ablation of the right first and second toe and concern for underlying osteomyelitis previous culture positive for Klebsiella that was resistant to Unasyn and MSSA along with anaerobes and the patient supposed to be on IV Rocephin and oral Flagyl she mention she was taking in the IV Rocephin but are very clear about the oral antibiotic more likely dealing with a noncompliance with antibiotic therapy and the surgeon has been concerned about patient continued use of the right foot leading to worsening wound infection and cellulitis 2local culture have been obtained which are currently pending 3patient will be treated with vancomycin pharmacy to dose, Rocephin and Flagyl pending finalization of the culture to be discharged antibiotics Discussed with the resident physician Dictation was produced using [employer] dictation software. please excuse any grammatical, word or spelling errors. Time with Patient: Less than 30
--- NOTE | 2024-12-23 15:38 | P.PN ---
Subjective Progress Note Date: 12/23/24 Hospital Course: Patient is a 39-year-old female with a history of right diabetic foot infection 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 On her previous admission wound cultures grew Klebsiella oxytoca and MSSA. Patient was discharged with PICC line and IV Rocephin and was supposed to be following up with Dr. Kuo at the wound care center. Patient follow-up with Dr. Kuo at the wound care center every Friday and she was sent to the ER yesterday for possible gangrene/cellulitis. Patient reports that right foot and leg has been progressively getting more painful associated nausea, vomiting, fever, chills over the past 2 days. Initial laboratory evaluation in the ED showed WBC 13.0, hemoglobin 11.0, platelet count 410, sodium 136, potassium 4.2, BUN 14, creatinine 0.72, glucose 126, plasma lactic acid 1.9, X-ray of the right foot show postsurgical changes of the first and second digits with osseous erosion at the amputation site of the distal metatarsals suggestive of osteomyelitis. Vital signs on arrival show temperature of 98.4 F, pulse rate of 109, respirate of 20, blood pressure 130/79, oxygen saturation 97% on room air Subjective: Patient seen and examined at the bedside. No acute events overnight. Patient continues to feel 9/10 pain in her right lower leg. Denies shortness of breath, chest pain, nausea, vomiting, fever, chills. Wound culture is still pending. Patient to continue with IV vancomycin, Flagyl and ceftriaxone. No surgical intervention by vascular surgery. Patient to follow-up with vascular surgery for wound care every Friday after discharge. All Systems reviewed and pertinent positives and negatives noted in HPI, all other symptoms are negative Objective: Physical examination: Vital signs reviewed General: non toxic, no distress, appears at stated age, morbidly obese Derm: Right foot is wrapped in dressing. No surrounding erythema but there is a mild swelling associated with pain upon palpation Head: atraumatic, normocephalic, symmetric Eyes: EOMI, no lid lag, anicteric sclera, pupils equal round reactive to light ENT: Nose and ears atraumatic Neck: No cervical lymphadenopathy, trachea midline, supple Mouth: no lip lesion, mucus membranes moist Cardiovascular: S1S2 reg, no murmur, positive dorsalis pedis pulse bilateral, right leg 1+ pitting edema Lungs: CTA bilateral, no rhonchi, no rales, no accessory muscle use Abdominal: soft, nontender to palpation, no guarding Ext: muscle strength 5 out of 5 in all 4 extremities grossly, no gross muscle atrophy, no contractures, Neuro: CN II-XI grossly intact, no gross focal neuro deficits Psych: Alert, oriented, appropriate affect Data reviewed today: Labs: WBC 6.72, hemoglobin 9.8, platelet count of 406, sodium 140, potassium 4.3, BUN 13, creatinine 0.8, glucose 130, calcium 8.2 Images: No new imaging Assessment and Plan: Active: #Sepsis, present on admission, secondary to right diabetic foot infection with failure of outpatient treatment #Diabetes mellitus, type II uncontrolled hyperglycemia #Leukocytosis secondary to above, resolved Continue with vancomycin 2 g IVPB every 16 hour, Rocephin 2 g IVPB every 24 hours, Flagyl 500 mg p.o. 3 times daily Vascular surgery and infectious disease on board, appreciate recs Repeat CBC and BMP Continue monitor vital signs Continue IV normal saline as 75 cc/h Obtain blood and wound cultures, cultures pending Resume Lantus insulin regimen with 45 units in a.m. and 40 units at bedtime Add sliding scale insulin Monitor for hypoglycemia Venous Doppler ultrasound of right lower extremity is negative Patient to follow-up with vascular surgery as an outpatient for wound care every Friday after discharge Chronic: Hypertension, GERD, hyperlipidemia, anxiety, depression, peripheral neuropathy Resume home medications DVT prophylaxis: SCDs GI prophylaxis: Protonix 40 mg p.o. twice daily F: As above E: Replete as needed N: Heart healthy diet A: Ambulatory baseline The patient is admitted with an anticipated more than than 2 midnight stay for evaluation of right foot osteomyelitis CODE STATUS: Full code Discussed with: Patient Anticipated discharge place: Pending clinical course Attestation: I have personally seen and examined the patient with Resident, reviewed the documentation and participated and agree with the assessment and plan as written. Maximiliano Thompson MD Objective - Vital Signs Vital signs: Vital Signs Temp 98.2 F 12/23/24 13:32 Pulse 99 12/23/24 13:32 Resp 19 12/23/24 13:32 BP 172/106 12/23/24 13:32 Pulse Ox 99 12/23/24 13:32 FiO2 Intake & Output 12/22/24 12/23/24 12/23/24 18:59 06:59 18:59 Intake Total 540 3240 Balance 540 3240 Intake: Oral 540 3240 Other: Voiding Method Toilet Toilet Toilet # Voids 4 3 10 - Labs CBC & Chem 7: 12/24/24 05:14 12/24/24 05:14 Labs: Abnormal Lab Results - Last 24 Hours (Table) 12/22/24 12/22/24 12/23/24 Range/Units 16:11 21:20 04:20 RBC 3.63 L (4.10-5.20) X 10*6/uL Hgb 9.8 L (12.0-15.0) g/dL Hct 30.6 L (37.2-46.3) % Glucose (70-110) mg/dL POC Glucose (mg/dL) 117 H 163 H (70-110) mg/dL Calcium (8.7-10.3) mg/dL 12/23/24 12/23/24 12/23/24 Range/Units 04:20 06:48 11:15 RBC (4.10-5.20) X 10*6/uL Hgb (12.0-15.0) g/dL Hct (37.2-46.3) % Glucose 130 H (70-110) mg/dL POC Glucose (mg/dL) 131 H 163 H (70-110) mg/dL Calcium 8.2 L (8.7-10.3) mg/dL Microbiology - Last 24 Hours (Table) 12/21/24 12:11 Anaerobic Culture - Preliminary Foot - Right 12/20/24 15:30 Blood Culture - Preliminary Blood 12/20/24 15:55 Blood Culture - Preliminary Blood
[2024-12-23 16:34] LABS: Glucose,Whole Blood 78 mg/dL (70-110)
[2024-12-23] MEDS: clonazePAM 0.5 MG TAB PO PRN (20:00)
[2024-12-23 20:35] LABS: Glucose,Whole Blood 112 mg/dL (70-110)
[2024-12-23] MEDS: KETOROLAC 15 MG/ML 1 ML VIAL IVP STA (21:59)
[2024-12-23] MEDS: VANCOMYCIN TROUGH DUE 1 EACH MISC MISCELLANE ONE (23:47)
[2024-12-24 06:18] LABS: Glucose,Whole Blood 93 mg/dL (70-110)
--- NOTE | 2024-12-24 08:19 | PN ---
PROGRESS NOTE A 39-year-old white female patient, who had a ray amputation of the big toe and second toe in the past. She came to the Wound Clinic with marked redness and drainage. The patient has been admitted for IV antibiotic. We have been treating with local wound care using Santyl cream. Dressing has been changed today. This should be changed on a daily basis. The patient will go home when the culture comes back and Dr. Tomlin will decide about the antibiotic and we will follow in the Wound Clinic. MMODL / IJN: [id number] /
[2024-12-24 08:41] LABS: BUN/Creat Ratio 17.88 Ratio (12.00-20.00); Blood Urea Nitrogen 14.3 mg/dL (9.0-27.0); Calcium 8.5 mg/dL (8.7-10.3); Carbon Dioxide 28.3 mmol/L (21.6-31.8); Chloride 106 mmol/L (96-109); Glucose 97 mg/dL (70-110); Potassium 4.5 mmol/L (3.5-5.5); Sodium 141 mmol/L (135-145)
[2024-12-24 08:47] LABS: Basophils # (A) 0.03 X 10*3/uL (0.00-0.10); Basophils % (A) 0.5 %; Eosinophils # (A) 0.29 X 10*3/uL (0.04-0.35); Eosinophils % (A) 4.4 %; HCT 32.2 % (37.2-46.3); HGB 10.1 g/dL (12.0-15.0); Lymphocytes # (A) 2.42 X 10*3/uL (0.90-5.00); Lymphocytes % (A) 36.6 %; MCH 26.3 pg (27.0-32.0); MCHC 31.4 g/dL (32.0-37.0); MCV 83.9 FL (80.0-97.0); Mean Platelet Volume 9.3 FL (9.5-12.2); Monocytes # (A) 0.56 X 10*3/uL (0.20-1.00); Monocytes % (A) 8.5 %; NRBC Per 100 WBC 0 X 10*3/uL (0.00-0.01); Neutrophils # (A) 3.28 X 10*3/uL (1.80-7.70); Neutrophils % (A) 49.4 %; Platelet Count 473 X 10*3/uL (140-440); RBC 3.84 X 10*6/uL (4.10-5.20); WBC 6.62 X 10*3/uL (4.50-10.00)
[2024-12-24 11:26] LABS: Glucose,Whole Blood 105 mg/dL (70-110)
--- NOTE | 2024-12-24 12:54 | P.PN ---
Progress Note - Text 39-year-old white female diabetic patient had a reimplantation of the right foot big toe and second toe patient has been With wound clinic follow-up patient has been readmitted under care of infectious disease and having IV antibiotic we changing the dressing of the right foot using Santyl cream if patient goes home will follow-up with the wound clinic at [facility] continue with Santyl cream patient is under care of infectious disease for IV antibiotic
[2024-12-24] MEDS: KETOROLAC 15 MG/ML 1 ML VIAL IVP PRN (13:50)
--- NOTE | 2024-12-24 16:00 | P.PN ---
Subjective Progress Note Date: 12/24/24 Principal diagnosis: Reason for follow-up is right diabetic foot infection and osteomyelitis Patient is a 39-year-old female with a past medical history significant for diabetes mellitus hypertension hyperlipidemia patient is status post right first and second amputation for diabetic foot infection with a last culture positive for MSSA Klebsiella and anaerobes patient did get a PICC line and was advised 6 week course of IV Rocephin and oral Flagyl, patient stated noncompliant with his oral Flagyl IV admitted to hospital with worsening cellulitis On today's evaluation that is 12/24/2024, the patient continues to be afebrile, the patient is on room air and breathing comfortably, the Pt denies having any chest pain or cough, the patient denies having any abdominal pain no vomiting or any diarrhea, pain to the right foot is currently controlled. Patient with count 6.62, creatinine 0.8 cultures are still pending Objective - Vital Signs Vital signs: Vital Signs Temp 98 F 12/24/24 07:09 Pulse 98 12/24/24 10:32 Resp 17 12/24/24 09:30 BP 154/95 12/24/24 07:09 Pulse Ox 92 L 12/24/24 07:09 FiO2 Intake & Output 12/23/24 12/24/24 12/24/24 18:59 06:59 18:59 Intake Total 3240 Balance 3240 Intake: Oral 3240 Other: Voiding Method Toilet Toilet Toilet # Voids 3 5 - Exam GENERAL DESCRIPTION: Middle-age female lying in bed in no distress RESPIRATORY SYSTEM: Unlabored breathing , decreased breath sounds at bases HEART: S1 S2 regular rate and rhythm , ABDOMEN: Soft , no tenderness EXTREMITIES: Right foot is currently dressed no drainage - Labs CBC & Chem 7: 12/24/24 05:14 12/24/24 05:14 Labs: Abnormal Lab Results - Last 24 Hours (Table) 12/23/24 12/24/24 12/24/24 Range/Units 20:33 05:14 05:14 RBC 3.84 L (4.10-5.20) X 10*6/uL Hgb 10.1 L (12.0-15.0) g/dL Hct 32.2 L (37.2-46.3) % MCH 26.3 L (27.0-32.0) pg MCHC 31.4 L (32.0-37.0) g/dL Plt Count 473 H (140-440) X 10*3/uL MPV 9.3 L (9.5-12.2) FL POC Glucose (mg/dL) 112 H (70-110) mg/dL Calcium 8.5 L (8.7-10.3) mg/dL Microbiology - Last 24 Hours (Table) 12/20/24 15:30 Blood Culture - Preliminary Blood 12/20/24 15:55 Blood Culture - Preliminary Blood 12/21/24 12:11 Anaerobic Culture - Preliminary Foot - Right Assessment and Plan (1) Foot osteomyelitis, right Current Visit: Yes Status: Acute Code(s): M86.9 - OSTEOMYELITIS, UNSPECIFIED SNOMED Code(s): 3426848029087167 (2) Cellulitis of right foot Current Visit: No Status: Acute Code(s): L03.115 - CELLULITIS OF RIGHT LOWER LIMB SNOMED Code(s): 59141342631440286 (3) Diabetic foot ulcer Current Visit: No Status: Acute Code(s): E11.621 - TYPE 2 DIABETES MELLITUS WITH FOOT ULCER; L97.509 - NON-PRESSURE CHRONIC ULCER OTH PRT UNSP FOOT W UNSP SEVERITY SNOMED Code(s): 350899758 Plan: 1patient with a right diabetic foot ulcer post ablation of the right first and second toe and concern for underlying osteomyelitis previous culture positive for Klebsiella that was resistant to Unasyn and MSSA along with anaerobes and the patient supposed to be on IV Rocephin and oral Flagyl she mention she was taking in the IV Rocephin but are very clear about the oral antibiotic waqas stoll dealing with a noncompliance with antibiotic therapy and the surgeon has been concerned about patient continued use of the right foot leading to worsening wound infection and cellulitis 2local culture have been obtained which are currently pending 3patient currently being treated with vancomycin pharmacy to dose, Rocephin and Flagyl pending finalization of the culture that will determine discharge antibiotics discussed with admitting team Dictation was produced using [employer] dictation software. please excuse any grammatical, word or spelling errors.
--- NOTE | 2024-12-24 16:16 | P.PN ---
Subjective Progress Note Date: 12/24/24 Hospital Course: Patient is a 39-year-old female with a history of right diabetic foot infection 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 On her previous admission wound cultures grew Klebsiella oxytoca and MSSA. Patient was discharged with PICC line and IV Rocephin and was supposed to be following up with Dr. Kuo at the wound care center. Patient follow-up with Dr. Kuo at the wound care center every Friday and she was sent to the ER yesterday for possible gangrene/cellulitis. Patient reports that right foot and leg has been progressively getting more painful associated nausea, vomiting, fever, chills over the past 2 days. Initial laboratory evaluation in the ED showed WBC 13.0, hemoglobin 11.0, platelet count 410, sodium 136, potassium 4.2, BUN 14, creatinine 0.72, glucose 126, plasma lactic acid 1.9, X-ray of the right foot show postsurgical changes of the first and second digits with osseous erosion at the amputation site of the distal metatarsals suggestive of osteomyelitis. Vital signs on arrival show temperature of 98.4 F, pulse rate of 109, respirate of 20, blood pressure 130/79, oxygen saturation 97% on room air Subjective: Patient seen and examined at the bedside. No acute events overnight. Patient continues to feel 8/10 pain in her right lower leg. Denies shortness of breath, chest pain, nausea, vomiting, fever, chills. Wound culture is still pending. Patient to continue with IV vancomycin, Flagyl and ceftriaxone. No surgical intervention by vascular surgery. Patient to follow-up with vascular surgery for wound care every Friday after discharge. Wound cultures are pending. All Systems reviewed and pertinent positives and negatives noted in HPI, all other symptoms are negative Objective: Physical examination: Vital signs reviewed General: non toxic, no distress, appears at stated age, morbidly obese Derm: Right foot is wrapped in dressing. No surrounding erythema but there is a mild swelling associated with pain upon palpation Head: atraumatic, normocephalic, symmetric Eyes: EOMI, no lid lag, anicteric sclera, pupils equal round reactive to light ENT: Nose and ears atraumatic Neck: No cervical lymphadenopathy, trachea midline, supple Mouth: no lip lesion, mucus membranes moist Cardiovascular: S1S2 reg, no murmur, positive dorsalis pedis pulse bilateral, r ight leg 1+ pitting edema Lungs: CTA bilateral, no rhonchi, no rales, no accessory muscle use Abdominal: soft, nontender to palpation, no guarding Ext: muscle strength 5 out of 5 in all 4 extremities grossly, no gross muscle atrophy, no contractures, Neuro: CN II-XI grossly intact, no gross focal neuro deficits Psych: Alert, oriented, appropriate affect Data reviewed today: Labs: WBC 6.62, hemoglobin 10.1, u473, sodium 141, potassium 4.5, BUN 14.3, creatinine 0.8, calcium 8.5 Images: No new imaging Assessment and Plan: Active: #Sepsis, present on admission, secondary to right diabetic foot infection with failure of outpatient treatment #Diabetes mellitus, type II uncontrolled hyperglycemia #Leukocytosis secondary to above, resolved Continue with vancomycin 2 g IVPB every 16 hour, Rocephin 2 g IVPB every 24 hours, Flagyl 500 mg p.o. 3 times daily Vascular surgery and infectious disease on board, appreciate recs Continue monitor vital signs Continue IV normal saline as 75 cc/h Obtain blood and wound cultures, cultures pending Resume Lantus insulin regimen with 45 units in a.m. and 40 units at bedtime c/w sliding scale insulin Monitor for hypoglycemia Venous Doppler ultrasound of right lower extremity is negative Patient to follow-up with vascular surgery as an outpatient for wound care every Friday after discharge Chronic: Hypertension, GERD, hyperlipidemia, anxiety, depression, peripheral neuropathy Resume home medications DVT prophylaxis: SCDs GI prophylaxis: Protonix 40 mg p.o. twice daily F: As above E: Replete as needed N: Heart healthy diet A: Ambulatory baseline The patient is admitted with an anticipated more than than 2 midnight stay for evaluation of right foot osteomyelitis CODE STATUS: Full code Discussed with: Patient Anticipated discharge place: Pending clinical course Objective - Vital Signs Vital signs: Vital Signs Temp 98.4 F 12/24/24 13:12 Pulse 98 12/24/24 13:12 Resp 18 12/24/24 13:12 BP 182/100 12/24/24 13:12 Pulse Ox 97 12/24/24 13:12 FiO2 Intake & Output 12/23/24 12/24/24 12/24/24 18:59 06:59 18:59 Intake Total 3240 Balance 3240 Intake: Oral 3240 Other: Voiding Method Toilet Toilet Toilet # Voids 3 5 - Labs CBC & Chem 7: 12/24/24 05:14 12/24/24 05:14 Labs: Abnormal Lab Results - Last 24 Hours (Table) 12/23/24 12/24/24 12/24/24 Range/Units 20:33 05:14 05:14 RBC 3.84 L (4.10-5.20) X 10*6/uL Hgb 10.1 L (12.0-15.0) g/dL Hct 32.2 L (37.2-46.3) % MCH 26.3 L (27.0-32.0) pg MCHC 31.4 L (32.0-37.0) g/dL Plt Count 473 H (140-440) X 10*3/uL MPV 9.3 L (9.5-12.2) FL POC Glucose (mg/dL) 112 H (70-110) mg/dL Calcium 8.5 L (8.7-10.3) mg/dL Microbiology - Last 24 Hours (Table) 12/20/24 15:30 Blood Culture - Preliminary Blood 12/20/24 15:55 Blood Culture - Preliminary Blood 12/21/24 12:11 Anaerobic Culture - Preliminary Foot - Right
[2024-12-24 16:34] LABS: Glucose,Whole Blood 153 mg/dL (70-110)
[2024-12-24 21:18] LABS: Glucose,Whole Blood 197 mg/dL (70-110)
[2024-12-25 06:50] LABS: African American GFR (CKD) >90 (>60 ml/min/1.73 sqM); Non-African American GFR(CKD) 83 (>60 ml/min/1.73 sqM)
[2024-12-25 06:53] LABS: Glucose,Whole Blood 138 mg/dL (70-110)
[2024-12-25] MEDS: LISINOPRIL-HCTZ 20-25 MG 1 EACH TAB PO SCH (10:20)
[2024-12-25 12:18] LABS: Glucose,Whole Blood 155 mg/dL (70-110)
--- NOTE | 2024-12-25 12:46 | P.PN ---
Subjective Progress Note Date: 12/25/24 Hospital Course: Patient is a 39-year-old female with a history of right diabetic foot infection 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 On her previous admission wound cultures grew Klebsiella oxytoca and MSSA. Patient was discharged with PICC line and IV Rocephin and was supposed to be following up with Dr. Kuo at the wound care center. Patient follow-up with Dr. Kuo at the wound care center every Friday and she was sent to the ER yesterday for possible gangrene/cellulitis. Patient reports that right foot and leg has been progressively getting more painful associated nausea, vomiting, fever, chills over the past 2 days. Initial laboratory evaluation in the ED showed WBC 13.0, hemoglobin 11.0, platelet count 410, sodium 136, potassium 4.2, BUN 14, creatinine 0.72, glucose 126, plasma lactic acid 1.9, X-ray of the right foot show postsurgical changes of the first and second digits with osseous erosion at the amputation site of the distal metatarsals suggestive of osteomyelitis. Vital signs on arrival show temperature of 98.4 F, pulse rate of 109, respirate of 20, blood pressure 130/79, oxygen saturation 97% on room air Subjective: Patient seen and examined at the bedside. No acute events overnight. Patient continues to feel 8/10 pain in her right lower leg. Denies shortness of breath, chest pain, nausea, vomiting, fever, chills. Wound culture is still pending. Patient to continue with IV vancomycin, Flagyl and ceftriaxone. No surgical intervention by vascular surgery. Patient to follow-up with vascular surgery for wound care every Friday after discharge. Wound cultures are pending. All Systems reviewed and pertinent positives and negatives noted in HPI, all other symptoms are negative Objective: Physical examination: Vital signs reviewed General: non toxic, no distress, appears at stated age, morbidly obese Derm: Right foot is wrapped in dressing. No surrounding erythema but there is a mild swelling associated with pain upon palpation Head: atraumatic, normocephalic, symmetric Eyes: EOMI, no lid lag, anicteric sclera, pupils equal round reactive to light ENT: Nose and ears atraumatic Neck: No cervical lymphadenopathy, trachea midline, supple Mouth: no lip lesion, mucus membranes moist Cardiovascular: S1S2 reg, no murmur, positive dorsalis pedis pulse bilateral, r ight leg 1+ pitting edema Lungs: CTA bilateral, no rhonchi, no rales, no accessory muscle use Abdominal: soft, nontender to palpation, no guarding Ext: muscle strength 5 out of 5 in all 4 extremities grossly, no gross muscle atrophy, no contractures, Neuro: CN II-XI grossly intact, no gross focal neuro deficits Psych: Alert, oriented, appropriate affect Data reviewed today: Labs: creatinine 0.88, glucose 155 Images: No new imaging Assessment and Plan: Active: #Sepsis, present on admission, secondary to right diabetic foot infection with failure of outpatient treatment, resolved #Diabetes mellitus, type II uncontrolled hyperglycemia #Leukocytosis secondary to above, resolved Continue with vancomycin 2 g IVPB every 16 hour, Rocephin 2 g IVPB every 24 hours, Flagyl 500 mg p.o. 3 times daily Vascular surgery and infectious disease on board, appreciate recs Continue monitor vital signs Continue IV normal saline as 50 cc/h blood and wound cultures are pending c/w Lantus insulin regimen with 45 units in a.m. and 40 units at bedtime c/w sliding scale insulin Monitor for hypoglycemia Venous Doppler ultrasound of right lower extremity is negative Patient to follow-up with vascular surgery as an outpatient for wound care every Friday after discharge Chronic: Hypertension, GERD, hyperlipidemia, anxiety, depression, peripheral neuropathy Resume home medications DVT prophylaxis: SCDs GI prophylaxis: Protonix 40 mg p.o. twice daily F: As above E: Replete as needed N: Heart healthy diet A: Ambulatory baseline The patient is admitted with an anticipated more than than 2 midnight stay for evaluation of right foot osteomyelitis CODE STATUS: Full code Discussed with: Patient Anticipated discharge place: Pending clinical course Attestation I have seen and examined this patient with my resident , discussed the same with the resident/QUOC, and agree with the dictator's assessment and plan as written Dr. Calvin spangler Objective - Vital Signs Vital signs: Vital Signs Temp 98.1 F 12/25/24 07:15 Pulse 100 12/25/24 07:15 Resp 16 12/25/24 07:15 BP 133/78 12/25/24 07:15 Pulse Ox 97 12/25/24 07:15 FiO2 Intake & Output 12/24/24 12/25/24 12/25/24 18:59 06:59 18:59 Intake Total 3240 400 Balance 3240 400 Intake: Oral 3240 400 Other: Voiding Method Toilet Toilet # Voids 3 10 - Labs CBC & Chem 7: 12/24/24 05:14 12/25/24 06:17 Labs: Abnormal Lab Results - Last 24 Hours (Table) 12/24/24 12/24/24 12/25/24 Range/Units 16:32 21:16 06:51 POC Glucose (mg/dL) 153 H 197 H 138 H (70-110) mg/dL 12/25/24 Range/Units 12:17 POC Glucose (mg/dL) 155 H (70-110) mg/dL
--- NOTE | 2024-12-25 14:58 | P.PN ---
Subjective Progress Note Date: 12/25/24 Principal diagnosis: Reason for follow-up is right diabetic foot infection and osteomyelitis Patient is a 39-year-old female with a past medical history significant for diabetes mellitus hypertension hyperlipidemia patient is status post right first and second amputation for diabetic foot infection with a last culture positive for MSSA Klebsiella and anaerobes patient did get a PICC line and was advised 6 week course of IV Rocephin and oral Flagyl, patient stated noncompliant with his oral Flagyl IV admitted to hospital with worsening cellulitis On today's evaluation that is 12/25/2024, patient did not have any fever and denies any chills, patient is breathing comfortably on room air, patient with no chest pain or cough patient did not have any abdominal pain nausea vomiting or any loose stools pain to the right foot is currently controlled. Patient did have creatinine 0.88 cultures are currently pending Objective - Vital Signs Vital signs: Vital Signs Temp 98.1 F 12/25/24 07:15 Pulse 100 12/25/24 07:15 Resp 16 12/25/24 07:15 BP 133/78 12/25/24 07:15 Pulse Ox 97 12/25/24 07:15 FiO2 Intake & Output 12/24/24 12/25/24 12/25/24 18:59 06:59 18:59 Intake Total 3240 Balance 3240 Intake: Oral 3240 Other: Voiding Method Toilet Toilet # Voids 3 10 - Exam GENERAL DESCRIPTION: Middle-age female lying in bed in no distress RESPIRATORY SYSTEM: Unlabored breathing , decreased breath sounds at bases HEART: S1 S2 regular rate and rhythm , ABDOMEN: Soft , no tenderness EXTREMITIES: Right foot is currently dressed no drainage - Labs CBC & Chem 7: 12/24/24 05:14 12/25/24 06:17 Labs: Abnormal Lab Results - Last 24 Hours (Table) 12/24/24 12/24/24 12/25/24 Range/Units 16:32 21:16 06:51 POC Glucose (mg/dL) 153 H 197 H 138 H (70-110) mg/dL 12/25/24 Range/Units 12:17 POC Glucose (mg/dL) 155 H (70-110) mg/dL Assessment and Plan (1) Foot osteomyelitis, right Current Visit: Yes Status: Acute Code(s): M86.9 - OSTEOMYELITIS, UNSPECIFIED SNOMED Code(s): 1271706734273586 (2) Cellulitis of right foot Current Visit: No Status: Acute Code(s): L03.115 - CELLULITIS OF RIGHT LOWER LIMB SNOMED Code(s): 22830349996007888 (3) Diabetic foot ulcer Current Visit: No Status: Acute Code(s): E11.621 - TYPE 2 DIABETES MELLITUS WITH FOOT ULCER; L97.509 - NON-PRESSURE CHRONIC ULCER OTH PRT UNSP FOOT W UNSP SEVERITY SNOMED Code(s): 142989603 Plan: 1patient with a right diabetic foot ulcer post ablation of the right first and second toe and concern for underlying osteomyelitis previous culture positive for Klebsiella that was resistant to Unasyn and MSSA along with anaerobes and the patient supposed to be on IV Rocephin and oral Flagyl she mention she was taking in the IV Rocephin but are very clear about the oral antibiotic more likely dealing with a noncompliance with antibiotic therapy and the surgeon has been concerned about patient continued use of the right foot leading to worsening wound infection and cellulitis 2local culture have been obtained which are currently pending 3patient to continue with vancomycin pharmacy to dose, Rocephin and Flagyl pending finalization of the culture, question concern answered Dictation was produced using [employer] dictation software. please excuse any grammatical, word or spelling errors. Time with Patient: Less than 30
[2024-12-25 17:06] LABS: Glucose,Whole Blood 216 mg/dL (70-110)
[2024-12-25 20:21] LABS: Glucose,Whole Blood 232 mg/dL (70-110)
[2024-12-26 06:24] LABS: Glucose,Whole Blood 138 mg/dL (70-110)
[2024-12-26 11:17] LABS: Basophils # (A) 0.05 X 10*3/uL (0.00-0.10); Basophils % (A) 0.6 %; Eosinophils % (A) 3.8 %; HCT 32.2 % (37.2-46.3); HGB 10.3 g/dL (12.0-15.0); Lymphocytes # (A) 2.32 X 10*3/uL (0.90-5.00); Lymphocytes % (A) 29.2 %; MCH 26.8 pg (27.0-32.0); MCV 83.9 FL (80.0-97.0); Mean Platelet Volume 9.4 FL (9.5-12.2); Monocytes # (A) 0.76 X 10*3/uL (0.20-1.00); Monocytes % (A) 9.6 %; NRBC Per 100 WBC 0 X 10*3/uL (0.00-0.01); Neutrophils # (A) 4.48 X 10*3/uL (1.80-7.70); Neutrophils % (A) 56.4 %; Platelet Count 449 X 10*3/uL (140-440); RBC 3.84 X 10*6/uL (4.10-5.20); WBC 7.94 X 10*3/uL (4.50-10.00)
[2024-12-26 11:47] LABS: BUN/Creat Ratio 24.75 Ratio (12.00-20.00); Blood Urea Nitrogen 19.8 mg/dL (9.0-27.0); Calcium 8.5 mg/dL (8.7-10.3); Carbon Dioxide 27.2 mmol/L (21.6-31.8); Chloride 101 mmol/L (96-109); Glucose 153 mg/dL (70-110); Potassium 4.4 mmol/L (3.5-5.5); Sodium 135 mmol/L (135-145)
[2024-12-26 11:57] LABS: Glucose,Whole Blood 97 mg/dL (70-110)
--- NOTE | 2024-12-26 13:16 | P.PN ---
Subjective Progress Note Date: 12/26/24 Hospital Course: Patient is a 39-year-old female with a history of right diabetic foot infection 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 On her previous admission wound cultures grew Klebsiella oxytoca and MSSA. Patient was discharged with PICC line and IV Rocephin and was supposed to be following up with Dr. Kuo at the wound care center. Patient follow-up with Dr. Kuo at the wound care center every Friday and she was sent to the ER yesterday for possible gangrene/cellulitis. Patient reports that right foot and leg has been progressively getting more painful associated nausea, vomiting, fever, chills over the past 2 days. Initial laboratory evaluation in the ED showed WBC 13.0, hemoglobin 11.0, platelet count 410, sodium 136, potassium 4.2, BUN 14, creatinine 0.72, glucose 126, plasma lactic acid 1.9, X-ray of the right foot show postsurgical changes of the first and second digits with osseous erosion at the amputation site of the distal metatarsals suggestive of osteomyelitis. Vital signs on arrival show temperature of 98.4 F, pulse rate of 109, respirate of 20, blood pressure 130/79, oxygen saturation 97% on room air Subjective: / patient seen and examined at the bedside. Denies any chest pain or shortness of breath. No acute events overnight. Vital signs stable Objective: Physical examination: Vital signs reviewed General: non toxic, no distress, appears at stated age, morbidly obese Derm: Right foot is wrapped in dressing. No surrounding erythema but there is a mild swelling associated with pain upon palpation Head: atraumatic, normocephalic, symmetric Eyes: EOMI, no lid lag, anicteric sclera, pupils equal round reactive to light ENT: Nose and ears atraumatic Neck: No cervical lymphadenopathy, trachea midline, supple Mouth: no lip lesion, mucus membranes moist Cardiovascular: S1S2 reg, no murmur, Lungs: CTA bilateral, no rhonchi, no rales, no accessory muscle use Abdominal: soft, nontender to palpation, no guarding Ext: muscle strength 5 out of 5 in all 4 extremities grossly, right foot dressing in place Neuro: CN II-XI grossly intact, no gross focal neuro deficits Psych: Alert, oriented, appropriate affect Assessment and Plan: Active: #Sepsis, present on admission, secondary to right diabetic foot infection with failure of outpatient treatment, resolved #Diabetes mellitus, type II uncontrolled hyperglycemia #Leukocytosis secondary to above, resolved Continue with vancomycin 2 g IVPB every 16 hour, Rocephin 2 g IVPB every 24 calderon rs, Flagyl 500 mg p.o. 3 times daily Vascular surgery and infectious disease on board, appreciate recs Continue monitor vital signs blood and wound cultures are pending c/w Lantus insulin regimen with 45 units in a.m. and 40 units at bedtime c/w sliding scale insulin Monitor for hypoglycemia Venous Doppler ultrasound of right lower extremity is negative Chronic: Hypertension, GERD, hyperlipidemia, anxiety, depression, peripheral neuropathy Resume home medications DVT prophylaxis: SCDs GI prophylaxis: Protonix 40 mg p.o. twice daily Objective - Vital Signs Vital signs: Vital Signs Temp 97.8 F 12/26/24 06:50 Pulse 91 12/26/24 06:50 Resp 16 12/26/24 06:50 BP 150/97 12/26/24 06:50 Pulse Ox 99 12/26/24 06:50 FiO2 Intake & Output 12/25/24 12/26/24 12/26/24 18:59 06:59 18:59 Intake Total 600 1650 Balance 600 1650 Intake: Oral 600 1650 Other: Voiding Method Toilet Toilet # Voids 4 8 - Labs CBC & Chem 7: 12/26/24 03:05 12/26/24 03:05 Labs: Abnormal Lab Results - Last 24 Hours (Table) 12/25/24 12/25/24 12/25/24 Range/Units 12:17 17:04 20:19 POC Glucose (mg/dL) 155 H 216 H 232 H (70-110) mg/dL 12/26/24 Range/Units 06:23 POC Glucose (mg/dL) 138 H (70-110) mg/dL Microbiology - Last 24 Hours (Table) 12/20/24 15:30 Blood Culture - Final Blood 12/20/24 15:55 Blood Culture - Final Blood 12/21/24 12:11 Anaerobic Culture - Final Foot - Right
--- NOTE | 2024-12-26 14:17 | P.PN ---
Subjective Progress Note Date: 12/26/24 Principal diagnosis: Reason for follow-up is right diabetic foot infection and osteomyelitis Patient is a 39-year-old female with a past medical history significant for diabetes mellitus hypertension hyperlipidemia patient is status post right first and second amputation for diabetic foot infection with a last culture positive for MSSA Klebsiella and anaerobes patient did get a PICC line and was advised 6 week course of IV Rocephin and oral Flagyl, patient stated noncompliant with his oral Flagyl IV admitted to hospital with worsening cellulitis On today's evaluation that is 12/26/2024, Patient is afebrile patient is currently on room air and denies having any shortness of breath, the patient denies any chest pain or cough, the patient denies any nausea vomiting did not have any abdominal pain and no diarrhea or worsening pain in the right foot Local culture finalized with Corynebacterium Objective - Vital Signs Vital signs: Vital Signs Temp 97.8 F 12/26/24 06:50 Pulse 91 12/26/24 09:00 Resp 16 12/26/24 09:00 BP 150/97 12/26/24 06:50 Pulse Ox 99 12/26/24 06:50 FiO2 Intake & Output 12/25/24 12/26/24 12/26/24 18:59 06:59 18:59 Intake Total 600 1650 Balance 600 1650 Intake: Oral 600 1650 Other: Voiding Method Toilet Toilet Toilet # Voids 4 8 1 - Exam GENERAL DESCRIPTION: Middle-age female lying in bed in no distress RESPIRATORY SYSTEM: Unlabored breathing , decreased breath sounds at bases HEART: S1 S2 regular rate and rhythm , ABDOMEN: Soft , no tenderness EXTREMITIES: Right foot is currently dressed no drainage - Labs CBC & Chem 7: 12/26/24 03:05 12/26/24 03:05 Labs: Abnormal Lab Results - Last 24 Hours (Table) 12/25/24 12/25/24 12/25/24 Range/Units 12:17 17:04 20:19 RBC (4.10-5.20) X 10*6/uL Hgb (12.0-15.0) g/dL Hct (37.2-46.3) % MCH (27.0-32.0) pg Plt Count (140-440) X 10*3/uL MPV (9.5-12.2) FL POC Glucose (mg/dL) 155 H 216 H 232 H (70-110) mg/dL 12/26/24 12/26/24 Range/Units 03:05 06:23 RBC 3.84 L (4.10-5.20) X 10*6/uL Hgb 10.3 L (12.0-15.0) g/dL Hct 32.2 L (37.2-46.3) % MCH 26.8 L (27.0-32.0) pg Plt Count 449 H (140-440) X 10*3/uL MPV 9.4 L (9.5-12.2) FL POC Glucose (mg/dL) 138 H (70-110) mg/dL Microbiology - Last 24 Hours (Table) 12/20/24 15:30 Blood Culture - Final Blood 12/20/24 15:55 Blood Culture - Final Blood 12/21/24 12:11 Anaerobic Culture - Final Foot - Right Assessment and Plan (1) Foot osteomyelitis, right Current Visit: Yes Status: Acute Code(s): M86.9 - OSTEOMYELITIS, UNSPECIFIED SNOMED Code(s): 5315102722713884 (2) Cellulitis of right foot Current Visit: No Status: Acute Code(s): L03.115 - CELLULITIS OF RIGHT LOWER LIMB SNOMED Code(s): 06021369842162094 (3) Diabetic foot ulcer Current Visit: No Status: Acute Code(s): E11.621 - TYPE 2 DIABETES MELLITUS WITH FOOT ULCER; L97.509 - NON-PRESSURE CHRONIC ULCER OTH PRT UNSP FOOT W UNSP SEVERITY SNOMED Code(s): 432263046 Plan: 1patient with a right diabetic foot ulcer post ablation of the right first and second toe and concern for underlying osteomyelitis previous culture positive for Klebsiella that was resistant to Unasyn and MSSA along with anaerobes and the patient supposed to be on IV Rocephin and oral Flagyl she mention she was taking in the IV Rocephin but are very clear about the oral antibiotic more likely dealing with a noncompliance with antibiotic therapy and the surgeon has been concerned about patient continued use of the right foot leading to worsening wound infection and cellulitis 2local culture have been obtained which are currently growing corynebacterium with a question of skin contaminant versus pathogen 3keeping in mind patient develop cellulitis while on Rocephin Flagyl will advise vancomycin pharmacy to dose in addition to the Rocephin on discharge x 4 weeks and close outpatient follow-up Dictation was produced using [employer] dictation software. please excuse any grammatical, word or spelling errors. Time with Patient: Less than 30
[2024-12-26 16:51] LABS: Glucose,Whole Blood 209 mg/dL (70-110)
[2024-12-26 21:00] LABS: Glucose,Whole Blood 222 mg/dL (70-110)
[2024-12-27 02:33] VITALS: RESP 16
[2024-12-27 06:27] LABS: Glucose,Whole Blood 340 mg/dL (70-110)
[2024-12-27 07:14] LABS: African American GFR (CKD) 78 (>60 ml/min/1.73 sqM); Non-African American GFR(CKD) 68 (>60 ml/min/1.73 sqM)
[2024-12-27 08:21] VITALS: TEMP 98.1
[2024-12-27] MEDS: VANCOMYCIN TROUGH DUE 1 EACH MISC MISCELLANE ONE (10:53)
[2024-12-27 12:16] LABS: Glucose,Whole Blood 155 mg/dL (70-110)
--- NOTE | 2024-12-27 12:29 | P.PN ---
Subjective Progress Note Date: 12/27/24 Principal diagnosis: Reason for follow-up is right diabetic foot infection and osteomyelitis Patient is a 39-year-old female with a past medical history significant for diabetes mellitus hypertension hyperlipidemia patient is status post right first and second amputation for diabetic foot infection with a last culture positive for MSSA Klebsiella and anaerobes patient did get a PICC line and was advised 6 week course of IV Rocephin and oral Flagyl, patient stated noncompliant with his oral Flagyl IV admitted to hospital with worsening cellulitis On today's evaluation that is 12/27/2024, patient has been afebrile, patient is breathing comfortably and is currently on room air, patient denies having any chest pain and cough, patient denies nausea vomiting or diarrhea and no abdominal pain pain to the right foot is currently controlled. Patient Vanco trough is 16.6 creatinine 1.04 Objective - Vital Signs Vital signs: Vital Signs Temp 98.1 F 12/27/24 07:05 Pulse 101 H 12/27/24 07:05 Resp 16 12/27/24 07:05 BP 151/94 12/27/24 07:05 Pulse Ox 97 12/27/24 07:05 FiO2 Intake & Output 12/26/24 12/27/24 12/27/24 18:59 06:59 18:59 Intake Total 450 500 Balance 450 500 Intake: Intake, IV Titration 500 Amount Vancomycin 2,000 mg In 500 Sodium Chloride 0.9% 500 ml 500 ml @ 167 mls/hr IVPB Q16H TRISTEN Rx#: [id number] Oral 450 Other: Voiding Method Toilet # Voids 2 3 - Exam GENERAL DESCRIPTION: Middle-age female lying in bed in no distress RESPIRATORY SYSTEM: Unlabored breathing , decreased breath sounds at bases HEART: S1 S2 regular rate and rhythm , ABDOMEN: Soft , no tenderness EXTREMITIES: Right foot is currently dressed no drainage - Labs CBC & Chem 7: 12/26/24 03:05 12/27/24 06:37 Labs: Abnormal Lab Results - Last 24 Hours (Table) 12/26/24 12/26/24 12/26/24 Range/Units 03:05 03:05 16:50 RBC 3.84 L (4.10-5.20) X 10*6/uL Hgb 10.3 L (12.0-15.0) g/dL Hct 32.2 L (37.2-46.3) % MCH 26.8 L (27.0-32.0) pg Plt Count 449 H (140-440) X 10*3/uL MPV 9.4 L (9.5-12.2) FL BUN/Creatinine Ratio 24.75 H (12.00-20.00) Ratio Glucose 153 H (70-110) mg/dL POC Glucose (mg/dL) 209 H (70-110) mg/dL Calcium 8.5 L (8.7-10.3) mg/dL 12/26/24 12/27/24 Range/Units 20:59 06:26 RBC (4.10-5.20) X 10*6/uL Hgb (12.0-15.0) g/dL Hct (37.2-46.3) % MCH (27.0-32.0) pg Plt Count (140-440) X 10*3/uL MPV (9.5-12.2) FL BUN/Creatinine Ratio (12.00-20.00) Ratio Glucose (70-110) mg/dL POC Glucose (mg/dL) 222 H 340 H (70-110) mg/dL Calcium (8.7-10.3) mg/dL Microbiology - Last 24 Hours (Table) 12/21/24 12:11 Gram Stain - Final Foot - Right Wound Culture - Final Corynebacterium species Assessment and Plan (1) Foot osteomyelitis, right Current Visit: Yes Status: Acute Code(s): M86.9 - OSTEOMYELITIS, UNSPECIFIED SNOMED Code(s): 9048666740788987 (2) Cellulitis of right foot Current Visit: No Status: Acute Code(s): L03.115 - CELLULITIS OF RIGHT LOWER LIMB SNOMED Code(s): 41648406622260694 (3) Diabetic foot ulcer Current Visit: No Status: Acute Code(s): E11.621 - TYPE 2 DIABETES MELLITUS WITH FOOT ULCER; L97.509 - NON-PRESSURE CHRONIC ULCER OTH PRT UNSP FOOT W UNSP SEVERITY SNOMED Code(s): 651891322 Plan: 1patient with a right diabetic foot ulcer post ablation of the right first and second toe and concern for underlying osteomyelitis previous culture positive for Klebsiella that was resistant to Unasyn and MSSA along with anaerobes and the patient supposed to be on IV Rocephin and oral Flagyl she mention she was taking in the IV Rocephin but are very clear about the oral antibiotic more likely dealing with a noncompliance with antibiotic therapy and the surgeon has been concerned about patient continued use of the right foot leading to worsening wound infection and cellulitis 2local culture have been obtained which are currently growing corynebacterium with a question of skin contaminant versus pathogen 3patient has been advised for a course of vancomycin pharmacy to dose Rocephin and Flagyl prescription was provided to the case manager specialist and care discussed with the resident physician patient have instructed to follow-up in the office Dictation was produced using [employer] dictation software. please excuse any grammatical, word or spelling errors.
[2024-12-27 15:40] VITALS: BP 147/86; PULSE 94
--- NOTE | 2024-12-27 15:48 | P.PN ---
Progress Note - Text 39-year-old diabetic female patient had a big toe and second toe ray amputation in the past patient has been readmitted for local wound care and IV antibiotic patient will have antibiotic and care infectious disease was changed today we will use Santyl cream which be continued if patient goes home with follow-up in the wound clinic on Friday
[2024-12-27 16:15] VITALS: BMI 48.4
--- NOTE | 2024-12-27 19:55 | P.DS ---
Providers Date of admission: 12/20/24 17:27 Expected date of discharge: 12/27/24 Attending physician: Gwendolyn Forrest Consults: 12/20/24 17:41 Consult Physician Urgent Consulting Provider: Sonny Kuo Consult Reason/Comments: Right foot osteomyelitis Do you want consulting provider notified?: Yes Consult Physician Urgent Consulting Provider: Yakov Tomlin Consult Reason/Comments: Right foot osteomyelitis Do you want consulting provider notified?: Yes Primary care physician: Jordon Plunkett MD Hospital Course: Discharge diagnoses; #Sepsis, present on admission, secondary to right diabetic foot infection with failure of outpatient treatment, resolved #Diabetes mellitus, type II uncontrolled hyperglycemia #Leukocytosis secondary to above, resolved Chronic Hypertension, GERD, hyperlipidemia, anxiety, depression, peripheral neuropathy Resume home medications Hospital Course: Patient is a 39-year-old female with a history of right diabetic foot infection 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 On her previous admission wound cultures grew Klebsiella oxytoca and MSSA. Patient was discharged with PICC line and IV Rocephin and was supposed to be following up with Dr. Kuo at the wound care center. Patient follow-up with Dr. Kuo at the wound care center every Friday and she was sent to the ER yesterday for possible gangrene/cellulitis. Patient reports that right foot and leg has been progressively getting more painful associated nausea, vomiting, fever, chills over the past 2 days. Initial laboratory evaluation in the ED showed WBC 13.0, hemoglobin 11.0, platelet count 410, sodium 136, potassium 4.2, BUN 14, creatinine 0.72, glucose 126, plasma lactic acid 1.9, X-ray of the right foot show postsurgical changes of the first and second digits with osseous erosion at the amputation site of the distal metatarsals suggestive of osteomyelitis. Vital signs on arrival show temperature of 98.4 F, pulse rate of 109, respirate of 20, blood pressure 130/79, oxygen saturation 97% on room air. Patient left AMA while awaiting discharge in the morning to home. Patient is to begin Flagyl 500 mg 3 times daily, IV vancomycin, Zestoretic. She is also to continue her home meds including IV Rocephin 2 g daily. She will need close follow-up with her PCP, infectious disease physician, wound care, infusion services. Physical examination: Vital signs reviewed General: non toxic, no distress, appears at stated age, morbidly obese Derm: Right foot is wrapped in dressing. No surrounding erythema but there is a mild swelling associated with pain upon palpation Head: atraumatic, normocephalic, symmetric Eyes: EOMI, no lid lag, anicteric sclera, pupils equal round reactive to light ENT: Nose and ears atraumatic Neck: No cervical lymphadenopathy, trachea midline, supple Mouth: no lip lesion, mucus membranes moist Cardiovascular: S1S2 reg, no murmur, Lungs: CTA bilateral, no rhonchi, no rales, no accessory muscle use Abdominal: soft, nontender to palpation, no guarding Ext: muscle strength 5 out of 5 in all 4 extremities grossly, right foot dressing in place Neuro: CN II-XI grossly intact, no gross focal neuro deficits Psych: Alert, oriented, appropriate affect Dictation was produced using [employer] dictation software. please excuse any grammatical, word or spelling errors. Patient Condition at Discharge: Stable Plan - Discharge Summary Discharge Rx Participant: No New Discharge Prescriptions: New metroNIDAZOLE [Flagyl] 500 mg PO TID #90 tab Vancomycin HCl in 5 % Dextrose [Vancomycin 1.5 Gram/300 ml-D5w] 1.5 gm IV BID #56 each Lisinopril-Hctz 20-25 mg [Zestoretic 20-25] 2 each PO DAILY #30 tab Continue clonazePAM [KlonoPIN] 0.5 mg PO DAILY PRN PRN Reason: Anxiety hydrOXYzine pamoate [Vistaril] 50 mg PO BID Atorvastatin [Lipitor] 10 mg PO HS Ondansetron Odt [Zofran ODT] 4 mg PO Q4H PRN PRN Reason: Nausea ARIPiprazole [Abilify] 15 mg PO HS Insulin Glargine,Hum.rec.anlog [Lantus Solostar Pen] 45 units SQ DAILY Insulin Lispro [humaLOG Kwikpen] 10 units SQ AC-BRKFST DULoxetine HCL [Cymbalta] 120 mg PO DAILY Omeprazole 20 mg PO BID Gabapentin 600 mg PO TID metFORMIN HCL 1,000 mg PO BID Ibuprofen [Motrin] 400 mg PO Q6HR PRN tab PRN Reason: Mild Pain Or Fever > 100.5 Promethazine Suppository [Phenergan] 25 mg RECTAL Q6H PRN PRN Reason: Nausea cefTRIAXone [Rocephin] 2 gm IVPB Q24HR each Insulin Glargine,Hum.rec.anlog [Lantus Solostar Pen] 40 units SQ HS Discontinued lisinopriL [Prinivil] 20 mg PO DAILY Discharge Medication List clonazePAM [KlonoPIN] 0.5 mg PO DAILY PRN 01/12/24 [History] DULoxetine HCL [Cymbalta] 120 mg PO DAILY 10/05/24 [History] Atorvastatin [Lipitor] 10 mg PO HS 11/25/24 [History] Gabapentin 600 mg PO TID 11/25/24 [History] Omeprazole 20 mg PO BID 11/25/24 [History] hydrOXYzine pamoate [Vistaril] 50 mg PO BID 11/25/24 [History] metFORMIN HCL 1,000 mg PO BID 11/25/24 [History] Ibuprofen [Motrin] 400 mg PO Q6HR PRN tab 11/30/24 [Rx] Ondansetron Odt [Zofran ODT] 4 mg PO Q4H PRN 12/02/24 [History] Promethazine Suppository [Phenergan] 25 mg RECTAL Q6H PRN 12/02/24 [History] cefTRIAXone [Rocephin] 2 gm IVPB Q24HR each 12/03/24 [Rx] ARIPiprazole [Abilify] 15 mg PO HS 12/20/24 [History] Insulin Glargine,Hum.rec.anlog [Lantus Solostar Pen] 40 units SQ HS 12/20/24 [History] Insulin Glargine,Hum.rec.anlog [Lantus Solostar Pen] 45 units SQ DAILY 12/20/24 [History] Insulin Lispro [humaLOG Kwikpen] 10 units SQ AC-BRKFST 12/20/24 [History] Lisinopril-Hctz 20-25 mg [Zestoretic 20-25] 2 each PO DAILY #30 tab 12/27/24 [Rx] Vancomycin HCl in 5 % Dextrose [Vancomycin 1.5 Gram/300 ml-D5w] 1.5 gm IV BID #56 each 12/27/24 [Rx] metroNIDAZOLE [Flagyl] 500 mg PO TID #90 tab 12/27/24 [Rx] Follow up Appointment(s)/Referral(s): [facility], [NON-STAFF] - As Needed Jordon Plunkett MD [Primary Care Provider] - 1-2 days Infusion Services,[facility] [REFERRING] - As Needed Wound Center,[facility] [NON-STAFF] - 01/03/25 2:30 pm Sonny Kuo MD [STAFF PHYSICIAN] - 1 Week Yakov Tomlin MD [STAFF PHYSICIAN] - 1 Week Discharge Disposition: LEFT AGAINST MEDICAL ADVICE
== END 2024-12-27 16:46 | disposition left against medical advice (07) | DRG 720 ==
LOC: EC 15:03 → 4SSUR 17:27
PROVIDERS: ADMIT Internal Medicine; ATTEND Internal Medicine
DX: A41.9 Sepsis, unspecified organism (principal); E11.52 Type 2 diabetes mellitus with diabetic peripheral angiopathy with gangrene; E11.65 Type 2 diabetes mellitus with hyperglycemia; I96 Gangrene, not elsewhere classified; E11.628 Type 2 diabetes mellitus with other skin complications; E11.69 Type 2 diabetes mellitus with other specified complication; E11.621 Type 2 diabetes mellitus with foot ulcer; E11.40 Type 2 diabetes mellitus with diabetic neuropathy, unspecified; E78.5 Hyperlipidemia, unspecified; F17.200 Nicotine dependence, unspecified, uncomplicated; F32.A Depression, unspecified; F41.9 Anxiety disorder, unspecified; T37.3X6A Underdosing of other antiprotozoal drugs, initial encounter; E66.9 Obesity, unspecified; M86.9 Osteomyelitis, unspecified; Z68.42 Body mass index [BMI] 45.0-49.9, adult; F43.10 Post-traumatic stress disorder, unspecified; I10 Essential (primary) hypertension; K21.9 Gastro-esophageal reflux disease without esophagitis; L03.115 Cellulitis of right lower limb; Z53.29 Procedure and treatment not carried out because of patient's decision for other reasons; Z71.3 Dietary counseling and surveillance; Z79.84 Long term (current) use of oral hypoglycemic drugs; Z79.4 Long term (current) use of insulin; Z79.899 Other long term (current) drug therapy; Z91.128 Patient's intentional underdosing of medication regimen for other reason; Z89.411 Acquired absence of right great toe; Z89.421 Acquired absence of other right toe(s); Z91.51 Personal history of suicidal behavior
CPT/HCPCS: 36415; 80048; 80053; 80202; 81025; 82565; 83036; 83605; 85025; 86140; 87040; 87070; 87075; 87205; 96361; 96365; 96368; 96375; 99291